=== PATIENT | male | born 1960 | race Caucasian/White ===

== ENCOUNTER 2016-05-08 03:49 | Inpatient (IN) | payer OTHER ==
[2016-05-08 04:45] LABS: Add Diff/Slide Review? Slide Review Added; Comments Flag Yes; Hematocrit 23 % (42-52); Hemoglobin 7.2 g/dl (14.0-18.0); Mean Corpuscular HGB Conc 31 g/dl (31-36); Mean Corpuscular Hemoglobin 24 pg (27-31); Mean Corpuscular Volume 78 fL (80-94); Mean Platelet Volume 10 um3 (7.4-10.4); Red Blood Count 2.99 10^6/ul (4.0-5.4); Red Cell Distribution Width 18 % (10.5-15); White Blood Count 14.2 10^3/ul (3.5-10.8)
[2016-05-08] MEDS ORDERED: HYDROmorphone INJ* 1 MG/ML CARPUJECT SYRINGE ONE (04:52)
[2016-05-08 04:55] LABS: ALT 12 U/L (7-52); Albumin 2.7 g/dL (3.2-5.2); Alkaline Phosphatase 87 U/L (34-104); BUN/Creatinine Ratio 18.2 (8-20); Blood Urea Nitrogen 22 mg/dL (6-24); CO2 Carbon Dioxide 21 mmol/L (22-32); Calcium 7.8 mg/dL (8.6-10.3); Chloride 109 mmol/L (101-111); Creatine Kinase 89 U/L (10-223); EGFR African American 80.1 (>60); EGFR Non-African American 62.3 (>60); Globulin 4.7 g/dL (2-4); Glucose 104 mg/dL (70-100); Sodium 135 mmol/L (133-145); Total Protein 7.4 g/dL (6.4-8.9)
[2016-05-08 05:21] LABS: Hematocrit 24 % (42-52); Hemoglobin 7.4 g/dl (14.0-18.0); Mean Corpuscular HGB Conc 31 g/dl (31-36); Mean Corpuscular Hemoglobin 24 pg (27-31); Mean Corpuscular Volume 78 fL (80-94); Mean Platelet Volume 9 um3 (7.4-10.4); Red Blood Count 3.02 10^6/ul (4.0-5.4); Red Cell Distribution Width 18 % (10.5-15)
[2016-05-08 05:26] LABS: Comments Flag Yes
[2016-05-08] MEDS ORDERED: HYDROmorphone INJ* 1 MG/ML CARPUJECT SYRINGE IV SLOW PU ONE (05:27)
[2016-05-08 05:28] LABS: Add Diff/Slide Review? Slide Review Added
--- NOTE | 2016-05-08 05:28 | ED ---
Estrada Perry Billy, scribed for Abilio Chavez MD on 05/08/16 at 0411 . Skin Complaint - HPI Summary HPI Summary: Patient is a 56 year-old male BIBA to [facility] with constant, [id number], bilateral heel pain and rectal pain. Severity 12/30. Patient states that he has numerous purulent sores on his rectal region and lower extremities that are sloughing off skin. Nothing has made his symptoms better/worse. He arrives to the ED today with numerous bedbugs on his body and under his lower extremity wound dressings. He states he last saw his PCP 2 weeks ago. - History of Current Complaint Chief Complaint: EDRashSkinAbscess Time Seen by Provider: 05/08/16 03:53 Onset/Duration: Started Days Ago, Still Present Timing: Constant Onset Severity: Moderate Current Severity: Moderate Pain Intensity: 10 Pain Scale Used: 0-10 Numeric Skin Location: Leg, Other: - rectal region Character: Pain Aggravating Symptom(s): Nothing Alleviating Symptom(s): Nothing - Additional Pertinent History Primary Care Physician: COSME - Allergy/Home Medications Allergies/Adverse Reactions: Allergies Allergy/AdvReac Type Severity Reaction Status Date / Time Pioglitazone [From Actos] AdvReac Coughing Verified 09/10/15 18:55 PMH/Surg Hx/FS Hx/Imm Hx Endocrine/Hematology History: Reports: Hx Diabetes - DM II, Hx Thyroid Disease - hypothyroid Cardiovascular History: Reports: Hx Hypercholesterolemia - Crestor, Hx Hypertension, Hx Peripheral Vascular Disease - chronic venous stasis, Hx Syncope Respiratory History: Reports: Hx Chronic Bronchitis, Hx Sleep Apnea GI History: Reports: Hx Gastroesophageal Reflux Disease, Hx Hiatal Hernia, Other GI Disorders - gastric bypass surgery november-2012 History: Reports: Hx Benign Prostatic Hyperplasia, Hx Kidney Stones, Other Problems/Disorders - "slow peeing" seen by urologist-prescribed meds Musculoskeletal History: Reports: Hx Arthritis, Hx Back Problems, Hx Fibromyalgia, Hx Orthopedic Injury - right thumb, dislocation of left knee, Hx Osteoporosis, Other Musculoskeletal History - left hip surgery Sensory History: Reports: Hx Contacts or Glasses - to read Opthamlomology History: Reports: Hx Contacts or Glasses - to read Neurological History: Reports: Other Neuro Impairments/Disorders - SYNCOPE Denies: Hx Dementia, Hx Developmental Delay, Hx Headaches Psychiatric History: Reports: Hx Anxiety, Hx Depression, Hx Inpatient Treatment - 2007 Denies: Hx Bipolar Disorder - patient states depression, but not bipoar - Surgical History Surgery Procedure, Year, and Place: Mytosis left eye surgical correction; Tonsillectomy; Right Knee Arthroscopic Surgery; Left Hip Replacement at [facility] 12/12/13; Gastro Bypass 12/14/12 [facility] Hx Anesthesia Reactions: No Infectious Disease History: No Infectious Disease History: Denies: Hx Clostridium Difficile, Hx Hepatitis, Hx Human Immunodeficiency Virus (HIV), Hx of Known/Suspected MRSA, Hx Shingles, Hx Tuberculosis, Hx Known/ Suspected VRE, Hx Known/Suspected VRSA, History Other Infectious Disease, Traveled Outside the [place] in Last 30 Days - Family History Known Family History: Positive: Cardiac Disease - Father - CAD, Diabetes - Son - - DM, Other - Mother - CVA. Father - EtOH abuse and CAD. Son -- testicular CA and DM - Social History Alcohol Use: Rare Hx Substance Use: No Substance Use Type: Reports: None Hx Tobacco Use: Yes Smoking Status (MU): Former Smoker Review of Systems Positive: Other - bilateral lower extremity and rectal pain Positive: Other - purulent sores All Other Systems Reviewed And Are Negative: Yes Physical Exam Triage Information Reviewed: Yes Vital Signs On Initial Exam: Initial Vitals Temp Pulse Resp BP Pulse Ox 97.7 F 110 24 98/64 97 05/08/16 03:57 05/08/16 03:57 05/08/16 03:57 05/08/16 03:57 05/08/16 03:57 Vital Signs Reviewed: Yes Appearance: Positive: Ill-Appearing - chronically, Obese - morbidly Skin: Positive: Warm, Other - bed bugs present Head/Face: Positive: Normal Head/Face Inspection Eyes: Positive: YE ENT: Positive: Hearing grossly normal Respiratory/Lung Sounds: Positive: Breath Sounds Present Cardiovascular: Positive: RRR Abdomen Description: Positive: Nontender, Soft Musculoskeletal: Positive: Edema Left, Edema Right - bilat 4+edema with chronic cellulitis and stasis dermatitis Neurological: Positive: Alert, Oriented to Person Place, Time Diagnostics - Vital Signs Vital Signs Temp Pulse Resp BP Pulse Ox 05/08/16 03:57 97.7 F 110 24 98/64 97 - Laboratory Lab Results: Lab Results 02/16/17 02/16/17 02/16/17 Range/Units 04:28 04:28 04:28 WBC 14.2 H (3.5-10.8) 10^3/ul RBC 2.99 L (4.0-5.4) 10^6/ul Hgb 7.2 L (14.0-18.0) g/dl Hct 23 L (42-52) % MCV 78 L (80-94) fL MCH 24 L (27-31) pg MCHC 31 (31-36) g/dl RDW 18 H (10.5-15) % Plt Count 297 (150-450) 10^3/ul MPV 10 (7.4-10.4) um3 Neut % (Auto) 60.4 (38-83) % Lymph % (Auto) 12.4 L (25-47) % [place] % (Auto) 6.3 (1-9) % Eos % (Auto) 19.8 H (0-6) % Baso % (Auto) 1.1 (0-2) % Absolute Neuts (auto) 8.6 H (1.5-7.7) 10^3/ul Absolute Lymphs (auto) 1.8 (1.0-4.8) 10^3/ul Absolute Monos (auto) 0.9 H (0-0.8) 10^3/ul Absolute Eos (auto) 2.8 H (0-0.6) 10^3/ul Absolute Basos (auto) 0.2 (0-0.2) 10^3/ul Absolute Nucleated RBC 0.01 10^3/ul Nucleated RBC % 0.1 Sodium 135 (133-145) mmol/L Potassium TNP Chloride 109 (101-111) mmol/L Carbon Dioxide 21 L (22-32) mmol/L Anion Gap TNP BUN 22 (6-24) mg/dL Creatinine 1.21 H (0.67-1.17) mg/dL Est GFR ( Amer) 80.1 (>60) Est GFR (Non-Af Amer) 62.3 (>60) BUN/Creatinine Ratio 18.2 (8-20) Glucose 104 H (70-100) mg/dL Lactic Acid 1.0 (0.5-2.0) mmol/L Calcium 7.8 L (8.6-10.3) mg/dL Magnesium TNP Total Bilirubin 0.20 (0.2-1.0) mg/dL AST TNP ALT 12 (7-52) U/L Alkaline Phosphatase 87 (34-104) U/L Total Creatine Kinase 89 (10-223) U/L Total Protein 7.4 (6.4-8.9) g/dL Albumin 2.7 L (3.2-5.2) g/dL Globulin 4.7 H (2-4) g/dL Albumin/Globulin Ratio 0.6 L (1-3) Result Diagrams: 05/08/16 05:10 05/08/16 05:10 Lab Statement: Any lab studies that have been ordered have been reviewed, and results considered in the medical decision making process. - Radiology CXR Xray Interpretation: No Acute Changes Radiology Interpretation Completed By: ED Physician Course/Dx - Diagnoses Provider Diagnoses: Cellulitis, Anemia - Physician Notifications Discussed Care Of Patient With: Dr. Fregoso (hospitalist) @ 0552: accepts admission. Discharge - Discharge Plan Condition: Fair Disposition: ADMITTED TO [facility] Referrals: Edgar Samayoa MD [Primary Care Provider] - The documentation as recorded by the Estrada venegas Billy accurately reflects the service I personally performed and the decisions made by , Abilio Chavez MD.
[2016-05-08 05:57] LABS: Magnesium 2.1 mg/dL (1.9-2.7)
[2016-05-08] MEDS ORDERED: Dextrose 50% Syringe 50 ML* 25 GM/50 ML SYRINGE IV PUSH PRN (06:37)
[2016-05-08] MEDS ORDERED: Acetaminophen SUPP* 650 MG SUPP PR PRN (06:40)
[2016-05-08] MEDS ORDERED: ceFAZolin 1 GM in Dextrose (*) 1 GM/50 ML BAG IVPB SCH (07:00)
[2016-05-08] MEDS ORDERED: Albuterol HFA INHALER* 8 gm MDI INH PRN (07:56)
--- NOTE | 2016-05-08 07:59 | RAD ---
HISTORY: Shortness of breath COMPARISONS: September 10, 2015 VIEWS: 2: Frontal dual-energy and lateral views of the chest. FINDINGS: CARDIOMEDIASTINAL SILHOUETTE: The cardiomediastinal silhouette is normal. MAYO: The mayo are normal. PLEURA: The costophrenic angles are sharp. No pleural abnormalities are noted. LUNG PARENCHYMA: There is hyperinflation with flattening of the diaphragm and expansion of the AP diameter of the chest. ABDOMEN: The upper abdomen is clear. There is no subphrenic gas. BONES AND SOFT TISSUES: No bone or soft tissue abnormalities are noted. OTHER: None. IMPRESSION: HYPERINFLATION, CONSISTENT WITH COPD. NO ACTIVE CARDIOPULMONARY DISEASE.
[2016-05-08] MEDS ORDERED: ceFAZolin 1 GM in Dextrose (*) 1 GM/50 ML BAG IVPB ONE (08:18)
[2016-05-08 08:44] LABS: C Reactive Protein 30.73 mg/L (< 5.00)
[2016-05-08] MEDS ORDERED: FLUoxetine CAP* 20 MG PO SCH (09:00)
[2016-05-08] MEDS ORDERED: Losartan TAB* 25 MG PO SCH (09:00)
[2016-05-08] MEDS ORDERED: fentaNYL PATCH 25 MCG/HR TRANSDERM SCH (10:00)
[2016-05-08] MEDS: Insulin LISPRO* 1 UNITS UNIT SUBCUT SCH ×4 (10:32→20:51)
[2016-05-08 11:07] LABS: Total Iron Binding Capacity 312 mcg/dL (250-450); Transferrin 223 mg/dL (203-362)
[2016-05-08 11:11] LABS: Iron < 15 ug/dL (50-212)
[2016-05-08] MEDS: Tamsulosin CAP* 0.4 MG PO SCH (11:18)
[2016-05-08] MEDS: Losartan TAB* 25 MG PO SCH (11:18)
[2016-05-08] MEDS: Omeprazole CAP* 20 MG PO SCH (11:18)
[2016-05-08] MEDS: Atorvastatin* 40 MG TAB PO SCH (11:19)
[2016-05-08] MEDS: Calcium/Vitamin D TAB 250/125* TAB PO SCH (11:19)
[2016-05-08] MEDS: Levothyroxine TAB* 75 MCG TAB PO SCH (11:19)
[2016-05-08] MEDS: tiZANidine TAB* 2 MG PO PRN ×2 (11:19→17:31)
[2016-05-08] MEDS: Finasteride TAB* 5 MG PO SCH (11:20)
[2016-05-08] MEDS: Sertraline* 100 MG TAB PO SCH (11:20)
[2016-05-08] MEDS: Docusate CAP* 100 MG PO SCH (11:20)
[2016-05-08] MEDS: oxyCODONE TAB* 5 MG TAB PO PRN ×2 (11:21→19:21)
[2016-05-08] MEDS: Pregabalin CAP(*) 50 MG PO SCH ×3 (11:21→20:49)
[2016-05-08 11:29] LABS: Ferritin 18.5 ng/mL (24-336)
[2016-05-08 11:33] LABS: Vitamin B12 1122 pg/mL (180-914)
[2016-05-08] MEDS ORDERED: Perflutren Lipid Microsphere* 1.1 MG/ML VIAL IV ONE (12:00)
[2016-05-08] MEDS: Niacin ER TAB* 500 MG PO SCH (13:20)
[2016-05-08] MEDS: Heparin VIAL(*) 5000 UNITS/ML VIAL (FIVE THOUSAND) SUBCUT SCH ×2 (13:20→20:52)
--- NOTE | 2016-05-08 13:25 | ECHO ---
Patient: ASHUTOSH SIERRA [facility] Rec#: [id number] : 1960 Date: 05/08/2016 Age: 56y Height: 165.1 cm / 65.0 in Weight: 151.95 kg / 334.9 lbs Sex: M BSA: 2.46 Room#: 402 Admit Date#: 05/08/2016 Type: Inpatient Referring: Miguelina Garner DO Reading: Kaden Balderrama MD Physician Practice Manager: Sevtlana Dennis SARI CC: Edgar Samayoa MD Transthoracic Echocardiogram Indication: Anemia/Respiratory abn BP: 96/62 HR: 86 Rhythm: NSR Findings History: Cellulitis,anemia,morbid obesity,former smoker,skin ulcerations. Technical Comments: The study is technically limited due to poor apical windows. Completed at 1312. The study is technically limited due to patient body habitus. Left Ventricle: The left ventricular chamber size is normal. The left ventricle appears hyperdynamic. The estimated ejection fraction is greater than 65%. Normal left ventricular diastolic filling is observed. Left Atrium: The left atrial chamber size is normal. Right Ventricle: The right ventricle is slightly dilated. The right ventricular global systolic function is normal. Right Atrium: The right atrium is not well visualized. Aortic Valve: The aortic valve is trileaflet. There is no evidence of aortic regurgitation. There is no evidence of aortic stenosis. Mitral Valve: The mitral valve leaflets are mildly thickened. There is a trace of mitral regurgitation. There is no evidence of mitral stenosis. Tricuspid Valve: The tricuspid valve leaflets are normal. There is trace to mild tricuspid regurgitation. There is evidence that pulmonary hypertension may be underestimated. Pulmonic Valve: The pulmonic valve appears normal. There is trace to mild pulmonic regurgitation. There is no pulmonic stenosis. Pericardium: A pericardial fat pad is visualized. Aorta: There is no dilatation of the ascending aorta. There is no dilatation of the aortic arch. There is mild dilatation of the aortic root. Pulmonary Artery: The main pulmonary artery appears normal. Venous: The inferior vena cava is dilated. There is an approximate 50% respiratory change in the inferior vena cava dimension. Contrast: Definity was used to optimize study. The LV was not well visulaized with definity Conclusions The left ventricle appears hyperdynamic. The estimated ejection fraction is greater than 65%. No significant valvular disease: There is a trace of mitral regurgitation. There is trace to mild tricuspid regurgitation. The right ventricle is slightly dilated. The right ventricular global systolic function is normal. No reportso of prior studies offered for comparison. Measurements Name Value Normal Range RVIDd (AP) 2D 3.9 cm (0.9 - 2.6) IVSd (2D) 0.7 cm (0.6 - 1) LVPWd (2D) 1.1 cm (0.6 - 1) LVIDd (2D) 4.3 cm (3.6 - 5.4) LVIDs (2D) 3.1 cm - LV FS (2D) 28 % (25 - 45) Aortic Annulus 2.2 cm (1.4 - 2.6) Ao root diameter (2D) 3.6 cm (2.1 - 3.5) Ascending Ao 2.8 cm (2.1 - 3.4) Aortic arch 2.5 cm (1.8 - 3.4) Descending Ao 1.6 cm - LA dimension (AP) 2D 3.6 cm (2.3 - 3.8) Name Value Normal Range MV E-wave Vmax 1.1 m/sec - MV deceleration time 206 msec - MV A-wave Vmax 0.9 m/sec - MV E:A ratio 0.99 ratio - LV septal e' Vmax 0.09 m/sec - LV lateral e' Vmax 0.1 m/sec - LV E:e' septal ratio 12.22 ratio - LV E:e' lateral ratio 11 ratio - Name Value Normal Range AV Vmax 1.9 m/sec - AV VTI 43.5 cm - AV peak gradient 14.17 mmHg - AV mean gradient 8.75 mmHg - LVOT Vmax 1.5 m/sec - LVOT VTI 31.5 cm - LVOT peak gradient 8.59 mmHg - LVOT mean gradient 3.87 mmHg - Name Value Normal Range TR Vmax 2.7 m/sec - TR peak gradient 28 mmHg - RAP 8 mmHg - RVSP 36 mmHg - IVC diameter 2.3 cm - Name Value Normal Range PV Vmax 1.4 m/sec - PV peak gradient 8.08 mmHg -
[2016-05-08] MEDS: Morphine INJ* 4 MG/ML 1 ML CARPUJECT IV PRN ×2 (15:54→22:02)
[2016-05-08] MEDS: ceFAZolin 1 GM in Dextrose (*) 1 GM/50 ML BAG IVPB SCH ×2 (17:31→21:45)
[2016-05-08] MEDS: fentaNYL Patch Check Q Shift 1 NOTE SCH (19:16)
--- NOTE | 2016-05-08 19:17 | HP ---
HISTORY AND PHYSICAL: DATE OF ADMISSION: 05/08/16 PRIMARY CARE PROVIDER: Dr. Edgar Samayoa. CHIEF COMPLAINT: Bilateral leg pain. HISTORY OF PRESENT ILLNESS: Mr. Warner is a 55-year-old male with a history of chronic pain, morbid obesity, hyperlipidemia, obstructive sleep apnea, hypertension, depression and type 2 diabetes who presented to the emergency room with complaints of bilateral leg pain. The patient states that going on for several weeks now, he has had searing pain in his legs. He ultimately presented because the pain was uncontrollable at home. The patient states that in addition to this he has sores in his gluteal fold that are incredibly painful. He does state that he gets up and moves around, however he spends a lot of time sitting as well. The patient himself do not have concerns for infection in his legs but only wanted the pain treated. PAST MEDICAL HISTORY: 1. Chronic pain, seen by Dr. Seals. 2. Hyperlipidemia. 3. Depression. 4. Morbid obesity. 5. Obstructive sleep apnea. 6. Hypertension. 7. Hypothyroidism. PAST SURGICAL HISTORY: 1. Mohini-en-Y gastric bypass. 2. Left total hip arthroplasty. 3. Right knee arthroscopy. MEDICATIONS: 1. Oxycodone 10 mg p.o. q. 8 hours p.r.n. pain. 2. Tizanidine 4 mg p.o. t.i.d. p.r.n. spasm. 3. Flomax 0.4 mg p.o. daily. 4. Crestor 20 mg p.o. daily. 5. Lyrica 150 mg p.o. t.i.d. 6. Niacin ER 2000 mg p.o. daily. 7. Lidocaine patch applied topically daily, on for 12 hours and off for 12 hours as needed for pain. 8. Losartan 100 mg p.o. daily. 9. Linzess 145 mcg p.o. daily p.r.n. constipation. 10. Synthroid 75 mcg p.o. daily. 11. Finasteride 5 mg p.o. daily. 12. Prozac 60 mg p.o. daily. 13. Fentanyl patch 25 mcg topically q. 72 hours. 14. Colace 100 mg p.o. daily. 15. Calcium plus vitamin D one tab p.o. daily. 16. Trazodone 150 mg p.o. q.h.s. 17. Terbinafine 250 mg p.o. daily. 18. Albuterol 2 puffs inhaled q. 4 hours p.r.n. shortness of breath. 19. Abilify 10 mg p.o. q.h.s. 20. Nystatin cream apply topically t.i.d. to skin folds. 21. Lasix 40 mg p.o. daily. 22. Sertraline 100 mg p.o. daily. 23. Omeprazole 20 mg p.o. daily. ALLERGIES: ACTOS. FAMILY HISTORY: Mom had a history of CVA. Dad had a history of MT. SOCIAL HISTORY: The patient is a former smoker. He drinks beer on occasion. His surrogate decision maker is his son Mati. REVIEW OF SYSTEMS: The patient denies any fevers, chills, or anorexia. No significant weight change. No chest pain. No shortness of breath. No cough. No abdominal pain, nausea or vomiting. No change in bowel habits. No dysuria. He admits to the pain in the bilateral lower legs and feet currently, right worse than left. He also complains of sores in his bilateral gluteal folds. He states he has no issues ambulating. PHYSICAL EXAMINATION GENERAL: The patient is a well-developed, middle aged, morbidly obese, disheveled appearing male sitting up in a stretcher, in no acute distress. VITAL SIGNS: Blood pressure 96/62, pulse 92, respirations 22, temperature 97.7 , O2 sat 96% on room air. HEENT: Pupils are equal, they are round. Extraocular muscles are intact. Oropharynx is clear. Oral mucosa is moist. NECK: There is no submandibular, cervical or supraclavicular adenopathy. Thyroid is not enlarged. No thyroid nodules are noted. PULMONARY: Breath sounds are markedly decreased in all lung marion but are clear. CARDIAC: Normal S1, S2. Regular rate and rhythm. I do not appreciate any murmur. ABDOMEN: Bowel sounds are present. Abdomen is obese, soft, nontender, nondistended. EXTREMITIES: There is marked bilateral lower leg edema with weeping from the skin. MUSCULOSKELETAL: There is no cyanosis or clubbing of the digits. There is full active range of motion of the upper extremities. Lower extremity range of motion is limited due to the size of his lower extremities. NEUROLOGIC: Cranial nerves II through XII are grossly intact. Sensation is intact to light touch throughout. Strength is 5/5 and symmetric both upper and lower extremities bilaterally. SKIN: Warm and dry. There are numerous scabbed over type punctate lesions, scattered across the patient's body consistent with bites. There is diffuse erythema of the bilateral lower legs. There is a linear ulceration in the left gluteal fold. Smaller ulceration noted in the right gluteal fold with surrounding erythema. There is marked roz intertrigo under the breast folds with cheesy accumulation deep within the folds. There is a foul smell when the folds are inspected. PSYCH: The patient is alert. He is oriented x3. Affect appears appropriate. DIAGNOSTIC STUDIES/LAB DATA: WBC 14.0, hemoglobin 7.4, hematocrit 24, platelets 370. Sodium 135, potassium 4.3, chloride 109, CO2 of 21, BUN 22, creatinine 1.21, glucose 104. Lactic acid 1.0. Calcium 7.8, magnesium 2.1, bilirubin 0.2, AST 22, ALT 12, alkaline phos 87, CPK 89 and albumin 2.7. Chest x-ray: Hyperinflation consistent with COPD with no acute pulmonary process. ASSESSMENT AND PLAN: Mr. Warner is a 56-year-old male who has a longstanding history of morbid obesity, lymphedema of the lower extremities, bed bug infestation at home and chronic pain who presents to the emergency room with complaints of bilateral lower leg pain. In the ER, the patient is found to have numerous bed bug bites all over his body in addition to possible bilateral lower extremity cellulitis and gluteal fold ulcerations. 1. Bilateral lower extremity cellulitis. At this point, the patient's legs are beefy red. They are markedly swollen. They are somewhat weepy. There are no open ulcerations though there are blisters that have ruptured. The patient' s white blood cell count is elevated at 14 today. I will go ahead and add a CRP to compare to previous hospitalizations. Additionally, we will add a procalcitonin level. The patient will be started on cefazolin for treatment of possible bilateral lower extremity cellulitis. The patient appears questionably be able to take care of himself at home and maintain a cleanly living situation. A social work consult will be requested. At this point, I am not concerned about deeper infection in the legs, however if it becomes evident that there is possibly an abscess, CT scan of the lower extremities will be obtained. 2. Gluteal fold ulceration. This is likely from the patient sitting around at home. He had been applying nystatin cream to this area per outpatient progress note from his primary care provider. I will ask for a wound consultation. The patient will need to try to have pressure relieved from his area which will include him not lying on his backside or sitting for a prolonged period of time in the chair. The patient will benefit from aggressive bathing and skin care. 3. Anemia. The patient is newly markedly anemic. He has had chronic anemia, however his hemoglobin at this time is much lower than it has been over the last one year. Iron, B12, and folate studies will be obtained. Additionally, a stool guaiac will be obtained. I suspect his anemia is on the basis of chronic inflammation; however in the past he had been on ferrous sulfate supplementation. We will need to follow up these results. Followup CBC will be obtained tomorrow morning. 4. Acute kidney injury. The patient's creatinine is elevated above his baseline at 1.21. The patient has been on Lasix at home, however, appears to be edematous in his lower extremities. At this point, I will hold his Lasix and we will recheck a BMP in the morning. I am also going to hold off on IV fluid hydration if he does not appear to be volume deplete at this point. The patient has not had a transthoracic echocardiogram that I can tell within our system. I will go ahead and order this though likely the test will be of little value due to the patient's body habitus. 5. Moderate protein-calorie malnutrition. The patient's albumin level is low at 2.7. His globulin level is elevated. He does have some renal dysfunction as well as chronic anemia. The patient will have an SPEP ordered. 6. Chronic pain. The patient will be maintained on his usual dose of fentanyl patch 25 mcg topically q. 3 days as well as oxycodone 10 mg p.o. q. 8 hours. He will also have tizanidine ordered though this is not formulary. If the hospital is unable to provide this, I can change to a different antispasmodic. 7. Benign prostatic hyperplasia. The patient will be maintained on his usual doses of Flomax and finasteride. 8. Hyperlipidemia. The patient will be maintained on statin. He takes Crestor at home and this will be auto-substituted in the hospital. 9. Hypertension. The patient's blood pressure is low normal in the 90 systolic. I will cut his losartan dose to 50 mg daily for now. We will monitor his blood pressure. 10. Hypothyroidism. The patient will be maintained on his usual dose of Synthroid. He had a TSH level checked in December 2015 which was in good range. 11. Depression. The patient will be maintained on his usual dose of Prozac and sertraline. Additionally, he will continue on trazodone and Abilify at bedtime. 12. Gastroesophageal reflux disease. The patient will be maintained on his usual dose of Prilosec. 13. Bed bugs. I will discuss the patient's case with Infection Control. He does not require treatment with permethrin as far as I can tell. However this is likely to be a continued problem at home due to his living conditions. Again , a social work consultation is being requested. 14. DVT prophylaxis. According to Adult Thrombosis Prophylaxis Risk Factor Assessment Guide, the patient has a total risk factor score of 3 making him high risk. He will be placed on heparin 5000 units subcutaneous q. 8 hours. 15. Code status is full. Again, the patient indicates that his son, Mati, is his healthcare proxy. TIME SPENT: 65 minutes was spent admitting this patient. CC: Dr. Samayoa * [id number]/CPS #: [id number] MTDD
[2016-05-08 19:49] LABS: Urine Bilirubin Negative (Negative); Urine Glucose Negative (Negative); Urine Nitrite Negative (Negative)
[2016-05-08] MEDS: ARIPiprazole TAB* 5 MG PO SCH (20:48)
[2016-05-08] MEDS: traZODone TAB* 50 MG TAB PO SCH (20:50)
[2016-05-09] MEDS: ceFAZolin 1 GM in Dextrose (*) 1 GM/50 ML BAG IVPB SCH ×3 (00:39→16:32)
[2016-05-09] MEDS: Levothyroxine TAB* 75 MCG TAB PO SCH (05:12)
[2016-05-09] MEDS: oxyCODONE TAB* 5 MG TAB PO PRN ×2 (05:12→14:53)
[2016-05-09] MEDS: Heparin VIAL(*) 5000 UNITS/ML VIAL (FIVE THOUSAND) SUBCUT SCH ×3 (05:26→21:52)
[2016-05-09 06:22] LABS: Mean Corpuscular HGB Conc 31 g/dl (31-36); Mean Corpuscular Hemoglobin 24 pg (27-31); Mean Platelet Volume 9 um3 (7.4-10.4); White Blood Count 11.5 10^3/ul (3.5-10.8)
[2016-05-09 06:31] LABS: Hematocrit 21 % (42-52); Hemoglobin 6.5 g/dl (14.0-18.0); Mean Corpuscular Volume 77 fL (80-94); Red Blood Count 2.76 10^6/ul (4.0-5.4); Red Cell Distribution Width 18 % (10.5-15)
[2016-05-09] MEDS: Morphine INJ* 4 MG/ML 1 ML CARPUJECT IV PRN ×4 (06:32→20:57)
[2016-05-09 06:34] LABS: Add Diff/Slide Review? Slide Review Added; Comments Flag Yes
[2016-05-09 06:39] LABS: BUN/Creatinine Ratio 16.7 (8-20); Calcium 7.5 mg/dL (8.6-10.3); EGFR African American 104.6 (>60); EGFR Non-African American 81.3 (>60); Potassium 3.5 mmol/L (3.5-5.0)
[2016-05-09 06:57] LABS: Hypochromasia 2+
[2016-05-09 06:58] LABS: Polychromasia 1+
[2016-05-09] MEDS: fentaNYL Patch Check Q Shift 1 NOTE SCH ×2 (07:00→18:57)
--- NOTE | 2016-05-09 07:54 | PN ---
Subjective Date of Service: 05/09/16 Interval History: Pt is feeling ok except for pain in his left lower leg. He denies any SOB. He notes that he had a difficult time going from stretcher to bed yesterday and is agreeable to a PT consult today. He also c/o muffled hearing for the last few weeks. Objective Active Medications: Acetaminophen (Tylenol Supp*) 650 mg FL Q4H PRN PRN Reason: FEVER/PAIN Albuterol (Ventolin Hfa Inhaler*) 2 puff INH Q4H PRN PRN Reason: WHEEZING Aripiprazole (Abilify Tab*) 10 mg PO BEDTIME [facility] Last Admin: 05/08/16 20:48 Dose: 10 mg Atorvastatin Calcium (Lipitor*) 40 mg PO DAILY [facility] Last Admin: 05/08/16 11:19 Dose: 40 mg Calcium/Vitamin D (Oscal D Tab 250/125*) 1 tab PO DAILY [facility] Last Admin: 05/08/16 11:19 Dose: 1 tab Dextrose (D50w Syringe 50 Ml*) 12.5 gm IV PUSH .FOR FS < 60 - SS PRN PRN Reason: FS < 60 Docusate Sodium (Colace Cap*) 100 mg PO DAILY [facility] Last Admin: 05/08/16 11:20 Dose: 100 mg Fentanyl (Duragesic Patch 25 Mcg/Hr*) 25 mcg TRANSDERM Q72H [facility] Last Admin: 05/08/16 11:23 Dose: 25 mcg Finasteride (Proscar Tab*) 5 mg PO DAILY [facility] Last Admin: 05/08/16 11:20 Dose: 5 mg Heparin Sodium (Porcine) (Heparin Vial(*)) 5,000 units SUBCUT Q8HR [facility] Last Admin: 05/09/16 05:26 Dose: 5,000 units Cefazolin Sodium/Dextrose (Kefzol 1 Gm In Dextrose Duplex (*)) 1 gm in 50 mls @ 200 mls/hr IVPB 0030,0830,1630 [facility] Last Admin: 05/09/16 00:39 Dose: 200 mls/hr Insulin Human Lispro (Humalog*) 0 units SUBCUT ACHS [facility] PRN Reason: Protocol Last Admin: 05/08/16 20:51 Dose: 2 unit Levothyroxine Sodium (Synthroid Tab*) 75 mcg PO 0600 [facility] Last Admin: 05/09/16 05:12 Dose: 75 mcg Losartan Potassium (Cozaar Tab*) 50 mg PO DAILY [facility] Last Admin: 05/08/16 11:18 Dose: 50 mg Morphine Sulfate (Morphine Inj (Syringe)*) 4 mg IV Q4H PRN PRN Reason: PAIN Last Admin: 05/09/16 06:32 Dose: 4 mg Niacin (Niaspan Er Tab*) 2,000 mg PO DAILY [facility] Last Admin: 05/08/16 13:20 Dose: 2,000 mg Nystatin (Nystatin Cream*) 1 applic TOPICAL TID [facility] Omeprazole (Prilosec Cap*) 20 mg PO 0730 [facility] Last Admin: 05/08/16 11:18 Dose: 20 mg Oxycodone HCl (Roxycodone Tab*) 10 mg PO Q8H PRN PRN Reason: PAIN Last Admin: 05/09/16 05:12 Dose: 10 mg Pharmacy Profile Note (Fentanyl Patch Check Q Shift) 1 note N/A 0700,1900 [facility] Last Admin: 05/09/16 07:00 Dose: 1 note Pregabalin (Lyrica Cap(*)) 150 mg PO TID [facility] Last Admin: 05/08/16 20:49 Dose: 150 mg Sertraline HCl (Zoloft*) 100 mg PO DAILY [facility] Last Admin: 05/08/16 11:20 Dose: 100 mg Tamsulosin HCl (Flomax Cap*) 0.4 mg PO DAILY [facility] Last Admin: 05/08/16 11:18 Dose: 0.4 mg Tizanidine HCl (Zanaflex Tab*) 4 mg PO TID PRN PRN Reason: Muscle Spasms Last Admin: 05/08/16 17:31 Dose: 4 mg Trazodone HCl (Desyrel Tab*) 150 mg PO BEDTIME [facility] Last Admin: 05/08/16 20:50 Dose: 150 mg Vital Signs 05/08/16 05/08/16 05/08/16 10:07 10:24 10:31 Temperature 98.5 F 97.6 F 97.6 F Pulse Rate 88 90 90 Respiratory 20 18 18 Rate Blood Pressure 99/54 146/59 146/59 (mmHg) O2 Sat by Pulse 100 100 Oximetry 05/08/16 05/08/16 05/08/16 11:21 11:23 13:21 Temperature Pulse Rate Respiratory 18 18 18 Rate Blood Pressure (mmHg) O2 Sat by Pulse Oximetry 05/08/16 05/08/16 05/08/16 15:19 15:39 15:40 Temperature 97.6 F Pulse Rate 94 Respiratory 18 18 18 Rate Blood Pressure 108/46 (mmHg) O2 Sat by Pulse 100 Oximetry 05/08/16 05/08/16 05/08/16 15:54 16:54 19:16 Temperature 97.6 F Pulse Rate 93 Respiratory 16 18 20 Rate Blood Pressure 124/52 (mmHg) O2 Sat by Pulse 100 Oximetry 05/08/16 05/08/16 05/08/16 19:21 20:00 20:49 Temperature Pulse Rate Respiratory 18 18 16 Rate Blood Pressure (mmHg) O2 Sat by Pulse Oximetry 05/08/16 05/08/16 05/08/16 21:21 22:02 22:49 Temperature Pulse Rate Respiratory 18 18 18 Rate Blood Pressure (mmHg) O2 Sat by Pulse Oximetry 05/08/16 05/08/16 05/09/16 23:02 23:32 05:12 Temperature 98.5 F Pulse Rate 82 Respiratory 18 15 18 Rate Blood Pressure 101/54 (mmHg) O2 Sat by Pulse 97 Oximetry 05/09/16 05/09/16 06:32 07:22 Temperature 98.3 F Pulse Rate 110 Respiratory 18 18 Rate Blood Pressure 125/55 (mmHg) O2 Sat by Pulse 98 Oximetry Oxygen Devices in Use Now: None Appearance: Morbidly obese middle aged male sitting up in bed, NAD Eyes: No Scleral Icterus Ears/Nose/Mouth/Throat: Mucous Membranes Moist, - - TM easily visible, no erythema Respiratory: Symmetrical Chest Expansion and Respiratory Effort, Clear to Auscultation - anteriorly Cardiovascular: NL Sounds; No Murmurs; No JVD, - - tachycardic but regular, marked LE edema with weeping lower legs Abdominal: NL Sounds; No Tenderness; No Distention Extremities: No Clubbing, Cyanosis Skin: No Nodules or Sclerosis, - - buttock ulcerations not inspected today, no significant lower leg wounds Neurological: Alert and Oriented x 3 Result Diagrams: 05/09/16 05:28 05/09/16 05:28 Additional Lab and Data: Lab Results 05/08/16 05/08/16 05/08/16 Range/Units 04:28 04:28 04:28 WBC 14.2 H (3.5-10.8) 10^3/ul RBC 2.99 L (4.0-5.4) 10^6/ul Hgb 7.2 L (14.0-18.0) g/dl Hct 23 L (42-52) % MCV 78 L (80-94) fL MCH 24 L (27-31) pg MCHC 31 (31-36) g/dl RDW 18 H (10.5-15) % Plt Count 297 (150-450) 10^3/ul MPV 10 (7.4-10.4) um3 Neut % (Auto) 60.4 (38-83) % Lymph % (Auto) 12.4 L (25-47) % [place] % (Auto) 6.3 (1-9) % Eos % (Auto) 19.8 H (0-6) % Baso % (Auto) 1.1 (0-2) % Absolute Neuts (auto) 8.6 H (1.5-7.7) 10^3/ul Absolute Lymphs (auto) 1.8 (1.0-4.8) 10^3/ul Absolute Monos (auto) 0.9 H (0-0.8) 10^3/ul Absolute Eos (auto) 2.8 H (0-0.6) 10^3/ul Absolute Basos (auto) 0.2 (0-0.2) 10^3/ul Absolute Nucleated RBC 0.01 10^3/ul Nucleated RBC % 0.1 Sodium 135 (133-145) mmol/L Potassium TNP Chloride 109 (101-111) mmol/L Carbon Dioxide 21 L (22-32) mmol/L Anion Gap TNP BUN 22 (6-24) mg/dL Creatinine 1.21 H (0.67-1.17) mg/dL Est GFR ( Amer) 80.1 (>60) Est GFR (Non-Af Amer) 62.3 (>60) BUN/Creatinine Ratio 18.2 (8-20) Glucose 104 H (70-100) mg/dL Lactic Acid 1.0 (0.5-2.0) mmol/L Calcium 7.8 L (8.6-10.3) mg/dL Magnesium TNP Total Bilirubin 0.20 (0.2-1.0) mg/dL AST TNP ALT 12 (7-52) U/L Alkaline Phosphatase 87 (34-104) U/L Total Creatine Kinase 89 (10-223) U/L Total Protein 7.4 (6.4-8.9) g/dL Albumin 2.7 L (3.2-5.2) g/dL Globulin 4.7 H (2-4) g/dL Albumin/Globulin Ratio 0.6 L (1-3) Assess/Plan/Problems-Billing Mr Warner is a 56 yo M who has a h/o HTN, hypothyroidism, LIZZETTE, morbid obesity , depression, hyperlipidemia and chronic pain who presented to the ER with c/o lower leg pain and was found to have an elevated WBC count and erythema of the lower legs concerning for cellulitis. - Patient Problems (1) Cellulitis Current Visit: Yes Status: Acute Code(s): L03.90 - CELLULITIS, UNSPECIFIED SNOMED Code(s): 977948830 Comment: The patient has B/L LE edema and warmth however it is not completely clear that this represents cellulitis vs skin changes related to chronic edema. His WBC count however has trended down with the administration of IV cefazolin. Continue cefazolin, monitor WBC count and skin erythema. (2) Infestation by bed bug Current Visit: Yes Status: Acute Code(s): B88.8 - OTHER SPECIFIED INFESTATIONS SNOMED Code(s): 49566479 Comment: The patient has as bed bug infestation at home. Social work will (3) Lower extremity edema Current Visit: Yes Status: Acute Code(s): R60.0 - LOCALIZED EDEMA SNOMED Code(s): 270866924 Comment: The patient has marked LE edema. Will try HERBERT wraps to the lower legs. Echo shows an EF of 60-65%, no clear evidence of diastolic dysfunction. I would like to try to diurese the patient but will need to do so very carefully as his creatinine was elevated on admission. (4) Iron deficiency anemia Current Visit: Yes Status: Acute Code(s): D50.9 - IRON DEFICIENCY ANEMIA, UNSPECIFIED SNOMED Code(s): 01520388 Comment: The patient's H/H on admission was lower than previous and today is even worse. Will transfuse 1 unit PRBC today. Start iron supplementation. Await stool guaiac. (5) Chronic pain Current Visit: Yes Status: Acute Code(s): G89.29 - OTHER CHRONIC PAIN SNOMED Code(s): 61670033 Comment: Continue fentanyl patch, prn oxycodone and prn morphine for severe pain. (6) HTN (hypertension) Current Visit: No Status: Chronic Code(s): I10 - ESSENTIAL (PRIMARY) HYPERTENSION SNOMED Code(s): 46321382 Comment: BP is under good control-low on admission therefore I decreased his losartan to 50mg daily. Will continue this dose but monitor the pressure and increase back to his home dose if his pressures go up. (7) LIZZETTE (obstructive sleep apnea) Current Visit: Yes Status: Acute Code(s): G47.33 - OBSTRUCTIVE SLEEP APNEA ( ADULT) (PEDIATRIC) SNOMED Code(s): 74493304 Comment: Pt has a h/o LIZZETTE documented in his history but it is unclear how this was diagnosed. Will ask for nocturnal desaturation study tonight on RA to eval for nocturnal hypoxia. (8) Hyperlipidemia Current Visit: Yes Status: Chronic Code(s): E78.5 - HYPERLIPIDEMIA, UNSPECIFIED SNOMED Code(s): 32260141 Comment: Continue lipitor. (9) Hypothyroidism Current Visit: Yes Status: Chronic Code(s): E03.9 - HYPOTHYROIDISM, UNSPECIFIED SNOMED Code(s): 72768675 Comment: Pt had a TSH 12/2015 in good range. Continue current dose of synthroid. (10) Morbid obesity Current Visit: No Status: Chronic Code(s): E66.01 - MORBID (SEVERE) OBESITY DUE TO EXCESS CALORIES SNOMED Code(s): 105897502 Comment: Diagnosis is noted. PT eval-I question if he would do better at STR. (11) DVT prophylaxis Current Visit: Yes Status: Acute Code(s): LKT2899 - SNOMED Code(s): 948972756 Comment: SQ heparin (12) Full code status Current Visit: Yes Status: Acute Code(s): Z78.9 - OTHER SPECIFIED HEALTH STATUS SNOMED Code(s): 515637048
[2016-05-09] MEDS: Insulin LISPRO* 1 UNITS UNIT SUBCUT SCH ×4 (08:16→20:46)
[2016-05-09] MEDS ORDERED: Furosemide IV* 10 MG/ML VIAL (40 MG) IV SLOW PU ONE (08:21)
[2016-05-09] MEDS: Pregabalin CAP(*) 50 MG PO SCH ×3 (08:29→20:51)
[2016-05-09] MEDS: Omeprazole CAP* 20 MG PO SCH (08:29)
[2016-05-09] MEDS: Niacin ER TAB* 500 MG PO SCH (08:29)
[2016-05-09] MEDS: Tamsulosin CAP* 0.4 MG PO SCH (08:29)
[2016-05-09] MEDS: Sertraline* 100 MG TAB PO SCH (08:29)
[2016-05-09] MEDS: Calcium/Vitamin D TAB 250/125* TAB PO SCH (08:29)
[2016-05-09] MEDS: Finasteride TAB* 5 MG PO SCH (08:29)
[2016-05-09] MEDS: Docusate CAP* 100 MG PO SCH (08:30)
[2016-05-09] MEDS: Nystatin CREAM* 15 GM TUBE TOPICAL SCH ×3 (08:30→20:52)
[2016-05-09] MEDS: Atorvastatin* 40 MG TAB PO SCH (08:30)
[2016-05-09] MEDS: Losartan TAB* 25 MG PO SCH (08:30)
[2016-05-09] MEDS: traZODone TAB* 50 MG TAB PO SCH (20:49)
[2016-05-09] MEDS: ARIPiprazole TAB* 5 MG PO SCH (20:50)
[2016-05-10] MEDS: oxyCODONE TAB* 5 MG TAB PO PRN ×2 (00:19→13:45)
[2016-05-10] MEDS: ceFAZolin 1 GM in Dextrose (*) 1 GM/50 ML BAG IVPB SCH ×3 (00:27→16:38)
[2016-05-10] MEDS: Morphine INJ* 4 MG/ML 1 ML CARPUJECT IV PRN ×2 (01:06→07:09)
[2016-05-10] MEDS: Levothyroxine TAB* 75 MCG TAB PO SCH (05:58)
[2016-05-10] MEDS: Heparin VIAL(*) 5000 UNITS/ML VIAL (FIVE THOUSAND) SUBCUT SCH ×3 (05:58→22:51)
[2016-05-10] MEDS: fentaNYL Patch Check Q Shift 1 NOTE SCH ×2 (07:00→18:34)
[2016-05-10] MEDS: Insulin LISPRO* 1 UNITS UNIT SUBCUT SCH ×4 (07:36→21:05)
[2016-05-10] MEDS: Niacin ER TAB* 500 MG PO SCH (08:22)
[2016-05-10] MEDS: Omeprazole CAP* 20 MG PO SCH (08:23)
[2016-05-10] MEDS: Tamsulosin CAP* 0.4 MG PO SCH (08:23)
[2016-05-10] MEDS: Losartan TAB* 25 MG PO SCH (08:23)
[2016-05-10] MEDS: Docusate CAP* 100 MG PO SCH (08:24)
[2016-05-10] MEDS: Sertraline* 100 MG TAB PO SCH (08:24)
[2016-05-10] MEDS: Calcium/Vitamin D TAB 250/125* TAB PO SCH (08:24)
[2016-05-10] MEDS: Finasteride TAB* 5 MG PO SCH (08:24)
[2016-05-10] MEDS: Atorvastatin* 40 MG TAB PO SCH (08:24)
[2016-05-10] MEDS: Pregabalin CAP(*) 50 MG PO SCH ×3 (08:25→23:42)
[2016-05-10] MEDS: Nystatin CREAM* 15 GM TUBE TOPICAL SCH ×3 (08:25→23:45)
--- NOTE | 2016-05-10 09:30 | PN ---
Subjective Date of Service: 05/10/16 Interval History: Pt is feeling ok. He continues to have significant pain in his LE-both lower legs and the gluteal folds. He feels he may benefit from STR for wound healing and continued PT (he only walked 5ft yesterday). Objective Active Medications: Acetaminophen (Tylenol Supp*) 650 mg SC Q4H PRN PRN Reason: FEVER/PAIN Albuterol (Ventolin Hfa Inhaler*) 2 puff INH Q4H PRN PRN Reason: WHEEZING Aripiprazole (Abilify Tab*) 10 mg PO BEDTIME [facility] Last Admin: 05/09/16 20:50 Dose: 10 mg Atorvastatin Calcium (Lipitor*) 40 mg PO DAILY [facility] Last Admin: 05/10/16 08:24 Dose: 40 mg Calcium/Vitamin D (Oscal D Tab 250/125*) 1 tab PO DAILY [facility] Last Admin: 05/10/16 08:24 Dose: 1 tab Dextrose (D50w Syringe 50 Ml*) 12.5 gm IV PUSH .FOR FS < 60 - SS PRN PRN Reason: FS < 60 Docusate Sodium (Colace Cap*) 100 mg PO DAILY [facility] Last Admin: 05/10/16 08:24 Dose: 100 mg Fentanyl (Duragesic Patch 25 Mcg/Hr*) 25 mcg TRANSDERM Q72H [facility] Last Admin: 05/08/16 11:23 Dose: 25 mcg Finasteride (Proscar Tab*) 5 mg PO DAILY [facility] Last Admin: 05/10/16 08:24 Dose: 5 mg Heparin Sodium (Porcine) (Heparin Vial(*)) 5,000 units SUBCUT Q8HR [facility] Last Admin: 05/10/16 05:58 Dose: 5,000 units Cefazolin Sodium/Dextrose (Kefzol 1 Gm In Dextrose Duplex (*)) 1 gm in 50 mls @ 200 mls/hr IVPB 0030,0830,1630 [facility] Last Admin: 05/10/16 08:22 Dose: 200 mls/hr Insulin Human Lispro (Humalog*) 0 units SUBCUT ACHS [facility] PRN Reason: Protocol Last Admin: 05/10/16 07:36 Dose: Not Given Levothyroxine Sodium (Synthroid Tab*) 75 mcg PO 0600 [facility] Last Admin: 05/10/16 05:58 Dose: 75 mcg Losartan Potassium (Cozaar Tab*) 50 mg PO DAILY [facility] Last Admin: 05/10/16 08:23 Dose: 50 mg Morphine Sulfate (Morphine Inj (Syringe)*) 4 mg IV Q4H PRN PRN Reason: PAIN Last Admin: 05/10/16 07:09 Dose: 4 mg Niacin (Niaspan Er Tab*) 2,000 mg PO DAILY [facility] Last Admin: 05/10/16 08:22 Dose: 2,000 mg Nystatin (Nystatin Cream*) 1 applic TOPICAL TID [facility] Last Admin: 05/10/16 08:25 Dose: 1 top.lotion Omeprazole (Prilosec Cap*) 20 mg PO 0730 [facility] Last Admin: 05/10/16 08:23 Dose: 20 mg Oxycodone HCl (Roxycodone Tab*) 10 mg PO Q8H PRN PRN Reason: PAIN Last Admin: 05/10/16 00:19 Dose: 10 mg Pharmacy Profile Note (Fentanyl Patch Check Q Shift) 1 note N/A 0700,1900 [facility] Last Admin: 05/10/16 07:00 Dose: 1 note Pregabalin (Lyrica Cap(*)) 150 mg PO TID [facility] Last Admin: 05/10/16 08:25 Dose: 150 mg Sertraline HCl (Zoloft*) 100 mg PO DAILY [facility] Last Admin: 05/10/16 08:24 Dose: 100 mg Tamsulosin HCl (Flomax Cap*) 0.4 mg PO DAILY [facility] Last Admin: 05/10/16 08:23 Dose: 0.4 mg Tizanidine HCl (Zanaflex Tab*) 4 mg PO TID PRN PRN Reason: Muscle Spasms Last Admin: 05/08/16 17:31 Dose: 4 mg Trazodone HCl (Desyrel Tab*) 150 mg PO BEDTIME [facility] Last Admin: 05/09/16 20:49 Dose: 150 mg Vital Signs 05/09/16 05/09/16 05/09/16 10:07 10:23 10:29 Temperature 98.6 F 98.6 F Pulse Rate 105 106 Respiratory 16 18 Rate Blood Pressure 109/55 124/51 (mmHg) O2 Sat by Pulse 97 98 Oximetry 05/09/16 05/09/16 05/09/16 12:37 12:46 13:07 Temperature 99.5 F Pulse Rate 105 Respiratory 18 16 Rate Blood Pressure 111/60 (mmHg) O2 Sat by Pulse 99 Oximetry 05/09/16 05/09/16 05/09/16 13:37 14:53 15:31 Temperature 98.0 F Pulse Rate 96 Respiratory 18 18 19 Rate Blood Pressure 122/50 (mmHg) O2 Sat by Pulse 98 Oximetry 05/09/16 05/09/16 05/09/16 16:32 16:53 17:25 Temperature Pulse Rate Respiratory 18 14 14 Rate Blood Pressure (mmHg) O2 Sat by Pulse Oximetry 05/09/16 05/09/16 05/09/16 20:00 20:45 20:51 Temperature Pulse Rate Respiratory 16 16 16 Rate Blood Pressure (mmHg) O2 Sat by Pulse Oximetry 05/09/16 05/09/16 05/10/16 20:57 21:54 00:13 Temperature 98.0 F Pulse Rate 98 Respiratory 16 16 16 Rate Blood Pressure 130/59 (mmHg) O2 Sat by Pulse 96 Oximetry 05/10/16 05/10/16 05/10/16 00:19 01:06 03:54 Temperature 97.2 F Pulse Rate 100 Respiratory 16 16 16 Rate Blood Pressure 121/61 (mmHg) O2 Sat by Pulse 96 Oximetry 05/10/16 05/10/16 05/10/16 07:09 08:09 08:25 Temperature Pulse Rate Respiratory 16 16 16 Rate Blood Pressure (mmHg) O2 Sat by Pulse Oximetry Oxygen Devices in Use Now: None Appearance: Middle aged morbidly obese male sitting up in bed, NAD Eyes: No Scleral Icterus Ears/Nose/Mouth/Throat: Mucous Membranes Moist Respiratory: Symmetrical Chest Expansion and Respiratory Effort, Clear to Auscultation Cardiovascular: NL Sounds; No Murmurs; No JVD, - - mildly tachycardic but regular, marked LE edema Abdominal: NL Sounds; No Tenderness; No Distention Extremities: No Clubbing, Cyanosis Skin: No Nodules or Sclerosis, - - shallow ulceration posterior R leg (skin looks like it peeled off), + foul smell with unwrapping the R leg, less beefy red erythema, less warmth Neurological: Alert and Oriented x 3 Result Diagrams: 05/09/16 05:28 05/09/16 05:28 Additional Lab and Data: Lab Results 05/08/16 05/08/16 05/08/16 Range/Units 04:28 04:28 04:28 WBC 14.2 H (3.5-10.8) 10^3/ul RBC 2.99 L (4.0-5.4) 10^6/ul Hgb 7.2 L (14.0-18.0) g/dl Hct 23 L (42-52) % MCV 78 L (80-94) fL MCH 24 L (27-31) pg MCHC 31 (31-36) g/dl RDW 18 H (10.5-15) % Plt Count 297 (150-450) 10^3/ul MPV 10 (7.4-10.4) um3 Neut % (Auto) 60.4 (38-83) % Lymph % (Auto) 12.4 L (25-47) % [place] % (Auto) 6.3 (1-9) % Eos % (Auto) 19.8 H (0-6) % Baso % (Auto) 1.1 (0-2) % Absolute Neuts (auto) 8.6 H (1.5-7.7) 10^3/ul Absolute Lymphs (auto) 1.8 (1.0-4.8) 10^3/ul Absolute Monos (auto) 0.9 H (0-0.8) 10^3/ul Absolute Eos (auto) 2.8 H (0-0.6) 10^3/ul Absolute Basos (auto) 0.2 (0-0.2) 10^3/ul Absolute Nucleated RBC 0.01 10^3/ul Nucleated RBC % 0.1 Sodium 135 (133-145) mmol/L Potassium TNP Chloride 109 (101-111) mmol/L Carbon Dioxide 21 L (22-32) mmol/L Anion Gap TNP BUN 22 (6-24) mg/dL Creatinine 1.21 H (0.67-1.17) mg/dL Est GFR ( Amer) 80.1 (>60) Est GFR (Non-Af Amer) 62.3 (>60) BUN/Creatinine Ratio 18.2 (8-20) Glucose 104 H (70-100) mg/dL Lactic Acid 1.0 (0.5-2.0) mmol/L Calcium 7.8 L (8.6-10.3) mg/dL Magnesium TNP Total Bilirubin 0.20 (0.2-1.0) mg/dL AST TNP ALT 12 (7-52) U/L Alkaline Phosphatase 87 (34-104) U/L Total Creatine Kinase 89 (10-223) U/L Total Protein 7.4 (6.4-8.9) g/dL Albumin 2.7 L (3.2-5.2) g/dL Globulin 4.7 H (2-4) g/dL Albumin/Globulin Ratio 0.6 L (1-3) Assess/Plan/Problems-Billing Mr Warner is a 56 yo M who has a h/o HTN, hypothyroidism, LIZZETTE, morbid obesity , depression, hyperlipidemia and chronic pain who presented to the ER with c/o lower leg pain and was found to have an elevated WBC count and erythema of the lower legs concerning for cellulitis. - Patient Problems (1) Cellulitis Current Visit: Yes Status: Acute Code(s): L03.90 - CELLULITIS, UNSPECIFIED SNOMED Code(s): 424514057 Comment: The erythema to the patient's B/L LE is improving. Continue cefazolin. Repeat CBC this AM. He can likely be changed to oral Abx tomorrow. (2) Infestation by bed bug Current Visit: Yes Status: Acute Code(s): B88.8 - OTHER SPECIFIED INFESTATIONS SNOMED Code(s): 97157279 Comment: The patient has as bed bug infestation at home. Social work has contacted [facility]. ? stay at [facility] so he can heal his wounds. (3) Lower extremity edema Current Visit: Yes Status: Acute Code(s): R60.0 - LOCALIZED EDEMA SNOMED Code(s): 483641229 Comment: The patient has marked LE edema. Improved slightly today. Continue HERBERT wraps to LE. Will give lasix 40mg IV x1 now. Repeat BMP tomorrow. (4) Iron deficiency anemia Current Visit: Yes Status: Acute Code(s): D50.9 - IRON DEFICIENCY ANEMIA, UNSPECIFIED SNOMED Code(s): 94759268 Comment: Repeat CBC pending. (5) Chronic pain Current Visit: Yes Status: Acute Code(s): G89.29 - OTHER CHRONIC PAIN SNOMED Code(s): 71259075 Comment: Continue fentanyl patch (increase to 12mcg and 25mcg patch), prn oxycodone and prn morphine for severe pain. (6) HTN (hypertension) Current Visit: Yes Status: Chronic Code(s): I10 - ESSENTIAL (PRIMARY) HYPERTENSION SNOMED Code(s): 32766340 Comment: BP remains under good control. Continue current dose of losartan. (7) LIZZETTE (obstructive sleep apnea) Current Visit: Yes Status: Acute Code(s): G47.33 - OBSTRUCTIVE SLEEP APNEA ( ADULT) (PEDIATRIC) SNOMED Code(s): 55769785 Comment: Pt uses CPAP at home. Will start CPAP tonight. (8) Hyperlipidemia Current Visit: Yes Status: Chronic Code(s): E78.5 - HYPERLIPIDEMIA, UNSPECIFIED SNOMED Code(s): 52054908 Comment: Continue lipitor. (9) Hypothyroidism Current Visit: Yes Status: Chronic Code(s): E03.9 - HYPOTHYROIDISM, UNSPECIFIED SNOMED Code(s): 46535731 Comment: Pt had a TSH 12/2015 in good range. Continue current dose of synthroid. (10) Morbid obesity Current Visit: Yes Status: Chronic Code(s): E66.01 - MORBID (SEVERE) OBESITY DUE TO EXCESS CALORIES SNOMED Code(s): 815027346 Comment: Diagnosis is noted. PT eval yesterday said he did ok but he only walked 5ft. Will have re-eval today and possibly stairs as well. (11) DVT prophylaxis Current Visit: Yes Status: Acute Code(s): HTS8967 - SNOMED Code(s): 770274680 Comment: SQ heparin (12) Full code status Current Visit: Yes Status: Acute Code(s): Z78.9 - OTHER SPECIFIED HEALTH STATUS SNOMED Code(s): 730255306
[2016-05-10] MEDS ORDERED: Furosemide IV* 10 MG/ML VIAL (40 MG) IV SLOW PU ONE (09:43)
[2016-05-10] MEDS ORDERED: fentaNYL PATCH 25 MCG/HR TRANSDERM SCH (10:00)
[2016-05-10] MEDS ORDERED: fentaNYL PATCH 12 MCG/HR TRANSDERM SCH (10:00)
[2016-05-10] MEDS: Ferrous Sulfate TAB* 325 MG PO SCH (10:46)
[2016-05-10 10:50] LABS: Hematocrit 23 % (42-52); Hemoglobin 7.1 g/dl (14.0-18.0); Mean Corpuscular HGB Conc 31 g/dl (31-36); Mean Corpuscular Hemoglobin 25 pg (27-31); Mean Corpuscular Volume 78 fL (80-94); Mean Platelet Volume 9 um3 (7.4-10.4); Red Cell Distribution Width 17 % (10.5-15); White Blood Count 10.3 10^3/ul (3.5-10.8)
[2016-05-10] MEDS ORDERED: Calcium Carbonate CHEW TAB* 500 MG (TUMS) PO PRN (15:58)
[2016-05-10] MEDS: tiZANidine TAB* 2 MG PO PRN (16:38)
[2016-05-10 17:30] LABS: Albumin 2.4 g/dL (3.4-4.7); Gamma Globulin 2.6 g/dL (0.6-1.6); Total Protein(PEP) 7.3 g/dL (6.3 - 7.9)
[2016-05-10] MEDS ORDERED: NS 0.9% 250 ML* 250 ML IV ONE (19:28)
--- NOTE | 2016-05-10 19:43 | PN ---
Hospitalist Progress Note CTSP for hypotension. On change of shift patient was noted to be diaphoretic with hypotension noted on automatic and manual BP cuffs (SBP in 60s-70s). On arrival patient was alert and mentating well although reported some slight dizziness and fatigue. As per day nurse this is somewhat similar to how he's been all day. Today he was given a dose of Lasix with a robust response (Net - 1800) and also dose of Fentanyl was increased. Patient also continues to be anemic although was above the transfusion threshold this morning while he was asymptomatic. On exam he is mildly diaphoretic, oriented, laying in bed, RRR, s1 and s2 present, lungs clear in anterior and lateral marion, B/L LE edema with dressings in place, skin examined, some ulcerations in upper thighs, no significant ecchymotic areas. Check CBC and lactic acid. Will order 1u PRBC and give the patient back 250 cc IVF via bolus. Will stop additional 12 mcg Fentanyl patch. Recheck BP after bolus. If still running low and continues to feel symptomatic will transfer to ICU for closer monitoring.
[2016-05-10] MEDS ORDERED: NS 0.9% 1000 ML* 1,000 ML IV ONE (21:30)
[2016-05-10] MEDS: traZODone TAB* 50 MG TAB PO SCH (23:40)
[2016-05-10] MEDS: ARIPiprazole TAB* 5 MG PO SCH (23:44)
[2016-05-11] MEDS: ceFAZolin 1 GM in Dextrose (*) 1 GM/50 ML BAG IVPB SCH ×3 (00:12→17:11)
[2016-05-11] MEDS: Acetaminophen TAB* 325 MG PO PRN (00:31)
[2016-05-11 02:02] LABS: Hematocrit 24 % (42-52); Hemoglobin 7.5 g/dl (14.0-18.0); Mean Corpuscular HGB Conc 31 g/dl (31-36); Mean Corpuscular Hemoglobin 25 pg (27-31); Mean Corpuscular Volume 80 fL (80-94); Mean Platelet Volume 9 um3 (7.4-10.4); Red Blood Count 3.03 10^6/ul (4.0-5.4); Red Cell Distribution Width 17 % (10.5-15); White Blood Count 10.6 10^3/ul (3.5-10.8)
[2016-05-11 02:05] LABS: Comments Flag Yes
[2016-05-11] MEDS: Heparin VIAL(*) 5000 UNITS/ML VIAL (FIVE THOUSAND) SUBCUT SCH ×3 (05:24→22:09)
[2016-05-11] MEDS: oxyCODONE TAB* 5 MG TAB PO PRN ×3 (05:25→19:55)
[2016-05-11] MEDS: Levothyroxine TAB* 75 MCG TAB PO SCH (05:25)
[2016-05-11] MEDS: fentaNYL Patch Check Q Shift 1 NOTE SCH ×2 (06:55→18:33)
[2016-05-11 07:58] LABS: BUN/Creatinine Ratio 12.1 (8-20); Calcium 7.4 mg/dL (8.6-10.3); EGFR African American 111.2 (>60); EGFR Non-African American 86.5 (>60); Magnesium 1.7 mg/dL (1.9-2.7); Potassium 2.9 mmol/L (3.5-5.0)
[2016-05-11] MEDS: Insulin LISPRO* 1 UNITS UNIT SUBCUT SCH ×4 (08:14→21:06)
[2016-05-11] MEDS: Omeprazole CAP* 20 MG PO SCH (08:40)
[2016-05-11] MEDS: Losartan TAB* 25 MG PO SCH (08:41)
[2016-05-11] MEDS: Tamsulosin CAP* 0.4 MG PO SCH (08:41)
[2016-05-11] MEDS: Finasteride TAB* 5 MG PO SCH (08:41)
[2016-05-11] MEDS: Atorvastatin* 40 MG TAB PO SCH (08:41)
[2016-05-11] MEDS: Docusate CAP* 100 MG PO SCH (08:41)
[2016-05-11] MEDS: Ferrous Sulfate TAB* 325 MG PO SCH (08:41)
[2016-05-11] MEDS: Calcium/Vitamin D TAB 250/125* TAB PO SCH (08:41)
[2016-05-11] MEDS: Sertraline* 100 MG TAB PO SCH (08:41)
[2016-05-11] MEDS: Niacin ER TAB* 500 MG PO SCH (08:42)
[2016-05-11] MEDS: Nystatin CREAM* 15 GM TUBE TOPICAL SCH ×3 (08:42→21:06)
[2016-05-11] MEDS: Pregabalin CAP(*) 50 MG PO SCH ×3 (08:42→21:04)
[2016-05-11] MEDS ORDERED: Potassium Chlor TAB* 20 MEQ TAB.ER PO ONE (10:55)
[2016-05-11] MEDS ORDERED: Magnesium Sulfate 2 GM IV* 2 GM/50 ML BAG IVPB ONE (10:55)
[2016-05-11] MEDS: KCL 20 MEQ/100 ML IVPREMIX* 20 MEQ/100 ML BAG IV SCH ×2 (12:44→17:41)
[2016-05-11] MEDS: ARIPiprazole TAB* 5 MG PO SCH (21:05)
[2016-05-11] MEDS: traZODone TAB* 50 MG TAB PO SCH (21:06)
[2016-05-12] MEDS: ceFAZolin 1 GM in Dextrose (*) 1 GM/50 ML BAG IVPB SCH ×2 (00:29→11:11)
[2016-05-12] MEDS: oxyCODONE TAB* 5 MG TAB PO PRN (05:51)
[2016-05-12] MEDS: Levothyroxine TAB* 75 MCG TAB PO SCH (05:52)
[2016-05-12] MEDS: Heparin VIAL(*) 5000 UNITS/ML VIAL (FIVE THOUSAND) SUBCUT SCH (05:53)
[2016-05-12] MEDS: fentaNYL Patch Check Q Shift 1 NOTE SCH (07:17)
--- NOTE | 2016-05-12 09:04 | PN ---
Subjective Date of Service: 05/11/16 Interval History: Pt is feeling ok. He continues to complain of pain in his legs. He thinks the additional fentanyl patch led to his low BP yesterday. Objective Active Medications: Acetaminophen (Tylenol Supp*) 650 mg [place] Q4H PRN PRN Reason: FEVER/PAIN Acetaminophen (Tylenol Tab*) 650 mg PO Q4H PRN PRN Reason: FEVER/PAIN Last Admin: 05/11/16 00:31 Dose: 650 mg Albuterol (Ventolin Hfa Inhaler*) 2 puff INH Q4H PRN PRN Reason: WHEEZING Aripiprazole (Abilify Tab*) 10 mg PO BEDTIME [facility] Last Admin: 05/11/16 21:05 Dose: 10 mg Atorvastatin Calcium (Lipitor*) 40 mg PO DAILY [facility] Last Admin: 05/11/16 08:41 Dose: 40 mg Calcium Carbonate (Tums*) 500 mg PO Q4H PRN PRN Reason: INDIGESTION Calcium/Vitamin D (Oscal D Tab 250/125*) 1 tab PO DAILY [facility] Last Admin: 05/11/16 08:41 Dose: 1 tab Dextrose (D50w Syringe 50 Ml*) 12.5 gm IV PUSH .FOR FS < 60 - SS PRN PRN Reason: FS < 60 Docusate Sodium (Colace Cap*) 100 mg PO DAILY [facility] Last Admin: 05/11/16 08:41 Dose: 100 mg Fentanyl (Duragesic Patch 25 Mcg/Hr*) 25 mcg TRANSDERM Q72H [facility] Last Admin: 05/10/16 10:47 Dose: 25 mcg Ferrous Sulfate (Ferrous Sulfate Tab*) 325 mg PO DAILY [facility] Last Admin: 05/11/16 08:41 Dose: 325 mg Finasteride (Proscar Tab*) 5 mg PO DAILY [facility] Last Admin: 05/11/16 08:41 Dose: 5 mg Heparin Sodium (Porcine) (Heparin Vial(*)) 5,000 units SUBCUT Q8HR [facility] Last Admin: 05/12/16 05:53 Dose: 5,000 units Cefazolin Sodium/Dextrose (Kefzol 1 Gm In Dextrose Duplex (*)) 1 gm in 50 mls @ 200 mls/hr IVPB 0030,0830,1630 [facility] Last Admin: 05/12/16 00:29 Dose: 200 mls/hr Insulin Human Lispro (Humalog*) 0 units SUBCUT ACHS [facility] PRN Reason: Protocol Last Admin: 05/11/16 21:06 Dose: 2 unit Levothyroxine Sodium (Synthroid Tab*) 75 mcg PO 0600 [facility] Last Admin: 05/12/16 05:52 Dose: 75 mcg Losartan Potassium (Cozaar Tab*) 50 mg PO DAILY [facility] Last Admin: 05/11/16 08:41 Dose: 50 mg Niacin (Niaspan Er Tab*) 2,000 mg PO DAILY [facility] Last Admin: 05/11/16 08:42 Dose: 2,000 mg Nystatin (Nystatin Cream*) 1 applic TOPICAL TID [facility] Last Admin: 05/11/16 21:06 Dose: 1 top.lotion Omeprazole (Prilosec Cap*) 20 mg PO 0730 [facility] Last Admin: 05/11/16 08:40 Dose: 20 mg Oxycodone HCl (Roxycodone Tab*) 10 mg PO Q6H PRN PRN Reason: PAIN Last Admin: 05/12/16 05:51 Dose: 10 mg Pharmacy Profile Note (Fentanyl Patch Check Q Shift) 1 note N/A 0700,1900 [facility] Last Admin: 05/12/16 07:17 Dose: 1 note Pregabalin (Lyrica Cap(*)) 150 mg PO TID [facility] Last Admin: 05/11/16 21:04 Dose: 150 mg Sertraline HCl (Zoloft*) 100 mg PO DAILY [facility] Last Admin: 05/11/16 08:41 Dose: 100 mg Tamsulosin HCl (Flomax Cap*) 0.4 mg PO DAILY [facility] Last Admin: 05/11/16 08:41 Dose: 0.4 mg Tizanidine HCl (Zanaflex Tab*) 4 mg PO TID PRN PRN Reason: Muscle Spasms Last Admin: 05/10/16 16:38 Dose: 4 mg Trazodone HCl (Desyrel Tab*) 150 mg PO BEDTIME [facility] Last Admin: 05/11/16 21:06 Dose: 150 mg Vital Signs 05/11/16 05/11/16 05/11/16 10:42 10:57 12:45 Temperature 98.7 F Pulse Rate 93 Respiratory 14 18 15 Rate Blood Pressure 108/46 (mmHg) O2 Sat by Pulse 98 Oximetry 02/05/11/16 05/11/16 12:53 14:24 14:45 Temperature 98.2 F Pulse Rate 92 Respiratory 15 14 14 Rate Blood Pressure 124/54 (mmHg) O2 Sat by Pulse 96 Oximetry 05/11/16 05/11/16 05/11/16 19:55 20:00 21:00 Temperature 98.2 F Pulse Rate 86 Respiratory 14 16 Rate Blood Pressure 114/51 (mmHg) O2 Sat by Pulse 98 Oximetry 05/11/16 05/11/16 05/12/16 21:04 23:09 05:51 Temperature 98.1 F Pulse Rate 84 Respiratory 14 16 12 Rate Blood Pressure 108/64 (mmHg) O2 Sat by Pulse 97 Oximetry Oxygen Devices in Use Now: None Appearance: Morbidly obese male lying in bed getting bathed, NAD Eyes: No Scleral Icterus Ears/Nose/Mouth/Throat: Mucous Membranes Moist Respiratory: Symmetrical Chest Expansion and Respiratory Effort, Clear to Auscultation Cardiovascular: NL Sounds; No Murmurs; No JVD, RRR, - - improving LE edema Abdominal: NL Sounds; No Tenderness; No Distention Extremities: No Clubbing, Cyanosis Skin: No Nodules or Sclerosis, - - lower legs bilaterally with less erythema, improved edema, scaly skin, L buttock decubitus ulcer appears healthy without surrounding erythema Neurological: Alert and Oriented x 3 Result Diagrams: 05/11/16 01:36 05/11/16 07:02 Additional Lab and Data: Lab Results 05/08/16 05/08/16 05/08/16 Range/Units 04:28 04:28 04:28 WBC 14.2 H (3.5-10.8) 10^3/ul RBC 2.99 L (4.0-5.4) 10^6/ul Hgb 7.2 L (14.0-18.0) g/dl Hct 23 L (42-52) % MCV 78 L (80-94) fL MCH 24 L (27-31) pg MCHC 31 (31-36) g/dl RDW 18 H (10.5-15) % Plt Count 297 (150-450) 10^3/ul MPV 10 (7.4-10.4) um3 Neut % (Auto) 60.4 (38-83) % Lymph % (Auto) 12.4 L (25-47) % [place] % (Auto) 6.3 (1-9) % Eos % (Auto) 19.8 H (0-6) % Baso % (Auto) 1.1 (0-2) % Absolute Neuts (auto) 8.6 H (1.5-7.7) 10^3/ul Absolute Lymphs (auto) 1.8 (1.0-4.8) 10^3/ul Absolute Monos (auto) 0.9 H (0-0.8) 10^3/ul Absolute Eos (auto) 2.8 H (0-0.6) 10^3/ul Absolute Basos (auto) 0.2 (0-0.2) 10^3/ul Absolute Nucleated RBC 0.01 10^3/ul Nucleated RBC % 0.1 Sodium 135 (133-145) mmol/L Potassium TNP Chloride 109 (101-111) mmol/L Carbon Dioxide 21 L (22-32) mmol/L Anion Gap TNP BUN 22 (6-24) mg/dL Creatinine 1.21 H (0.67-1.17) mg/dL Est GFR ( Amer) 80.1 (>60) Est GFR (Non-Af Amer) 62.3 (>60) BUN/Creatinine Ratio 18.2 (8-20) Glucose 104 H (70-100) mg/dL Lactic Acid 1.0 (0.5-2.0) mmol/L Calcium 7.8 L (8.6-10.3) mg/dL Magnesium TNP Total Bilirubin 0.20 (0.2-1.0) mg/dL AST TNP ALT 12 (7-52) U/L Alkaline Phosphatase 87 (34-104) U/L Total Creatine Kinase 89 (10-223) U/L Total Protein 7.4 (6.4-8.9) g/dL Albumin 2.7 L (3.2-5.2) g/dL Globulin 4.7 H (2-4) g/dL Albumin/Globulin Ratio 0.6 L (1-3) Assess/Plan/Problems-Billing Mr Warner is a 56 yo M who has a h/o HTN, hypothyroidism, LIZZETTE, morbid obesity , depression, hyperlipidemia and chronic pain who presented to the ER with c/o lower leg pain and was found to have an elevated WBC count and erythema of the lower legs concerning for cellulitis. - Patient Problems (1) Cellulitis Current Visit: Yes Status: Acute Code(s): L03.90 - CELLULITIS, UNSPECIFIED SNOMED Code(s): 096719209 Comment: The erythema to the patient's B/L LE is improving. Continue cefazolin. WBC count has normalized. Will need to continue Abx for a total of 7- 10 days. (2) Infestation by bed bug Current Visit: Yes Status: Acute Code(s): B88.8 - OTHER SPECIFIED INFESTATIONS SNOMED Code(s): 26940963 Comment: The patient has as bed bug infestation at home. Social work has contacted APS. ? STR (3) Lower extremity edema Current Visit: Yes Status: Acute Code(s): R60.0 - LOCALIZED EDEMA SNOMED Code(s): 691159469 Comment: Hold on lasix today as his BP was quite low yesterday. (4) Iron deficiency anemia Current Visit: Yes Status: Acute Code(s): D50.9 - IRON DEFICIENCY ANEMIA, UNSPECIFIED SNOMED Code(s): 13639865 Comment: H/H improved after 1 unit PRBC. Pt still has not had BM. Continue ferrous sulfate. (5) Chronic pain Current Visit: Yes Status: Acute Code(s): G89.29 - OTHER CHRONIC PAIN SNOMED Code(s): 99135182 Comment: Continue fentanyl patch 25mcg only q 72hr and prn oxycodone. (6) HTN (hypertension) Current Visit: Yes Status: Chronic Code(s): I10 - ESSENTIAL (PRIMARY) HYPERTENSION SNOMED Code(s): 72959748 Comment: BP improved this am. Continue losartan. (7) LIZZETTE (obstructive sleep apnea) Current Visit: Yes Status: Acute Code(s): G47.33 - OBSTRUCTIVE SLEEP APNEA ( ADULT) (PEDIATRIC) SNOMED Code(s): 10947324 Comment: Continue CPAP. (8) Hyperlipidemia Current Visit: Yes Status: Chronic Code(s): E78.5 - HYPERLIPIDEMIA, UNSPECIFIED SNOMED Code(s): 73566587 Comment: Continue lipitor. (9) Hypothyroidism Current Visit: Yes Status: Chronic Code(s): E03.9 - HYPOTHYROIDISM, UNSPECIFIED SNOMED Code(s): 14472977 Comment: Pt had a TSH 12/2015 in good range. Continue current dose of synthroid. (10) Morbid obesity Current Visit: Yes Status: Chronic Code(s): E66.01 - MORBID (SEVERE) OBESITY DUE TO EXCESS CALORIES SNOMED Code(s): 634132628 Comment: Diagnosis is noted. Pt did ok with stairs. [place] to be close to his baseline. (11) DVT prophylaxis Current Visit: Yes Status: Acute Code(s): HKO2340 - SNOMED Code(s): 723659029 Comment: SQ heparin (12) Full code status Current Visit: Yes Status: Acute Code(s): Z78.9 - OTHER SPECIFIED HEALTH STATUS SNOMED Code(s): 348745867
--- NOTE | 2016-05-12 09:10 | PN ---
Subjective Date of Service: 05/12/16 Interval History: Pt is feeling well. Still no BM. No SOB. No complaints of pain at this time. Objective Active Medications: Acetaminophen (Tylenol Supp*) 650 mg [place] Q4H PRN PRN Reason: FEVER/PAIN Acetaminophen (Tylenol Tab*) 650 mg PO Q4H PRN PRN Reason: FEVER/PAIN Last Admin: 05/11/16 00:31 Dose: 650 mg Albuterol (Ventolin Hfa Inhaler*) 2 puff INH Q4H PRN PRN Reason: WHEEZING Aripiprazole (Abilify Tab*) 10 mg PO BEDTIME [facility] Last Admin: 05/11/16 21:05 Dose: 10 mg Atorvastatin Calcium (Lipitor*) 40 mg PO DAILY [facility] Last Admin: 05/11/16 08:41 Dose: 40 mg Calcium Carbonate (Tums*) 500 mg PO Q4H PRN PRN Reason: INDIGESTION Calcium/Vitamin D (Oscal D Tab 250/125*) 1 tab PO DAILY [facility] Last Admin: 05/11/16 08:41 Dose: 1 tab Dextrose (D50w Syringe 50 Ml*) 12.5 gm IV PUSH .FOR FS < 60 - SS PRN PRN Reason: FS < 60 Docusate Sodium (Colace Cap*) 100 mg PO DAILY [facility] Last Admin: 05/11/16 08:41 Dose: 100 mg Fentanyl (Duragesic Patch 25 Mcg/Hr*) 25 mcg TRANSDERM Q72H [facility] Last Admin: 05/10/16 10:47 Dose: 25 mcg Ferrous Sulfate (Ferrous Sulfate Tab*) 325 mg PO DAILY [facility] Last Admin: 05/11/16 08:41 Dose: 325 mg Finasteride (Proscar Tab*) 5 mg PO DAILY [facility] Last Admin: 05/11/16 08:41 Dose: 5 mg Heparin Sodium (Porcine) (Heparin Vial(*)) 5,000 units SUBCUT Q8HR [facility] Last Admin: 05/12/16 05:53 Dose: 5,000 units Cefazolin Sodium/Dextrose (Kefzol 1 Gm In Dextrose Duplex (*)) 1 gm in 50 mls @ 200 mls/hr IVPB 0030,0830,1630 [facility] Last Admin: 05/12/16 00:29 Dose: 200 mls/hr Insulin Human Lispro (Humalog*) 0 units SUBCUT ACHS [facility] PRN Reason: Protocol Last Admin: 05/11/16 21:06 Dose: 2 unit Levothyroxine Sodium (Synthroid Tab*) 75 mcg PO 0600 [facility] Last Admin: 05/12/16 05:52 Dose: 75 mcg Losartan Potassium (Cozaar Tab*) 50 mg PO DAILY [facility] Last Admin: 05/11/16 08:41 Dose: 50 mg Niacin (Niaspan Er Tab*) 2,000 mg PO DAILY [facility] Last Admin: 05/11/16 08:42 Dose: 2,000 mg Nystatin (Nystatin Cream*) 1 applic TOPICAL TID [facility] Last Admin: 05/11/16 21:06 Dose: 1 top.lotion Omeprazole (Prilosec Cap*) 20 mg PO 0730 [facility] Last Admin: 05/11/16 08:40 Dose: 20 mg Oxycodone HCl (Roxycodone Tab*) 10 mg PO Q6H PRN PRN Reason: PAIN Last Admin: 05/12/16 05:51 Dose: 10 mg Pharmacy Profile Note (Fentanyl Patch Check Q Shift) 1 note N/A 0700,1900 [facility] Last Admin: 05/12/16 07:17 Dose: 1 note Pregabalin (Lyrica Cap(*)) 150 mg PO TID [facility] Last Admin: 05/11/16 21:04 Dose: 150 mg Sertraline HCl (Zoloft*) 100 mg PO DAILY [facility] Last Admin: 05/11/16 08:41 Dose: 100 mg Tamsulosin HCl (Flomax Cap*) 0.4 mg PO DAILY [facility] Last Admin: 05/11/16 08:41 Dose: 0.4 mg Tizanidine HCl (Zanaflex Tab*) 4 mg PO TID PRN PRN Reason: Muscle Spasms Last Admin: 05/10/16 16:38 Dose: 4 mg Trazodone HCl (Desyrel Tab*) 150 mg PO BEDTIME [facility] Last Admin: 05/11/16 21:06 Dose: 150 mg Vital Signs 05/11/16 05/11/16 05/11/16 10:42 10:57 12:45 Temperature 98.7 F Pulse Rate 93 Respiratory 14 18 15 Rate Blood Pressure 108/46 (mmHg) O2 Sat by Pulse 98 Oximetry 02/19/17 02/19/17 02/19/17 12:53 14:24 14:45 Temperature 98.2 F Pulse Rate 92 Respiratory 15 14 14 Rate Blood Pressure 124/54 (mmHg) O2 Sat by Pulse 96 Oximetry 05/11/16 05/11/16 05/11/16 19:55 20:00 21:00 Temperature 98.2 F Pulse Rate 86 Respiratory 14 16 Rate Blood Pressure 114/51 (mmHg) O2 Sat by Pulse 98 Oximetry 05/11/16 05/11/16 05/12/16 21:04 23:09 05:51 Temperature 98.1 F Pulse Rate 84 Respiratory 14 16 12 Rate Blood Pressure 108/64 (mmHg) O2 Sat by Pulse 97 Oximetry Oxygen Devices in Use Now: None Appearance: Morbidly obese male sitting in recliner chair, NAD Eyes: No Scleral Icterus Ears/Nose/Mouth/Throat: Mucous Membranes Moist Respiratory: Symmetrical Chest Expansion and Respiratory Effort, Clear to Auscultation - anteriorly Cardiovascular: NL Sounds; No Murmurs; No JVD, RRR, - - improving LE edema Abdominal: NL Sounds; No Tenderness; No Distention Extremities: No Clubbing, Cyanosis Skin: No Nodules or Sclerosis, - - L buttock decubitus and lower legs not inspected at this time Neurological: Alert and Oriented x 3 Result Diagrams: 05/11/16 01:36 05/11/16 07:02 Additional Lab and Data: Lab Results 05/08/16 05/08/16 05/08/16 Range/Units 04:28 04:28 04:28 WBC 14.2 H (3.5-10.8) 10^3/ul RBC 2.99 L (4.0-5.4) 10^6/ul Hgb 7.2 L (14.0-18.0) g/dl Hct 23 L (42-52) % MCV 78 L (80-94) fL MCH 24 L (27-31) pg MCHC 31 (31-36) g/dl RDW 18 H (10.5-15) % Plt Count 297 (150-450) 10^3/ul MPV 10 (7.4-10.4) um3 Neut % (Auto) 60.4 (38-83) % Lymph % (Auto) 12.4 L (25-47) % [place] % (Auto) 6.3 (1-9) % Eos % (Auto) 19.8 H (0-6) % Baso % (Auto) 1.1 (0-2) % Absolute Neuts (auto) 8.6 H (1.5-7.7) 10^3/ul Absolute Lymphs (auto) 1.8 (1.0-4.8) 10^3/ul Absolute Monos (auto) 0.9 H (0-0.8) 10^3/ul Absolute Eos (auto) 2.8 H (0-0.6) 10^3/ul Absolute Basos (auto) 0.2 (0-0.2) 10^3/ul Absolute Nucleated RBC 0.01 10^3/ul Nucleated RBC % 0.1 Sodium 135 (133-145) mmol/L Potassium TNP Chloride 109 (101-111) mmol/L Carbon Dioxide 21 L (22-32) mmol/L Anion Gap TNP BUN 22 (6-24) mg/dL Creatinine 1.21 H (0.67-1.17) mg/dL Est GFR ( Amer) 80.1 (>60) Est GFR (Non-Af Amer) 62.3 (>60) BUN/Creatinine Ratio 18.2 (8-20) Glucose 104 H (70-100) mg/dL Lactic Acid 1.0 (0.5-2.0) mmol/L Calcium 7.8 L (8.6-10.3) mg/dL Magnesium TNP Total Bilirubin 0.20 (0.2-1.0) mg/dL AST TNP ALT 12 (7-52) U/L Alkaline Phosphatase 87 (34-104) U/L Total Creatine Kinase 89 (10-223) U/L Total Protein 7.4 (6.4-8.9) g/dL Albumin 2.7 L (3.2-5.2) g/dL Globulin 4.7 H (2-4) g/dL Albumin/Globulin Ratio 0.6 L (1-3) Assess/Plan/Problems-Billing Mr Warner is a 56 yo M who has a h/o HTN, hypothyroidism, LIZZETTE, morbid obesity , depression, hyperlipidemia and chronic pain who presented to the ER with c/o lower leg pain and was found to have an elevated WBC count and erythema of the lower legs concerning for cellulitis. - Patient Problems (1) Cellulitis Current Visit: Yes Status: Acute Code(s): L03.90 - CELLULITIS, UNSPECIFIED SNOMED Code(s): 390256208 Comment: Continue keflex to complete 6 more days of therapy. He is ready for d/c home today. He thinks with VNS at home he will be able to manage. (2) Infestation by bed bug Current Visit: Yes Status: Acute Code(s): B88.8 - OTHER SPECIFIED INFESTATIONS SNOMED Code(s): 81946568 Comment: The patient has as bed bug infestation at home. Social work has contacted [facility]PS. Plan is for the patient to go home. (3) Lower extremity edema Current Visit: Yes Status: Acute Code(s): R60.0 - LOCALIZED EDEMA SNOMED Code(s): 170450819 Comment: LE edema continues to improve. He will be maintained on his usual home medication regimen. Encourage pt to keep feet elevated. (4) Iron deficiency anemia Current Visit: Yes Status: Acute Code(s): D50.9 - IRON DEFICIENCY ANEMIA, UNSPECIFIED SNOMED Code(s): 56581795 Comment: Pt has had 2 units PRBC this hospitalization with not the best response in H/H. He is iron deficient. He has not had a BM. Will give MOM as the patient feels he would benefit from this and send stool to lab to [facility]. He will need to have this monitored and evaluated further as an outpatient. I suspect much of his anemia is secondary to chronic inflammation. (5) Chronic pain Current Visit: Yes Status: Acute Code(s): G89.29 - OTHER CHRONIC PAIN SNOMED Code(s): 46954103 Comment: Continue fentanyl patch 25mcg q72hr and prn oxycodone. (6) HTN (hypertension) Current Visit: Yes Status: Chronic Code(s): I10 - ESSENTIAL (PRIMARY) HYPERTENSION SNOMED Code(s): 84971538 Comment: BP under good control. Continue losartan. (7) LIZZETTE (obstructive sleep apnea) Current Visit: Yes Status: Acute Code(s): G47.33 - OBSTRUCTIVE SLEEP APNEA ( ADULT) (PEDIATRIC) SNOMED Code(s): 96670024 Comment: Continue CPAP. (8) Hyperlipidemia Current Visit: Yes Status: Chronic Code(s): E78.5 - HYPERLIPIDEMIA, UNSPECIFIED SNOMED Code(s): 30366544 Comment: Continue lipitor. (9) Hypothyroidism Current Visit: Yes Status: Chronic Code(s): E03.9 - HYPOTHYROIDISM, UNSPECIFIED SNOMED Code(s): 57424146 Comment: Pt had a TSH 12/2015 in good range. Continue current dose of synthroid. (10) Morbid obesity Current Visit: Yes Status: Chronic Code(s): E66.01 - MORBID (SEVERE) OBESITY DUE TO EXCESS CALORIES SNOMED Code(s): 108035502 Comment: Diagnosis is noted. Pt did ok with stairs. [place] to be close to his baseline. D/C home today. (11) DVT prophylaxis Current Visit: Yes Status: Acute Code(s): RTJ6601 - SNOMED Code(s): 364060705 Comment: SQ heparin (12) Full code status Current Visit: Yes Status: Acute Code(s): Z78.9 - OTHER SPECIFIED HEALTH STATUS SNOMED Code(s): 524141609
[2016-05-12] MEDS ORDERED: Magnesium Hydroxide LIQ* 30 ML UDC PO ONE (09:20)
[2016-05-12] MEDS: Insulin LISPRO* 1 UNITS UNIT SUBCUT SCH ×2 (10:51→12:58)
[2016-05-12 11:05] LABS: BUN/Creatinine Ratio 12.2 (8-20); Calcium 7.9 mg/dL (8.6-10.3); EGFR African American 125.4 (>60); EGFR Non-African American 97.5 (>60)
[2016-05-12 11:08] VITALS: BP 139/66
[2016-05-12] MEDS: Omeprazole CAP* 20 MG PO SCH ×2 (11:10)
[2016-05-12] MEDS: Atorvastatin* 40 MG TAB PO SCH (11:11)
[2016-05-12] MEDS: Calcium/Vitamin D TAB 250/125* TAB PO SCH (11:12)
[2016-05-12] MEDS: Docusate CAP* 100 MG PO SCH (11:12)
[2016-05-12] MEDS: Ferrous Sulfate TAB* 325 MG PO SCH (11:13)
[2016-05-12] MEDS: Losartan TAB* 25 MG PO SCH (11:14)
[2016-05-12] MEDS: Finasteride TAB* 5 MG PO SCH (11:14)
[2016-05-12] MEDS: Niacin ER TAB* 500 MG PO SCH (11:15)
[2016-05-12] MEDS: Nystatin CREAM* 15 GM TUBE TOPICAL SCH (11:16)
[2016-05-12] MEDS: Pregabalin CAP(*) 50 MG PO SCH (11:17)
[2016-05-12] MEDS: Tamsulosin CAP* 0.4 MG PO SCH (11:20)
[2016-05-12] MEDS: Sertraline* 100 MG TAB PO SCH (11:20)
[2016-05-12] MEDS: Acetaminophen TAB* 325 MG PO PRN (11:21)
--- NOTE | 2016-05-12 15:04 | DS ---
DATE OF ADMISSION: 05/08/2016. DATE OF DISCHARGE: 05/12/2016. PRIMARY CARE PROVIDER: Dr. Edgar Samayoa. PRINCIPAL DIAGNOSES: 1. Bilateral lower extremity cellulitis. 2. Left buttock decubitus ulcer. SECONDARY DIAGNOSES: 1. Chronic pain. 2. Hyperlipidemia. 3. Depression. 4. Morbid obesity. 5. Obstructive sleep apnea. 6. Hypertension. 7. Hypothyroidism. DISCHARGE MEDICATIONS: 1. Oxycodone 10 mg p.o. q.8 hours prn pain. 2. Tizanidine 4 mg p.o. t.i.d. prn spasm. 3. Flomax 0.4 mg p.o. daily. 4. Crestor 20 mg p.o. daily. 5. Lyrica 150 mg p.o. t.i.d. 6. Niacin ER 200 mg p.o. daily. 7. Lidocaine patch apply topically daily on for 12 hours, off for 12 hours as needed for pain. 8. Losartan 100 mg p.o. daily. 9. Linzess 145 mcg p.o. daily prn constipation. 10. Synthroid 75 mcg p.o. daily. 11. Finasteride 5 mg p.o. daily. 12. Fentanyl patch 25 mcg topically q.72 hours. 13. Colace 100 mg p.o. daily. 14. Calcium plus vitamin D one tab p.o. daily. 15. Trazodone 150 mg p.o. at bedtime. 16. Terbinafine 250 mg p.o. daily. 17. Albuterol 2 puffs inhaled q.4 hours prn shortness of breath. 18. Abilify 10 mg p.o. at bedtime. 19. Nystatin cream apply topically t.i.d. to skin folds. 20. Lasix 40 mg p.o. daily. 21. Sertraline 100 mg p.o. daily. 22. Omeprazole 20 mg p.o. daily. 23. Keflex 500 mg p.o. 4 times daily times 24 doses. HOSPITAL COURSE: Mr. Warner is a 55-year-old male with a history of chronic pain, morbid obesity, hyperlipidemia, obstructive sleep apnea, hypertension, and depression who presents to the emergency room with complaints of bilateral leg pain. The patient was admitted for presumed bilateral lower extremity cellulitis. The patient's bilateral lower legs were noted to be beefy red. He has an elevated white blood cell count of 14.2. The patient was admitted and started on IV Cefazolin. With this, the erythema and warmth of legs has improved. His edema has also improved with treatment of infection. His white blood cell has normalized to 10.6 on the day prior to discharge. The patient will continue with HERBERT wraps as able to the bilateral lower extremities. The weeping of his lower legs has improved dramatically with improvement of the edema. Also on admission, the patient was found to have a left buttock decubitus ulcer. This is secondary to sitting in his recliner. This is almost U-shaped. It appears quite healthy with good granulation tissue at the wound base. There is no surrounding erythema or signs of infection. The patient was also found to be quite anemic on admission with a hemoglobin of 7.2. This ultimately trended down to 6.5 on the day after admission. He was transfused one unit of packed red blood cells at that time. On the evening of 05/10/2016 into 05/11/2016, the patient went hypotensive. He was again transfused one unit of packed red blood cells for a hemoglobin of 7.1. On the day prior to discharge, his hemoglobin was 7.5. He is iron deficient and has been started on Ferrous Sulfate 325 mg p.o. daily. A stool guaiac is pending at the time of this dictation. The patient will need continued monitoring and management of his anemia. Of note, this anemia is chronic; however, this is the worst it has been since early 2015. Also on admission, the patient was found to have bed bugs on his body. The patient unfortunately has poor living conditions at home. He, however, agrees to going home. Social Work has been involved and APS have been contacted. It is felt that outpatient help will be needed for the patient to have an improved living situation at home. In terms of the patient's lower extremity edema, I did perform a transthoracic echocardiogram, this was noted to be of poor quality due to his body habitus; however, he was found to have an EF of greater than 65 percent with normal left ventricular diastolic filling. The etiology behind his lower extremity edema is not completely clear; however, I do suspect it is related to his super morbid obesity. The patient was placed on IV diuretic during the course of his hospitalization. His lower extremity edema markedly improved; however, he continues to have a significant amount of lower extremity edema. He will continue on his usual dose of oral Lasix. The patient has otherwise been maintained on his usual home medication regimen. At this point, the patient is felt to be stable for discharge home. FOLLOW-UP CONCERNS: The patient is being discharged home today, 05/12/2016. He is to follow-up with Dr. Samayoa on 05/20/2016 at 11:10 a.m. ACTIVITY LEVEL: As tolerated. DIET: Low fat, low salt. CONDITION ON DISCHARGE: Stable. Thirty-five minutes were spent discharging this patient. CC: Dr. Edgar Samayoa* [id number]/CPS #: [id number] MTDD
== END 2016-05-12 14:20 | disposition home or self-care (01) | DRG 383 ==
LOC: ED 03:49 → MED 06:37
PROVIDERS: ADMIT Internal Medicine; ATTEND Hospitalist
PROC: 30233N1 Transfusion of Nonautologous Red Blood Cells into Peripheral Vein, Percutaneous Approach (ICD-10-PCS; principal; 2016-05-09)
DX: L03.116 Cellulitis of left lower limb (principal); L89.329 Pressure ulcer of left buttock, unspecified stage; Z68.43 Body mass index [BMI] 50.0-59.9, adult; L03.115 Cellulitis of right lower limb; D50.9 Iron deficiency anemia, unspecified; G89.29 Other chronic pain; I10 Essential (primary) hypertension; G47.33 Obstructive sleep apnea (adult) (pediatric); E78.5 Hyperlipidemia, unspecified; E03.9 Hypothyroidism, unspecified; E66.01 Morbid (severe) obesity due to excess calories; F32.9 Major depressive disorder, single episode, unspecified; L98.499 Non-pressure chronic ulcer of skin of other sites with unspecified severity; S30.861A Insect bite (nonvenomous) of abdominal wall, initial encounter; S20.362A Insect bite (nonvenomous) of left front wall of thorax, initial encounter; S20.361A Insect bite (nonvenomous) of right front wall of thorax, initial encounter; S20.462A Insect bite (nonvenomous) of left back wall of thorax, initial encounter; S20.461A Insect bite (nonvenomous) of right back wall of thorax, initial encounter; W57.XXXA Bitten or stung by nonvenomous insect and other nonvenomous arthropods, initial encounter; Y92.009 Unspecified place in unspecified non-institutional (private) residence as the place of occurrence of the external cause; Z96.642 Presence of left artificial hip joint; Z79.899 Other long term (current) drug therapy; Z79.891 Long term (current) use of opiate analgesic; Z88.8 Allergy status to other drugs, medicaments and biological substances; Z98.84 Bariatric surgery status; Z82.49 Family history of ischemic heart disease and other diseases of the circulatory system; Z87.891 Personal history of nicotine dependence
CPT/HCPCS: 36415; 71020; 80048; 80053; 81003; 82272; 82550; 82607; 82728; 82746; 83540; 83550; 83605; 83735; 84145; 84155; 84165; 85025; 85027; 86140; 86850; 86900; 86901; 86922; 93306; 94660; 94760; 94762; A9270-GY; C8929; J0690; J1170; J1644; J1940; J2270; J3475; J3480; P9016

== ENCOUNTER 2016-07-11 22:25 | Inpatient (IN) | payer OTHER ==
[2016-07-11] MEDS ORDERED: NS 0.9% 1000 ML* 1,000 ML IV ONE (23:37)
[2016-07-12 00:36] LABS: Hematocrit 27 % (42-52); Hemoglobin 8.3 g/dl (14.0-18.0); Mean Corpuscular HGB Conc 31 g/dl (31-36); Mean Corpuscular Hemoglobin 25 pg (27-31); Mean Corpuscular Volume 79 fL (80-94); Mean Platelet Volume 9 um3 (7.4-10.4); Red Blood Count 3.38 10^6/ul (4.0-5.4); Red Cell Distribution Width 20 % (10.5-15); White Blood Count 23.5 10^3/ul (3.5-10.8)
[2016-07-12 00:38] LABS: Add Diff/Slide Review? Slide Review Added; Comments Flag Yes
[2016-07-12 00:41] LABS: ALT 14 U/L (7-52); AST 21 U/L (13-39); Albumin 1.8 g/dL (3.2-5.2); Alkaline Phosphatase 164 U/L (34-104); Anion Gap 5 mmol/L (2-11); BUN/Creatinine Ratio 15.2 (8-20); Blood Urea Nitrogen 17 mg/dL (6-24); CO2 Carbon Dioxide 26 mmol/L (22-32); Calcium 7.4 mg/dL (8.6-10.3); Chloride 100 mmol/L (101-111); Creatine Kinase 29 U/L (10-223); EGFR African American 87.5 (>60); EGFR Non-African American 68.1 (>60); Globulin 6.1 g/dL (2-4); Glucose 135 mg/dL (70-100); Magnesium 1.9 mg/dL (1.9-2.7); Potassium 3.2 mmol/L (3.5-5.0); Sodium 131 mmol/L (133-145); Total Protein 7.9 g/dL (6.4-8.9)
[2016-07-12 00:44] LABS: Troponin I 0.04 ng/mL (<0.04)
[2016-07-12 00:45] LABS: Urine Bacteria Absent (Absent); Urine Bilirubin Negative (Negative); Urine Glucose Negative (Negative); Urine Nitrite Negative (Negative)
[2016-07-12] MEDS ORDERED: Vancomycin(*) 1,000 MG in NS 0.9% 250 ML* 250 ML IVPB ONE (00:45)
[2016-07-12] MEDS ORDERED: NS 0.9% 1000 ML* 1,000 ML IV ONE (00:45)
[2016-07-12 01:03] LABS: TSH (Thyroid Stimulating Horm) 5.32 mcIU/mL (0.34-5.60)
[2016-07-12] MEDS ORDERED: NS 0.9% 250 ML* 250 ML ONE (01:59)
--- NOTE | 2016-07-12 03:54 | ED ---
Elias Perry Adam, scribed for Fransisco Almendarez on 07/12/16 at 0115 . Complex/Multi-Sys Presentation - HPI Summary HPI Summary: Pt is a 56 year old male presenting with abdominal pain, weakness, and sores on his buttocks. He states that for the past several days he has been having abdominal pain as well as increasing pain due to multiple sores on his buttocks and the back of his thighs. He also reports increasing weakness in the past 2 days. He states that he walks with a cane at baseline but that he has been having more difficulty walking than usual and that he fell out of his chair today and was unable to get up. Pt lives at home with his 2 sons. He also c/o pain in his left heel. He presents with BLE edema and bandages on both legs. He denies fever. He denies tobacco/alcohol/drug use. Pt currently has bed bugs. - History Of Current Complaint Chief Complaint: EDGeneral Time Seen by Provider: 07/11/16 23:27 Hx Obtained From: Patient Onset/Duration: Gradual Onset, Lasting Days, Still Present Timing: Constant Severity Currently: Moderate Severity Initially: Mild Location: Pain At: - Left heel, and at sites of sores on buttocks and back of thighs Associated Signs And Symptoms: Positive: Weakness, Abdominal Pain. Negative: Fever - Allergies/Home Medications Allergies/Adverse Reactions: Allergies Allergy/AdvReac Type Severity Reaction Status Date / Time Pioglitazone [From Actos] AdvReac Coughing Verified 07/11/16 23:05 PMH/Surg Hx/FS Hx/Imm Hx Endocrine/Hematology History: Reports: Hx Diabetes, Hx Thyroid Disease - hypothyroid Cardiovascular History: Reports: Hx Hypercholesterolemia - Crestor, Hx Hypertension, Hx Peripheral Vascular Disease - chronic venous stasis, Hx Syncope , Other Cardiovascular Problems/Disorders - HYPERCHOLESTEROLEMIA/IDDM II/OBESITY Respiratory History: Reports: Hx Chronic Bronchitis, Hx Sleep Apnea Denies: Hx Chronic Obstructive Pulmonary Disease (COPD) GI History: Reports: Hx Gastroesophageal Reflux Disease, Hx Hiatal Hernia, Other GI Disorders - gastric bypass surgery november-2012 History: Reports: Hx Benign Prostatic Hyperplasia, Hx Kidney Stones, Other Problems/Disorders - "slow peeing" seen by urologist-prescribed meds Denies: Hx Dialysis Musculoskeletal History: Reports: Hx Arthritis, Hx Fibromyalgia, Hx Orthopedic Injury - right thumb, dislocation of left knee, Hx Osteoporosis, Other Musculoskeletal History - left hip surgery Denies: Hx Back Problems Sensory History: Reports: Hx Contacts or Glasses - to read Opthamlomology History: Reports: Hx Contacts or Glasses - to read Neurological History: Reports: Other Neuro Impairments/Disorders - SYNCOPE Denies: Hx Dementia, Hx Developmental Delay, Hx Headaches, Hx Seizures Psychiatric History: Reports: Hx Anxiety, Hx Depression, Hx Inpatient Treatment - 2007 Denies: Hx Bipolar Disorder - patient states depression, but not bipoar - Surgical History Surgery Procedure, Year, and Place: Mytosis left eye surgical correction; Tonsillectomy; Right Knee Arthroscopic Surgery; Left Hip Replacement at [facility] 12/12/13; Gastro Bypass 12/14/12 [facility] Hx Anesthesia Reactions: No - Immunization History Date of Tetanus Vaccine: utd Date of Influenza Vaccine: utd Infectious Disease History: No Infectious Disease History: Denies: Hx Clostridium Difficile, Hx Hepatitis, Hx Human Immunodeficiency Virus (HIV), Hx of Known/Suspected MRSA, Hx Shingles, Hx Tuberculosis, Hx Known/ Suspected VRE, Hx Known/Suspected VRSA, History Other Infectious Disease, Traveled Outside the in Last 30 Days - Family History Known Family History: Positive: Cardiac Disease - Father - CAD, Diabetes - Son - - DM, Other - Mother - CVA. Father - EtOH abuse and CAD. Son -- testicular CA and DM - Social History Occupation: Unemployed Lives: With Family - Sons Alcohol Use: None Hx Substance Use: Yes Substance Use Type: Reports: Prescribed Substance Use Comment - Amount & Last Used: oxycodone Hx Tobacco Use: No Smoking Status (MU): Never Smoked Tobacco Review of Systems Positive: Other - Pale. Negative: Fever Positive: Myalgia - Left heel, Edema - BLE Positive: Rash - Diffuse, Other - Redness over buttocks. Sores on buttocks and back of thighs. Positive: Weakness All Other Systems Reviewed And Are Negative: Yes Physical Exam Triage Information Reviewed: Yes Vital Signs On Initial Exam: Initial Vitals Temp Pulse Resp BP Pulse Ox 97.9 F 83 16 98/59 98 07/11/16 22:52 07/11/16 22:52 07/11/16 22:52 07/11/16 22:52 07/11/16 22:52 Vital Signs Reviewed: Yes Appearance: Positive: Well-Appearing, No Pain Distress Skin: Positive: Other - Pale. Diffuse rash over body. Redness over buttock area and sacral area. Bandages over bilateral legs. Head/Face: Positive: Normal Head/Face Inspection Eyes: Positive: EOMI, YE ENT: Positive: Normal ENT inspection Neck: Positive: Supple, Nontender Respiratory/Lung Sounds: Positive: Clear to Auscultation, Breath Sounds Present Cardiovascular: Positive: RRR, Pulses are Symmetrical in both Upper and Lower Extremities Abdomen Description: Positive: Nontender, Soft Bowel Sounds: Positive: Present Musculoskeletal: Positive: Other - Edema of bilateral feet - Lackey Coma Scale Coma Scale Total: 15 Diagnostics - Vital Signs Vital Signs Temp Pulse Resp BP Pulse Ox 07/11/16 23:00 97.5 F 82 16 98/59 99 07/11/16 22:52 97.9 F 83 16 98/59 98 - Laboratory Lab Results: Lab Results 07/11/16 07/11/16 07/11/16 Range/Units 23:50 23:50 23:50 WBC 23.5 H (3.5-10.8) 10^3/ul RBC 3.38 L (4.0-5.4) 10^6/ul Hgb 8.3 L (14.0-18.0) g/dl Hct 27 L (42-52) % MCV 79 L (80-94) fL MCH 25 L (27-31) pg MCHC 31 (31-36) g/dl RDW 20 H (10.5-15) % Plt Count 291 (150-450) 10^3/ul MPV 9 (7.4-10.4) um3 Neut % (Auto) 85.3 H (38-83) % Lymph % (Auto) 5.9 L (25-47) % Talbot % (Auto) 7.5 (1-9) % Eos % (Auto) 1.2 (0-6) % Baso % (Auto) 0.1 (0-2) % Absolute Neuts (auto) 20.1 H (1.5-7.7) 10^3/ul Absolute Lymphs (auto) 1.4 (1.0-4.8) 10^3/ul Absolute Monos (auto) 1.8 H (0-0.8) 10^3/ul Absolute Eos (auto) 0.3 (0-0.6) 10^3/ul Absolute Basos (auto) 0 (0-0.2) 10^3/ul Absolute Nucleated RBC 0.01 10^3/ul Nucleated RBC % 0 INR (Anticoag Therapy) 1.32 H (0.89-1.11) APTT 33.4 (26.0-36.3) seconds Sodium 131 L (133-145) mmol/L Potassium 3.2 L (3.5-5.0) mmol/L Chloride 100 L (101-111) mmol/L Carbon Dioxide 26 (22-32) mmol/L Anion Gap 5 (2-11) mmol/L BUN 17 (6-24) mg/dL Creatinine 1.12 (0.67-1.17) mg/dL Est GFR ( Amer) 87.5 (>60) Est GFR (Non-Af Amer) 68.1 (>60) BUN/Creatinine Ratio 15.2 (8-20) Glucose 135 H (70-100) mg/dL Lactic Acid (0.5-2.0) mmol/L Calcium 7.4 L (8.6-10.3) mg/dL Magnesium 1.9 (1.9-2.7) mg/dL Total Bilirubin 0.30 (0.2-1.0) mg/dL AST 21 (13-39) U/L ALT 14 (7-52) U/L Alkaline Phosphatase 164 H (34-104) U/L Total Creatine Kinase 29 (10-223) U/L Troponin I 0.04 H* (<0.04) ng/mL B-Natriuretic Peptide ( - 100) pg/mL Total Protein 7.9 (6.4-8.9) g/dL Albumin 1.8 L (3.2-5.2) g/dL Globulin 6.1 H (2-4) g/dL Albumin/Globulin Ratio 0.3 L (1-3) TSH 5.32 (0.34-5.60) mcIU/mL Urine Color Urine Appearance Urine pH (5-9) Ur Specific Lueders (1.010-1.030) Urine Protein (Negative) Urine Ketones (Negative) Urine Blood (Negative) Urine Nitrate (Negative) Urine Bilirubin (Negative) Urine Urobilinogen (Negative) Ur Leukocyte Esterase (Negative) Urine WBC (Auto) (Absent) Urine RBC (Auto) (Absent) Urine Bacteria (Absent) Hyaline Casts (Absent) Urine Glucose (Negative) 07/11/16 07/11/16 07/11/16 Range/Units 23:50 23:50 23:50 WBC (3.5-10.8) 10^3/ul RBC (4.0-5.4) 10^6/ul Hgb (14.0-18.0) g/dl Hct (42-52) % MCV (80-94) fL MCH (27-31) pg MCHC (31-36) g/dl RDW (10.5-15) % Plt Count (150-450) 10^3/ul MPV (7.4-10.4) um3 Neut % (Auto) (38-83) % Lymph % (Auto) (25-47) % Talbot % (Auto) (1-9) % Eos % (Auto) (0-6) % Baso % (Auto) (0-2) % Absolute Neuts (auto) (1.5-7.7) 10^3/ul Absolute Lymphs (auto) (1.0-4.8) 10^3/ul Absolute Monos (auto) (0-0.8) 10^3/ul Absolute Eos (auto) (0-0.6) 10^3/ul Absolute Basos (auto) (0-0.2) 10^3/ul Absolute Nucleated RBC 10^3/ul Nucleated RBC % INR (Anticoag Therapy) (0.89-1.11) APTT (26.0-36.3) seconds Sodium (133-145) mmol/L Potassium (3.5-5.0) mmol/L Chloride (101-111) mmol/L Carbon Dioxide (22-32) mmol/L Anion Gap (2-11) mmol/L BUN (6-24) mg/dL Creatinine (0.67-1.17) mg/dL Est GFR ( Amer) (>60) Est GFR (Non-Af Amer) (>60) BUN/Creatinine Ratio (8-20) Glucose (70-100) mg/dL Lactic Acid 2.7 H* (0.5-2.0) mmol/L Calcium (8.6-10.3) mg/dL Magnesium (1.9-2.7) mg/dL Total Bilirubin (0.2-1.0) mg/dL AST (13-39) U/L ALT (7-52) U/L Alkaline Phosphatase (34-104) U/L Total Creatine Kinase (10-223) U/L Troponin I (<0.04) ng/mL B-Natriuretic Peptide 152 H ( - 100) pg/mL Total Protein (6.4-8.9) g/dL Albumin (3.2-5.2) g/dL Globulin (2-4) g/dL Albumin/Globulin Ratio (1-3) TSH (0.34-5.60) mcIU/mL Urine Color Yellow Urine Appearance Cloudy Urine pH 5.0 (5-9) Ur Specific Lueders 1.017 (1.010-1.030) Urine Protein 1+(30 mg/dl) H (Negative) Urine Ketones Negative (Negative) Urine Blood Negative (Negative) Urine Nitrate Negative (Negative) Urine Bilirubin Negative (Negative) Urine Urobilinogen Negative (Negative) Ur Leukocyte Esterase Negative (Negative) Urine WBC (Auto) Trace(0-5/hpf) (Absent) Urine RBC (Auto) Absent (Absent) Urine Bacteria Absent (Absent) Hyaline Casts Present H (Absent) Urine Glucose Negative (Negative) Result Diagrams: 07/11/16 23:50 07/11/16 23:50 Lab Statement: Any lab studies that have been ordered have been reviewed, and results considered in the medical decision making process. - Radiology CXR Xray Interpretation: No Acute Changes Radiology Interpretation Completed By: ED Physician FOOT X-RAY Xray Interpretation: No Acute Changes Radiology Interpretation Completed By: ED Physician - Additional Comments Diagnostic Additional Comments: Troponin I - 0.04 Lactic Acid - 2.7 Complex Multi-Symp Course/Dx Course Of Treatment: 01:45 - Admit to Dr. Fregoso (Hospitalist) - Diagnoses Provider Diagnoses: Cellulitis, Sepsis, Anemia, Weakness - Critical Care Time Critical Care Time: 30-74 min Discharge - Discharge Plan Condition: Stable Disposition: ADMITTED TO [facility] Referrals: Edgar Samayoa MD [Primary Care Provider] - The documentation as recorded by the Elias venegas Adam accurately reflects the service I personally performed and the decisions made by , Fransisco Almendarez.
[2016-07-12] MEDS ORDERED: tiZANidine TAB* 2 MG PO PRN (05:41)
[2016-07-12] MEDS ORDERED: Lidocaine PATCH 5%* 1 PATCH TRANSDERM PRN (05:41)
[2016-07-12] MEDS ORDERED: Albuterol HFA INHALER* 8 gm MDI INH PRN (05:41)
[2016-07-12] MEDS ORDERED: Linaclotide (NF) 145 MCG CAP PO PRN (05:41)
[2016-07-12] MEDS ORDERED: NS 0.9% 1000 ML* 1,000 ML IV SCH (05:45)
[2016-07-12] MEDS ORDERED: fentaNYL PATCH 25 MCG/HR TRANSDERM SCH (06:00)
[2016-07-12 07:40] LABS: Lipase 159 U/L (11.0-82.0)
--- NOTE | 2016-07-12 08:46 | RAD ---
Indication: Dizziness. Single frontal view of the chest performed at 0002 hours was reviewed. Comparison is made with previous exam dated May 08, 2016. No mediastinal shift is noted. Heart is of normal size and configuration. Lung marion appear clear. IMPRESSION: NO ACTIVE CARDIOPULMONARY DISEASE IS NOTED.
--- NOTE | 2016-07-12 08:49 | RAD ---
Indication: Dizziness, foot injury pain. 3 views of left foot demonstrates no fracture. No other bone or joint abnormality is identified. IMPRESSION: No fracture of the left foot is noted.
[2016-07-12] MEDS ORDERED: Losartan TAB* 25 MG PO SCH (09:00)
[2016-07-12 09:03] LABS: Alcohol < 10 mg/dL (<10); Prealbumin 4 mg/dL (18-38)
[2016-07-12] MEDS: oxyCODONE TAB* 5 MG TAB PO PRN ×2 (09:06→23:56)
[2016-07-12 12:01] LABS: BUN/Creatinine Ratio 16.2 (8-20); Calcium 7.2 mg/dL (8.6-10.3); EGFR African American 141.2 (>60); EGFR Non-African American 109.8 (>60); Potassium 3.1 mmol/L (3.5-5.0)
[2016-07-12] MEDS: Nystatin CREAM* 15 GM TUBE TOPICAL SCH ×3 (12:13→20:36)
[2016-07-12] MEDS: Heparin VIAL(*) 5000 UNITS/ML VIAL (FIVE THOUSAND) SUBCUT SCH ×3 (12:13→23:49)
[2016-07-12] MEDS: ceFAZolin 1 GM in Dextrose (*) 1 GM/50 ML BAG IVPB SCH ×3 (12:13→23:45)
[2016-07-12] MEDS: Pregabalin CAP(*) 50 MG PO SCH ×3 (12:13→20:25)
[2016-07-12] MEDS: HYDROmorphone* 1 MG/ML 1 ML SYR IV SLOW PU PRN ×2 (13:02→20:28)
[2016-07-12] MEDS: Sertraline* 100 MG TAB PO SCH (13:03)
[2016-07-12] MEDS: Omeprazole CAP* 20 MG PO SCH (13:03)
[2016-07-12] MEDS: Niacin ER TAB* 500 MG PO SCH (13:04)
[2016-07-12] MEDS: Calcium/Vitamin D TAB 250/125* TAB PO SCH (13:04)
[2016-07-12] MEDS: Furosemide TAB* 40 MG PO SCH (13:05)
[2016-07-12] MEDS: Ferrous Sulfate TAB* 325 MG PO SCH (13:05)
[2016-07-12] MEDS: Finasteride TAB* 5 MG PO SCH (13:06)
[2016-07-12] MEDS: Atorvastatin* 40 MG TAB PO SCH (13:06)
[2016-07-12] MEDS: Docusate CAP* 100 MG PO SCH (13:06)
[2016-07-12 13:07] LABS: Troponin I 0.03 ng/mL (<0.04)
[2016-07-12] MEDS: Levothyroxine TAB* 75 MCG TAB PO SCH (13:07)
[2016-07-12] MEDS: (Terbinafine Hcl [Terbinafine Hcl] 250 MG) PO SCH (13:07)
[2016-07-12] MEDS ORDERED: Potassium Chlor TAB* 20 MEQ TAB.ER PO ONE (13:17)
[2016-07-12] MEDS ORDERED: KCL 20 MEQ/100 ML IVPREMIX* 20 MEQ/100 ML BAG IV ONE (13:18)
[2016-07-12] MEDS: fentaNYL PATCH 25 MCG/HR TRANSDERM SCH (14:14)
--- NOTE | 2016-07-12 16:11 | PN ---
Subjective Date of Service: 07/12/16 Interval History: Patient seen this afternoon. Says he came to the hospital because he fell at home and couldn't get up. Has been feeling "sick" for the past few days with nausea, abdominal pain and fatigue, has been sleeping a lot. Legs have been bothering him as well, particularly buttocks. Says he has had bed bugs "for a long time", is constantly scratching his bites and causing excoriations. Family History: Unchanged from Admission Social History: Unchanged from Admission Past Medical History: Unchanged from Admission Objective Active Medications: Acetaminophen (Tylenol Tab*) 650 mg PO Q4H PRN Albuterol (Ventolin Hfa Inhaler*) 2 puff INH Q4H PRN Aripiprazole (Abilify Tab*) 10 mg PO BEDTIME FERNANDO Atorvastatin Calcium (Lipitor*) 40 mg PO DAILY FERNANDO Calcium/Vitamin D (Oscal D Tab 250/125*) 1 tab PO DAILY FERNANDO Docusate Sodium (Colace Cap*) 100 mg PO DAILY FERNANDO Fentanyl (Duragesic Patch 25 Mcg/Hr*) 25 mcg TRANSDERM Q72HR FERNANDO Ferrous Sulfate (Ferrous Sulfate Tab*) 325 mg PO DAILY FERNANDO Finasteride (Proscar Tab*) 5 mg PO DAILY FERNANDO Furosemide (Lasix Tab*) 40 mg PO DAILY FERNANDO Heparin Sodium (Porcine) (Heparin Vial(*)) 5,000 units SUBCUT Q8HR FERNANDO Hydromorphone HCl (Dilaudid Iv*) 1 mg IV SLOW PU Q4H PRN Cefazolin Sodium/Dextrose (Kefzol 1 Gm In Dextrose Duplex (*)) 1 gm in 50 mls @ 200 mls/hr IVPB Q8H FERNANDO Sodium Chloride (Ns 0.9% 1000 Ml*) 1,000 mls @ 100 mls/hr IV PER RATE FERNANDO Levothyroxine Sodium (Synthroid Tab*) 75 mcg PO 0600 [facility] Lidocaine (Lidoderm 5% Patch*) 1 patch TRANSDERM DAILY PRN Linaclotide (Linzess (Nf)) 145 mcg PO DAILY PRN Losartan Potassium (Cozaar Tab*) 100 mg PO DAILY FERNANDO Niacin (Niaspan Er Tab*) 2,000 mg PO DAILY FERNANDO (Terbinafine Hcl [ Terbinafine Hcl] 250 Mg) 250 mg PO DAILY FERNANDO Nystatin (Nystatin Cream*) 1 applic TOPICAL TID FERNANDO Omeprazole (Prilosec Cap*) 20 mg PO QAM [facility] Oxycodone HCl (Roxycodone Tab*) 10 mg PO Q8HR PRN Pharmacy Profile Note (Lidocaine Patch Remove*) 1 note PATCH OFF 2100 [facility] Pharmacy Profile Note (Fentanyl Patch Check Q Shift) 1 note N/A 0700,1900 [facility] Pregabalin (Lyrica Cap(*)) 150 mg PO TID [facility] Sertraline HCl (Zoloft*) 100 mg PO DAILY [facility] Tizanidine HCl (Zanaflex Tab*) 4 mg PO TID PRN Trazodone HCl (Desyrel Tab*) 150 mg PO BEDTIME [facility] Vital Signs 07/12/16 07/12/16 07/12/16 12:02 13:02 13:04 Temperature 98.5 F Pulse Rate 88 Respiratory 16 18 18 Rate Blood Pressure 124/59 (mmHg) O2 Sat by Pulse 100 Oximetry Oxygen Devices in Use Now: None Appearance: Middle-aged, obese, M, laying in bed in NAD Eyes: No Scleral Icterus Ears/Nose/Mouth/Throat: Mucous Membranes Moist Neck: NL Appearance and Movements; NL JVP Respiratory: Symmetrical Chest Expansion and Respiratory Effort, Clear to Auscultation Cardiovascular: NL Sounds; No Murmurs; No JVD, RRR Abdominal: - - Soft, obese, non-distended, mild TTP diffusely, BS+ Lymphatic: No Cervical Adenopathy Extremities: - - B/L LE edema, HERBERT wraps in place Skin: - - Superficial ulceration of the R buttocks with some surrounding erythema, also ulceration in gluteal claft and small area on posterior L thigh. B/L LEs with chronic skin changes and flaking, also small superficial ulceration on the L anterior arthur Neurological: Alert and Oriented x 3 Result Diagrams: 07/11/16 23:50 07/12/16 10:45 Microbiology and Other Data: Microbiology 07/12/16 14:17 Nasal Screen MRSA (PCR)(SUMI) - Final Nasal Mrsa Negative Assess/Plan/Problems-Billing Assessment: 56 yo M with hx of morbid obesity, chronic lymphedema, chronic pain, HTN, bed bugs p/w fall, abdominal pain, possible cellulitis - Patient Problems (1) Cellulitis Current Visit: No Comment: WBC elevated at 22. Buttocks ulcers have some surrounding erythema and are painful, unclear if this is enough to cause significant leukocytosis. Legs do not seem significantly concerning. Continue Ancef IV for now, follow CBC, culture data. Wound care consult. (2) Abdominal pain Current Visit: Yes Comment: Mild lipase elevation. ?mild pancreatitis. Will trend for now, if pain gets worse will make NPO. (3) Failure to thrive Current Visit: Yes Comment: Concerned about patient's home situation between his wounds, the bed bugs and his malnutrition. Will get SW consult. (4) Chronic pain Current Visit: No Comment: Continue fentanyl patch 25mcg q72hr and prn oxycodone. (5) HTN (hypertension) Current Visit: No Comment: BP soft after AM Losartan, will hold for now. (6) Anemia Current Visit: Yes Comment: Likely due to a combination of iron deficiency, chronic disease and malnutrition. Monitor. Continue home iron supplement. (7) Lower extremity edema Current Visit: No Comment: Stop IVF. Continue Lasix. Encourage pt to keep feet elevated. HERBERT wraps. (8) DVT prophylaxis Current Visit: Yes Comment: HSQ Status and Disposition: Inpatient for IV ABx
--- NOTE | 2016-07-12 18:26 | HP ---
HISTORY AND PHYSICAL: DATE OF ADMISSION: 07/12/16 CHIEF COMPLAINT: Stomach pain. HISTORY OF PRESENT ILLNESS: The patient is a 56-year-old gentleman who says he had stomach pain over the last couple of days that seems to be constant. It is a sharp pain. It is not any worse or better with food. He has no nausea, vomiting associated with it. He also notes that he has open sores on his legs and thighs. It has been getting worse. He has been trying to take care of himself with his sons with ABD pads, antibiotic ointment and Andrew wraps. He used to go to the wound clinic, but has not gone in the long time. Today, he was sitting in the chair, he dribbled off of his chair and could not get up, so he called the ambulance. He uses the cane to walk around and he could not get up on his cane. He feels increasingly weak. He denies any chest pain or shortness of breath, fevers or chills. In the ED, the patient was evaluated and found to have significantly erythematous legs and some sores as well as white count over 23,000. PAST MEDICAL HISTORY: He has a past medical history significant for chronic pain, hyperlipidemia, depression, morbid, obstructive sleep apnea, hypertension , hypothyroidism. PAST SURGICAL HISTORY: Significant for Mohini-en-Y gastric bypass, left total hip arthroplasty and right knee arthroscopy. CURRENT MEDICATIONS: 1. Trazodone 150 mg at bedtime. 2. Oxycodone 10 mg every 8 hours a needed. 3. Fentanyl patch 25 mcg every 72 hours. 4. Tizanidine 4 mg 3 times a day as needed. 5. Terbinafine 250 mg daily. 6. Zoloft 100 mg daily. 7. Crestor 20 mg daily. 8. Lyrica 150 mg 3 times a day. 9. Omeprazole 20 mg in the morning. 10. Nystatin, apply 3 times a day. 11. Niacin ER 2000 mg once daily. 12. Losartan 100 mg daily. 13. Linzess 145 mcg daily. 14. Lidocaine patch 5% one patch daily as needed. 15. Synthroid 75 mcg in the morning. 16. Furosemide 40 mg daily. 17. Finasteride 5 mg daily. 18. Ferrous sulfate 325 mg daily. 19. Docusate 100 mg daily. 20. Calcium carbonate with vitamin D 1 tablet daily. 21. Albuterol inhaler 2 puffs every 4 hours as needed. 22. Abilify 10 mg at bedtime. ALLERGIES: He has an allergy/adverse reaction to ACTOS. FAMILY HISTORY: Mother had CVA. Father had an IA. SOCIAL HISTORY: Ex-tobacco. Occasional beers. Surrogate decision maker is his son, Mati. REVIEW OF SYSTEMS: A 14-point review of systems was completed with the patient. All pertinent positives and negatives are in the history of present illness, otherwise is negative. PHYSICAL EXAMINATION GENERAL: A pleasant gentleman, lying in bed, in no acute distress. VITAL SIGNS: Temperature 97.9 degrees, heart rate 82 beats per minute, respiratory rate 16 breaths per minute, pulse ox 98% on room air, blood pressure 90/59. HEENT: Normocephalic, atraumatic. Pupils equal, round, reactive to light. Moist mucous membranes. CHEST: Clear to auscultation and percussion bilaterally. CARDIOVASCULAR: S1, S2 appreciated. Regular rate and rhythm. ABDOMEN: Obese, positive bowel sounds in all 4 quadrants. Soft, nontender, nondistended. EXTREMITIES: No cyanosis or clubbing. Bilateral erythematous lower extremities from the upper leg to the lower leg with scaling skin and some weeping lesions on his feet. It is warm and tender. NEUROLOGIC: He is alert and oriented x3. He moves all extremities. SKIN: He also has some sores in his sacral area, on the thigh and he has numerous bedbug excoriations as well. DIAGNOSTIC STUDIES/LAB DATA: White count 23.5, hemoglobin 8.3, hematocrit 27, and platelets 291. Sodium 131, potassium , chloride 100, CO2 26, BUN 17, creatinine 1.12, and glucose 135. Lactic acid 2.7. Troponin 0.04. BNP 152. INR is 1.32. Urinalysis is unremarkable. Foot x-ray results are pending. Chest x-ray shows no infiltrates. ASSESSMENT AND PLAN: 1. Cellulitis, likely cause of patient's elevated white count. Place on Ancef 1 g IV q. 8, may need referral to wound care center as well again. Await culture results. 2. Abdominal pain: It is nontender on exam. I will add a lipase to his labs, however. I do not think he needs imaging at this point. We will monitor. 3. Chronic pain: Continue current regimen, Dilaudid in addition p.r.n. for breakthrough pain. 4. Gastroesophageal reflux disease, stable. Continue omeprazole. 5. Benign prostatic hyperplasia, stable. Continue finasteride. 6. Depression, stable. Continue Zoloft. 7. FEN: Regular diet. 8. DVT prophylaxis: Heparin subcu. 9. The patient is a full code. TIME SPENT: Over 75 minutes was spent on this H and P, more than 40 minutes of which was spent in direct [id number] contact with the patient in evaluation, physical exam, counseling, and coordination of care. CC: Dr. Samayoa* [id number]/CPS #: [id number] ANA PAULA
[2016-07-12] MEDS: fentaNYL Patch Check Q Shift 1 NOTE SCH (19:18)
[2016-07-12] MEDS: ARIPiprazole TAB* 5 MG PO SCH (20:24)
[2016-07-12] MEDS: traZODone TAB* 50 MG TAB PO SCH (20:24)
[2016-07-12] MEDS: Lidocaine Patch REMOVE* 1 NOTE MISC PATCH OFF SCH (23:52)
[2016-07-13] MEDS: HYDROmorphone* 1 MG/ML 1 ML SYR IV SLOW PU PRN ×3 (02:53→21:30)
[2016-07-13] MEDS: ceFAZolin 1 GM in Dextrose (*) 1 GM/50 ML BAG IVPB SCH ×3 (06:20→22:22)
[2016-07-13] MEDS: Heparin VIAL(*) 5000 UNITS/ML VIAL (FIVE THOUSAND) SUBCUT SCH ×3 (06:25→21:31)
[2016-07-13] MEDS: Levothyroxine TAB* 75 MCG TAB PO SCH (06:28)
[2016-07-13] MEDS: fentaNYL Patch Check Q Shift 1 NOTE SCH ×2 (07:36→19:01)
[2016-07-13 08:20] LABS: Hematocrit 22 % (42-52); Hemoglobin 6.9 g/dl (14.0-18.0); Mean Corpuscular HGB Conc 31 g/dl (31-36); Mean Corpuscular Hemoglobin 25 pg (27-31); Mean Corpuscular Volume 78 fL (80-94); Mean Platelet Volume 9 um3 (7.4-10.4); Red Blood Count 2.82 10^6/ul (4.0-5.4); Red Cell Distribution Width 21 % (10.5-15); White Blood Count 15.1 10^3/ul (3.5-10.8)
[2016-07-13 08:21] LABS: Comments Flag Yes
[2016-07-13 08:22] LABS: Add Diff/Slide Review? Slide Review Added
[2016-07-13 08:29] LABS: BUN/Creatinine Ratio 15.3 (8-20); Calcium 6.6 mg/dL (8.6-10.3); EGFR African American 183.4 (>60); EGFR Non-African American 142.6 (>60)
[2016-07-13 09:07] LABS: Hypochromasia 3+; Microcytosis 2+; Target Cells 1+
[2016-07-13] MEDS: Ferrous Sulfate TAB* 325 MG PO SCH (09:12)
[2016-07-13] MEDS: Finasteride TAB* 5 MG PO SCH (09:12)
[2016-07-13] MEDS: Docusate CAP* 100 MG PO SCH (09:13)
[2016-07-13] MEDS: Omeprazole CAP* 20 MG PO SCH (09:13)
[2016-07-13] MEDS: Calcium/Vitamin D TAB 250/125* TAB PO SCH (09:13)
[2016-07-13] MEDS: Sertraline* 100 MG TAB PO SCH (09:13)
[2016-07-13] MEDS: Pregabalin CAP(*) 50 MG PO SCH ×3 (09:13→21:29)
[2016-07-13] MEDS: Furosemide TAB* 40 MG PO SCH (09:13)
[2016-07-13] MEDS: Atorvastatin* 40 MG TAB PO SCH (09:13)
[2016-07-13] MEDS: Niacin ER TAB* 500 MG PO SCH (09:13)
[2016-07-13] MEDS: (Terbinafine Hcl [Terbinafine Hcl] 250 MG) PO SCH (09:13)
[2016-07-13] MEDS: Nystatin CREAM* 15 GM TUBE TOPICAL SCH ×3 (09:14→21:13)
--- NOTE | 2016-07-13 10:32 | PN ---
Subjective Date of Service: 07/13/16 Interval History: Patient seen this morning. Says he continues to have pain in the buttocks and abdomen. Ankles feel less swollen to him. Had BM last night, no blood. Lives at home with his developmentally disabled son and another son who is in high school. Says they do the shopping at home, feels he gets adequate nutrition. Does not drink alcohol. Family History: Unchanged from Admission Social History: Unchanged from Admission Past Medical History: Unchanged from Admission Objective Active Medications: Acetaminophen (Tylenol Tab*) 650 mg PO Q4H PRN Albuterol (Ventolin Hfa Inhaler*) 2 puff INH Q4H PRN Aripiprazole (Abilify Tab*) 10 mg PO BEDTIME [facility] Atorvastatin Calcium (Lipitor*) 40 mg PO DAILY [facility] Calcium/Vitamin D (Oscal D Tab 250/125*) 1 tab PO DAILY [facility] Docusate Sodium (Colace Cap*) 100 mg PO DAILY [facility] Fentanyl (Duragesic Patch 25 Mcg/Hr*) 25 mcg TRANSDERM Q72HR [facility] Ferrous Sulfate (Ferrous Sulfate Tab*) 325 mg PO DAILY [facility] Finasteride (Proscar Tab*) 5 mg PO DAILY [facility] Furosemide (Lasix Tab*) 40 mg PO DAILY [facility] Heparin Sodium (Porcine) (Heparin Vial(*)) 5,000 units SUBCUT Q8HR [facility] Hydromorphone HCl (Dilaudid Iv*) 1 mg IV SLOW PU Q4H PRN Cefazolin Sodium/Dextrose (Kefzol 1 Gm In Dextrose Duplex (*)) 1 gm in 50 mls @ 200 mls/hr IVPB Q8H [facility] Levothyroxine Sodium (Synthroid Tab*) 75 mcg PO 0600 [facility] Lidocaine (Lidoderm 5% Patch*) 1 patch TRANSDERM DAILY PRN Linaclotide (Linzess (Nf)) 145 mcg PO DAILY PRN Niacin (Niaspan Er Tab*) 2,000 mg PO DAILY [facility] (Terbinafine Hcl [ Terbinafine Hcl] 250 Mg) 250 mg PO DAILY [facility] Nystatin (Nystatin Cream*) 1 applic TOPICAL TID [facility] Omeprazole (Prilosec Cap*) 20 mg PO QAM [facility] Oxycodone HCl (Roxycodone Tab*) 10 mg PO Q8HR PRN Pharmacy Profile Note (Lidocaine Patch Remove*) 1 note PATCH OFF 2100 [facility] Pharmacy Profile Note (Fentanyl Patch Check Q Shift) 1 note N/A 0700,1900 [facility] Potassium Chloride (Klor Con Er Tab*) 40 meq PO Q2H [facility] Pregabalin (Lyrica Cap(*)) 150 mg PO TID [facility] Sertraline HCl (Zoloft*) 100 mg PO DAILY [facility] Tizanidine HCl (Zanaflex Tab*) 4 mg PO TID PRN Trazodone HCl (Desyrel Tab*) 150 mg PO BEDTIME [facility] Vital Signs 07/12/16 07/12/16 07/12/16 12:02 13:02 13:04 Temperature 98.5 F Pulse Rate 88 Respiratory 16 18 18 Rate Blood Pressure 124/59 (mmHg) O2 Sat by Pulse 100 Oximetry 07/12/16 07/12/16 07/12/16 23:19 23:50 23:56 Temperature 98.1 F Pulse Rate 93 Respiratory 16 16 18 Rate Blood Pressure 100/52 (mmHg) O2 Sat by Pulse 96 Oximetry 07/13/16 07/13/16 07/13/16 02:53 02:59 07:39 Temperature 98.2 F Pulse Rate 102 Respiratory 18 18 16 Rate Blood Pressure 130/65 (mmHg) O2 Sat by Pulse 97 Oximetry Oxygen Devices in Use Now: None Appearance: Obese, middle-aged, M, laying in bed in NAD Eyes: No Scleral Icterus Ears/Nose/Mouth/Throat: Mucous Membranes Moist Neck: NL Appearance and Movements; NL JVP Respiratory: Symmetrical Chest Expansion and Respiratory Effort, Clear to Auscultation Cardiovascular: NL Sounds; No Murmurs; No JVD, RRR Abdominal: - - Soft, non-distended, TTP in epigastric area and RLQ, no rebound/ guarding, BS+ Lymphatic: No Cervical Adenopathy Extremities: - - B/L LE edema, HERBERT wraps in place, did not assess wounds in upper extremities today Neurological: Alert and Oriented x 3 Result Diagrams: 07/13/16 07:51 07/13/16 07:51 Additional Lab and Data: Microbiology and Other Data: Assess/Plan/Problems-Billing Assessment: 56 yo M with hx of morbid obesity, chronic lymphedema, chronic pain, HTN, bed bugs p/w fall, abdominal pain, possible cellulitis - Patient Problems (1) Cellulitis Current Visit: No Comment: WBC improving. Continue Ancef IV for now, follow CBC, culture data. Wound care consult pending. (2) Abdominal pain Current Visit: Yes Comment: Repeat lipase pending today. If elevated further will get CT scan to evaluate for evidence of pancreatitis. (3) Failure to thrive Current Visit: Yes Comment: Concerned about patient's home situation between his wounds, the bed bugs and his malnutrition. Will get SW consult. Nutrition consult. (4) Chronic pain Current Visit: No Comment: Continue fentanyl patch 25mcg q72hr and prn oxycodone. (5) HTN (hypertension) Current Visit: No Comment: BPs stable, continue to hold Losartan (6) Anemia Current Visit: Yes Comment: Likely due to a combination of iron deficiency, chronic disease and malnutrition. No reported blood in stool, guaiac will likely be positive from PO iron. Transfuse 1 u PRBC. Continue home iron supplement. (7) Lower extremity edema Current Visit: No Comment: Continue home Lasix. Will give additional 40 mg IV lasix now. Encourage pt to keep feet elevated. HERBERT wraps. (8) DVT prophylaxis Current Visit: Yes Comment: HSQ Status and Disposition: Inpatient for IV ABx
[2016-07-13] MEDS ORDERED: Furosemide IV* 10 MG/ML 10 ML VIAL (100 MG) IV ONE (10:38)
[2016-07-13] MEDS: Potassium Chlor TAB* 20 MEQ TAB.ER PO SCH ×3 (11:03→15:06)
[2016-07-13] MEDS: oxyCODONE TAB* 5 MG TAB PO PRN (15:06)
[2016-07-13] MEDS: traZODone TAB* 50 MG TAB PO SCH (21:30)
[2016-07-13] MEDS: ARIPiprazole TAB* 5 MG PO SCH (21:51)
[2016-07-13] MEDS: Lidocaine Patch REMOVE* 1 NOTE MISC PATCH OFF SCH (22:14)
[2016-07-14] MEDS: oxyCODONE TAB* 5 MG TAB PO PRN ×2 (02:22→10:36)
[2016-07-14] MEDS: Levothyroxine TAB* 75 MCG TAB PO SCH (05:21)
[2016-07-14] MEDS: ceFAZolin 1 GM in Dextrose (*) 1 GM/50 ML BAG IVPB SCH ×3 (05:21→22:04)
[2016-07-14] MEDS: Heparin VIAL(*) 5000 UNITS/ML VIAL (FIVE THOUSAND) SUBCUT SCH ×3 (05:22→22:02)
[2016-07-14] MEDS: HYDROmorphone* 1 MG/ML 1 ML SYR IV SLOW PU PRN ×4 (05:39→22:01)
[2016-07-14 06:30] LABS: Hematocrit 24 % (42-52); Hemoglobin 7.8 g/dl (14.0-18.0); Mean Corpuscular HGB Conc 32 g/dl (31-36); Mean Corpuscular Hemoglobin 25 pg (27-31); Mean Corpuscular Volume 78 fL (80-94); Mean Platelet Volume 9 um3 (7.4-10.4); Red Blood Count 3.12 10^6/ul (4.0-5.4); Red Cell Distribution Width 20 % (10.5-15); White Blood Count 14.5 10^3/ul (3.5-10.8)
[2016-07-14 06:52] LABS: Calcium 6.6 mg/dL (8.6-10.3); EGFR African American 153.1 (>60); Potassium 3.4 mmol/L (3.5-5.0)
[2016-07-14] MEDS: fentaNYL Patch Check Q Shift 1 NOTE SCH ×2 (07:23→18:54)
[2016-07-14] MEDS: Nystatin CREAM* 15 GM TUBE TOPICAL SCH ×3 (10:30→22:12)
[2016-07-14] MEDS: Niacin ER TAB* 500 MG PO SCH (10:35)
[2016-07-14] MEDS: Atorvastatin* 40 MG TAB PO SCH (10:36)
[2016-07-14] MEDS: Calcium/Vitamin D TAB 250/125* TAB PO SCH (10:36)
[2016-07-14] MEDS: Ferrous Sulfate TAB* 325 MG PO SCH (10:36)
[2016-07-14] MEDS: Furosemide TAB* 40 MG PO SCH (10:36)
[2016-07-14] MEDS: Finasteride TAB* 5 MG PO SCH (10:36)
[2016-07-14] MEDS: Docusate CAP* 100 MG PO SCH (10:36)
[2016-07-14] MEDS: Pregabalin CAP(*) 50 MG PO SCH ×3 (10:37→22:10)
[2016-07-14] MEDS: Sertraline* 100 MG TAB PO SCH (10:37)
[2016-07-14] MEDS: Omeprazole CAP* 20 MG PO SCH ×2 (10:37→16:36)
--- NOTE | 2016-07-14 11:15 | PN ---
Subjective Date of Service: 07/14/16 Interval History: Patient seen this morning. Says he continues to feel "soreness" in his legs. Had large UOP yesterday after additional Lasix. Still reporting some abdominal pain. No fever or chills. BM this morning. Ambulating to bathroom and back but needs assistance. Family History: Unchanged from Admission Social History: Unchanged from Admission Past Medical History: Unchanged from Admission Objective Active Medications: Acetaminophen (Tylenol Tab*) 650 mg PO Q4H PRN Albuterol (Ventolin Hfa Inhaler*) 2 puff INH Q4H PRN Aripiprazole (Abilify Tab*) 10 mg PO BEDTIME [facility] Atorvastatin Calcium (Lipitor*) 40 mg PO DAILY [facility] Calcium/Vitamin D (Oscal D Tab 250/125*) 1 tab PO DAILY [facility] Docusate Sodium (Colace Cap*) 100 mg PO DAILY [facility] Fentanyl (Duragesic Patch 25 Mcg/Hr*) 25 mcg TRANSDERM Q72HR [facility] Ferrous Sulfate (Ferrous Sulfate Tab*) 325 mg PO DAILY [facility] Finasteride (Proscar Tab*) 5 mg PO DAILY [facility] Furosemide (Lasix Tab*) 40 mg PO DAILY [facility] Heparin Sodium (Porcine) (Heparin Vial(*)) 5,000 units SUBCUT Q8HR [facility] Hydromorphone HCl (Dilaudid Iv*) 1 mg IV SLOW PU Q4H PRN Cefazolin Sodium/Dextrose (Kefzol 1 Gm In Dextrose Duplex (*)) 1 gm in 50 mls @ 200 mls/hr IVPB Q8H [facility] Levothyroxine Sodium (Synthroid Tab*) 75 mcg PO 0600 [facility] Lidocaine (Lidoderm 5% Patch*) 1 patch TRANSDERM DAILY PRN Linaclotide (Linzess (Nf)) 145 mcg PO DAILY PRN Niacin (Niaspan Er Tab*) 2,000 mg PO DAILY [facility] (Terbinafine Hcl [ Terbinafine Hcl] 250 Mg) 250 mg PO DAILY [facility] Nystatin (Nystatin Cream*) 1 applic TOPICAL TID [facility] Omeprazole (Prilosec Cap*) 20 mg PO QAM [facility] Oxycodone HCl (Roxycodone Tab*) 10 mg PO Q8HR PRN Pharmacy Profile Note (Lidocaine Patch Remove*) 1 note PATCH OFF 2100 [facility] Pharmacy Profile Note (Fentanyl Patch Check Q Shift) 1 note N/A 0700,1900 [facility] Pregabalin (Lyrica Cap(*)) 150 mg PO TID [facility] Sertraline HCl (Zoloft*) 100 mg PO DAILY [facility] Tizanidine HCl (Zanaflex Tab*) 4 mg PO TID PRN Trazodone HCl (Desyrel Tab*) 150 mg PO BEDTIME [facility] Vital Signs 07/13/16 07/13/16 07/13/16 11:13 11:58 12:11 Temperature Pulse Rate 99 Respiratory 16 16 14 Rate Blood Pressure 112/56 (mmHg) O2 Sat by Pulse 96 Oximetry 07/13/16 07/14/16 07/14/16 23:38 02:22 04:22 Temperature 98.2 F Pulse Rate 85 Respiratory 12 16 12 Rate Blood Pressure 113/58 (mmHg) O2 Sat by Pulse 97 Oximetry 07/14/16 07/14/16 07/14/16 05:39 06:39 07:37 Temperature 97.8 F Pulse Rate 92 Respiratory 16 16 18 Rate Blood Pressure 122/64 (mmHg) O2 Sat by Pulse 93 Oximetry Oxygen Devices in Use Now: None Appearance: Middle-aged, M, laying in bed in NAD Eyes: No Scleral Icterus Ears/Nose/Mouth/Throat: Mucous Membranes Moist Neck: NL Appearance and Movements; NL JVP Respiratory: Symmetrical Chest Expansion and Respiratory Effort, Clear to Auscultation Cardiovascular: NL Sounds; No Murmurs; No JVD, RRR Abdominal: - - Soft, obese, non-distended, TTP in epigastric area, BS+ Lymphatic: No Cervical Adenopathy Extremities: - - Improvement in LE edema, HERBERT wraps in place Skin: - - Scattered bed bug bites with excoriations from scratching, will assess wounds when wound consult evaluates patient Neurological: Alert and Oriented x 3 Result Diagrams: 07/14/16 06:06 07/14/16 06:06 Additional Lab and Data: Microbiology and Other Data: Assess/Plan/Problems-Billing Assessment: 56 yo M with hx of morbid obesity, chronic lymphedema, chronic pain, HTN, bed bugs p/w fall, abdominal pain, possible cellulitis - Patient Problems (1) Cellulitis Current Visit: No Comment: WBC improving. Continue Ancef IV for now, follow CBC, culture data. Wound care consult today, will evaluate wounds when they are undressed. (2) Abdominal pain Current Visit: Yes Comment: Lipase normalized. ?PUD, will increase omeprazole to BID (3) Failure to thrive Current Visit: Yes Comment: Concerned about patient's home situation between his wounds, the bed bugs and his malnutrition. SW and Nutrition consult pending. (4) Chronic pain Current Visit: No Comment: Continue fentanyl patch 25mcg q72hr and prn oxycodone. (5) HTN (hypertension) Current Visit: No Comment: BPs stable, continue to hold Losartan (6) Anemia Current Visit: Yes Comment: S/P 1u PRBC on 07/13, adequate response. Likely due to a combination of iron deficiency, chronic disease and malnutrition. No reported blood in stool, guaiac will likely be positive from PO iron. Continue home iron supplement. (7) Lower extremity edema Current Visit: No Comment: Good UOP with IV Lasix yesterday however concerned that more dosing may cause renal dysfunction with patients low albumin. Continue home Lasix for now. Encourage pt to keep feet elevated. HERBERT wraps. (8) DVT prophylaxis Current Visit: Yes Comment: HSQ Status and Disposition: Inpatient for IV ABx. PT, SW eval pending
[2016-07-14] MEDS: (Terbinafine Hcl [Terbinafine Hcl] 250 MG) PO SCH (11:51)
[2016-07-14] MEDS: Acetaminophen TAB* 325 MG PO PRN (15:36)
[2016-07-14] MEDS: ARIPiprazole TAB* 5 MG PO SCH (22:08)
[2016-07-14] MEDS: traZODone TAB* 50 MG TAB PO SCH (22:09)
[2016-07-14] MEDS: Lidocaine Patch REMOVE* 1 NOTE MISC PATCH OFF SCH (22:12)
[2016-07-15] MEDS: ceFAZolin 1 GM in Dextrose (*) 1 GM/50 ML BAG IVPB SCH ×3 (06:03→21:16)
[2016-07-15] MEDS: Levothyroxine TAB* 75 MCG TAB PO SCH (06:04)
[2016-07-15] MEDS: Heparin VIAL(*) 5000 UNITS/ML VIAL (FIVE THOUSAND) SUBCUT SCH ×3 (06:05→21:08)
[2016-07-15] MEDS: HYDROmorphone* 1 MG/ML 1 ML SYR IV SLOW PU PRN (06:05)
[2016-07-15 06:22] LABS: Hematocrit 25 % (42-52); Hemoglobin 7.8 g/dl (14.0-18.0); Mean Corpuscular HGB Conc 32 g/dl (31-36); Mean Corpuscular Hemoglobin 25 pg (27-31); Mean Corpuscular Volume 79 fL (80-94); Mean Platelet Volume 9 um3 (7.4-10.4); Red Blood Count 3.13 10^6/ul (4.0-5.4); Red Cell Distribution Width 20 % (10.5-15); White Blood Count 13.9 10^3/ul (3.5-10.8)
[2016-07-15 06:23] LABS: Add Diff/Slide Review? Slide Review Added; Comments Flag Yes
[2016-07-15 06:32] LABS: BUN/Creatinine Ratio 15.2 (8-20); Calcium 6.6 mg/dL (8.6-10.3); EGFR African American 161.2 (>60); EGFR Non-African American 125.3 (>60); Potassium 3.4 mmol/L (3.5-5.0)
[2016-07-15] MEDS: fentaNYL Patch Check Q Shift 1 NOTE SCH ×2 (07:13→18:35)
[2016-07-15] MEDS: (Terbinafine Hcl [Terbinafine Hcl] 250 MG) PO SCH (08:48)
[2016-07-15] MEDS: Calcium/Vitamin D TAB 250/125* TAB PO SCH (08:51)
[2016-07-15] MEDS: Atorvastatin* 40 MG TAB PO SCH (08:51)
[2016-07-15] MEDS: Omeprazole CAP* 20 MG PO SCH ×2 (08:51→16:28)
[2016-07-15] MEDS: fentaNYL PATCH 25 MCG/HR TRANSDERM SCH (08:52)
[2016-07-15] MEDS: Docusate CAP* 100 MG PO SCH (08:52)
[2016-07-15] MEDS: Ferrous Sulfate TAB* 325 MG PO SCH (08:54)
[2016-07-15] MEDS: Finasteride TAB* 5 MG PO SCH (08:57)
[2016-07-15] MEDS: Niacin ER TAB* 500 MG PO SCH (08:57)
[2016-07-15] MEDS: Furosemide TAB* 40 MG PO SCH (08:57)
[2016-07-15] MEDS: Sertraline* 100 MG TAB PO SCH (08:59)
[2016-07-15] MEDS: Pregabalin CAP(*) 50 MG PO SCH ×3 (08:59→21:07)
[2016-07-15] MEDS: oxyCODONE TAB* 5 MG TAB PO PRN ×2 (09:00→18:33)
[2016-07-15] MEDS: Nystatin CREAM* 15 GM TUBE TOPICAL SCH ×3 (09:43→21:08)
[2016-07-15] MEDS ORDERED: diPHENhydraMINE PO* 25 MG ONE (15:26)
[2016-07-15] MEDS: diPHENhydraMINE PO* 25 MG PO PRN (15:28)
[2016-07-15] MEDS: Acetaminophen TAB* 325 MG PO PRN (15:28)
--- NOTE | 2016-07-15 19:42 | PN ---
Subjective Date of Service: 07/15/16 Interval History: Patient feeling better. No new complaints. Family History: Unchanged from Admission Social History: Unchanged from Admission Past Medical History: Unchanged from Admission Objective Active Medications: Acetaminophen (Tylenol Tab*) 650 mg PO Q4H PRN PRN Reason: FEVER/PAIN Last Admin: 07/15/16 15:28 Dose: 650 mg Albuterol (Ventolin Hfa Inhaler*) 2 puff INH Q4H PRN PRN Reason: WHEEZING Aripiprazole (Abilify Tab*) 10 mg PO BEDTIME [facility] Last Admin: 07/14/16 22:08 Dose: 10 mg Atorvastatin Calcium (Lipitor*) 40 mg PO DAILY [facility] Last Admin: 07/15/16 08:51 Dose: 40 mg Calcium/Vitamin D (Oscal D Tab 250/125*) 1 tab PO DAILY [facility] Last Admin: 07/15/16 08:51 Dose: 1 tab Diphenhydramine HCl (Benadryl Po*) 25 mg PO Q6H PRN PRN Reason: PRURITIS Last Admin: 07/15/16 15:28 Dose: 25 mg Docusate Sodium (Colace Cap*) 100 mg PO DAILY [facility] Last Admin: 07/15/16 08:52 Dose: 100 mg Fentanyl (Duragesic Patch 25 Mcg/Hr*) 25 mcg TRANSDERM Q72HR [facility] Last Admin: 07/15/16 08:52 Dose: 25 mcg Ferrous Sulfate (Ferrous Sulfate Tab*) 325 mg PO DAILY [facility] Last Admin: 07/15/16 08:54 Dose: 325 mg Finasteride (Proscar Tab*) 5 mg PO DAILY [facility] Last Admin: 07/15/16 08:57 Dose: 5 mg Furosemide (Lasix Tab*) 40 mg PO DAILY [facility] Last Admin: 07/15/16 08:57 Dose: 40 mg Heparin Sodium (Porcine) (Heparin Vial(*)) 5,000 units SUBCUT Q8HR [facility] Last Admin: 07/15/16 14:22 Dose: 5,000 units Cefazolin Sodium/Dextrose (Kefzol 1 Gm In Dextrose Duplex (*)) 1 gm in 50 mls @ 200 mls/hr IVPB Q8H [facility] Last Admin: 07/15/16 14:25 Dose: 200 mls/hr Levothyroxine Sodium (Synthroid Tab*) 75 mcg PO 0600 [facility] Last Admin: 07/15/16 06:04 Dose: 75 mcg Lidocaine (Lidoderm 5% Patch*) 1 patch TRANSDERM DAILY PRN PRN Reason: PAIN Linaclotide (Linzess (Nf)) 145 mcg PO DAILY PRN PRN Reason: CONSTIPATION Niacin (Niaspan Er Tab*) 2,000 mg PO DAILY [facility] Last Admin: 07/15/16 08:57 Dose: 2,000 mg (Terbinafine Hcl [ Terbinafine Hcl] 250 Mg) 250 mg PO DAILY [facility] Last Admin: 07/15/16 08:48 Dose: Not Given Nystatin (Nystatin Cream*) 1 applic TOPICAL TID [facility] Last Admin: 07/15/16 15:18 Dose: 1 applic Omeprazole (Prilosec Cap*) 20 mg PO 0730,1630 [facility] Last Admin: 07/15/16 16:28 Dose: 20 mg Oxycodone HCl (Roxycodone Tab*) 15 mg PO Q8HR PRN PRN Reason: PAIN Last Admin: 07/15/16 18:33 Dose: 15 mg Pharmacy Profile Note (Lidocaine Patch Remove*) 1 note PATCH OFF 2100 [facility] Last Admin: 07/14/16 22:12 Dose: Not Given Pharmacy Profile Note (Fentanyl Patch Check Q Shift) 1 note N/A 0700,1900 [facility] Last Admin: 07/15/16 18:35 Dose: 1 note Pregabalin (Lyrica Cap(*)) 150 mg PO TID [facility] Last Admin: 07/15/16 14:21 Dose: 150 mg Sertraline HCl (Zoloft*) 100 mg PO DAILY [facility] Last Admin: 07/15/16 08:59 Dose: 100 mg Tizanidine HCl (Zanaflex Tab*) 4 mg PO TID PRN PRN Reason: Muscle Spasms Trazodone HCl (Desyrel Tab*) 150 mg PO BEDTIME [facility] Last Admin: 07/14/16 22:09 Dose: 150 mg Vital Signs 07/14/16 07/14/16 07/14/16 20:14 22:00 22:01 Temperature 98.3 F Pulse Rate 83 Respiratory 16 18 18 Rate Blood Pressure 124/57 (mmHg) O2 Sat by Pulse 98 Oximetry 07/14/16 07/14/16 07/15/16 22:10 23:01 00:02 Temperature 98.3 F Pulse Rate 83 Respiratory 18 16 16 Rate Blood Pressure 114/54 (mmHg) O2 Sat by Pulse 97 Oximetry 07/15/16 07/15/16 07/15/16 00:10 06:05 07:05 Temperature Pulse Rate Respiratory 16 16 16 Rate Blood Pressure (mmHg) O2 Sat by Pulse Oximetry 07/15/16 07/15/16 07/15/16 07:38 08:52 08:59 Temperature 97.8 F Pulse Rate 90 Respiratory 20 18 18 Rate Blood Pressure 130/56 (mmHg) O2 Sat by Pulse 99 Oximetry 07/15/16 07/15/16 07/15/16 09:00 09:17 10:59 Temperature Pulse Rate Respiratory 18 18 16 Rate Blood Pressure (mmHg) O2 Sat by Pulse Oximetry 07/15/16 07/15/16 07/15/16 14:21 15:28 15:56 Temperature 98.0 F Pulse Rate 86 Respiratory 18 18 20 Rate Blood Pressure 120/60 (mmHg) O2 Sat by Pulse 100 Oximetry 07/15/16 07/15/16 07/15/16 16:21 17:28 18:33 Temperature Pulse Rate Respiratory 20 18 16 Rate Blood Pressure (mmHg) O2 Sat by Pulse Oximetry Oxygen Devices in Use Now: None Appearance: Pale gentleman lying in bed in NAD Eyes: No Scleral Icterus Ears/Nose/Mouth/Throat: NL Teeth, Lips, Gums, Clear Oropharnyx Neck: No Thyroid Enlargement, Masses Respiratory: Clear to Auscultation Cardiovascular: - - S1S2 genna Abdominal: NL Sounds; No Tenderness; No Distention, No Hepatosplenomegaly Lymphatic: No Cervical Adenopathy Extremities: No Edema Skin: No Rash or Ulcers Neurological: Alert and Oriented x 3 Result Diagrams: 07/15/16 06:00 07/15/16 06:00 Additional Lab and Data: Microbiology and Other Data: Assess/Plan/Problems-Billing Assessment: 56 yo M with hx of morbid obesity, chronic lymphedema, chronic pain, HTN, bed bugs p/w fall, abdominal pain, possible cellulitis - Patient Problems (1) Cellulitis Current Visit: No Status: Acute Code(s): L03.90 - CELLULITIS, UNSPECIFIED SNOMED Code(s): 147972232 Comment: WBC continue to improve. Continue Ancef IV . Wound care consult pending. (2) Abdominal pain Current Visit: Yes Status: Acute Code(s): R10.9 - UNSPECIFIED ABDOMINAL PAIN SNOMED Code(s): 71260389 Comment: Possibly PUD. continue omeprazole BID (3) Anemia Current Visit: Yes Status: Acute Code(s): D64.9 - ANEMIA, UNSPECIFIED SNOMED Code(s): 226201798 Comment: Received 1u PRBC on 07/13, appropriate response and stable. Likely due to a combination of iron deficiency, chronic disease and malnutrition. Continue home iron supplement. (4) Failure to thrive Current Visit: Yes Status: Acute Code(s): CNP5203 - SNOMED Code(s): 92632460 Comment: Concerned about patient's home situation between his wounds, the bed bugs and his malnutrition. APS having his home fumigated (5) Chronic pain Current Visit: No Status: Acute Code(s): G89.29 - OTHER CHRONIC PAIN SNOMED Code(s): 78436993 Comment: Continue fentanyl patch 25mcg q72hr and prn oxycodone. DC IV Dilaudid (6) HTN (hypertension) Current Visit: No Status: Chronic Code(s): I10 - ESSENTIAL (PRIMARY) HYPERTENSION SNOMED Code(s): 44485639 Comment: BPs stable, continue to hold Losartan (7) Lower extremity edema Current Visit: No Status: Acute Code(s): R60.0 - LOCALIZED EDEMA SNOMED Code(s): 065377806 Comment: Continue home Lasix for now. Encourage pt to keep feet elevated. HERBERT wraps. (8) DVT prophylaxis Current Visit: No Status: Acute Code(s): BHR6091 - SNOMED Code(s): 953541483 Comment: SQ heparin Status and Disposition: Inpatient for IV ABx. PT, SW eval pending
[2016-07-15] MEDS: ARIPiprazole TAB* 5 MG PO SCH (21:07)
[2016-07-15] MEDS: Lidocaine Patch REMOVE* 1 NOTE MISC PATCH OFF SCH (21:08)
[2016-07-15] MEDS: traZODone TAB* 50 MG TAB PO SCH (21:08)
[2016-07-16] MEDS: Heparin VIAL(*) 5000 UNITS/ML VIAL (FIVE THOUSAND) SUBCUT SCH ×3 (05:11→20:51)
[2016-07-16] MEDS: Levothyroxine TAB* 75 MCG TAB PO SCH (05:11)
[2016-07-16] MEDS: ceFAZolin 1 GM in Dextrose (*) 1 GM/50 ML BAG IVPB SCH ×3 (05:11→22:19)
[2016-07-16] MEDS: fentaNYL Patch Check Q Shift 1 NOTE SCH ×2 (06:45→18:52)
[2016-07-16 07:14] LABS: Hematocrit 28 % (42-52); Hemoglobin 8.7 g/dl (14.0-18.0); Mean Corpuscular HGB Conc 32 g/dl (31-36); Mean Corpuscular Hemoglobin 25 pg (27-31); Mean Corpuscular Volume 79 fL (80-94); Mean Platelet Volume 9 um3 (7.4-10.4); Red Cell Distribution Width 20 % (10.5-15); White Blood Count 13.4 10^3/ul (3.5-10.8)
[2016-07-16 07:15] LABS: Comments Flag Yes
[2016-07-16] MEDS: Omeprazole CAP* 20 MG PO SCH ×2 (07:17→16:32)
[2016-07-16] MEDS: Niacin ER TAB* 500 MG PO SCH (07:17)
[2016-07-16] MEDS: Ferrous Sulfate TAB* 325 MG PO SCH (07:18)
[2016-07-16] MEDS: Atorvastatin* 40 MG TAB PO SCH (07:18)
[2016-07-16] MEDS: Sertraline* 100 MG TAB PO SCH (07:18)
[2016-07-16] MEDS: oxyCODONE TAB* 5 MG TAB PO PRN ×2 (07:19→16:32)
[2016-07-16] MEDS: Finasteride TAB* 5 MG PO SCH (07:20)
[2016-07-16] MEDS: Furosemide TAB* 40 MG PO SCH (07:20)
[2016-07-16] MEDS: Calcium/Vitamin D TAB 250/125* TAB PO SCH (07:20)
[2016-07-16] MEDS: Docusate CAP* 100 MG PO SCH (07:20)
[2016-07-16] MEDS: Nystatin CREAM* 15 GM TUBE TOPICAL SCH ×3 (07:21→20:55)
[2016-07-16] MEDS: (Terbinafine Hcl [Terbinafine Hcl] 250 MG) PO SCH (07:22)
[2016-07-16] MEDS: Pregabalin CAP(*) 50 MG PO SCH ×3 (08:54→20:51)
--- NOTE | 2016-07-16 16:45 | PN ---
Subjective Date of Service: 07/16/16 Interval History: Patient feeling better. Agrees he would benefit from STR. Family History: Unchanged from Admission Social History: Unchanged from Admission Past Medical History: Unchanged from Admission Objective Active Medications: Acetaminophen (Tylenol Tab*) 650 mg PO Q4H PRN PRN Reason: FEVER/PAIN Last Admin: 07/15/16 15:28 Dose: 650 mg Albuterol (Ventolin Hfa Inhaler*) 2 puff INH Q4H PRN PRN Reason: WHEEZING Aripiprazole (Abilify Tab*) 10 mg PO BEDTIME [facility] Last Admin: 07/15/16 21:07 Dose: 10 mg Atorvastatin Calcium (Lipitor*) 40 mg PO DAILY [facility] Last Admin: 07/16/16 07:18 Dose: 40 mg Calcium/Vitamin D (Oscal D Tab 250/125*) 1 tab PO DAILY [facility] Last Admin: 07/16/16 07:20 Dose: 1 tab Diphenhydramine HCl (Benadryl Po*) 25 mg PO Q6H PRN PRN Reason: PRURITIS Last Admin: 07/15/16 15:28 Dose: 25 mg Docusate Sodium (Colace Cap*) 100 mg PO DAILY [facility] Last Admin: 07/16/16 07:20 Dose: 100 mg Fentanyl (Duragesic Patch 25 Mcg/Hr*) 25 mcg TRANSDERM Q72HR [facility] Last Admin: 07/15/16 08:52 Dose: 25 mcg Ferrous Sulfate (Ferrous Sulfate Tab*) 325 mg PO DAILY [facility] Last Admin: 07/16/16 07:18 Dose: 325 mg Finasteride (Proscar Tab*) 5 mg PO DAILY [facility] Last Admin: 07/16/16 07:20 Dose: 5 mg Furosemide (Lasix Tab*) 40 mg PO DAILY [facility] Last Admin: 07/16/16 07:20 Dose: 40 mg Heparin Sodium (Porcine) (Heparin Vial(*)) 5,000 units SUBCUT Q8HR [facility] Last Admin: 07/16/16 12:54 Dose: 5,000 units Cefazolin Sodium/Dextrose (Kefzol 1 Gm In Dextrose Duplex (*)) 1 gm in 50 mls @ 200 mls/hr IVPB Q8H [facility] Last Admin: 07/16/16 14:30 Dose: 200 mls/hr Levothyroxine Sodium (Synthroid Tab*) 75 mcg PO 0600 [facility] Last Admin: 07/16/16 05:11 Dose: 75 mcg Lidocaine (Lidoderm 5% Patch*) 1 patch TRANSDERM DAILY PRN PRN Reason: PAIN Linaclotide (Linzess (Nf)) 145 mcg PO DAILY PRN PRN Reason: CONSTIPATION Niacin (Niaspan Er Tab*) 2,000 mg PO DAILY [facility] Last Admin: 07/16/16 07:17 Dose: 2,000 mg (Terbinafine Hcl [ Terbinafine Hcl] 250 Mg) 250 mg PO DAILY [facility] Last Admin: 07/16/16 07:22 Dose: Not Given Nystatin (Nystatin Cream*) 1 applic TOPICAL TID [facility] Last Admin: 07/16/16 12:55 Dose: 1 applic Omeprazole (Prilosec Cap*) 20 mg PO 0730,1630 [facility] Last Admin: 07/16/16 16:32 Dose: 20 mg Oxycodone HCl (Roxycodone Tab*) 15 mg PO Q8HR PRN PRN Reason: PAIN Last Admin: 07/16/16 16:32 Dose: 15 mg Pharmacy Profile Note (Lidocaine Patch Remove*) 1 note PATCH OFF 2100 [facility] Last Admin: 07/15/16 21:08 Dose: Not Given Pharmacy Profile Note (Fentanyl Patch Check Q Shift) 1 note N/A 0700,1900 [facility] Last Admin: 07/16/16 06:45 Dose: 1 note Pregabalin (Lyrica Cap(*)) 150 mg PO TID [facility] Last Admin: 07/16/16 12:55 Dose: 150 mg Sertraline HCl (Zoloft*) 100 mg PO DAILY [facility] Last Admin: 07/16/16 07:18 Dose: 100 mg Tizanidine HCl (Zanaflex Tab*) 4 mg PO TID PRN PRN Reason: Muscle Spasms Trazodone HCl (Desyrel Tab*) 150 mg PO BEDTIME [facility] Last Admin: 07/15/16 21:08 Dose: 150 mg Vital Signs 07/15/16 07/15/16 07/15/16 17:28 18:33 19:32 Temperature 97.7 F Pulse Rate 87 Respiratory 18 16 12 Rate Blood Pressure 122/59 (mmHg) O2 Sat by Pulse 98 Oximetry 07/15/16 07/15/16 07/15/16 20:33 21:07 21:20 Temperature Pulse Rate Respiratory 16 18 18 Rate Blood Pressure (mmHg) O2 Sat by Pulse Oximetry 07/15/16 07/15/16 07/16/16 23:07 23:31 06:52 Temperature 97.6 F Pulse Rate 77 Respiratory 16 16 18 Rate Blood Pressure 126/58 (mmHg) O2 Sat by Pulse 97 Oximetry 07/16/16 07/16/16 07/16/16 07:19 07:28 08:54 Temperature 98.6 F Pulse Rate 93 Respiratory 18 18 18 Rate Blood Pressure 126/63 (mmHg) O2 Sat by Pulse 98 Oximetry 07/16/16 07/16/16 07/16/16 09:19 10:32 12:55 Temperature Pulse Rate Respiratory 18 18 18 Rate Blood Pressure (mmHg) O2 Sat by Pulse Oximetry 07/16/16 07/16/16 07/16/16 14:55 15:37 16:32 Temperature 98.3 F Pulse Rate 99 Respiratory 18 12 12 Rate Blood Pressure 131/67 (mmHg) O2 Sat by Pulse 100 Oximetry Oxygen Devices in Use Now: None Appearance: Pale gentleman sitting up in bed in NAD Eyes: PERRLA - left eye laterally deviated Ears/Nose/Mouth/Throat: Mucous Membranes Moist Neck: NL Appearance and Movements; NL JVP, No Thyroid Enlargement, Masses Respiratory: Clear to Auscultation Cardiovascular: - - S1S2 genna Abdominal: NL Sounds; No Tenderness; No Distention, No Hepatosplenomegaly Lymphatic: No Cervical Adenopathy Extremities: No Edema Skin: No Rash or Ulcers Neurological: Alert and Oriented x 3 Result Diagrams: 07/16/16 06:40 07/15/16 06:00 Additional Lab and Data: Microbiology and Other Data: Assess/Plan/Problems-Billing Assessment: 56 yo M with hx of morbid obesity, chronic lymphedema, chronic pain, HTN, bed bugs p/w fall, abdominal pain, possible cellulitis - Patient Problems (1) Cellulitis Current Visit: No Status: Acute Code(s): L03.90 - CELLULITIS, UNSPECIFIED SNOMED Code(s): 000336586 Comment: WBC continue to improve. Continue Ancef IV . Wound care consult still pending. Will call again in AM (2) Abdominal pain Current Visit: Yes Status: Acute Code(s): R10.9 - UNSPECIFIED ABDOMINAL PAIN SNOMED Code(s): 67633022 Comment: Stable. Continue omeprazole BID (3) Anemia Current Visit: Yes Status: Acute Code(s): D64.9 - ANEMIA, UNSPECIFIED SNOMED Code(s): 542359495 Comment: Improved H/H. Likely due to a combination of iron deficiency, chronic disease and malnutrition. Continue home iron supplement. (4) Failure to thrive Current Visit: Yes Status: Acute Code(s): EUR4975 - SNOMED Code(s): 60379031 Comment: Concerned about patient's home situation between his wounds, the bed bugs and his malnutrition. APS having his home fumigated (5) Chronic pain Current Visit: No Status: Acute Code(s): G89.29 - OTHER CHRONIC PAIN SNOMED Code(s): 68457833 Comment: Continue fentanyl patch 25mcg q72hr and oxycodone. Patient wants it changed to q 6h (6) HTN (hypertension) Current Visit: No Status: Chronic Code(s): I10 - ESSENTIAL (PRIMARY) HYPERTENSION SNOMED Code(s): 50401311 Comment: BPs stable, continue to hold Losartan (7) Lower extremity edema Current Visit: No Status: Acute Code(s): R60.0 - LOCALIZED EDEMA SNOMED Code(s): 626644198 Comment: Continue home Lasix for now. Encourage pt to keep feet elevated. HERBERT wraps. (8) Physical deconditioning Current Visit: Yes Status: Acute Code(s): R53.81 - OTHER MAL[place]ISE SNOMED Code(s): 89478671049611 Comment: Appreciate PT's input. For STR (9) DVT prophylaxis Current Visit: No Status: Acute Code(s): VFP9019 - SNOMED Code(s): 975006635 Comment: SQ heparin Status and Disposition: Inpatient for IV ABx. PT, SW cali .
[2016-07-16] MEDS: ARIPiprazole TAB* 5 MG PO SCH (20:51)
[2016-07-16] MEDS: traZODone TAB* 50 MG TAB PO SCH (20:51)
[2016-07-16] MEDS: Lidocaine Patch REMOVE* 1 NOTE MISC PATCH OFF SCH (20:55)
[2016-07-16] MEDS: diPHENhydraMINE PO* 25 MG PO PRN (22:20)
[2016-07-17] MEDS: oxyCODONE TAB* 5 MG TAB PO PRN ×3 (00:58→17:43)
[2016-07-17] MEDS: ceFAZolin 1 GM in Dextrose (*) 1 GM/50 ML BAG IVPB SCH ×2 (05:07→14:48)
[2016-07-17] MEDS: Heparin VIAL(*) 5000 UNITS/ML VIAL (FIVE THOUSAND) SUBCUT SCH ×3 (05:08→21:10)
[2016-07-17] MEDS: Levothyroxine TAB* 75 MCG TAB PO SCH (05:08)
[2016-07-17] MEDS: fentaNYL Patch Check Q Shift 1 NOTE SCH ×2 (07:26→19:45)
[2016-07-17] MEDS: Docusate CAP* 100 MG PO SCH (09:02)
[2016-07-17] MEDS: Ferrous Sulfate TAB* 325 MG PO SCH (09:24)
[2016-07-17] MEDS: Niacin ER TAB* 500 MG PO SCH (09:24)
[2016-07-17] MEDS: Pregabalin CAP(*) 50 MG PO SCH ×3 (09:24→21:09)
[2016-07-17] MEDS: Calcium/Vitamin D TAB 250/125* TAB PO SCH (09:24)
[2016-07-17] MEDS: Furosemide TAB* 40 MG PO SCH (09:25)
[2016-07-17] MEDS: Finasteride TAB* 5 MG PO SCH (09:25)
[2016-07-17] MEDS: Atorvastatin* 40 MG TAB PO SCH (09:25)
[2016-07-17] MEDS: Nystatin CREAM* 15 GM TUBE TOPICAL SCH ×3 (09:26→21:53)
[2016-07-17] MEDS: Sertraline* 100 MG TAB PO SCH (09:26)
[2016-07-17] MEDS: (Terbinafine Hcl [Terbinafine Hcl] 250 MG) PO SCH (09:26)
[2016-07-17] MEDS: Omeprazole CAP* 20 MG PO SCH ×2 (09:26→17:43)
--- NOTE | 2016-07-17 15:29 | DS ---
DATE OF ADMISSION: 07/12/2016. DATE OF DISCHARGE: 07/17/2016. ADMISSION DIAGNOSIS: Cellulitis. SECONDARY DIAGNOSES: Abdominal pain, chronic pain, GERD, benign prostatic hypertrophy, depression. DISCHARGE DIAGNOSES: Cellulitis, abdominal pain, chronic pain, GERD, benign prostatic hypertrophy, depression. HOSPITAL COURSE: The patient is a 56-year-old gentleman who presented to [facility] with a chief complaint of stomach pain. He actually fell out of his chair and was unable to get up, so he called EMS. He was found to have a significant cellulitis on admission and an elevated white count of over 23,000. The patient was admitted for the same. He was placed on Ancef. The patient improved steadily over his course. He also received physical therapy. The patient did have trouble ambulating on his own and he has steps to use at home, so he will be transferred over a group home facility for more physical therapy and to complete his course of antibiotics. PHYSICAL EXAMINATION ON THE DATE OF DISCHARGE: General: Overweight gentleman, sitting up in his chair, in no acute distress. Vital signs: Temperature 98.2 degrees, heart rate 82 beats per minutes, respiratory rate 12 breaths per minute , pulse ox 100 percent on room air, blood pressure 116/62. HEENT: Normocephalic, atraumatic. Pupils equal, round and reactive to light. Moist mucus membranes. Poor dentition. Chest: Clear to auscultation and percussion. Cardiovascular: S1, S2 appreciated. Abdomen: Positive bowel sounds in all four quadrants. Soft, nontender, nondistended. Extremities: No cyanosis or clubbing, but bilateral edema. Neuro: Alert and oriented times three. Moves all extremities. Skin: Ulceration in the gluteal cleft and ulceration in the upper thigh. Superficial ulceration of the right buttock and erythematous lesions in the skin folds. STUDIES DONE WHILE IN THE HOSPITAL: 1. Chest x-ray, 07/11/2016: No active cardiopulmonary disease is noted. 2. Foot x-ray, 07/11/2016: No fracture of the left foot is noted. DISCHARGE MEDICATIONS: 1. Linzess 145 mcg daily as needed. 2. Lidocaine patch one patch transdermal daily. 3. Levothyroxine 75 mcg daily. 4. Furosemide 40 mg daily. 5. Finasteride 5 mg daily. 6. Ferrous Sulfate 325 mg daily. 7. Docusate 100 mg daily. 8. Calcium Carbonate with vitamin D one tablet daily. 9. Albuterol inhaler two puffs every 4 hours as needed. 10. Abilify 10 mg at bedtime. 11. Oxycodone 10 mg every 8 hours as needed. 12. Fentanyl patch 25 mcg every 72 hours. 13. Tizanidine 4 mg three times a day as needed. 14. Terbinafine 250 mg daily. 15. Zoloft 100 mg daily. 16. Crestor 20 mg daily. 17. Lyrica 150 mg three times a day. 18. Omeprazole 20 mg in the morning. 19. Nystatin cream applied topically three times a day. 20. Niacin ER 2000 mg daily. 21. Losartan 100 mg daily. 23. Trazodone 150 mg at bedtime. 24. Benadryl 25 mg every 6 hours as needed. 25. Keflex 500 mg four times a day for the next 7 days. DISCHARGE PLAN: The patient will be discharge to a group home facility for physical therapy and to complete a course of antibiotic therapy. Over 50 minutes were spent on this discharge and more than 25 minutes of which were spent in direct [id number] contact with the patient in evaluation, physical exam, counseling, and coordination of care. CC: Dr. Edgar Samayoa * [id number]/[facility] #: [id number] ANA PAULA
[2016-07-17] MEDS: Cephalexin CAP* 500 MG PO SCH (21:09)
[2016-07-17] MEDS: traZODone TAB* 50 MG TAB PO SCH (21:09)
[2016-07-17] MEDS: ARIPiprazole TAB* 5 MG PO SCH (21:09)
[2016-07-17] MEDS: Acetaminophen TAB* 325 MG PO PRN (21:09)
[2016-07-17] MEDS: Lidocaine Patch REMOVE* 1 NOTE MISC PATCH OFF SCH (21:35)
[2016-07-18 00:49] VITALS: BP 123/58
[2016-07-18] MEDS: Heparin VIAL(*) 5000 UNITS/ML VIAL (FIVE THOUSAND) SUBCUT SCH (05:09)
[2016-07-18] MEDS: Levothyroxine TAB* 75 MCG TAB PO SCH (05:09)
[2016-07-18] MEDS: fentaNYL Patch Check Q Shift 1 NOTE SCH (06:53)
[2016-07-18] MEDS: Atorvastatin* 40 MG TAB PO SCH (09:09)
[2016-07-18] MEDS: Niacin ER TAB* 500 MG PO SCH (09:09)
[2016-07-18] MEDS: Cephalexin CAP* 500 MG PO SCH (09:10)
[2016-07-18] MEDS: Omeprazole CAP* 20 MG PO SCH (09:10)
[2016-07-18] MEDS: Docusate CAP* 100 MG PO SCH (09:10)
[2016-07-18] MEDS: Furosemide TAB* 40 MG PO SCH (09:10)
[2016-07-18] MEDS: Calcium/Vitamin D TAB 250/125* TAB PO SCH (09:10)
[2016-07-18] MEDS: Finasteride TAB* 5 MG PO SCH (09:11)
[2016-07-18] MEDS: Ferrous Sulfate TAB* 325 MG PO SCH (09:11)
[2016-07-18] MEDS: (Terbinafine Hcl [Terbinafine Hcl] 250 MG) PO SCH (09:12)
[2016-07-18] MEDS: Sertraline* 100 MG TAB PO SCH (09:12)
[2016-07-18] MEDS: Nystatin CREAM* 15 GM TUBE TOPICAL SCH (09:12)
[2016-07-18] MEDS: Pregabalin CAP(*) 50 MG PO SCH (09:12)
[2016-07-18] MEDS: fentaNYL PATCH 25 MCG/HR TRANSDERM SCH (09:15)
[2016-07-18] MEDS: oxyCODONE TAB* 5 MG TAB PO PRN (09:24)
== END 2016-07-18 11:45 | DRG 421 ==
LOC: ED 22:25 → MED 07-12 05:45
PROVIDERS: ADMIT Internal Medicine; ATTEND Hospitalist
PROC: 30233N1 Transfusion of Nonautologous Red Blood Cells into Peripheral Vein, Percutaneous Approach (ICD-10-PCS; principal; 2016-07-13)
DX: R62.7 Adult failure to thrive (principal); E46 Unspecified protein-calorie malnutrition; E11.51 Type 2 diabetes mellitus with diabetic peripheral angiopathy without gangrene; L97.119 Non-pressure chronic ulcer of right thigh with unspecified severity; Z68.43 Body mass index [BMI] 50.0-59.9, adult; L03.317 Cellulitis of buttock; E03.9 Hypothyroidism, unspecified; E78.00 Pure hypercholesterolemia, unspecified; I10 Essential (primary) hypertension; I87.8 Other specified disorders of veins; J42 Unspecified chronic bronchitis; K21.9 Gastro-esophageal reflux disease without esophagitis; K44.9 Diaphragmatic hernia without obstruction or gangrene; N40.0 Benign prostatic hyperplasia without lower urinary tract symptoms; Z87.442 Personal history of urinary calculi; M19.90 Unspecified osteoarthritis, unspecified site; M81.0 Age-related osteoporosis without current pathological fracture; M79.7 Fibromyalgia; F41.9 Anxiety disorder, unspecified; F32.9 Major depressive disorder, single episode, unspecified; Z96.642 Presence of left artificial hip joint; G89.29 Other chronic pain; E78.5 Hyperlipidemia, unspecified; E66.01 Morbid (severe) obesity due to excess calories; G47.33 Obstructive sleep apnea (adult) (pediatric); I89.0 Lymphedema, not elsewhere classified; D64.9 Anemia, unspecified; R60.0 Localized edema; L98.419 Non-pressure chronic ulcer of buttock with unspecified severity; S30.860A Insect bite (nonvenomous) of lower back and pelvis, initial encounter; W57.XXXA Bitten or stung by nonvenomous insect and other nonvenomous arthropods, initial encounter; R10.9 Unspecified abdominal pain; W07.XXXA Fall from chair, initial encounter; Z88.8 Allergy status to other drugs, medicaments and biological substances; Z98.84 Bariatric surgery status; Z82.49 Family history of ischemic heart disease and other diseases of the circulatory system; Z83.3 Family history of diabetes mellitus; Z82.3 Family history of stroke; Z81.1 Family history of alcohol abuse and dependence; Z80.43 Family history of malignant neoplasm of testis; Z87.891 Personal history of nicotine dependence; Y92.9 Unspecified place or not applicable; Y92.009 Unspecified place in unspecified non-institutional (private) residence as the place of occurrence of the external cause; Z79.891 Long term (current) use of opiate analgesic
CPT/HCPCS: 36415; 71010; 80048; 80053; 80320; 81003; 81015; 82550; 83605; 83690; 83735; 83880; 84134; 84443; 84484; 85025; 85610; 85730; 86850; 86900; 86901; 86922; 87040; 87641; 94660; 94760; A9270-GY; G0480; J0690; J1170; J1644; J1940; J3370; J3480; P9040

== ENCOUNTER 2016-11-09 19:50 | Emergency (ER) | payer OTHER ==
--- NOTE | 2016-11-09 22:00 | ED ---
Hanna Perry Alfonso, scribed for Casey Jones MD on 11/09/16 at 2103 . Complex/Multi-Sys Presentation - HPI Summary HPI Summary: This patient is a 56 year old M BIBA presenting to [facility] with a chief complaint of constant upper back and neck pain since 1829. He fell asleep on the toilet for about 15 minutes and when he woke up, he couldnt move. The patient rates the pain 10/10 in severity. Symptoms aggravated and alleviated by nothing. Patient reports~fatigue. Patient denies~appetite changes. Pt uses CPAP at home. - History Of Current Complaint Chief Complaint: EDHeadache Time Seen by Provider: 11/09/16 20:21 Hx Obtained From: Patient Onset/Duration: Sudden Onset, Lasting Hours - onset at 1829 Timing: Constant Severity Currently: Severe Severity Initially: Severe Location: Pain At: - Upper back and neck Aggravating Factor(s): Nothing Alleviating Factor(s): Nothing Associated Signs And Symptoms: Positive: Other - Patient reports fatigue. Patient denies appetite changes. - Allergies/Home Medications Allergies/Adverse Reactions: Allergies Allergy/AdvReac Type Severity Reaction Status Date / Time Pioglitazone [From Actos] AdvReac Coughing Verified 07/11/16 23:05 PMH/Surg Hx/FS Hx/Imm Hx Endocrine/Hematology History: Reports: Hx Diabetes, Hx Thyroid Disease - hypothyroid Cardiovascular History: Reports: Hx Hypercholesterolemia - Crestor, Hx Hypertension, Hx Peripheral Vascular Disease - chronic venous stasis, Hx Syncope , Other Cardiovascular Problems/Disorders - HYPERCHOLESTEROLEMIA/IDDM II/OBESITY Respiratory History: Reports: Hx Chronic Bronchitis, Hx Sleep Apnea Denies: Hx Chronic Obstructive Pulmonary Disease (COPD) GI History: Reports: Hx Gastroesophageal Reflux Disease, Hx Hiatal Hernia, Other GI Disorders - gastric bypass surgery november-2012 History: Reports: Hx Benign Prostatic Hyperplasia, Hx Kidney Stones, Other Problems/Disorders - "slow peeing" seen by urologist-prescribed meds Denies: Hx Dialysis Musculoskeletal History: Reports: Hx Arthritis, Hx Fibromyalgia, Hx Orthopedic Injury - right thumb, dislocation of left knee, Hx Osteoporosis, Other Musculoskeletal History - left hip surgery Denies: Hx Back Problems Sensory History: Reports: Hx Contacts or Glasses - to read, not with patient Denies: Hx Hearing Aid Opthamlomology History: Reports: Hx Contacts or Glasses - to read, not with patient Neurological History: Reports: Other Neuro Impairments/Disorders - SYNCOPE Denies: Hx Dementia, Hx Developmental Delay, Hx Headaches, Hx Seizures Psychiatric History: Reports: Hx Anxiety, Hx Depression, Hx Inpatient Treatment - 2007 Denies: Hx Bipolar Disorder - patient states depression, but not bipoar - Surgical History Surgery Procedure, Year, and Place: Mytosis left eye surgical correction; Tonsillectomy; Right Knee Arthroscopic Surgery; Left Hip Replacement at [facility] 12/12/13; Gastro Bypass 12/14/12 [facility] Hx Anesthesia Reactions: No - Immunization History Date of Tetanus Vaccine: utd Date of Influenza Vaccine: utd Infectious Disease History: No Infectious Disease History: Denies: Hx Clostridium Difficile, Hx Hepatitis, Hx Human Immunodeficiency Virus (HIV), Hx of Known/Suspected MRSA, Hx Shingles, Hx Tuberculosis, Hx Known/ Suspected VRE, Hx Known/Suspected VRSA, History Other Infectious Disease, Traveled Outside the in Last 30 Days - Family History Known Family History: Positive: Cardiac Disease - Father - CAD, Diabetes - Son - - DM, Other - Mother - CVA. Father - EtOH abuse and CAD. Son -- testicular CA and DM - Social History Alcohol Use: None Hx Substance Use: Yes Substance Use Type: Reports: Prescribed Substance Use Comment - Amount & Last Used: oxycodone Hx Tobacco Use: No Smoking Status (MU): Never Smoked Tobacco Review of Systems Positive: Fatigue Positive: Other - NEGATIVE: appetite changes Positive: Other - Upper back and neck pain All Other Systems Reviewed And Are Negative: Yes Physical Exam Triage Information Reviewed: Yes Vital Signs On Initial Exam: Initial Vitals Temp Pulse Resp BP Pulse Ox 98.0 F 81 22 96/44 100 11/09/16 19:56 11/09/16 19:56 11/09/16 19:56 11/09/16 19:56 11/09/16 19:56 Vital Signs Reviewed: Yes Appearance: Positive: Well-Appearing, No Pain Distress, Obese - Morbid Skin: Positive: Warm, Skin Color Reflects Adequate Perfusion, Dry Head/Face: Positive: Normal Head/Face Inspection Eyes: Positive: Other: - Pupils 1mm and reactant ENT: Positive: Normal ENT inspection Neck: Positive: Supple, Nontender Respiratory/Lung Sounds: Positive: Clear to Auscultation, Breath Sounds Present , Other - respiratory rate varies from 20 when hes awake to 5 when hes asleep Cardiovascular: Positive: RRR Abdomen Description: Positive: Nontender, Soft Bowel Sounds: Positive: Present Musculoskeletal: Positive: Normal Neurological: Positive: Sensory/Motor Intact, Alert, Oriented to Person Place, Time, CN Intact II-III, Other - falls asleep easily Psychiatric: Positive: Affect/Mood Appropriate Diagnostics - Vital Signs Vital Signs Temp Pulse Resp BP Pulse Ox 11/09/16 19:56 98.0 F 81 22 96/44 100 - Laboratory Lab Statement: Any lab studies that have been ordered have been reviewed, and results considered in the medical decision making process. Complex Multi-Symp Course/Dx Course Of Treatment: When I saw Mr. Warner, he was sleeping on the guerney and although he aroused easily, he would fall back asleep promptly. While sleeping, his RR was about 10 and when awake about 20. His pupils were pinpoint. I am afraid to treat his pain as I think he s overmedicated already and he is in no distress. He is neurologically intact. I am currently observing him and expect him to go home when his meds wear off. - Diagnoses Provider Diagnoses: Chronic neck pain, Overuse of medication Discharge - Discharge Plan Condition: Stable Disposition: OTHER Discharge Disposition Comment: Patient is signed out to Dr. Tsai, pending disposition. Patient Education Materials: Neck Pain (ED) Referrals: Kg Bella, [employer] [Primary Care Provider] - 3 Days The documentation as recorded by the Hanna venegas Alfonso accurately reflects the service I personally performed and the decisions made by me, Casey Jones MD.
[2016-11-09 23:35] VITALS: BP 95/59
--- NOTE | 2016-11-10 05:27 | ED ---
Lory Perry Rebecca, scribed for Walker Tsai MD on 11/09/16 at 2347 . Progress - Progress Note Progress Note: Pt was signed out from Dr. Jones for continued observation and medication metabolism. After observation, pt has been determined to be stable and D/C to home. He understands and agrees with this plan. Discharge instructions were already written with Dx of chronic neck pain and overuse of medication. Course/Dx - Diagnoses Provider Diagnoses: Chronic neck pain, Overuse of medication The documentation as recorded by the Lory venegas Rebecca accurately reflects the service I personally performed and the decisions made by Eulalio garcia Drew, MD.
== END 2016-11-09 23:35 ==
LOC: ED 19:50
DX: G89.29 Other chronic pain (principal); M54.2 Cervicalgia; F19.10 Other psychoactive substance abuse, uncomplicated; R53.83 Other fatigue; E11.9 Type 2 diabetes mellitus without complications; E03.9 Hypothyroidism, unspecified; E78.00 Pure hypercholesterolemia, unspecified; I10 Essential (primary) hypertension; I87.8 Other specified disorders of veins; E66.9 Obesity, unspecified; K21.9 Gastro-esophageal reflux disease without esophagitis; N40.0 Benign prostatic hyperplasia without lower urinary tract symptoms; Z87.442 Personal history of urinary calculi; F41.9 Anxiety disorder, unspecified; F32.9 Major depressive disorder, single episode, unspecified
CPT/HCPCS: 99283

== ENCOUNTER 2017-06-04 12:07 | Emergency (ER) | payer OTHER ==
--- OUTSIDE RECORDS SUMMARY | 2017-06-04 12:27 | XMS REPORT ---
:1960 External Reference #:[id number] Author Organization [facility] Address [address] [address] Phone [phone] Care Team Providers Name Role Phone Alex Hernández MD Primary Care Physician Unavailable Payers Type Date Identification Numbers Payment Provider Subscriber Commercial Policy Number: [id number] [employer] Medicaid Ashutosh Wongll PayID: [id number] [address] [address] [place] [address] Medigap Part B Expires: 2015 Policy Number: [id number] Medicaid Ashutosh [employer] Name: 1 1 [address] PayID: [id number] [place] [address] Problems Date Description Provider Status Onset: 09/21/2015 Chronic pain Edgar Samayoa M.D. Active Note: Follows harpreet Seals Onset: 09/21/2015 Hyperlipidemia Edgar Samayoa M.D. Active Onset: 09/21/2015 H/O: depression Edgar Samayoa M.D. Active Onset: 09/21/2015 Morbid obesity Edgar Samayoa M.D. Active Onset: 09/21/2015 Obstructive sleep apnea syndrome Edgar Samayoa M.D. Active Note: Uses CPAP Onset: 09/21/2015 Essential hypertension Edgar Samayoa M.D. Active Onset: 09/21/2015 Iron deficiency anemia Edgar Samayoa M.D. Active Onset: 09/21/2015 Chronic acquired lymphedema Edgar Samayoa M.D. Active Onset: 09/21/2015 Fibromyalgia Edgar Samayoa M.D. Active Onset: 09/21/2015 Benign prostatic hyperplasia Edgar Samayoa M.D. Active Onset: 09/21/2015 Hypothyroidism Edgar Samayoa M.D. Active Onset: 02/08/2016 Cellulitis of lower limb Edgar Samayoa M.D. Active Onset: 02/22/2016 Gastroesophageal reflux disease Edgar Samayoa M.D. Active Onset: 02/22/2016 Infestation by bed bug Edgar Samayoa M.D. Active Onset: 03/07/2016 Candidiasis of urogenital site Edgar Samayoa M.D. Active Onset: 05/23/2016 Lymphedema Edgar Samayoa M.D. Active Onset: 05/23/2016 Pressure ulcer of buttock Edgar Samayoa M.D. Active Onset: 01/05/2017 Hypersomnia Mary Eckert DNP, RN, Active [employer] Onset: 01/07/2017 Insomnia Alex Hernández M.D. Active Onset: 01/07/2017 Mixed hyperlipidemia Alex Hernández M.D. Active Onset: 01/30/2017 Polyarthropathy Alex Hernández M.D. Active Onset: 01/30/2017 Neck pain Alex Hernández M.D. Active Onset: 01/30/2017 Thoracic and lumbosacral neuritis Alex Hernández M.D. Active Onset: 05/21/2017 Mild recurrent major depression Alex Hernández M.D. Active Family History Date Family Member(s) Problem(s) Comments Father Alcoholism Mother Cerebrovascular Accident (CVA) Social History Type Date Description Comments Marital Status Lives With adult children 2 sons Occupation Unemployed Applied for disability Cigarette Use Former Cigarette Smoker when he was 21 yo Cigarette Use Former Cigarette Smoker 5-10 half pack for 2 years Cigarettes Daily ETOH Use Rarely consumes alcohol Smoking Patient is a former smoker Recreational Drug Use Denies Drug Use Daily Caffeine Consumes on average 8oz of occasionally and drinks soda per day caffeine free soda as well Daily Caffeine Occasional coffee Exercise Type/Frequency Does not exercise Limited exercise Allergies, Adverse Reactions, Alerts Date Description Reaction Status Severity Comments 09/21/2015 Actos active cough Medications Medication Date Status Form Strength Qnty SIG Indications Ordering Provider Gabapentin 05/25 Active Powder 25gm please provide Michael, topical M.D. compound with lidocaine to help neuropathic pain in the hands Wrist Brace 05/25 Active Misc 1unit use for the G56.20 s left wrist Michael, daily to help M.D. reduce ulnar compression, use with playing [employer] Sulfasalazine 05/25 Active Tablets 500mg 60tab take one tab M46.90 s by mouth Michael, daily for 1 M.D. week then 1 tab twice daily ongoing Viibryd 05/21 Active Tablets 40mg 30tab F33.0 s Marilu Hernández Trazodone HCL 05/21 Active Tablets 100mg 60tab take 2 tablet G47.00 s by mouth at Betty bedtime , M.DClover Lidoderm 04/07 Active Patches 5% 30uni 1 apply to M54.5 ts affected area Michael, 12 hours on, M.D. 12 hours off Nystatin 03/24 Active Cream [id number] 60gm apply to Kg t/GM affected Shayne, PUBLIC WORKS DIRECTOR areas twice a day Zolpidem 01/07 Active Tablets 10mg 30tab 03/24 to 1 tab G47.00 Alex Tartrate s by mouth Betty every night , M.DClover at bedtime as needed Nystatin 12/30 Active Powder [id number] 90gm apply twice t/GM [facility] , M.DClover Hydroxyzine 12/24 Active Tablets 50mg 120ta take one HCL bs tablet by [facility] mouth four , M.D. times a day as needed for itching Furosemide 10/02 Active Tablets 40mg 30tab Take One I89.0 Pablo s Tablet By [place] Fay Mouth Every M.D., Day Triamcinolone 02/21 Active Ointment 0.1% 45gm apply thin L29.9 Kg Acetonide layer to over Shayne, [employer] WORKS DIRECTOR rash 2 times daily for 2 weeks Omeprazole 02/[address] 20mg 30cap 1 by mouth K21.9 s every day Marilu Hernández Abdominal 02/21 Active Misc 60uni Appy twice L03.116 Edgar Binder/Elastic ts daily [place] Large M.DClover Bandage Roll 02/21 Active Misc 4.5"X4yd 4boxe apply over L03.116 Edgar 4.5"X4yd /2015 s guaze or Abd [place], pads M.D. Combine Abd 02/10 Active Pads 5"X9" 120un change every its other day as khurram Lane M.D.,FAC Gauze Pads 02/07 Active Pads 4"X4" 4Boxe apply to open L03.115 s areas of leg. [place], change daily M.D. dx: s81.802 Andrew Bandage 02/07 Active Misc BNDG 4" 15uni wrap over L03.115 Edgar Self-Adhering /2015 ts clean gauze Shel[place], daily M.D. Proair HFA Active Aerosol 108(90Bas 8.500 2 puffs by [place] /0000 e) gm mouth every 4 [place] mcg/Act hours as , M.D. needed Fentanyl 00 Active Patches 25mcg/HR apply one Unknown / 72HR patch once every 3 days Levothyroxine Active Tablets 75mcg 30tab 1 by mouth [place] Sodium /0000 s every day Marilu Hernández Lyrica Active Capsules 150mg 1 by mouth Unknown /0000 three times daily Oxycodone HCL Active Tablets 10mg 1 by mouth Unknown /0000 every 8 hours as needed pain Tamsulosin HCL Active Capsules 0.4mg 30cap take one N40.1 [place] /0000 s capsule by [place] mouth every , M.D. day Finasteride Active Tablets 5mg 30tab take one N40.1 [place] /0000 s tablet by [place] mouth every , M.D. day Losartan Active Tablets 100mg 30tab Take One I10 Pablo Potassium /0000 s Tablet By [place] Fay, Mouth Every M.D.,FACP Day Fluticasone 03/24 Hx Suspension 50mcg/Act 16uni 2 sprays each H92.01 Kg Propionate ts nostril qd. x CAYLA Bella - 2 weeks 04/14 Guaifenesin-Co 03/24 Hx Syrup 100-10mg/ 180ml 5-10ml every J06.9 Kg deine /2017 5ML 4-6 hours for CAYLA Bella - cough 04/07 Trazodone HCL 03/18 Hx Tablets 150mg 30tab take one G47.00 [place] s tablet by Betty - mouth at , M.D. 05/21 bedtime /2017 Ferrous 02/04 Hx Tablets 325(65Fe) 30tab 1 by mouth Alex Sulfate mg s every day Betty - with food , M.D. 02/27 Guaifenesin-Co 01/22 Hx Syrup 100-10mg/ 180ml 5-10ml every Kg deine 5ML 4-6 hours for ACYLA Bella - cough 02/05 Amoxicillin/Cl 01/21 Hx Tablets 875-125mg 20tab take one J06.9 Kg avulanate s tablet q12 CAYLA Bella Potassium - hours for 10 Benzonatate 01/21 Hx Capsules 200mg 30cap one by mouth J06.9 Kg s three times CAYLA Bella - daily as 01/31 needed for cough Trazodone HCL 12/21 Hx Tablets 150mg 30tab Take One Kg s Tablet By CAYLA Bella - Mouth At 01/21 Bed Colace 11/19 Hx Capsules 100mg 30cap 1 by mouth Kg s daily for CAYLA Bella - constipation 11/26 Ferrous 11/19 Hx Tablets 325(65Fe) 60tab take 1 tablet Kg Sulfate mg s twice daily. CAYLA Bella - 11/26 Miralax 11/19 Hx Powder 3350NF 510un dissolve 1 Kg its tablespoonful CAYLA Bella - once daily in 11/26 liquid as needed Hydroxyzine 10/29 Hx Tablets 50mg 120ta 1-2 tablets 4 Kg HCL bs times daily CAYLA Bella - as needed for 11/26 itching Hydroxyzine 10/17 Hx Tablets 25mg 42tab 1-2 tablets Kg HCL s by mouth CAYLA Bella - every 8 hours 10/29 as needed for pruritis. Viibryd 10/02 Hx Tablets 10mg 7tabs 1 tablet once F33.9 Kg daily x 7 CAYLA Bella - days then 11/26 start taking 20 mg tablets Cpap Mask And 10/02 Hx Device 1unit use with cpap G47.33 Kg s nightly CAYLA Bella - 10/02 Viibryd 10/02 Hx Tablets 20mg 30tab take one F33.9 s tablet by Betty - mouth every , M.D. 05/21 day minutes after food Trazodone HCL 10/02 Hx Tablets 50mg 120ta take 4 G47.00 bs tablets by CAYLA Bella - mouth at 03/18 bedtime needed Sensi-Care 05/23 Hx Ointment 49-15% 5424g apply to skin L89.152 Kg Protective m break down CAYLA Bella Barrier - twice daily 11/26 Perineal Skin 05/23 Hx Liquid 0.1% 120ml apply twice L89.152 Kg Cleanser /2016 daily CAYLA Bella - 11/26 Nystatin 03/07 Hx Cream [id number] 90gm apply 3 times B37.49 t/GM daily Julissa Samayoa MMonster 05/23 Bacitracin 02/07 Hx Ointment 500Unit/G 288gm apply to leg L03.115 Edgar (External) /2015 M twice daily Julissa Samayoa M.D. 11/26 Sertraline HCL 02/07 Hx Tablets 100mg 30tab 1 by mouth F32.9 s every day CAYLA Bella - 10/02 Zoloft 01/21 Hx Tablets 50mg 60tab 1 by mouth F43.23 s every day Julissa Samayoa M.D. 02/07 Clindamycin 01/16 Hx Capsules 300mg 56cap Finished I89.0 Edgar s Julissa Samayoa MCloverDClover 05/23 L03.115 Lasix 12/21/2015 - Hx Tablets 40mg 30tabs 1 tab daily I89.0 Edgar 10/02/2016 Marilu Samayoa Cephalexin 12/21/2015 - Hx Capsules 500mg 30caps Finished Edgar 03/06/2016 Marilu Samayoa Cephalexin 10/19/2015 - Hx Capsules 500mg 21caps Finished Edgar 03/06/2016 Marilu Samayoa Nystatin 10/19/2015 - Hx Cream [id number] 45gm apply 3 B35.6 [place] 05/23/2016 nit/GM times daily Marilu Samayoa Terbinafine HCL 10/19/2015 - Hx Tablets 250mg 120tabs 1 tab daily L60.8 Kg 05/21/2017 CAYLA Bella Furosemide 10/05/2015 - Hx Tablets 20mg 30tabs 1 tabs by R60.9 [place] 12/21/2015 mouth every [place], morning M.D. Cephalexin 10/05/2015 - Hx Capsules 500mg 30caps 1 tab 3 L03.119 [place] 10/19/2015 times daily Yao M.DClover Nystatin 10/05/2015 - Hx Powder 3units apply to B35.6 [place] 01/21/2016 groin 4 Shelburn, times daily M.DClover Cephalexin 09/21/2015 - Hx Tablets 500mg 15tabs 1 tab three L03.116 [place] 10/05/2015 times daily Shanita SamayoaDClover Trazodone HCL 08/22/2015 - Hx Tablets 150mg 30tabs take one G47.00 [place] 10/02/2016 tablet by CAYLA Bella mouth at bedtime Abilify - Hx Tablets 10mg 30tabs take one [place] 11/26/2016 tablet by CAYLA Bella mouth nightly at bedtime Calcium 600 + D - Hx Tablets 600-200 1 by mouth Unknown 11/26/2016 mg-Unit dialy Fluoxetine HCL - Hx Tablets 60mg 30tabs 1 by mouth F43.23 [place] 10/02/2016 every day CAYLA Bella Lidoderm - Hx Patches 5% use as Unknown 11/26/2016 needed on affected area. on for 12 hours then off for 12 hours. Linzess - Hx Capsules 145mcg by mouth Unknown 11/26/2016 every day prn Niacin ER - Hx Tablets ER 1000mg 30tabs take 2 tab Kg 11/26/2016 by mouth CAYLA Bella daily Nystatin - Hx Powder apply twice Unknown 01/21/2016 a day to affected areas Rosuvastatin - Hx Tablets 20mg 30tabs 1 tab by Kg Calcium 03/23/2017 mouth daily Shayne, PUBLIC WORKS DIRECTOR Topamax - Hx Tablets 50mg Miri y Unknown 03/06/2016 Flovent HFA - Hx Aerosol 110mcg/ 2 puffs J45.909 Unknown 12/21/2015 Act twice daily Omeprazole - Hx Tablets DR 20mg 1 by mouth K21.9 Unknown 09/21/2015 every day Tizanidine HCL - Hx Capsules 4mg 1 three Kg 01/06/2017 times a day Shayne, PUBLIC WORKS DIRECTOR as needed muscle spasms Aloe [place] - Hx Foam daily Unknown Multi Purpose 11/26/2016 Cleansing [place]oe [place] - Hx Ointment daily Kg 2-N-1 11/26/2016 Shayne, PUBLIC WORKS DIRECTOR Protective Hydroxyzine HCL - Hx Tablets 25mg 1-2 tablets Unknown 03/23/2017 by mouth every 6-8 hours as needed for pruritis. Immunizations CPT Code Status Date Vaccine Lot # [id number] Given 01/21/2017 Influenza Virus Vaccine, Quadrivalent, Split, [id number] Preservative Free Vital Signs Date Vital Result Comment 05/25/2017 Height 65 inches 5'5" Weight 290.12 lb Heart Rate 72 /min BP Systolic Sitting 107 mmHg BP Diastolic Sitting 68 mmHg Respiratory Rate 16 /min Pain Level 7 BMI (Body Mass Index) 48.3 kg/m2 05/21/2017 Height 65 inches 5'5" Weight 294.00 lb Heart Rate 62 /min BP Systolic Sitting 140 mmHg BP Diastolic Sitting 72 mmHg Body Temperature 97.8 F O2 % BldC Oximetry 96 % BMI (Body Mass Index) 48.9 kg/m2 05/06/2017 Height 65 inches 5'5" Weight 287.50 lb with shoes Heart Rate 82 /min BP Systolic Sitting 136 mmHg Lue large cuff BP Diastolic Sitting 80 mmHg Lue large cuff Respiratory Rate 14 /min O2 % BldC Oximetry 97 % On Ra BMI (Body Mass Index) 47.8 kg/m2 04/07/2017 Height 65 inches 5'5" Weight 287.00 lb Heart Rate 64 /min BP Systolic Sitting 126 mmHg BP Diastolic Sitting 88 mmHg Respiratory Rate 16 /min Pain Level 8 BMI (Body Mass Index) 47.8 kg/m2 03/24/2017 Height 65 inches 5'5" Weight 301.00 lb Heart Rate 63 /min BP Systolic Sitting 140 mmHg BP Diastolic Sitting 88 mmHg Body Temperature 98.0 F O2 % BldC Oximetry 97 % BMI (Body Mass Index) 50.1 kg/m2 02/27/2017 Height 65 inches 5'5" Weight 285.00 lb with shoes Heart Rate 64 /min BP Systolic Sitting 134 mmHg Rue large cuff BP Diastolic Sitting 78 mmHg Rue large cuff Respiratory Rate 16 /min O2 % BldC Oximetry 97 % On Ra BMI (Body Mass Index) 47.4 kg/m2 02/17/2017 Weight 285.25 lb Heart Rate 56 /min BP Systolic Sitting 118 mmHg BP Diastolic Sitting 72 mmHg O2 % BldC Oximetry 99 % 01/30/2017 Height 65.50 inches 5'5.50" Weight 273.38 lb Heart Rate 73 /min BP Systolic 118 mmHg BP Diastolic 70 mmHg Body Temperature 97.4 F O2 % BldC Oximetry 99 % BMI (Body Mass Index) 44.8 kg/m2 01/21/2017 Weight 277.00 lb Heart Rate 68 /min BP Systolic Sitting 94 mmHg BP Diastolic Sitting 64 mmHg Body Temperature 97.8 F O2 % BldC Oximetry 97 % 01/07/2017 Height 65 inches 5'5" Weight 270.00 lb Heart Rate 81 /min BP Systolic 120 mmHg BP Diastolic 80 mmHg Body Temperature 98.5 F O2 % BldC Oximetry 98 % BMI (Body Mass Index) 44.9 kg/m2 01/05/2017 Height 65 inches 5'5" Weight 270.00 lb Heart Rate 68 /min BP Systolic Sitting 116 mmHg BP Diastolic Sitting 70 mmHg Respiratory Rate 14 /min O2 % BldC Oximetry 99 % BMI (Body Mass Index) 44.9 kg/m2 11/27/2016 Height 65 inches 5'5" Heart Rate 80 /min BP Systolic Sitting 122 mmHg BP Diastolic Sitting 78 mmHg Respiratory Rate 16 /min Pain Level 7 Back & Neck O2 % BldC Oximetry 98 % 11/19/2016 Weight 274.00 lb Heart Rate 71 /min BP Systolic Sitting 100 mmHg BP Diastolic Sitting 76 mmHg O2 % BldC Oximetry 97 % 10/02/2016 Height 65 inches 5'5" Weight 283.50 lb Heart Rate 93 /min BP Systolic 128 mmHg BP Diastolic 80 mmHg Body Temperature 97.4 F O2 % BldC Oximetry 96 % BMI (Body Mass Index) 47.2 kg/m2 05/23/2016 Weight 339.00 lb Heart Rate 86 /min BP Systolic Sitting 126 mmHg BP Diastolic Sitting 78 mmHg Respiratory Rate 14 /min Body Temperature 98.1 F O2 % BldC Oximetry 95 % 03/07/2016 Heart Rate 101 /min BP Systolic 144 mmHg BP Diastolic 74 mmHg Body Temperature 99.7 F O2 % BldC Oximetry 97 % 02/22/2016 Weight 334.50 lb Heart Rate 101 /min BP Systolic 145 mmHg BP Diastolic 90 mmHg Body Temperature 98.3 F O2 % BldC Oximetry 97 % 02/08/2016 Weight 354.50 lb Heart Rate 75 /min BP Systolic 130 mmHg BP Diastolic 80 mmHg Body Temperature 98.5 F O2 % BldC Oximetry 98 % 01/22/2016 Weight 338.50 lb Heart Rate 89 /min BP Systolic 130 mmHg BP Diastolic 70 mmHg Body Temperature 97.9 F O2 % BldC Oximetry 98 % 12/21/2015 Height 65 inches 5'5" Weight 361.00 lb Heart Rate 91 /min BP Systolic 135 mmHg BP Diastolic 85 mmHg Body Temperature 98.9 F BMI (Body Mass Index) 60.1 kg/m2 10/24/2015 Height 65 inches 5'5" Weight 326.00 lb Heart Rate 78 /min BP Systolic Sitting 122 mmHg BP Diastolic Sitting 60 mmHg Respiratory Rate 14 /min Body Temperature 98.0 F BMI (Body Mass Index) 54.2 kg/m2 10/19/2015 Weight 325.00 lb with shoes Heart Rate 72 /min BP Systolic Sitting 128 mmHg BP Diastolic Sitting 84 mmHg Body Temperature 97.7 F O2 % BldC Oximetry 98 % 10/05/2015 Weight 347.00 lb Heart Rate 87 /min BP Systolic Sitting 118 mmHg BP Diastolic Sitting 74 mmHg Body Temperature 98.8 F O2 % BldC Oximetry 97 % 09/21/2015 Height 65 inches 5'5" Weight 318.00 lb Heart Rate 72 /min BP Systolic Sitting 138 mmHg BP Diastolic Sitting 82 mmHg Body Temperature 98.4 F O2 % BldC Oximetry 96 % BMI (Body Mass Index) 52.9 kg/m2 Results Test Date Test Result H/L Range Note Hla B27 05/20/2017 Hla B27 Positive 1 Hla B27 Interp See Comment 2 Vitamin B12 And Folate Serum 05/20/2017 Vitamin B12 1085 pg/mL High 180- 914 3 Folic Acid (Folate) > 20.00 ng/mL >3.99 4 Celiac Hla 05/20/2017 Hla-Dqa1 SEE BELOW 5 Hla-DQB1 SEE BELOW 6 Celiac Gene Pairs Present? Yes Celiac Gene Interpretation See Comment 7 Iron & Iron Binding Capacity 02/03/2017 Iron 31 g/dL Low 50-212 Unsaturated Iron Binding 383 g/dL Total Iron Binding Capacity 414 g/dL 250-450 % Iron Saturation 7 % Low 15-55 Laboratory test finding 02/03/2017 Ferritin 21.9 ng/mL Low 24-336 Laboratory test finding 02/03/2017 Anti Nuclear Antibody 0.2 U 8 CBC Auto Diff 02/03/2017 White Blood Count 7.0 10^3/uL 3.5-10.8 Red Blood Count 4.38 10^6/uL 4.0-5.4 Hemoglobin 11.5 g/dL Low 14.0-18.0 Hematocrit 36 % Low 42-52 Mean Corpuscular Volume 83 fL 80-94 Mean Corpuscular Hemoglobin 26 pg Low 27-31 Mean Corpuscular HGB Conc 32 g/dL 31-36 Red Cell Distribution Width 20 % High 10.5-15 Platelet Count 269 10^3/uL 150-450 Mean Platelet Volume 9 um3 7.4-10.4 Abs Neutrophils 4.2 10^3/uL 1.5-7.7 Abs Lymphocytes 1.5 10^3/uL 1.0-4.8 Abs Monocytes 0.6 10^3/uL 0-0.8 Abs Eosinophils 0.6 10^3/uL 0-0.6 Abs Basophils 0.1 10^3/uL 0-0.2 Abs Nucleated RBC 0 10^3/uL Granulocyte % 60.5 % 38-83 Lymphocyte % 21.0 % Low 25-47 Monocyte % 8.6 % 1-9 Eosinophil % 9.2 % High 0-6 Basophil % 0.7 % 0-2 Nucleated Red Blood Cells % 0 Laboratory test finding 02/03/2017 Creatine Kinase(CK) 16 U/L 10-223 Comp Metabolic Panel 02/03/2017 Sodium 138 mmol/L 133-145 Potassium 4.0 mmol/L 3.5-5.0 Chloride 103 mmol/L 101-111 Co2 Carbon Dioxide 29 mmol/L 22-32 Anion Gap 6 mmol/L 2-11 Glucose 107 mg/dL High 70-100 Blood Urea Nitrogen 18 mg/dL 6-24 Creatinine 0.75 mg/dL 0.67-1.17 BUN/Creatinine Ratio 24.0 High 8-20 Calcium 8.9 mg/dL 8.6-10.3 Total Protein 6.6 g/dL 6.4-8.9 Albumin 3.7 g/dL 3.2-5.2 Globulin 2.9 g/dL 2-4 Albumin/Globulin Ratio 1.3 1-3 Total Bilirubin 0.30 mg/dL 0.2-1.0 Alkaline Phosphatase 77 U/L 34-104 Alt 9 U/L 7-52 Ast 11 U/L Low 13-39 Egfr Non- 108.1 >60 Egfr 139.1 >60 9 Connective Tissue Panel 02/03/2017 Anti-Nuclear Antibody 0.2 U 10 Cyclic Citrullinated Peptide <15.6 U 11 Interpretation See Comment 12 Laboratory test finding 02/03/2017 Erythrocyte Sed Rate 27 mm/Hr High 0- 20 Lyme Disease Serology Negative Negative 13 Rheumatoid Factor <15 IU/mL <15 14 Uric Acid 3.6 mg/dL Low 4.4-7.6 Lipid Profile (Trig/Chol/HDL) 11/12/2016 Triglycerides 92 mg/dL 15 Cholesterol 146 mg/dL 16 HDL Cholesterol 27.7 mg/dL 17 LDL Cholesterol 100 mg/dL 18 Comp Metabolic Panel 11/12/2016 Sodium 135 mmol/L 133-145 Potassium 4.2 mmol/L 3.5-5.0 Chloride 103 mmol/L 101-111 Co2 Carbon Dioxide 28 mmol/L 22-32 Anion Gap 4 mmol/L 2-11 Glucose 92 mg/dL 70-100 Blood Urea Nitrogen 16 mg/dL 6-24 Creatinine 0.74 mg/dL 0.67-1.17 BUN/Creatinine Ratio 21.6 High 8-20 Calcium 8.0 mg/dL Low 8.6-10.3 Total Protein 6.3 g/dL Low 6.4-8.9 Albumin 2.7 g/dL Low 3.2-5.2 Globulin 3.6 g/dL 2-4 Albumin/Globulin Ratio 0.8 Low 1-3 Total Bilirubin 0.30 mg/dL 0.2-1.0 Alkaline Phosphatase 96 U/L 34-104 Alt 10 U/L 7-52 Ast 16 U/L 13-39 Egfr Non- 109.8 >60 Egfr 141.2 >60 19 CBC Auto Diff 11/12/2016 White Blood Count 8.5 10^3/uL 3.5-10.8 Red Blood Count 3.61 10^6/uL Low 4.0-5.4 Hemoglobin 8.9 g/dL Low 14.0-18.0 Hematocrit 28 % Low 42-52 Mean Corpuscular Volume 78 fL Low 80-94 Mean Corpuscular Hemoglobin 25 pg Low 27-31 Mean Corpuscular HGB Conc 31 g/dL 31-36 Red Cell Distribution Width 18 % High 10.5-15 Platelet Count 331 10^3/uL 150-450 Mean Platelet Volume 9 um3 7.4-10.4 Abs Neutrophils 4.7 10^3/uL 1.5-7.7 Abs Lymphocytes 1.8 10^3/uL 1.0-4.8 Abs Monocytes 0.6 10^3/uL 0-0.8 Abs Eosinophils 1.2 10^3/uL High 0-0.6 Abs Basophils 0.1 10^3/uL 0-0.2 Abs Nucleated RBC 0 10^3/uL Granulocyte % 56.0 % 38-83 Lymphocyte % 21.3 % Low 25-47 Monocyte % 7.5 % 1-9 Eosinophil % 14.4 % High 0-6 Basophil % 0.8 % 0-2 Nucleated Red Blood Cells % 0 Laboratory test finding 10/20/2016 Surgical Pathology SEE RESULT BELOW 20 Laboratory test finding 10/20/2016 Clotest SEE RESULT BELOW 21 Lipid Profile (Trig/Chol/HDL) 10/15/2016 Triglycerides 115 mg/dL 22 Cholesterol 127 mg/dL 23 HDL Cholesterol 28.6 mg/dL 24 LDL Cholesterol 75 mg/dL 25 Comp Metabolic Panel 10/15/2016 Sodium 137 mmol/L 133-145 Potassium 3.7 mmol/L 3.5-5.0 Chloride 101 mmol/L 101-111 Co2 Carbon Dioxide 28 mmol/L 22-32 Anion Gap 8 mmol/L 2-11 Glucose 96 mg/dL 70-100 Blood Urea Nitrogen 11 mg/dL 6-24 Creatinine 0.73 mg/dL 0.67-1.17 BUN/Creatinine Ratio 15.1 8-20 Calcium 8.1 mg/dL Low 8.6-10.3 Total Protein 6.7 g/dL 6.4-8.9 Albumin 2.6 g/dL Low 3.2-5.2 Globulin 4.1 g/dL High 2-4 Albumin/Globulin Ratio 0.6 Low 1-3 Total Bilirubin 0.30 mg/dL 0.2-1.0 Alkaline Phosphatase 99 U/L 34-104 Alt 7 U/L 7-52 Ast 13 U/L 13-39 Egfr Non- 111.6 >60 Egfr 143.5 >60 26 CBC Auto Diff 10/15/2016 White Blood Count 10.6 10^3/uL 3.5-10.8 Red Blood Count 3.96 10^6/uL Low 4.0-5.4 Hemoglobin 10.1 g/dL Low 14.0-18.0 Hematocrit 32 % Low 42-52 Mean Corpuscular Volume 82 fL 80-94 Mean Corpuscular Hemoglobin 25 pg Low 27-31 Mean Corpuscular HGB Conc 31 g/dL 31-36 Red Cell Distribution Width 18 % High 10.5-15 Platelet Count 391 10^3/uL 150-450 Mean Platelet Volume 9 um3 7.4-10.4 Abs Neutrophils 7.0 10^3/uL 1.5-7.7 Abs Lymphocytes 1.8 10^3/uL 1.0-4.8 Abs Monocytes 0.7 10^3/uL 0-0.8 Abs Eosinophils 1.1 10^3/uL High 0-0.6 Abs Basophils 0.1 10^3/uL 0-0.2 Abs Nucleated RBC 0 10^3/uL Granulocyte % 65.6 % 38-83 Lymphocyte % 16.5 % Low 25-47 Monocyte % 6.6 % 1-9 Eosinophil % 10.6 % High 0-6 Basophil % 0.7 % 0-2 Nucleated Red Blood Cells % 0 Iron & Iron Binding Capacity 10/15/2016 Iron 16 g/dL Low 50-212 Unsaturated Iron Binding 282 g/dL Total Iron Binding Capacity 298 g/dL 250-450 % Iron Saturation 5 % Low 15-55 Laboratory test finding 10/15/2016 Ferritin 29.8 ng/mL 24-336 27 Hepatitis C Antibody Nonreactive Nonreactive 28 PSA Screening 0.794 ng/mL 0-4.000 29 Folic Acid (Folate) 4.88 ng/mL >3.99 Vitamin B12 > 1450 pg/mL High 180-914 30 Inr/Protime 07/11/2016 Inr 1.32 High 0.89-1.11 Laboratory test finding 07/11/2016 Partial Thrombo Time 33.4 seconds 26.0 -36.3 PTT Lactic Acid 2.7 mmol/L High 0.5-2.0 31 Urinalysis Profile 07/11/2016 Urine Color Yellow Urine Appearance Cloudy Urine Specific [place] 1.017 1.010-1.030 Urine pH 5.0 5-9 Urine Urobilinogen Negative Negative Urine Ketones Negative Negative Urine Protein 1+(30 mg/dL) Negative Urine Leukocytes Negative Negative Urine Blood Negative Negative Urine Nitrite Negative Negative Urine Bilirubin Negative Negative Urine Glucose Negative Negative Urine White Blood Cell Trace(0-5/hpf) Absent Urine Red Blood Cell Absent Absent Urine Bacteria Absent Absent Urine Hyaline Casts Present Absent Laboratory test finding 07/11/2016 B-Type Natriuretic 152 pg/mL High 32 Peptide BNP Laboratory test finding 07/11/2016 Magnesium 1.9 mg/dL 1.9-2.7 Creatine Kinase(CK) 29 U/L 10-223 Troponin-I (TnI) 0.04 ng/mL High <0.04 33 TSH (Thyroid Stim Horm) 5.32 mcIU/mL 0.34-5.60 Lipase 159 U/L High 11.0-82.0 Prealbumin 4 mg/dL Low 18-38 Alcohol < 10 mg/dL <10 Blood Culture SEE RESULT BELOW 34 Comp Metabolic Panel 07/11/2016 Sodium 131 mmol/L Low 133-145 Potassium 3.2 mmol/L Low 3.5-5.0 Chloride 100 mmol/L Low 101-111 Co2 Carbon Dioxide 26 mmol/L 22-32 Anion Gap 5 mmol/L 2-11 Glucose 135 mg/dL High 70-100 Blood Urea Nitrogen 17 mg/dL 6-24 Creatinine 1.12 mg/dL 0.67-1.17 BUN/Creatinine Ratio 15.2 8-20 Calcium 7.4 mg/dL Low 8.6-10.3 Total Protein 7.9 g/dL 6.4-8.9 Albumin 1.8 g/dL Low 3.2-5.2 Globulin 6.1 g/dL High 2-4 Albumin/Globulin Ratio 0.3 Low 1-3 Total Bilirubin 0.30 mg/dL 0.2-1.0 Alkaline Phosphatase 164 U/L High 34-104 Alt 14 U/L 7-52 Ast 21 U/L 13-39 Egfr Non- 68.1 >60 Egfr 87.5 >60 35 CBC Auto Diff 07/11/2016 White Blood Count 23.5 10^3/uL High 3.5-10.8 Red Blood Count 3.38 10^6/uL Low 4.0-5.4 Hemoglobin 8.3 g/dL Low 14.0-18.0 Hematocrit 27 % Low 42-52 Mean Corpuscular Volume 79 fL Low 80-94 Mean Corpuscular Hemoglobin 25 pg Low 27-31 Mean Corpuscular HGB Conc 31 g/dL 31-36 Red Cell Distribution Width 20 % High 10.5-15 Platelet Count 291 10^3/uL 150-450 Mean Platelet Volume 9 um3 7.4-10.4 Abs Neutrophils 20.1 10^3/uL High 1.5-7.7 Abs Lymphocytes 1.4 10^3/uL 1.0-4.8 Abs Monocytes 1.8 10^3/uL High 0-0.8 Abs Eosinophils 0.3 10^3/uL 0-0.6 Abs Basophils 0 10^3/uL 0-0.2 Abs Nucleated RBC 0.01 10^3/uL Granulocyte % 85.3 % High 38-83 Lymphocyte % 5.9 % Low 25-47 Monocyte % 7.5 % 1-9 Eosinophil % 1.2 % 0-6 Basophil % 0.1 % 0-2 Nucleated Red Blood Cells % 0 Cell Morphology 06/11/2016 Hypochromasia 2+ Target Cells 1+ Stomatocytes 1+ Laboratory test 06/11/2016 Hemoglobin A1c 5.0 % Less than 6.0 36 finding (Glyco HGB) CBC Auto Diff 06/11/2016 White Blood Count 12.9 10^3/uL High 3.5-10.8 Red Blood Count 3.83 10^6/uL Low 4.0-5.4 Hemoglobin 9.5 g/dL Low 14.0-18.0 Hematocrit 31 % Low 42-52 Mean Corpuscular Volume 80 fL 80-94 Mean Corpuscular Hemoglobin 25 pg Low 27-31 Mean Corpuscular HGB Conc 31 g/dL 31-36 Red Cell Distribution Width 20 % High 10.5-15 Platelet Count 370 10^3/uL 150-450 Mean Platelet Volume 9 um3 7.4-10.4 Abs Neutrophils 6.0 10^3/uL 1.5-7.7 Abs Lymphocytes 1.1 10^3/uL 1.0-4.8 Abs Monocytes 0.8 10^3/uL 0-0.8 Abs Eosinophils 4.9 10^3/uL High 0-0.6 37 Abs Basophils 0.1 10^3/uL 0-0.2 Abs Nucleated RBC 0 10^3/uL Granulocyte % 46.8 % 38-83 Lymphocyte % 8.7 % Low 25-47 Monocyte % 6.0 % 1-9 Eosinophil % 37.8 % High 0-6 Basophil % 0.7 % 0-2 Nucleated Red Blood Cells % 0 Laboratory test finding 05/08/2016 Creatine Kinase(CK) 89 U/L 10-223 Magnesium TNP mg/dL 1.9-2.7 38 Lactic Acid 1.0 mmol/L 0.5-2.0 39 Procalcitonin < 0.1 ng/mL <0.6 40 C Reactive Protein 30.73 mg/L High < 5.00 41 Iron & Iron Binding 05/08/2016 Total Iron Binding 312 g/dL 250-450 Capacity Capacity Iron < 15 g/dL Low 50-212 Unsaturated Iron Binding 297.68109 g/dL % Iron Saturation 5 % Low 15-55 Laboratory test finding 05/08/2016 Ferritin 18.5 ng/mL Low 24-336 Folic Acid (Folate) 9.70 ng/mL >3.99 Vitamin B12 1122 pg/mL High 180-914 42 Urinalysis Profile 05/08/2016 Urine Color Yellow Urine Appearance Clear Urine Specific [place] 1.014 1.010-1.030 Urine pH 5.0 5-9 Urine Urobilinogen Negative Negative Urine Ketones Negative Negative Urine Protein Negative Negative Urine Leukocytes Negative Negative Urine Blood Negative Negative Urine Nitrite Negative Negative Urine Bilirubin Negative Negative Urine Glucose Negative Negative Protein Electrophoresis 05/08/2016 Total Protein(Pep) 7.3 g/dL 6.3 - 7.9 Albumin 2.4 g/dL 3.4-4.7 Alpha-1 Globulin 0.4 g/dL 0.1-0.3 Alpha-2 Globulin 1.0 g/dL 0.6-1.0 Beta Globulin 1.0 g/dL 0.7-1.2 Gamma Globulin 2.6 g/dL 0.6-1.6 Albumin/Globulin Ratio 0.48 Impression See Comment 43 Comp Metabolic Panel 05/08/2016 Sodium 135 mmol/L 133-145 Chloride 109 mmol/L 101-111 Co2 Carbon Dioxide 21 mmol/L Low 22-32 Glucose 104 mg/dL High 70-100 Blood Urea Nitrogen 22 mg/dL 6-24 Creatinine 1.21 mg/dL High 0.67-1.17 BUN/Creatinine Ratio 18.2 8-20 Calcium 7.8 mg/dL Low 8.6-10.3 Total Protein 7.4 g/dL 6.4-8.9 Albumin 2.7 g/dL Low 3.2-5.2 Globulin 4.7 g/dL High 2-4 Albumin/Globulin Ratio 0.6 Low 1-3 Total Bilirubin 0.20 mg/dL 0.2-1.0 Alkaline Phosphatase 87 U/L 34-104 Alt 12 U/L 7-52 Egfr Non- 62.3 >60 Egfr 80.1 >60 44 Potassium TNP mmol/L 3.5-5.0 45 Anion Gap TNP mmol/L 2-11 Ast TNP U/L 13-39 46 CBC Auto Diff 05/08/2016 White Blood Count 14.2 10^3/uL High 3.5-10.8 Red Blood Count 2.99 10^6/uL Low 4.0-5.4 Hemoglobin 7.2 g/dL Low 14.0-18.0 Hematocrit 23 % Low 42-52 Mean Corpuscular Volume 78 fL Low 80-94 Mean Corpuscular Hemoglobin 24 pg Low 27-31 Mean Corpuscular HGB Conc 31 g/dL 31-36 Red Cell Distribution Width 18 % High 10.5-15 Platelet Count 297 10^3/uL 150-450 Mean Platelet Volume 10 um3 7.4-10.4 Abs Neutrophils 8.6 10^3/uL High 1.5-7.7 Abs Lymphocytes 1.8 10^3/uL 1.0-4.8 Abs Monocytes 0.9 10^3/uL High 0-0.8 Abs Eosinophils 2.8 10^3/uL High 0-0.6 Abs Basophils 0.2 10^3/uL 0-0.2 Abs Nucleated RBC 0.01 10^3/uL Granulocyte % 60.4 % 38-83 Lymphocyte % 12.4 % Low 25-47 Monocyte % 6.3 % 1-9 Eosinophil % 19.8 % High 0-6 Basophil % 1.1 % 0-2 Nucleated Red Blood Cells % 0.1 Laboratory test finding 05/08/2016 Potassium Redraw 4.3 mmol/L 3.5-5.0 Magnesium 2.1 mg/dL 1.9-2.7 Ast Redraw 22 U/L 13-39 CBC Auto Diff 05/08/2016 White Blood Count 14.0 10^3/uL High 3.5-10.8 Red Blood Count 3.02 10^6/uL Low 4.0-5.4 Hemoglobin 7.4 g/dL Low 14.0-18.0 Hematocrit 24 % Low 42-52 Mean Corpuscular Volume 78 fL Low 80-94 Mean Corpuscular Hemoglobin 24 pg Low 27-31 Mean Corpuscular HGB Conc 31 g/dL 31-36 Red Cell Distribution Width 18 % High 10.5-15 Platelet Count 370 10^3/uL 150-450 Mean Platelet Volume 9 um3 7.4-10.4 Abs Neutrophils 8.4 10^3/uL High 1.5-7.7 Abs Lymphocytes 1.9 10^3/uL 1.0-4.8 Abs Monocytes 0.8 10^3/uL 0-0.8 Abs Eosinophils 2.8 10^3/uL High 0-0.6 Abs Basophils 0 10^3/uL 0-0.2 Abs Nucleated RBC 0.01 10^3/uL Granulocyte % 60.1 % 38-83 Lymphocyte % 13.8 % Low 25-47 Monocyte % 6.0 % 1-9 Eosinophil % 19.8 % High 0-6 Basophil % 0.3 % 0-2 Nucleated Red Blood Cells % 0.1 Ua Routine 10/05/2015 Ua Specific [place] 1.020 Ua PH 5 Ua Color dark yellow Ua Appera clear Ua WBC neg Ua Protein neg Ua Glucose neg Ua Ketones neg Ua Bilirubin neg Ua Urobilinogen norm Ua Nitrite neg Ua Occult Blood neg 1 REFERENCE VALUE Not Applicable 2 HLA-B27 antigen was detected. Approximately 8% of the normal population carries the HLA-B27 antigen. HLA-B27 is present in approximately 89% of patients with ankylosing spondylitis, 79% of patients with Alondra's syndrome and 42% of patients with juvenile rheumatoid arthritis. However, lacking other data, it is not diagnostic for these disorders. This test does not differentiate B27 alleles. i.e. B*27:05, B*27:06, etc. ADDITIONAL INFORMATION Method: Flow Cytometry Performing Laboratory CLIA# [id number] Test Performed by: [address] [address] 3 Normal Range 180 to 914 Indeterminate Range 145 to 180 Deficient Range <145 4 Please check labs today 5 RESULT: 01:02,03 REFERENCE VALUE Not Applicable 6 RESULT: 03:02,06:02 DQ Serologic Equivalent: 8,6 REFERENCE VALUE Not Applicable 7 These genes are permissive for celiac disease. The absence of HLA celiac permissive genes would make the presence of celiac disease unlikely. However, these genes can also be present in the normal population. ADDITIONAL INFORMATION Method: Molecular typing of HLA antigens performed using reverse SSOP and/or SSP methods, reported as serological equivalents and low to medium resolution molecular values. Performing Laboratory CLIA# [id number] Test Performed by: [facility] - [address] [address] 8 REFERENCE VALUE <=1.0 (Negative) Test Performed by: [facility] - [address] [address] 9 Because ethnic data is not always readily available, this report includes an eGFR for both -Americans and non- Americans. The National Kidney Disease Education Program (NKDEP) does not endorse the use of the MDRD equation for patients that are not between the ages of 18 and 70, are , have extremes of body size, muscle mass, or nutritional status, or are non- or non-. According to the National Kidney Foundation, irrespective of diagnosis, the stage of the disease is based on the level of kidney function: Stage Description GFR(mL/min/1.73 m(2)) 1 Kidney damage with normal or decreased GFR 90 2 Kidney damage with mild decrease in GFR 60-89 3 Moderate decrease in GFR 30-59 4 Severe decrease in GFR 15-29 5 Kidney failure <15 (or dialysis) 10 REFERENCE VALUE <=1.0 (Negative) 11 REFERENCE VALUE <20.0 (Negative) 12 Tests for antibodies to dsDNA and RUBÉN antigens are not performed automatically unless the CHAZ result is > or= 3.0 U. Studies performed at [facility] indicate that positive CHAZ results <3.0 U are rarely accompanied by positive second order tests. Test Performed by: [facility] - [address] [address] 13 Serologic response to B. burgdorferi infection is not detected, but cannot rule out early infection during which low or undetectable antibody levels to B. burgdorferi may be present. If clinically indicated, a new serum specimen should be submitted in 7-14 days. Test Performed by: [facility] - [facility] [employer] [facility] [address] [place] [address] 14 Test Performed by: [facility] - [facility] [address] [place] [address] 15 Desirable <150 Borderline high 150-199 High 200-499 Very High >500 16 Desirable <200 Borderline high 200-239 High >239 17 Low <40 Desirable: 40-60 High: >60 18 Desirable: <100 mg/dL Near Optimal: 100-129 mg/dL Borderline High: 130-159 mg/dL High: 160-189 mg/dL Very High: >189 mg/dL 19 Because ethnic data is not always readily available, this report includes an eGFR for both -Americans and non- Americans. The National Kidney Disease Education Program (NKDEP) does not endorse the use of the MDRD equation for patients that are not between the ages of 18 and 70, are , have extremes of body size, muscle mass, or nutritional status, or are non- or non-. According to the National Kidney Foundation, irrespective of diagnosis, the stage of the disease is based on the level of kidney function: Stage Description GFR(mL/min/1.73 m(2)) 1 Kidney damage with normal or decreased GFR 90 2 Kidney damage with mild decrease in GFR 60-89 3 Moderate decrease in GFR 30-59 4 Severe decrease in GFR 15-29 5 Kidney failure <15 (or dialysis) 20 SEE RESULT BELOW Name: ASHUTOSH SIERRA : [address]: Carl Torres MD Acct: [id number] Unit: [id number] AGE: 56 Location: [facility] Re10/20/16 SEX: M Status: DEP REF SPEC: [id number] BLANCO: 10/20/16- SUBM DR: Carl Torres MD REQ: [id number] RECD: 10/20/165678 STATUS: SHAJI PIERCE DR: Kg Bella PUBLIC WORKS DIRECTOR _ ORDERED: LEVEL 4/2 FINAL DIAGNOSIS 1. Colon, 85 cm, biopsy: -- Tubular adenoma. -- No high grade dysplasia or malignancy. 2. Colon, 75 cm, biopsy: -- Tubular adenoma. -- No high grade dysplasia or malignancy. CLINICAL HISTORY No history given POST-OPERATIVE DIAGNOSIS Esophagus - normal; stomach - gastric bypass, biopsy for H. pylori; duodenum - normal. Colonoscopy to terminal ileum - polyp at 85 cm biopsied and at 75 cm snare. GROSS DESCRIPTION 1. The specimen is received in formalin labeled, Biopsy Colon Polyp at 85 cm, and consists of a 0.3 x 0.3 x 0.2 cm daigle-pink irregular to polypoid soft tissue fragment which is entirely submitted in one cassette. 2. The specimen is received in formalin labeled, Colon Polyp at 75 cm, and consists of a 0.8 x 0.4 x 0.1 cm aggregate of yellow-white irregular to polypoid soft tissue fragments which are entirely submitted in one cassette. Signed (signature on file) Edinson Sage MD [id number] END OF REPORT * ML=Testing performed at Main Lab DEPARTMENT OF PATHOLOGY, [address] [place] [address] Edinson Sage M.D. Director [facility] # [id number] 21 SEE RESULT BELOW Name: ASHUTOSH SIERRA : [address]: Carl Torres MD Acct: [id number] Unit: [id number] AGE: 56 Location: ENDO Re10/20/16 SEX: M Status: DEP REF SPEC: [id number] BLANCO: 10/20/16 [facility] DR: Carl Torres MD REQ: [id number] RECD: 10/20/16 STATUS: GIANCARLO PIERCE DR: Kg Bella PUBLIC WORKS DIRECTOR _ SOURCE: GAS ANTRUM SPDESC: ORDERED: Clotest Procedure Result Reported Site Clotest Final 10/21/16- 1002 ML Clotest Negative * ML - MAIN LAB ([facility]) . END OF REPORT * ML=Testing performed at Main Lab DEPARTMENT OF PATHOLOGY, [address] [place] [address] Edinson Sage M.D. Director [facility] # [id number] 22 Desirable <150 Borderline high 150-199 High 200-499 Very High >500 23 Desirable <200 Borderline high 200-239 High >239 24 Low <40 Desirable: 40-60 High: >60 25 Desirable: <100 mg/dL Near Optimal: 100-129 mg/dL Borderline High: 130-159 mg/dL High: 160-189 mg/dL Very High: >189 mg/dL 26 Because ethnic data is not always readily available, this report includes an eGFR for both -Americans and non- Americans. The National Kidney Disease Education Program (NKDEP) does not endorse the use of the MDRD equation for patients that are not between the ages of 18 and 70, are , have extremes of body size, muscle mass, or nutritional status, or are non- or non-. According to the National Kidney Foundation, irrespective of diagnosis, the stage of the disease is based on the level of kidney function: Stage Description GFR(mL/min/1.73 m(2)) 1 Kidney damage with normal or decreased GFR 90 2 Kidney damage with mild decrease in GFR 60-89 3 Moderate decrease in GFR 30-59 4 Severe decrease in GFR 15-29 5 Kidney failure <15 (or dialysis) 27 FASTING 10 HOUR 28 FASTING 10 HOUR 29 Serum levels of PSA measured using the Rm [place] DXI Hybritech immunoassay should not be interpreted as absolute evidence of the presence or absence of disease. The PSA value should be used in conjunction with other pertinent clinical diagnostic procedures. The values obtained with different assay methods or kits cannot be used interchangeably. 30 Normal Range 180 to 914 Indeterminate Range 145 to 180 Deficient Range <145 31 Critical Result LACT:2.7 Called to [id number] at: 00:40:22 by:[id number] Read back by:[id number] [facility] Severe Sepsis and Septic Shock Management Bundle Measure requires all lactic acids initially measuring >2.0 mmol/L be repeated. 32 >100 to <200 pg/mL: likely compensated congestive heart failure (CHF) 200 to 400 pg/mL: likely moderate CHF >400 pg/mL: likely moderate to severe CHF 33 Result TnIDx:0.04 Called to [id number] at: 00:43:41 by:[id number] Read back by: [id number] 99th percentile=0.04 ng/mL Troponin results at [facility] and [facility] are not interchangeable. 34 SEE RESULT BELOW Name: ASHUTOSH SIERRA : [address]: Hebert Fregoso MD Acct: [id number] Unit: [id number] AGE: 56 Location: [place] [address]- Re07/12/16 SEX: M Status: ADM IN SPEC: [id number] BLANCO: 07/12/[address] [facility] [address]: Fransisco Almendarez MD REQ: [id number] RECD: 07/12/16 STATUS: GIANCARLO PIERCE DR: Edgar Samayoa MD _ SOURCE: BLOOD,VENO SPDESC: ORDERED: Blood Cult COMMENTS: Patient is On Antibiotics? NO Procedure Result Reported Site Aerobic Culture Bottle Final 07/17/16- 8 ML No Growth Day 5 Anaerobic Culture Bottle Final 07/17/16- 8 ML No Growth Day 5 * ML - MAIN LAB ([facility]) . END OF REPORT * ML=Testing performed at Main Lab DEPARTMENT OF PATHOLOGY, [address] [place] [address] Edinson Sage M.D. Director [facility] # [id number] 35 Because ethnic data is not always readily available, this report includes an eGFR for both -Americans and non- Americans. The National Kidney Disease Education Program (NKDEP) does not endorse the use of the MDRD equation for patients that are not between the ages of 18 and 70, are , have extremes of body size, muscle mass, or nutritional status, or are non- or non-. According to the National Kidney Foundation, irrespective of diagnosis, the stage of the disease is based on the level of kidney function: Stage Description GFR(mL/min/1.73 m(2)) 1 Kidney damage with normal or decreased GFR 90 2 Kidney damage with mild decrease in GFR 60-89 3 Moderate decrease in GFR 30-59 4 Severe decrease in GFR 15-29 5 Kidney failure <15 (or dialysis) 36 Therapeutic target for the treatment of diabetes Mellitus patients is <7% HBA1C, and in selective patients <6.0%.Please refer to [place] Diabetes Association Diabetic care guidelines for further information. 37 Consistent with previous results on 05/09/16. 38 Cancelled. Specimen hemolyzed. Unable to perform test requested. Reorder for specimen recollection. [id number] was called for recollect at 0457 on 05/08/16 by [id number] [facility] Severe Sepsis and Septic Shock Management Bundle Measure requires all lactic acids initially measuring >2.0 mmol/L be repeated. 40 Interpretive information available on [employer] [facility] Test Catalog at [email or web address] 41 Acute inflammation: >10.00 42 Normal Range 180 to 914 Indeterminate Range 145 to 180 Deficient Range <145 43 RESULT: Polyclonal hypergammaglobulinemia Test Performed by: [facility] [place] [address] Shank Taper: Polo Lucero II, M.D., Ph.D. 44 Because ethnic data is not always readily available, this report includes an eGFR for both -Americans and non- Americans. The National Kidney Disease Education Program (NKDEP) does not endorse the use of the MDRD equation for patients that are not between the ages of 18 and 70, are , have extremes of body size, muscle mass, or nutritional status, or are non- or non-. According to the National Kidney Foundation, irrespective of diagnosis, the stage of the disease is based on the level of kidney function: Stage Description GFR(mL/min/1.73 m(2)) 1 Kidney damage with normal or decreased GFR 90 2 Kidney damage with mild decrease in GFR 60-89 3 Moderate decrease in GFR 30-59 4 Severe decrease in GFR 15-29 5 Kidney failure <15 (or dialysis) 45 Cancelled. Specimen hemolyzed. Unable to perform test requested. Reorder for specimen recollection. [id number] was called for recollect at 0457 on 05/08/16 by [id number] Cancelled. Specimen hemolyzed. Unable to perform test requested. Reorder for specimen recollection. [id number] was called for recollect at 0457 on 05/08/16 by [id number] Procedures Date CPT Code Description Status Comment 12/30/2016 74439 Polysomnography Sleep Staging Completed 4+ Parameters W/Cpap 10/20/2016 Colonoscopy Completed 05/08/2016 70398 ECHO Transthorasic Realtime 2D Completed W Doppler & Color Flow Hosp 12/23/2015 92564 EKG, Interpretation Only Completed 11/29/2015 89434 Removal Devitalization Tissue Completed Wound Less Than Equal 20 Square CM 09/25/2015 57286 Removal Devitalization Tissue Completed Wound Less Than Equal 20 Square CM 09/18/2015 09637 Removal Devitalized Tissue Completed Wound Greater Than 20 Square CM 09/18/2015 10055 Removal Devitalization Tissue Completed Wound Less Than Equal 20 Square CM 04/07/2015 Colonoscopy Completed Repeat was recommended in 1-2 years 04/06/2015 Colonoscopy Completed 10/12/2014 83268 Removal Devitalized Tissue Completed Wound Greater Than 20 Square CM 10/12/2014 28836 Removal Devitalization Tissue Completed Wound Less Than Equal 20 Square CM 09/06/2014 13874 Treadmill Interp/Report Only Completed 09/06/2014 67109 Stress Test Supervsn W/Out I/R Completed Encounters Type Date Location Provider CPT E/M Dx Office Visit 05/06/2017 Pulmonology And Sleep Mary Eckert, 87778 G47.33 1:30p Services Of Dave RUANO RN, PEGA DEVELOPER-BC Office Visit 04/07/2017 Rheumatology Services Bharath Rodriguez M.D. 07755 M54.5 3:00p Of [facility] D64.9 M79.1 R20.8 Office Visit 03/24/2017 9:20a [facility] [place] [address] H92.01 [place] J06.9 Office Visit 02/27/2017 9:15a Pulmonology And Sleep Mary Eckert, 52295 G47.33 Services Of [facility] VISH RUANO, [facility] G47.37 G47.14 E66.01 Z68.41 G89.29 Z79.891 Office Visit 02/17/2017 3:00p [facility] Internal Alex Hernández M.D. 17850 M13.0 Medicine - [address] I10 E78.2 G47.00 E03.9 Office Visit 01/30/2017 8:40a [facility] Internal Alex Hernández M.D. 07733 M13.0 Medicine - [address] M54.2 M51.16 Office Visit 01/21/2017 1:00p [facility] [place] [address] J06.9 [place] Z23 Office Visit 01/07/2017 4:00p [facility] Internal Alex Hernández, 69559 E66.01 Medicine [place] I10 G47.00 E78.2 E03.9 Z68.41 Office Visit 01/05/2017 11:15a Pulmonology And Sleep Mary Eckert, 30127 G47.33 Services Of [facility] VISH RUANO, [facility] Z68.41 Office Visit 11/27/2016 2:45p Pul[place] [address] G47.33 Services Of [facility] E66.01 Office Visit 11/19/2016 10:20a [facility] [place] [address] D50.9 [place] M54.2 Office Visit 11/12/2016 11:15a [place] [address] I87.312 [facility] I89.0 Office Visit 10/22/2016 11:00a [place] [address] I87.312 At [facility] I89.0 Office Visit 10/15/2016 8:00a [place] [address] I87.312 At [facility] I89.0 Office Visit 10/02/2016 1:20p [facility] Internal Medicine - Kg Bella, PUBLIC WORKS DIRECTOR [address]75[address] Z00.00 [place] G89.29 I10 D50.9 E78.5 E03.9 R53.1 I89.0 F33.9 Z23 Z11.59 N40.1 G47.33 Office Visit 07/17/2016 2:43p [facility],sal Fregoso M.D. 10936 L03.116 Hospitalists L03.115 G89.29 Office Visit 07/16/2016 2:42p [facility],sal Fregoso M.D. 98514 L03.116 Hospitalists L03.115 G89.29 Office Visit 07/15/2016 2:42p [facility],sal Fregoso M.D. 28228 L03.116 Hospitalists L03.115 G89.29 I10 Office Visit 07/14/2016 2:41p [facility] [place] [address] L03.116 Assoc,pc Hospitalists L03.115 G89.29 I10 Office Visit 07/13/2016 2:41p [facility] [place] [address] L03.116 Assoc,pc Hospitalists L03.115 G89.29 Office Visit 07/12/2016 2:40p [facility],sal Fregoso M.D. 90174 L03.116 Hospitalists L03.115 G89.29 I10 Office Visit 05/23/2016 2:40p [facility] Internal Medicine Edgar Samayoa M.D. 89184 D64.9 - [place] Z13.1 L89.152 I89.0 D50.9 Office Visit 05/12/2016 4:02p [facility], Miguelina Garner 71835 L03.119 Hospitalists Marilu L89.322 B88.8 G47.33 Office Visit 05/11/2016 4:01p [facility], Miguelina Garner 02274 L03.119 Hospitalists Marilu L89.322 B88.8 G47.33 Office Visit 05/10/2016 4:01p [facility], Miguelina Garner, 56404 L03.119 Hospitalists MMonster L89.322 B88.8 G47.33 Office Visit 05/09/2016 4:00p [facility], Miguelina Garner, 52574 L03.119 Hospitalists MCloverDClover L89.322 G47.33 B88.8 Office Visit 05/08/2016 [facility] Miguel[facility] Garner, 99412 L03.119 Hospitalists MMonster L89.322 B88.8 G47.33 Office Visit 03/12/2016 9:00a [place] [address] I87.312 At [facility] L97.221 I10 E66.01 I89.0 Office Visit 03/07/2016 3:40p [facility] Internal Medicine Edgar Samayoa, 96605 B37.49 - Veronica Michel B37.2 Office Visit 02/27/2016 9:00a [place] [address] I87.312 At [facility] L97.221 I10 I89.0 E66.01 Office Visit 02/22/2016 3:40p [facility] Internal Medicine Edgra Samayoa M.D. 74473 L29.9 - Veronica K21.9 L03.116 S10.96xA Office Visit 02/20/2016 8:00a [place] [address] I87.312 At [facility] L97.221 I10 E66.01 I89.0 Office Visit 02/08/2016 3:00p [facility] Internal Medicine Edgar Samayoa, 65365 L03.115 - Veronica Michel F32.9 Office Visit 01/22/2016 3:40p [facility] Internal Medicine Edgar Samayoa, 56168 F43.23 - Veronica Michel L03.116 M25.562 R42 Office Visit 12/27/2015 11:45a [facility], [address] T07 Hospitalraghu Michel E78.5 W19.xxxA I10 Office Visit 12/26/2015 11:45a [facility] Steve Weber, [address] T07 Assoc,pc PA Hospitalists E78.5 W19.xxxA I10 Office Visit 12/25/2015 11:44a [facility],pc Cindy Arriaga, PUBLIC WORKS DIRECTOR 35900 T07 Hospitalists E78.5 W19.xxxA I10 Office Visit 12/24/2015 11:53a [facility] Cynthia Munroe, 43722 S81.801A Ayanna Michel S81.802A L03.115 L03.116 M79.652 Office Visit 12/24/2015 11:43a [facility] [address] T07 Assoc,pc PA Hospitalists E78.5 W19.xxxA I10 Office Visit 12/23/2015 11:43a [facility], Hernan Vic, 70091 T07 Hospitalists N.P. E78.5 W19.xxxA I10 Office Visit 12/21/2015 3:40p [facility] Internal Medicine Edgar Samayoa M.D. 56116 I89.0 - [place] L03.116 Office Visit 10/24/2015 2:40p [facility] Woody Alvarez, 58336 I89.0 Infectious Diseases Marilu R19.7 K52.1 T36.1x5A Office Visit 10/19/2015 4:00p [facility] Internal Medicine Edgar Samayoa, 44030 L03.116 - Demetrio Michel B35.6 L60.8 B35.1 Office Visit 10/09/2015 11:46a [facility] Vikas Andrew, [address] I87.312 [place] [facility] [place] L97.221 Office Visit 10/05/2015 3:00p [facility] Internal Medicine Edgar Samayoa M.D. 95928 R60.9 - [place] L03.119 B35.6 N40.1 F41.9 R60.0 L03.116 L03.115 N39.45 Office Visit 09/21/2015 9:20a [facility] Medicine Edgar Samayoa, 32537 L03.116 - Demetrio Michel L03.115 I89.0 I10 G89.29 K21.9 F41.9 G47.00 R19.7 Office Visit 09/12/2015 11:05a [facility] Gardenia Pope, 54205 L03.115 Hospitalists M.D. E11.9 E78.0 I10 Office Visit 09/11/2015 11:05a [facility] Gardenia Pope, 76304 L03.115 Hospitalists M.D. E11.9 I10 Office Visit 09/10/2015 11:01a [facility] Andrei Lindy 35883 L03.115 Assoc,pc Hospitalists II, MMonster E11.9 E78.0 I10 Office Visit 04/11/2015 9:29a [facility] Gardenia Pope, 41794 K92.2 Hospitalists M.D. E66.01 D62 Office Visit 04/10/2015 9:28a [facility] Gardenia Pope, 24657 K92.2 Hospitalists M.D. E66.01 D62 Office Visit 04/09/2015 9:28a [facility] Gardenia Pope, 65819 K92.2 Hospitalists M.D. E66.01 D62 Office Visit 04/08/2015 9:28a [facility] Gardenia Pope, 38662 K92.2 Hospitalists M.D. E66.01 D62 Office Visit 04/07/2015 9:27a [facility] Gardenia Pope, 83555 K92.2 Hospitalists M.D. E66.01 D62 Office Visit 04/06/2015 9:26a [facility] Gardenia Pope, 47607 K92.2 Hospitalists M.D. E66.01 D62 Office Visit 02/18/2015 8:28a [facility] Miguelina Pascual, 41102 N17.9 Hospitalists M.D. E66.01 T40.601A G47.33 Office Visit 02/17/2015 8:28a [facility] Miguelina Parisr, 90074 N17.9 Hospitalists M.D. E66.01 T40.601A G47.33 Office Visit 02/16/2015 8:27a [facility] Miguelina Parisr, 05933 N17.9 Hospitalists M.D. E66.01 T40.601A G47.33 Office Visit 10/26/2014 3:53p [facility] Fr[place]erkler, 24818 707.19 [facility] [place] 454.0 Office Visit 10/19/2014 11:26a [facility] Meghana FraserGarvin, 83806 707.19 [facility] [place] 454.0 Office Visit 09/05/2014 8:45a [facility], Miguelina Garner, 02431 786.50 Hospitalists Marilu 272.4 338.29 278.01 Office Visit 09/03/2014 8:44a [facility], Farhan Duran, 17644 786.50 Hospitalists Marilu 272.4 338.29 278.01 Plan of Care Future Appointment(s):06/17/2017 4:00 pm - Bharath Rodriguez M.D. at [facility]08/25/2017 1:40 pm - Alex Hernández M.D. at [facility] - [place] 11/03/2017 1:00 pm - Mary Eckert DNP, RN, PEGA DEVELOPER-BC at [facility]05/25/2017 - Bharath Rodriguez M.D.M46.90 Unspecified inflammatory spondylopathy, site unspecifiedNew Medication: Sulfasalazine 500 mgM54.5 Low back painM79.1 PhccmqjR09.20 Lesion of ulnar nerve , unspecified upper limbNew Medication:Wrist MdtxtB47.532 Pain in left wristFollow up:Follow up in 3-4 wajwmC32.899 Other long term care administrator (current) drug therapy
--- OUTSIDE RECORDS SUMMARY | 2017-06-04 12:28 | XMS REPORT ---
:1960 External Reference #:[id number] Author Organization [employer] Address [address] [address] Phone [phone] Care Team Providers Name Role Phone Alex Hernández MD Primary Care Physician Unavailable Payers Type Date Identification Numbers Payment Provider Subscriber Commercial Policy Number: [id number] [employer] Medicaid Ashutosh Wongll PayID: [id number] [address] [address] [place] [address] Medigap Part B Expires: 2015 Policy Number: [id number] Medicaid Ashutosh [employer] Name: 1 1 [address] PayID: [id number] [place] [address] Problems Date Description Provider Status Onset: 09/21/2015 [...] 01/05/2017 Hypersomnia Mary Eckert DNP, RN, Active SYSTEM VALIDATION ENGINEER-BC Onset: 01/07/2017 Insomnia Alex Hernández M.D. Active [...] Form Strength Qnty SIG Indications Ordering Provider Viibryd 05/21 Active Tablets 40mg 30tab F33.0 liyah Hernández M.D. Trazodone HCL 05/21 Active Tablets 100mg 60tab take 2 tablet G47.00 s by mouth at Betty dawkins M.D. Lidoderm 04/07 Active Patches 5% 30uni 1 apply to M54.5 ts affected area Michael, 12 hours on, M.D. 12 hours off Nystatin 03/24 Active Cream [id number] 60gm apply to Kg t/GM affected Shayne, PIPE CLEANING MACHINE OPERATOR areas twice a day Zolpidem 01/07 Active Tablets 10mg 30tab 1/2 to 1 tab G47.00 [place] Tartrate s by mouth Deniseika every night , M.D. at bedtime as needed Nystatin 12/30 Active Powder 087303Sts 90gm apply twice t/GM daily until Pachika rash clears , M.D. Hydroxyzine 12/24 Active Tablets 50mg 120ta take one HCL bs tablet by Betty mouth four , M.D. times a day as needed for itching Furosemide 10/02 Active Tablets 40mg 30tab Take One I89.0 s Tablet By Layton Fay Mouth Every M.D.,FACP Day Triamcinolone 02/21 Active Ointment 0.1% 45gm apply thin L29.9 Kg Acetonide layer to over Shayne, PIPE CLEANING MACHINE OPERATOR rash 2 times daily for 2 weeks Omeprazole 02/[address] 20mg 30cap 1 by mouth K21.9 s every day Marilu Hernández Abdominal 02/21 Active Misc 60uni Appy twice L03.116 Edgar Binder/Elastic ts daily Kiron Large M.D. Bandage Roll 02/21 Active Misc 4.5"X4yd 4boxe apply over L03.116 Edgar 4.5"X4yd /2015 s guaze or Abd Kiron, pads M.D. Combine Abd 02/10 Active Pads 5"X9" 120un change every its other day as khurram Lane M.D.,FACP Gauze Pads 02/07 Active Pads 4"X4" 4Boxe apply to open L03.115 s areas of leg. Kiron, change daily M.D. dx: s81.802 Andrew Bandage 02/07 Active Misc BNDG 4" 15uni wrap over L03.115 Edgar Self-Adhering ts clean gauze Kiron, daily M.D. Proair HFA Active Aerosol 108(90Bas 8.500 2 puffs by Alex / e) gm mouth every 4 Pachikara mcg/Act hours as , M.D. needed Fentanyl 00 Active Patches 25mcg/HR apply one 72HR patch once every 3 days Levothyroxine Active Tablets 75mcg 30tab 1 by mouth Alex Sodium / s every day Marilu Hernández Lyrica Active Capsules 150mg 1 by mouth Unknown three times daily Oxycodone HCL Active Tablets 10mg 1 by mouth Unknown every 8 hours as needed pain Tamsulosin HCL Active Capsules 0.4mg 30cap take one N40.1 [place] s capsule by Pachikara mouth every , M.D. day Finasteride Active Tablets 5mg 30tab take one N40.1 [place] / s tablet by Pachikara mouth every , M.D. day Losartan Active Tablets 100mg 30tab Take One I10 Pablo Potassium / s Tablet By Layton Fay, Mouth Every M.D.,FAC Day Fluticasone 03/24 Hx Suspension 50mcg/Act 16uni 2 sprays each H92.01 Kg Propionate ts nostril qd. x CAYLA Bella - 2 weeks 04/14 Guaifenesin-Co 03/24 Hx Syrup 100-10mg/ 180ml 5-10ml every J06.9 Kg deine 5ML 4-6 hours for CAYLA Bella - cough 04/07 Trazodone HCL 03/18 Hx Tablets 150mg 30tab take one G47.00 [place] s tablet by Pachikara - mouth at , M.D. 05/21 bedtime /2017 Ferrous 02/04 Hx Tablets 325(65Fe) 30tab 1 by mouth [place] Sulfate /2016 mg s every day Deniseika - with food , M.D. 02/27 Guaifenesin-Co 01/22 Hx Syrup 100-10mg/ 180ml 5-10ml every Kg deine 5ML 4-6 hours for CAYLA Bella - cough 02/05 Amoxicillin/Cl 01/21 Hx [...] By CAYLA Bella - Mouth At 01/21 Bedtime Colace 11/19 Hx Capsules 100mg 30cap 1 [...] Device 1unit use with cpap G47.33 Kg Supplies s nightly CAYLA Bella - 10/02 Viibryd 10/02 Hx Tablets 20mg 30tab take one F33.9 Alex s tablet by [place]ikara - mouth every , M.D. 05/21 day minutes after food Trazodone HCL 10/02 Hx Tablets 50mg 120ta take 4 G47.00 Kg bs tablets by CAYLA Bella - mouth at 03/18 bedtime needed Sensi-Care 05/23 Hx Ointment 49-15% 5424g apply to skin L89.152 Kg Protective m break down CAYLA Bella Barrier - twice daily 11/26 Perineal Skin 05/23 Hx Liquid 0.1% 120ml apply twice L89.152 Kg Cleanser daily CAYLA Bella - 11/26 Nystatin 03/07 Hx Cream 525821Qru 90gm apply 3 times B37.49 t/GM daily Julissa Samayoa M.DClover 05/23 Bacitracin 02/07 Hx Ointment 500Unit/G 288gm apply to leg L03.115 Edgar (External) /2015 M twice daily Julissa Samayoa MMonster 11/26 Sertraline HCL 02/07 Hx Tablets 100mg 30tab 1 by mouth F32.9 Kg s every day CAYLA Bella - 10/02 Zoloft 01/21 Hx Tablets 50mg 60tab 1 by mouth F43.23 s every day Julissa Samayoa M.D. 02/07 Clindamycin 01/16 Hx Capsules 300mg 56cap Finished I89.0 Edgar s Julissa Samayoa MCloverDColver 05/23 L03.115 Lasix 12/21/2015 - Hx Tablets 40mg 30tabs 1 tab daily I89.0 Edgar 10/02/2016 Marilu Samayoa Cephalexin 12/21/2015 - Hx Capsules 500mg 30caps Finished Edgar 03/06/2016 Marilu Samayoa Cephalexin 10/19/2015 - Hx Capsules 500mg 21caps Finished Edgar 03/06/2016 Marilu Samayoa Nystatin 10/19/2015 - Hx Cream 209136U 45gm apply 3 B35.6 Edgar 05/23/2016 nit/GM times daily Marilu Samayoa Terbinafine HCL 10/19/2015 - Hx Tablets 250mg 120tabs 1 tab daily L60.8 Kg 05/21/2017 CAYLA Bella Furosemide 10/05/2015 - Hx Tablets 20mg 30tabs 1 tabs by R60.9 Edgar 12/21/2015 mouth every Yao, morning M.DClover Cephalexin 10/05/2015 - Hx Capsules 500mg 30caps 1 tab 3 L03.119 Edgar 10/19/2015 times daily Marilu Samayoa Nystatin 10/05/2015 - Hx Powder 3units apply to B35.6 Edgar 01/21/2016 groin 4 Yao, times daily Jeffrey.DClover Cephalexin 09/21/2015 - Hx Tablets 500mg 15tabs 1 tab three L03.116 Edgar 10/05/2015 times daily Marilu Samayoa Trazodone HCL 08/22/2015 - Hx Tablets 150mg 30tabs take one G47.00 Kg 10/02/2016 tablet by CAYLA Bella mouth at bedtime Abilify - Hx Tablets 10mg 30tabs take one Kg 11/26/2016 tablet by CAYLA Bella mouth nightly at bedtime Calcium 600 + D - Hx Tablets 600-200 1 by mouth Unknown 11/26/2016 mg-Unit dialy Fluoxetine HCL - Hx Tablets 60mg 30tabs 1 by mouth F43.23 Kg 10/02/2016 every day CAYLA Bella Lidoderm - [...] tab by Kg Calcium 03/23/2017 mouth daily CAYLA Bella Topamax - Hx Tablets 50mg Miri y Unknown 03/06/2016 Flovent HFA - Hx Aerosol 110mcg/ 2 puffs J45.909 Unknown 12/21/2015 Act twice daily Omeprazole - Hx Tablets DR 20mg 1 by mouth K21.9 Unknown 09/21/2015 every day Tizanidine HCL - Hx Capsules 4mg 1 three Kg 01/06/2017 times a day CAYLA Bella as needed muscle spasms Aloe [place] - Hx Foam daily Unknown Multi Purpose 11/26/2016 Cleansing [place] - Hx Ointment daily Kg 2-N-1 11/26/2016 CAYLA Bella Protective Hydroxyzine HCL - Hx Tablets 25mg 1-2 tablets Unknown 03/23/2017 by mouth every 6-8 hours as needed for pruritis. Immunizations CPT Code Status Date Vaccine Lot # 32375 Given 01/21/2017 Influenza Virus Vaccine, Quadrivalent, Split, [id number] Preservative Free Vital Signs Date Vital Result Comment 05/21/2017 Height 65 inches 5'5" Weight 294.00 [...] Test Date Test Result H/L Range Note Laboratory test finding 05/20/2017 Hla B27 <pending> Vitamin B12 And Folate 05/20/2017 Vitamin B12 1085 pg/mL High 180-914 1 Serum Folic Acid (Folate) > 20.00 ng/mL >3.99 2 Iron & Iron Binding Capacity 02/03/2017 Iron 31 g/dL Low 50-212 Unsaturated Iron Binding 383 g/dL Total Iron Binding Capacity 414 g/dL 250-450 % Iron Saturation 7 % Low 15-55 Laboratory test finding 02/03/2017 Erythrocyte Sed Rate 27 mm/Hr High 0- 20 Lyme Disease Serology Negative Negative 3 Rheumatoid Factor <15 IU/mL <15 4 Uric Acid 3.6 mg/dL Low 4.4-7.6 Laboratory test finding 02/03/2017 Ferritin 21.9 ng/mL Low 24-336 Laboratory test finding 02/03/2017 Anti Nuclear Antibody 0.2 U 5 CBC Auto Diff 02/03/2017 White Blood Count [...] Egfr Non- 108.1 >60 Egfr 139.1 >60 6 Connective Tissue Panel 02/03/2017 Anti-Nuclear Antibody 0.2 U 7 Cyclic Citrullinated Peptide <15.6 U 8 Interpretation See Comment 9 Lipid Profile (Trig/Chol/HDL) 11/12/2016 Triglycerides 92 mg/dL 10 Cholesterol 146 mg/dL 11 HDL Cholesterol 27.7 mg/dL 12 LDL Cholesterol 100 mg/dL 13 Comp Metabolic Panel 11/12/2016 Sodium 135 mmol/L [...] Egfr Non- 109.8 >60 Egfr 141.2 >60 14 CBC Auto Diff 11/12/2016 White Blood Count [...] finding 10/20/2016 Surgical Pathology SEE RESULT BELOW 15 Laboratory test finding 10/20/2016 Clotest SEE RESULT BELOW 16 Lipid Profile (Trig/Chol/HDL) 10/15/2016 Triglycerides 115 mg/dL 17 Cholesterol 127 mg/dL 18 HDL Cholesterol 28.6 mg/dL 19 LDL Cholesterol 75 mg/dL 20 Comp Metabolic Panel 10/15/2016 Sodium 137 mmol/L [...] Egfr Non- 111.6 >60 Egfr 143.5 >60 21 CBC Auto Diff 10/15/2016 White Blood Count [...] test finding 10/15/2016 Ferritin 29.8 ng/mL 24-336 22 Hepatitis C Antibody Nonreactive Nonreactive 23 PSA Screening 0.794 ng/mL 0-4.000 24 Folic Acid (Folate) 4.88 ng/mL >3.99 Vitamin B12 > 1450 pg/mL High 180-914 25 Inr/Protime 07/11/2016 Inr 1.32 High 0.89-1.11 Laboratory test finding 07/11/2016 Partial Thrombo Time 33.4 seconds 26.0 -36.3 PTT Lactic Acid 2.7 mmol/L High 0.5-2.0 26 Urinalysis Profile 07/11/2016 Urine Color Yellow Urine Appearance Cloudy Urine Specific [place] 1.017 1.010-1.030 Urine pH 5.0 5-9 Urine Urobilinogen Negative Negative Urine Ketones Negative Negative Urine Protein 1+(30 mg/dL) Negative Urine Leukocytes Negative Negative Urine Blood Negative Negative Urine Nitrite Negative Negative Urine Bilirubin Negative Negative Urine Glucose Negative Negative Urine White Blood Cell Trace(0-5/hpf) Absent Urine Red Blood Cell Absent Absent Urine Bacteria Absent Absent Urine Hyaline Casts Present Absent Laboratory test 07/11/2016 B-Type Natriuretic 152 pg/mL High 27 finding Peptide BNP CBC Auto Diff 07/11/2016 White Blood Count [...] 0-2 Nucleated Red Blood Cells % 0 Comp Metabolic Panel 07/11/2016 Sodium 131 mmol/L [...] Egfr Non- 68.1 >60 Egfr 87.5 >60 28 Laboratory test finding 07/11/2016 Magnesium 1.9 mg/dL 1.9-2.7 Creatine Kinase(CK) 29 U/L 10-223 Troponin-I (TnI) 0.04 ng/mL High <0.04 29 TSH (Thyroid Stim Horm) 5.32 mcIU/mL 0.34-5.60 Lipase 159 U/L High 11.0-82.0 Prealbumin 4 mg/dL Low 18-38 Alcohol < 10 mg/dL <10 Blood Culture SEE RESULT BELOW 30 CBC Auto Diff 06/11/2016 White Blood Count [...] 0-0.8 Abs Eosinophils 4.9 10^3/uL High 0-0.6 31 Abs Basophils 0.1 10^3/uL 0-0.2 Abs Nucleated RBC 0 10^3/uL Granulocyte % 46.8 % 38-83 Lymphocyte % 8.7 % Low 25-47 Monocyte % 6.0 % 1-9 Eosinophil % 37.8 % High 0-6 Basophil % 0.7 % 0-2 Nucleated Red Blood Cells % 0 Cell Morphology 06/11/2016 Hypochromasia 2+ Target Cells 1+ Stomatocytes 1+ Laboratory test 06/11/2016 Hemoglobin A1c (Glyco 5.0 % Less than 6.0 32 finding HGB) Iron & Iron 05/08/2016 Total Iron Binding 312 g/dL 250-450 Binding Capacity Capacity Iron < 15 g/dL Low 50-212 Unsaturated Iron Binding 297.17638 g/dL % Iron Saturation 5 % Low 15-55 Laboratory test finding 05/08/2016 Ferritin 18.5 ng/mL Low 24-336 Folic Acid (Folate) 9.70 ng/mL >3.99 Vitamin B12 1122 pg/mL High 180-914 33 Urinalysis Profile 05/08/2016 Urine Color Yellow Urine Appearance Clear Urine Specific [place] 1.014 1.010-1.030 Urine pH 5.0 5-9 Urine [...] 0.6-1.6 Albumin/Globulin Ratio 0.48 Impression See Comment 34 Laboratory test finding 05/08/2016 Creatine Kinase(CK) 89 U/L 10-223 Magnesium TNP mg/dL 1.9-2.7 35 Lactic Acid 1.0 mmol/L 0.5-2.0 36 Procalcitonin < 0.1 ng/mL <0.6 37 C Reactive Protein 30.73 mg/L High < 5.00 38 Comp Metabolic Panel 05/08/2016 Sodium 135 mmol/L [...] Egfr Non- 62.3 >60 Egfr 80.1 >60 39 Potassium TNP mmol/L 3.5-5.0 40 Anion Gap TNP mmol/L 2-11 Ast TNP U/L 13-39 41 CBC Auto Diff 05/08/2016 White Blood Count [...] % 0.1 Ua Routine 10/05/2015 Ua Specific [place] 1.020 Ua PH 5 Ua Color dark yellow Ua Appera clear Ua WBC neg Ua Protein neg Ua Glucose neg Ua Ketones neg Ua Bilirubin neg Ua Urobilinogen norm Ua Nitrite neg Ua Occult Blood neg 1 Normal Range 180 to 914 Indeterminate Range 145 to 180 Deficient Range <145 2 Please check labs today 3 Serologic response to B. burgdorferi infection is not detected, but cannot rule out early infection during which low or undetectable antibody levels to B. burgdorferi may be present. If clinically indicated, a new serum specimen should be submitted in 7-14 days. Test Performed by: [facility] [address] [id number] 4 Test Performed by: [facility] [address] [id number] 5 REFERENCE VALUE <=1.0 (Negative) Test Performed by: [place] [id number] 6 Because ethnic data is not always readily [...] 15-29 5 Kidney failure <15 (or dialysis) 7 REFERENCE VALUE <=1.0 (Negative) 8 REFERENCE VALUE <20.0 (Negative) 9 Tests for antibodies to dsDNA and RUBÉN antigens are not performed automatically unless the CHAZ result is > or= 3.0 U. Studies performed at [facility] indicate that positive CHAZ results <3.0 U are rarely accompanied by positive second order tests. Test Performed by: [facility] [address] [address] 10 Desirable <150 Borderline high 150-199 High 200-499 Very High >500 11 Desirable <200 Borderline high 200-239 High >239 12 Low <40 Desirable: 40-60 High: >60 13 Desirable: <100 mg/dL Near Optimal: 100-129 mg/dL Borderline High: 130-159 mg/dL High: 160-189 mg/dL Very High: >189 mg/dL 14 Because ethnic data is not always readily [...] 15-29 5 Kidney failure <15 (or dialysis) 15 SEE RESULT BELOW Name: ASHUTOSH SIERRA : [address]: Carl Torres MD Acct: [id number] Unit: [id number] AGE: 56 Location: ENDO Re10/20/16 SEX: M Status: DEP REF SPEC: [id number] BLANCO: 10/20/16- SUBM DR: Carl Torres MD REQ: [id number] RECD: 10/20/168528 STATUS: SHAJI PIERCE DR: Kg Bella PIPE CLEANING MACHINE OPERATOR _ ORDERED: LEVEL 4/2 FINAL DIAGNOSIS 1. [...] performed at Main Lab DEPARTMENT OF PATHOLOGY, [address] [place] [address] Edinson Sage M.D. Director [facility] # [id number] 16 SEE RESULT BELOW Name: ASHUTOSH SIERRA : [address]: Carl Torres MD Acct: [id number] Unit: [id number] AGE: 56 Location: ENDO Re10/20/16 SEX: M Status: DEP REF SPEC: [id number] BLANCO: 10/20/[address]: Carl Torres MD REQ: [id number] RECD: 10/20/16 STATUS: GIANCARLO PIERCE DR: Kg Bella PIPE CLEANING MACHINE OPERATOR _ SOURCE: GAS ANTRUM SPDESC: ORDERED: Clotest Procedure Result Reported Site Clotest Final 10/21/16- 1002 ML Clotest Negative * ML - MAIN LAB ([facility]) . END OF REPORT * ML=Testing performed at Main Lab DEPARTMENT OF PATHOLOGY, [address] [place] [address] Edinson Sage M.D. Director [facility] # [id number] 17 Desirable <150 Borderline high 150-199 High 200-499 Very High >500 18 Desirable <200 Borderline high 200-239 High >239 19 Low <40 Desirable: 40-60 High: >60 20 Desirable: <100 mg/dL Near Optimal: 100-129 mg/dL Borderline High: 130-159 mg/dL High: 160-189 mg/dL Very High: >189 mg/dL 21 Because ethnic data is not always readily [...] 15-29 5 Kidney failure <15 (or dialysis) 22 FASTING 10 HOUR 23 FASTING 10 HOUR 24 Serum levels of PSA measured using the Rm Dougie DXI Hybritech immunoassay should not be interpreted as absolute evidence of the presence or absence of disease. The PSA value should be used in conjunction with other pertinent clinical diagnostic procedures. The values obtained with different assay methods or kits cannot be used interchangeably. 25 Normal Range 180 to 914 Indeterminate Range 145 to 180 Deficient Range <145 26 Critical Result LACT:2.7 Called to [id number] at: 00:40:22 by:[id number] Read back by:[id number] [facility] Severe Sepsis and Septic Shock Management Bundle Measure requires all lactic acids initially measuring >2.0 mmol/L be repeated. 27 >100 to <200 pg/mL: likely compensated congestive heart failure (CHF) 200 to 400 pg/mL: likely moderate CHF >400 pg/mL: likely moderate to severe CHF 28 Because ethnic data is not always readily [...] 15-29 5 Kidney failure <15 (or dialysis) 29 Result TnIDx:0.04 Called to [id number] at: 00:43:41 by:[id number] Read back by: [id number] 99th percentile=0.04 ng/mL Troponin results at [facility] and [facility] are not interchangeable. 30 SEE RESULT BELOW Name: ASHUTOSH SIERRA : [address]: Hebert Fregoso MD Acct: [id number] Unit: [id number] AGE: 56 Location: [facility] 414- Re07/12/16 SEX: M Status: ADM IN SPEC: [id number] BLANCO: 07/12/[address] [facility] DR: Fransisco Almendarez MD REQ: [id number] RECD: 07/12/16 STATUS: GIANCARLO PIERCE DR: Edgar Samayoa MD _ SOURCE: BLOOD,VENO SPDESC: ORDERED: Blood Cult COMMENTS: Patient is On Antibiotics? NO Procedure Result Reported Site Aerobic Culture Bottle Final 07/17/16- 1048 ML No Growth Day 5 Anaerobic Culture Bottle Final 07/17/16- 1048 ML No Growth Day 5 * ML - MAIN LAB ([facility]) . END OF REPORT * ML=Testing performed at Main Lab DEPARTMENT OF PATHOLOGY, [address] [place] [address] Edinson Sage M.D. Director [facility] # [id number] 31 Consistent with previous results on 05/09/16. 32 Therapeutic target for the treatment of diabetes Mellitus patients is <7% HBA1C, and in selective patients <6.0%.Please refer to [place] [employer] Diabetic care guidelines for further information. 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 35 Cancelled. Specimen hemolyzed. Unable to perform test requested. Reorder for specimen recollection. [id number] was called for recollect at 0457 on 05/08/16 by [id number] [facility] Severe Sepsis and Septic Shock Management Bundle Measure requires all lactic acids initially measuring >2.0 mmol/L be repeated. 37 Interpretive information available on [employer] Lab Test Catalog at [email or web address] 38 Acute inflammation: >10.00 39 Because ethnic data is not always readily [...] 15-29 5 Kidney failure <15 (or dialysis) 40 Cancelled. Specimen hemolyzed. Unable to perform test requested. Reorder for specimen recollection. [id number] was called for recollect at 0457 on 05/08/16 by [id number] Cancelled. Specimen hemolyzed. Unable to perform test requested. Reorder for specimen recollection. [id number] was called for recollect at 0457 on 05/08/16 by [id number] Procedures Date CPT Code Description Status Comment 12/30/2016 73153 Polysomnography Sleep Staging Completed 4+ Parameters W/Cpap 10/20/2016 Colonoscopy Completed 05/08/2016 35322 ECHO Transthorasic Realtime 2D Completed W Doppler & Color Flow Hosp 12/23/2015 16886 EKG, Interpretation Only Completed 11/29/2015 71684 Removal Devitalization Tissue Completed Wound Less Than Equal 20 Square CM 09/25/2015 43552 Removal Devitalization Tissue Completed Wound Less Than Equal 20 Square CM 09/18/2015 53941 Removal Devitalized Tissue Completed Wound Greater Than 20 Square CM 09/18/2015 39171 Removal Devitalization Tissue Completed Wound Less Than Equal 20 Square CM 04/07/2015 Colonoscopy Completed Repeat was recommended in 1-2 years 04/06/2015 Colonoscopy Completed 10/12/2014 05040 Removal Devitalized Tissue Completed Wound Greater Than 20 Square CM 10/12/2014 36375 Removal Devitalization Tissue Completed Wound Less Than Equal 20 Square CM 09/06/2014 04459 Treadmill Interp/Report Only Completed 09/06/2014 93426 Stress Test Supervsn W/Out I/R Completed Encounters Type Date Location Provider CPT E/M Dx Office Visit 05/06/2017 Pulmonology And Sleep Mary Eckert 74207 G47.33 1:30p [facility] VISH RUANO, [facility]- Office Visit 04/07/2017 Rheumatology Services Bharath Rodriguez M.D. 52093 M54.5 3:00p Of [facility] D64.9 M79.1 R20.8 Office Visit 03/24/2017 9:20a [facility] [place] [address] H92.01 [place] J06.9 Office Visit 02/27/2017 9:15a Pulmonology And Sleep Mary Eckert 29342 G47.33 Services [facility] VISH RUANO, [facility]- G47.37 G47.14 E66.01 Z68.41 G89.29 Z79.891 Office Visit 02/17/2017 3:00p [facility] Internal Alex Hernández M.D. 20361 M13.0 Medicine - [address] I10 E78.2 G47.00 E03.9 Office Visit 01/30/2017 8:40a [facility] Internal Alex Hernández M.D. 24668 M13.0 Medicine - [address] M54.2 M51.16 Office Visit 01/21/2017 1:00p [facility] [place] [address] J06.9 [place] Z23 Office Visit 01/07/2017 4:00p [facility] Internal [place], 15863 E66.01 Evelina - Demetrio Michel I10 G47.00 E78.2 E03.9 Z68.41 Office Visit 01/05/2017 11:15a Pulmonology And Sleep Mary Eckert, 41023 G47.33 Services [facility] ALDEN RN, [facility]- Z68.41 Office Visit 11/27/2016 2:45p Pul[place] [address] G47.33 Services Of [facility] E66.01 Office Visit 11/19/2016 10:20a [facility] [place] [address] D50.9 Demetrio M54.2 Office Visit 11/12/2016 11:15a [place] [address] I87.312 At [facility] I89.0 Office Visit 10/22/2016 11:00a [place] [address] I87.312 At [facility] I89.0 Office Visit 10/15/2016 8:00a [place] [address] I87.312 At [facility] I89.0 Office Visit 10/02/2016 1:20p [facility] [place] [address] Z00.00 [place] G89.29 I10 D50.9 E78.5 E03.9 R53.1 I89.0 F33.9 Z23 Z11.59 N40.1 G47.33 Office Visit 07/17/2016 2:43p [facility], Hebert Fregoso M.D. 33590 L03.116 Hospitalists L03.115 G89.29 Office Visit 07/16/2016 2:42p [facility],sal Fregoso M.D. 18048 L03.116 Hospitalists L03.115 G89.29 Office Visit 07/15/2016 2:42p [facility],sal Fregoso M.D. 75696 L03.116 Hospitalists L03.115 G89.29 I10 Office Visit 07/14/2016 2:41p [facility] [place] [address] L03.116 Assoc, Hospitalists L03.115 G89.29 I10 Office Visit 07/13/2016 2:41p [facility] [place] [address] L03.116 Assoc,pc Hospitalists L03.115 G89.29 Office Visit 07/12/2016 2[facility] Hebert Fregoso M.D. 16888 L03.116 Hospitalists L03.115 G89.29 I10 Office Visit 05/23/2016 2:40p [facility] Internal Medicine Edgar Samayoa M.D. 82780 D64.9 - [place] Z13.1 L89.152 I89.0 D50.9 Office Visit 05/12/2016 4:02p [facility], Miguelina Garner, 60418 L03.119 Hospitalists M.D. L89.322 B88.8 G47.33 Office Visit 05/11/2016 4:01p [facility], Miguelina Garner, 45461 L03.119 Hospitalists M.D. L89.322 B88.8 G47.33 Office Visit 05/10/2016 4:01p [facility], Miguelina Garner, 50318 L03.119 Hospitalists M.D. L89.322 B88.8 G47.33 Office Visit 05/09/2016 4:00p [facility], Miguelina Garner, 41037 L03.119 Hospitalists M.D. L89.322 G47.33 B88.8 Office Visit 05/08/2016 4:00p [facility], Miguelina Garner, 06149 L03.119 Hospitalists M.D. L89.322 B88.8 G47.33 Office Visit 03/12/2016 9:00a [place] [address] I87.312 At [facility] L97.221 I10 E66.01 I89.0 Office Visit 03/07/2016 3:40p [facility] Internal Medicine Edgar Samayoa, 09042 B37.49 - [place] M.D. B37.2 Office Visit 02/27/2016 9:00a [place] [address] I87.312 At [facility] L97.221 I10 I89.0 E66.01 Office Visit 02/22/2016 3:40p [facility] Internal Medicine Edgar Samayoa M.D. 07322 L29.9 - Veronica K21.9 L03.116 S10.96xA Office Visit 02/20/2016 8:00a [place] [place] [address] I87.312 At [facility] L97.221 I10 E66.01 I89.0 Office Visit 02/08/2016 3:00p [facility] Internal Medicine [facility], 17682 L03.115 - Veronica Michel F32.9 Office Visit 01/22/2016 3:40p [facility] Internal Medicine Edgar Samayoa, 65257 F43.23 - Veronica Michel L03.116 M25.562 R42 Office Visit 12/27/2015 11:45a [facility], [place], [address] [facility] Michel E78.5 W19.xxxA I10 Office Visit 12/26/2015 11:45a [facility] Gus, [address] T07 Assoc, [facility] Hospitalists E78.5 W19.xxxA I10 Office Visit 12/25/2015 [facility] [place] [address] T07 Hospitalists E78.5 W19.xxxA I10 Office Visit 12/24/2015 11:53a [facility], 80789 S81.801A CErickson Michel S81.802A L03.115 L03.116 M79.652 Office Visit 12/24/2015 11:43a [facility] Gus, 61170 T07 Assoc, [facility] Hospitalists E78.5 W19.xxxA I10 Office Visit 12/23/2015 11:43a [facility], Hernan Ho, 95185 T07 Hospitalists N.PClover E78.5 W19.xxxA I10 Office Visit 12/21/2015 3:40p [facility] Internal Medicine Edgar Samayoa M.D. 42889 I89.0 - [place] L03.116 Office Visit 10/24/2015 2:40p [facility] Woody OttoClover Kim, 50829 I89.0 Infectious Diseases Marilu R19.7 K52.1 T36.1x5A Office Visit 10/19/2015 4:00p [facility] Internal Medicine Edgar Samayoa, 87641 L03.116 - Demetrio Michel B35.6 L60.8 B35.1 Office Visit 10/09/2015 11:46a [facility] Vikas AurelianoClover Andrew, 34916 I87.312 At [facility] Marilu L97.221 Office Visit 10/05/2015 3:00p [facility] Internal Medicine Edgar Samayoa M.D. 86816 R60.9 - [place] L03.119 B35.6 N40.1 F41.9 R60.0 L03.116 L03.115 N39.45 Office Visit 09/21/2015 9:20a [facility] Internal Medicine Edgar Samayoa, 84391 L03.116 - Demetrio Michel L03.115 I89.0 I10 G89.29 K21.9 F41.9 G47.00 R19.7 Office Visit 09/12/2015 11:05a [facility], Gardenia Pope, 02883 L03.115 Hospitalists Marilu E11.9 E78.0 I10 Office Visit 09/11/2015 11:05a [facility], Gardenia Pope, 33288 L03.115 Hospitalists Marilu E11.9 I10 Office Visit 09/10/2015 [facility] [address] L03.115 Assoc, Hospitalraghu NOGUEIRA M.D. E11.9 E78.0 I10 Office Visit 04/11/2015 9:29a [facility], Gardenia Pope, 36913 K92.2 Hospitalists Marilu E66.01 D62 Office Visit 04/10/2015 9:28a [facility], Gardenia Pope, 17996 K92.2 Hospitalists M.D. E66.01 D62 Office Visit 04/09/2015 9:28a [facility] Gardenia Pope, 46149 K92.2 Hospitalists M.D. E66.01 D62 Office Visit 04/08/2015 9:28a [facility] Gardenia Pope, 67439 K92.2 Hospitalists M.D. E66.01 D62 Office Visit 04/07/2015 9:27a [facility] Gardenia Pope, 94145 K92.2 Hospitalists M.D. E66.01 D62 Office Visit 04/06/2015 9:26a [facility] Gardeina Pope, 94619 K92.2 Hospitalists M.D. E66.01 D62 Office Visit 02/18/2015 8:28a [facility] Miguelina Garner, 57188 N17.9 Hospitalists M.D. E66.01 T40.601A G47.33 Office Visit 02/17/2015 8:28a [facility] Miguelina Garner, 08151 N17.9 Hospitalists M.D. E66.01 T40.601A G47.33 Office Visit 02/16/2015 8:27a [facility] Miguelina Garner, 98987 N17.9 Hospitalists M.D. E66.01 T40.601A G47.33 Office Visit 10/26/2014 3:53p [facility], 23095 707.19 [facility] M.D. 454.0 Office Visit 10/19/2014 11:26a [facility], 22718 707.19 [facility] M.D. 454.0 Office Visit 09/05/2014 8:45a [facility] Miguelina Garner, 09414 786.50 Hospitalists M.D. 272.4 338.29 278.01 Office Visit 09/03/2014 8:44a [facility] Farhan Duran, 34806 786.50 Hospitalists M.D. 272.4 338.29 278.01 Plan of Care Future Appointment(s):11/03/2017 1:00 pm - Mary Eckert DNP, RN, SYSTEM VALIDATION ENGINEER-BC at [facility]05/21/2017 - Alex Hernández M.D.I10 Essential (primary) hypertensionFollow up:3 qveifoL66.9 Hypothyroidism, unspecifiedComments:Continue present thyroid supplements.clinically euthyroid.G47.00 Insomnia, unspecifiedNew Medication:Trazodone HCL 100 mgComments:You can get rebound insomnia from nightly medications. You should also make efforts to wean off medication in between. Avoid coffee, tea, and other foods that have caffeine, alcohol and smoking, in the late afternoon, evening, and bedtime. Avoid watching TV an hour before you go to bed.You can try over the counter melatonin at bed time.one glass of warn milk and and warm shower before sleep may help to sleep better.E66.01 Morbid (severe) obesity due to excess caloriesComments:Low carbohydrate diet and cutting portions of the diet will help to lose weight ,control sugar and cholesterol. Nutrition consult is appropriate. Think about and let me know.F33.0 Major depressive disorder, recurrent, mildNew Medication:Viibryd 40 mg
--- OUTSIDE RECORDS SUMMARY | 2017-06-04 12:29 | XMS REPORT ---
:1960 External Reference #:[id number] Author Organization [facility] Address [address] [address] Phone [phone] Care Team Providers Name Role Phone Alex Hernández MD Primary Care Physician Unavailable Payers Type Date Identification Numbers Payment Provider Subscriber Commercial Policy Number: [id number] [employer] Medicaid Ashutosh Wongll PayID: [id number] [address] [address] [place] [address] Medigap Part B Expires: 2015 Policy Number: [id number] Medicaid Ashutosh [employer] Name: 1 1 [address] PayID: [id number] [place] [address] Problems Date Description Provider Status Onset: 09/21/2015 [...] 01/05/2017 Hypersomnia Mary Eckert DNP, RN, Active MEDICAL DATA ENTRY CLERK-BC Onset: 01/07/2017 Insomnia Alex Hernández M.D. Active Onset: 01/07/2017 Mixed hyperlipidemia Alex Hernández M.D. Active Onset: 01/30/2017 Polyarthropathy Alex Hernández M.D. Active Onset: 01/30/2017 Neck pain Alex Hernández M.D. Active Onset: 01/30/2017 Thoracic and lumbosacral neuritis Alex Hernández M.D. Active Family History Date [...] Form Strength Qnty SIG Indications Ordering Provider Lidoderm 04/07 Active Patches 5% 30uni 1 apply to M54.5 ts affected area Michael, 12 hours on, M.D. 12 hours off Nystatin 03/24 Active Cream [id number] 60gm apply to t/GM affected Shayne, CENTRAL SUPPLY TECHNICIAN SUPERVISOR areas twice a day Trazodone HCL 03/18 Active Tablets 150mg 30tab Take One G47.00 s Tablet By CAYLA Bella Mouth At Bedtime Zolpidem 01/07 Active Tablets 10mg 30tab 1/2 to 1 tab G47.00 Alex Tartrate s by mouth Betty every night , M.DClover at bedtime as needed Nystatin 12/30 Active Powder [id number] 90gm apply twice t/GM daily until Betty rash clears , M.D. Hydroxyzine 12/24 Active Tablets 50mg 120ta Take One Kg HCL bs Tablet By CAYLA Bella Mouth Four Times A Day as Needed For Itching Viibryd 10/02 Active Tablets 20mg 30tab take one F33.9 Valera s tablet by Betty mouth every , M.D. day 30 minutes after food Furosemide 10/02 Active Tablets 40mg 30tab Take One I89.0 Pablo s Tablet By Layton Fay, Mouth Every M.D., Day Triamcinolone 02/21 Active Ointment 0.1% 45gm apply thin L29.9 Kg Acetonide layer to over CAYLA Bella rash 2 times daily for 2 weeks Omeprazole 02/[address] 20mg 30cap 1 by mouth K21.9 Valera s every day Marilu Hernández Abdominal 02/21 Active Misc 60uni Appy twice L03.116 Edgar Binder/Elastic ts daily [place], Large M.D. Bandage Roll 02/21 Active Misc 4.5"X4yd 4boxe apply over L03.116 Edgar 4.5"X4yd /2015 s guaze or Abd [place], pads M.D. Combine Abd 02/10 Active Pads 5"X9" 120un change every Zaida /2016 its other day as Janette directed M.D. Gauze Pads 02/07 Active Pads 4"X4" 4Boxe apply to open L03.115 s areas of leg. [place], change daily M.D. dx: s81.802 Andrew Bandage 02/07 Active Misc BNDG 4" 15uni wrap over L03.115 Edgar Self-Adhering ts clean gauze [place], daily M.D. Terbinafine 07/29 Active Tablets 250mg 120ta 1 tab daily L60.8 Kg HCL /2015 bs CAYLA Bella Proair HFA Active Aerosol 108(90Bas 2 puffs by Unknown /0000 e) mouth every 4 mcg/Act hours as needed Fentanyl Active Patches 25mcg/HR apply one 72HR patch once every 3 days Levothyroxine Active Tablets 75mcg 30tab 1 by mouth Valera Sodium /0000 s every day Marilu Hernández Lyrica Active Capsules 150mg 1 by mouth Unknown three times daily Oxycodone HCL Active Tablets 10mg 1 by mouth Unknown every 8 hours as needed pain Tamsulosin HCL Active Capsules 0.4mg 30cap take one N40.1 Alex / s capsule by Betty mouth every , M.D. day Finasteride Active Tablets 5mg 30tab take one N40.1 Alex / s tablet by Betty mouth every , M.D. day Losartan Active Tablets 100mg 30tab Take One I10 Pablo Potassium / s Tablet By Layton Fay Mouth Every M.D.,FAC Day Fluticasone 03/24 Hx Suspension 50mcg/Act 16uni 2 sprays each H92.01 Kg Propionate ts nostril qd. x CAYLA Bella - 2 weeks 04/14 Guaifenesin-Co 03/24 Hx Syrup 100-10mg/ 180ml 5-10ml every J06.9 Kg deine 5ML 4-6 hours for CAYLA Bella - cough 04/07 Ferrous 02/04 Hx Tablets 325(65Fe) 30tab 1 by mouth Alex Sulfate /2017 mg s every day Betty - with food , M.DClover 02/27 Guaifenesin-Co 01/22 Hx Syrup 100-10mg/ 180ml [...] Bella - once daily in 11/26 liquid needed Hydroxyzine 10/29 Hx Tablets 50mg 120ta 1-2 tablets 4 Kg HCL bs times daily CAYLA Bella - as needed for 11/26 itching Hydroxyzine 10/17 Hx Tablets 25mg 42tab 1-2 tablets Kg HCL s by mouth CAYLA Bella - every 8 hours 10/29 as needed for pruritis. Viibryd 10/02 Hx Tablets 10mg 7tabs 1 tablet once F33.9 daily x 7 CAYLA Bella - days then 11/26 start taking 20 mg tablets Cpap Mask And 10/02 Hx Device 1unit use with cpap G47.33 Kg Supplies s nightly CAYLA Bella - 10/02 Trazodone HCL 10/02 Hx Tablets 50mg 120ta [...] Bella - 11/26 Nystatin 03/07 Hx Cream [id number] 90gm apply 3 times B37.49 Edgar /2016 t/GM daily [place], - M.D. 05/23 Bacitracin 02/07 Hx Ointment 500Unit/G 288gm apply to leg L03.115 Edgar (External) M twice daily [place], - M.D. 11/26 Sertraline HCL 02/07 Hx Tablets 100mg 30tab 1 by mouth F32.9 Kg s every day CAYLA Bella - 10/02 Zoloft 01/21 Hx Tablets 50mg 60tab 1 by mouth F43.23 s every day [place], - M.D. 02/07 Clindamycin 01/16 Hx Capsules 300mg 56cap Finished I89.0 Edgar s [place], - M.D. 05/23 L03.115 Lasix 12/21/2015 - Hx Tablets 40mg 30tabs 1 tab daily I89.0 Edgar 10/02/2016 Marilu Samayoa Cephalexin 12/21/2015 - Hx Capsules 500mg 30caps Finished Edgar 03/06/2016 Marilu Samayoa Cephalexin 10/19/2015 - Hx Capsules 500mg 21caps Finished Tofte 03/06/2016 Marilu Samayoa Nystatin 10/19/2015 - Hx Cream 264253C 45gm apply 3 B35.6 Edgar 05/23/2016 nit/GM times daily Marilu Samayoa Furosemide 10/05/2015 - Hx Tablets 20mg 30tabs 1 tabs by R60.9 Edgar 12/21/2015 mouth every [place], morning M.DClover Cephalexin 10/05/2015 - Hx Capsules 500mg 30caps 1 tab 3 L03.119 Edgar 10/19/2015 times daily Yao MMonster Nystatin 10/05/2015 - Hx Powder 3units apply to B35.6 Tofte 01/21/2016 groin 4 [place], times daily M.DClover Cephalexin 09/21/2015 - Hx [...] CAYLA Bella as needed muscle spasms [place] - Hx Foam daily Unknown Multi Purpose 11/26/2016 Cleansing [place] - Hx Ointment daily Kg 2-N-1 11/26/2016 CAYLA Bella Protective Hydroxyzine HCL - Hx Tablets 25mg 1-2 tablets Unknown 03/23/2017 by mouth every 6-8 hours as needed for pruritis. Immunizations CPT Code Status Date Vaccine Lot # [id number] Given 01/21/2017 Influenza Virus Vaccine, Quadrivalent, Split, [id number] Preservative Free Vital Signs Date Vital Result Comment 05/06/2017 Height 65 inches 5'5" Weight 287.50 [...] Test Date Test Result H/L Range Note Iron & Iron Binding Capacity 02/03/2017 Iron 31 g/dL Low 50-212 Unsaturated Iron Binding 383 g/dL Total Iron Binding Capacity 414 g/dL 250-450 % Iron Saturation 7 % Low 15-55 Laboratory test finding 02/03/2017 Ferritin 21.9 ng/mL Low 24-336 Laboratory test finding 02/03/2017 Anti Nuclear Antibody 0.2 U 1 CBC Auto Diff 02/03/2017 White Blood Count [...] Egfr Non- 108.1 >60 Egfr 139.1 >60 2 Connective Tissue Panel 02/03/2017 Anti-Nuclear Antibody 0.2 U 3 Cyclic Citrullinated Peptide <15.6 U 4 Interpretation See Comment 5 Laboratory test finding 02/03/2017 Erythrocyte Sed Rate 27 mm/Hr High 0- 20 Lyme Disease Serology Negative Negative 6 Rheumatoid Factor <15 IU/mL <15 7 Uric Acid 3.6 mg/dL Low 4.4-7.6 Lipid Profile (Trig/Chol/HDL) 11/12/2016 Triglycerides 92 mg/dL 8 Cholesterol 146 mg/dL 9 HDL Cholesterol 27.7 mg/dL 10 LDL Cholesterol 100 mg/dL 11 Comp Metabolic Panel 11/12/2016 Sodium 135 mmol/L [...] Egfr Non- 109.8 >60 Egfr 141.2 >60 12 CBC Auto Diff 11/12/2016 White Blood Count [...] finding 10/20/2016 Surgical Pathology SEE RESULT BELOW 13 Laboratory test finding 10/20/2016 Clotest SEE RESULT BELOW 14 Lipid Profile (Trig/Chol/HDL) 10/15/2016 Triglycerides 115 mg/dL 15 Cholesterol 127 mg/dL 16 HDL Cholesterol 28.6 mg/dL 17 LDL Cholesterol 75 mg/dL 18 Comp Metabolic Panel 10/15/2016 Sodium 137 mmol/L [...] Egfr Non- 111.6 >60 Egfr 143.5 >60 19 CBC Auto Diff 10/15/2016 White Blood Count [...] test finding 10/15/2016 Ferritin 29.8 ng/mL 24-336 20 Hepatitis C Antibody Nonreactive Nonreactive 21 PSA Screening 0.794 ng/mL 0-4.000 22 Folic Acid (Folate) 4.88 ng/mL >3.99 Vitamin B12 > 1450 pg/mL High 180-914 23 Inr/Protime 07/11/2016 Inr 1.32 High 0.89-1.11 Laboratory test finding 07/11/2016 Partial Thrombo Time 33.4 seconds 26.0 -36.3 PTT Lactic Acid 2.7 mmol/L High 0.5-2.0 24 Urinalysis Profile 07/11/2016 Urine Color Yellow Urine Appearance Cloudy Urine Specific [place] 1.017 1.010-1.030 Urine pH 5.0 5-9 [...] test 07/11/2016 B-Type Natriuretic 152 pg/mL High 25 finding Peptide BNP CBC Auto Diff 07/11/2016 [...] Blood Cells % 0 Laboratory test finding 07/11/2016 Magnesium 1.9 mg/dL 1.9-2.7 Creatine Kinase(CK) 29 U/L 10-223 Troponin-I (TnI) 0.04 ng/mL High <0.04 26 TSH (Thyroid Stim Horm) 5.32 mcIU/mL 0.34-5.60 Lipase 159 U/L High 11.0-82.0 Prealbumin 4 mg/dL Low 18-38 Alcohol < 10 mg/dL <10 Blood Culture SEE RESULT BELOW 27 Comp Metabolic Panel 07/11/2016 Sodium 131 mmol/L [...] Non- 68.1 >60 Egfr 87.5 >60 28 Cell Morphology 06/11/2016 Hypochromasia 2+ Target Cells 1+ Stomatocytes 1+ Laboratory test 06/11/2016 Hemoglobin A1c 5.0 % Less than 6.0 29 finding (Glyco HGB) CBC Auto Diff 06/11/2016 [...] 0-0.8 Abs Eosinophils 4.9 10^3/uL High 0-0.6 30 Abs Basophils 0.1 10^3/uL 0-0.2 Abs Nucleated RBC 0 10^3/uL Granulocyte % 46.8 % 38-83 Lymphocyte % 8.7 % Low 25-47 Monocyte % 6.0 % 1-9 Eosinophil % 37.8 % High 0-6 Basophil % 0.7 % 0-2 Nucleated Red Blood Cells % 0 Laboratory test finding 05/08/2016 Creatine Kinase(CK) 89 U/L 10-223 Magnesium TNP mg/dL 1.9-2.7 31 Lactic Acid 1.0 mmol/L 0.5-2.0 32 Procalcitonin < 0.1 ng/mL <0.6 33 C Reactive Protein 30.73 mg/L High < 5.00 34 Iron & Iron Binding 05/08/2016 Total Iron Binding 312 g/dL 250-450 Capacity Capacity Iron < 15 g/dL Low 50-212 Unsaturated Iron Binding 297.91453 g/dL % Iron Saturation 5 % Low 15-55 Laboratory test finding 05/08/2016 Ferritin 18.5 ng/mL Low 24-336 Folic Acid (Folate) 9.70 ng/mL >3.99 Vitamin B12 1122 pg/mL High 180-914 35 Urinalysis Profile 05/08/2016 Urine Color Yellow Urine Appearance Clear Urine Specific [place] 1.014 1.010-1.030 Urine pH 5.0 5-9 [...] 0.6-1.6 Albumin/Globulin Ratio 0.48 Impression See Comment 36 Comp Metabolic Panel 05/08/2016 Sodium 135 mmol/L [...] Egfr Non- 62.3 >60 Egfr 80.1 >60 37 Potassium TNP mmol/L 3.5-5.0 38 Anion Gap TNP mmol/L 2-11 Ast TNP U/L 13-39 39 CBC Auto Diff 05/08/2016 White Blood Count [...] % 0.1 Ua Routine 10/05/2015 Ua Specific [place] 1.020 Ua PH 5 Ua Color dark yellow Ua Appera clear Ua WBC neg Ua Protein neg Ua Glucose neg Ua Ketones neg Ua Bilirubin neg Ua Urobilinogen norm Ua Nitrite neg Ua Occult Blood neg 1 REFERENCE VALUE <=1.0 (Negative) Test Performed by: [facility] - [address] [address] 2 Because ethnic data is not always readily [...] 15-29 5 Kidney failure <15 (or dialysis) 3 REFERENCE VALUE <=1.0 (Negative) 4 REFERENCE VALUE <20.0 (Negative) 5 Tests for antibodies to dsDNA and RUBÉN antigens are not performed automatically unless the CHAZ result is > or= 3.0 U. Studies performed at [facility] indicate that positive CHAZ results <3.0 U are rarely accompanied by positive second order tests. Test Performed by: [facility] - [address] [address] 6 Serologic response to B. burgdorferi infection is not detected, but cannot rule out early infection during which low or undetectable antibody levels to B. burgdorferi may be present. If clinically indicated, a new serum specimen should be submitted in 7-14 days. Test Performed by: [facility] - [facility] [address] [place] [address] 7 Test Performed by: [facility] [address] [place] [address] 8 Desirable <150 Borderline high 150-199 High 200-499 Very High >500 9 Desirable <200 Borderline high 200-239 High >239 10 Low <40 Desirable: 40-60 High: >60 11 Desirable: <100 mg/dL Near Optimal: 100-129 mg/dL Borderline High: 130-159 mg/dL High: 160-189 mg/dL Very High: >189 mg/dL 12 Because ethnic data is not always readily [...] 15-29 5 Kidney failure <15 (or dialysis) 13 SEE RESULT BELOW Name: ASHUTOSH SIERRA : [address]: Carl Torres MD Acct: [id number] Unit: [id number] AGE: 56 Location: ENDO Re10/20/16 SEX: M Status: DEP REF SPEC: [id number] BLANCO: 10/20/16- SUBM DR: Carl Torres MD REQ: [id number] RECD: 10/20/161308 STATUS: SHAJI PIERCE DR: Kg Bella CENTRAL SUPPLY TECHNICIAN SUPERVISOR _ ORDERED: LEVEL 4/2 FINAL DIAGNOSIS 1. [...] performed at Main Lab DEPARTMENT OF PATHOLOGY, [address] [place] [address] Edisnon Sage M.D. Director [facility]AC[facility] # [id number] 14 SEE RESULT BELOW Name: ASHUTOSH SIERRA : [address]: Carl Torres MD Acct: [id number] Unit: [id number] AGE: 56 Location: ENDO Re10/20/16 SEX: M Status: DEP REF SPEC: [id number] BLANCO: 10/20/16 [facility] DR: Carl Torres MD REQ: [id number] RECD: 10/20/16 STATUS: GIANCARLO PIERCE DR: Kg Bella CENTRAL SUPPLY TECHNICIAN SUPERVISOR _ SOURCE: GAS ANTRUM SPDESC: ORDERED: Clotest Procedure Result Reported Site Clotest Final 10/21/16- 1002 ML Clotest Negative * ML - [facility] ([facility]) . END OF REPORT * ML=Testing performed at Main Lab DEPARTMENT OF PATHOLOGY, [address] [place] [address] Edinson Sage M.D. Director [facility] # [id number] 15 Desirable <150 Borderline high 150-199 High [...] 5 Kidney failure <15 (or dialysis) 20 FASTING 10 HOUR 21 FASTING 10 HOUR 22 Serum levels of PSA measured using the Rm Avalon DXI Hybritech immunoassay should not be interpreted as absolute evidence of the presence or absence of disease. The PSA value should be used in conjunction with other pertinent clinical diagnostic procedures. The values obtained with different assay methods or kits cannot be used interchangeably. 23 Normal Range 180 to 914 Indeterminate Range 145 to 180 Deficient Range <145 24 Critical Result LACT:2.7 Called to [id number] at: 00:40:22 by:[id number] Read back by:[id number] [facility] Severe Sepsis and Septic Shock Management Bundle Measure requires all lactic acids initially measuring >2.0 mmol/L be repeated. 25 >100 to <200 pg/mL: likely compensated congestive heart failure (CHF) 200 to 400 pg/mL: likely moderate CHF >400 pg/mL: likely moderate to severe CHF 26 Result TnIDx:0.04 Called to [id number] at: 00:43:41 by:[id number] Read back by: [id number] 99th percentile=0.04 ng/mL Troponin results at [facility] and [facility] are not interchangeable. 27 SEE RESULT BELOW Name: ASHUTOSH SIERRA : [address]: Hebert Fregoso MD Acct: [id number] Unit: [id number] AGE: 56 Location: [place] [address] Re07/12/16 SEX: M Status: ADM IN SPEC: [id number] BLANCO: 07/12/16 [facility] DR: Fransisco Almendarez MD REQ: [id number] RECD: 07/12/16 STATUS: GIANCARLO PIERCE DR: Edgar Samayoa MD _ SOURCE: BLOOD,VENO SPDESC: ORDERED: Blood Cult COMMENTS: Patient is On Antibiotics? NO Procedure Result Reported Site Aerobic Culture Bottle Final 07/17/16- 1047 ML No Growth Day 5 Anaerobic Culture Bottle Final 07/17/161047 ML No Growth Day 5 * ML - MAIN LAB ([facility]) . END OF REPORT * ML=Testing performed at Main Lab DEPARTMENT OF PATHOLOGY, [address] [place] [address] Edinson Sage M.D. Director [facility] # [id number] 28 Because ethnic data is not always [...] 5 Kidney failure <15 (or dialysis) 29 Therapeutic target for the treatment of diabetes Mellitus patients is <7% HBA1C, and in selective patients <6.0%.Please refer to [place] [employer] Diabetic care guidelines for further information. 30 Consistent with previous results on 05/09/16. 31 Cancelled. Specimen hemolyzed. Unable to perform test requested. Reorder for specimen recollection. [id number] was called for recollect at 0457 on 05/08/[id number] [facility] Severe Sepsis and Septic Shock Management Bundle Measure requires all lactic acids initially measuring >2.0 mmol/L be repeated. 33 Interpretive information available on [facility] Test Catalog at [email or web address] 34 Acute inflammation: >10.00 35 Normal Range 180 to 914 Indeterminate Range 145 to 180 Deficient Range <145 36 RESULT: Polyclonal hypergammaglobulinemia Test Performed by: [facility] [address] [address] Well Puller Head: Polo Lucero II, M.D., Ph.D. 37 Because ethnic data is not always readily [...] 15-29 5 Kidney failure <15 (or dialysis) 38 Cancelled. Specimen hemolyzed. Unable to perform test requested. Reorder for specimen recollection. [id number] was called for recollect at 0457 on 05/08/16 by [id number] Cancelled. Specimen hemolyzed. Unable to perform test requested. Reorder for specimen recollection. [id number] was called for recollect at 0457 on 05/08/16 by [id number] Procedures Date CPT Code Description Status Comment 12/30/2016 26732 Polysomnography Sleep Staging Completed 4+ Parameters W/Cpap 10/20/2016 Colonoscopy Completed 05/08/2016 06372 ECHO Transthorasic Realtime 2D Completed W Doppler & Color Flow Hosp 12/23/2015 91333 EKG, Interpretation Only Completed 11/29/2015 58558 Removal Devitalization Tissue Completed Wound Less Than Equal 20 Square CM 09/25/2015 93879 Removal Devitalization Tissue Completed Wound Less Than Equal 20 Square CM 09/18/2015 75145 Removal Devitalized Tissue Completed Wound Greater Than 20 Square CM 09/18/2015 90180 Removal Devitalization Tissue Completed Wound Less Than Equal 20 Square CM 04/07/2015 Colonoscopy Completed Repeat was recommended in 1-2 years 04/06/2015 Colonoscopy Completed 10/12/2014 41895 Removal Devitalized Tissue Completed Wound Greater Than 20 Square CM 10/12/2014 27947 Removal Devitalization Tissue Completed Wound Less Than Equal 20 Square CM 09/06/2014 86355 Treadmill Interp/Report Only Completed 09/06/2014 07443 Stress Test Supervsn W/Out I/R Completed Encounters Type Date Location Provider CPT E/M Dx Office Visit 04/07/2017 Rheumatology Services Bharath Rodriguez M.D. 37339 M54.5 3:00p Of Suction Operator D64.9 M79.1 R20.8 Office Visit 03/24/2017 9:20a [facility] [place] [address] H92.01 Ten[place] J06.9 Office Visit 02/27/2017 9:15a Pulmonology And Sleep Mary Eckert, 24711 G47.33 Services Of [facility] VISH RUANO, [facility] G47.37 G47.14 E66.01 Z68.41 G89.29 Z79.891 Office Visit 02/17/2017 3:00p [facility] Internal Alex Hernández M.D. 55507 M13.0 Medicine - [address] I10 E78.2 G47.00 E03.9 Office Visit 01/30/2017 8:40a [facility] Internal Alex Hernández M.D. 39666 M13.0 Medicine - [address] M54.2 M51.16 Office Visit 01/21/2017 1:00p [facility] [place] [address] J06.9 Ten[place]a Z23 Office Visit 01/07/2017 4:00p [facility] Internal Alex Hernández 77197 E66.01 Medicine - Ten[place]a Jeffrey.DClover I10 G47.00 E78.2 E03.9 Z68.41 Office Visit 01/05/2017 11:15a Pulmonology And Sleep Mary Eckert, 51882 G47.33 Services Of [facility] VISH RUANO, [facility] Z68.41 Office Visit 11/27/2016 2:45p Pulmonology [place] [address] G47.33 Services Of [facility] E66.01 Office Visit 11/19/2016 10:20a [facility] [place] [address] D50.9 Tennga M54.2 Office Visit 11/12/2016 11:15a [place] [address] I87.312 At [facility] I89.0 Office Visit 10/22/2016 11:00a [place] [address] I87.312 At [facility] I89.0 Office Visit 10/15/2016 8:00a [place] [address] I87.312 At [facility] I89.0 Office Visit 10/02/2016 1:20p [facility] Internal Medicine - Kg Bella, CENTRAL SUPPLY TECHNICIAN SUPERVISOR 63757 Z00.00 Tennga G89.29 I10 D50.9 E78.5 E03.9 R53.1 I89.0 F33.9 Z23 Z11.59 N40.1 G47.33 Office Visit 07/17/2016 2:43p [facility],sal Fregoso M.D. 13698 L03.116 Hospitalists L03.115 G89.29 Office Visit 07/16/2016 2:42p [facility], Hebert Fregoso M.D. 57658 L03.116 Hospitalists L03.115 G89.29 Office Visit 07/15/2016 2:42p [facility],sal Fregoso M.D. 21871 L03.116 Hospitalists L03.115 G89.29 I10 Office Visit 07/14/2016 2:41p [facility] [place] [address] L03.116 Assoc, Hospitalists L03.115 G89.29 I10 Office Visit 07/13/2016 2:41p [facility] [place] [address] L03.116 Assoc,pc Hospitalists L03.115 G89.29 Office Visit 07/12/2016 2:40p [facility], Hebert Fregoso M.D. 78767 L03.116 Hospitalists L03.115 G89.29 I10 Office Visit 05/23/2016 2:40p [facility] Internal Medicine Edgar Samayoa M.D. 73435 D64.9 [place] Z13.1 L89.152 I89.0 D50.9 Office Visit 05/12/2016 4:02p [facility], Miguelina Garner 87504 L03.119 Hospitalists Marilu L89.322 B88.8 G47.33 Office Visit 05/11/2016 4:01p [facility], Miguelina Garner 80046 L03.119 Hospitalists Marilu L89.322 B88.8 G47.33 Office Visit 05/10/2016 4:01p [facility], Miguelina Garner 32122 L03.119 Hospitalists Marilu L89.322 B88.8 G47.33 Office Visit 05/09/2016 4:00p [facility],sal Garner, 35171 L03.119 Hospitalists Marilu L89.322 G47.33 B88.8 Office Visit 05/08/2016 4:00p [facility],sal Garner, 07560 L03.119 Hospitalists Marilu L89.322 B88.8 G47.33 Office Visit 03/12/2016 9:00a [place] [address] I87.312 At [facility] L97.221 I10 E66.01 I89.0 Office Visit 03/07/2016 3:40p [facility] Internal Medicine Edgar Samayoa, 41559 B37.49 - Veronica Michel B37.2 Office Visit 02/27/2016 9:00a [place] [address] I87.312 At [facility] L97.221 I10 I89.0 E66.01 Office Visit 02/22/2016 3:40p [facility] Internal Medicine Edgar Samayoa M.D. 58232 L29.9 - Veronica K21.9 L03.116 S10.96xA Office Visit 02/20/2016 8:00a [place] [address] I87.312 At [facility] L97.221 I10 E66.01 I89.0 Office Visit 02/08/2016 3:00p [facility] Internal Medicine Edgar Samayoa, 58151 L03.115 - Veronica Michel F32.9 Office Visit 01/22/2016 3:40p [facility] Internal Medicine Edgar Samayoa, 18401 F43.23 - Veronica Michel L03.116 M25.562 R42 Office Visit 12/27/2015 11:45a [facility] [place], [address] T07 Hospitalraghu Michel E78.5 W19.xxxA I10 Office Visit 12/26/2015 11:45a [facility] Steve Weber, 31243 T07 Assoc,sal TORO Hospitalists E78.5 W19.xxxA I10 Office Visit 12/25/2015 11:44a [facility], Cindy Arriaga, CENTRAL SUPPLY TECHNICIAN SUPERVISOR 86059 T07 Hospitalists E78.5 W19.xxxA I10 Office Visit 12/24/2015 11:53a [facility]thia [facility], 97461 S81.801A Ayanna Michel S81.802A L03.115 L03.116 M79.652 Office Visit 12/24/2015 [facility] [address] T07 Assoc,pc PA Hospitalists E78.5 W19.xxxA I10 Office Visit 12/23/2015 11:43a [facility], Hernan Ho, 18389 T07 Hospitalists N.P. E78.5 W19.xxxA I10 Office Visit 12/21/2015 3:40p [facility] Internal Medicine Edgar Samayoa M.D. 34155 I89.0 - [place] L03.116 Office Visit 10/24/2015 2:40p [facility] Woody Alvarez, 70831 I89.0 Infectious Diseases Marilu R19.7 K52.1 T36.1x5A Office Visit 10/19/2015 4:00p [facility] Internal Medicine Edgar Samayoa, 51882 L03.116 - Demetrio Michel B35.6 L60.8 B35.1 Office Visit 10/09/2015 11:46a [facility] Vikas Andrew, 98104 I87.312 At [facility] Marilu L97.221 Office Visit 10/05/2015 3:00p [facility] Internal Medicine Edgar Samayoa M.D. 67764 R60.9 - [place] L03.119 B35.6 N40.1 F41.9 R60.0 L03.116 L03.115 N39.45 Office Visit 09/21/2015 9:20a [facility] Internal Medicine Edgar Samayoa, 40371 L03.116 - Demetrio Michel L03.115 I89.0 I10 G89.29 K21.9 F41.9 G47.00 R19.7 Office Visit 09/12/2015 11:05a [facility] [place], [address] L03.115 Hospitalists MMonster E11.9 E78.0 I10 Office Visit 09/11/2015 11:05a [facility] [place], [address] L03.115 Hospitalists MCloverDClover E11.9 I10 Office Visit 09/10/2015 11:01a [facility] Andrei [place] [address] L03.115 Assoc,pc Hospitalists IIMarilu E11.9 E78.0 I10 Office Visit 04/11/2015 9:29a [facility] [place], [address] K92.2 Hospitalists M.D. E66.01 D62 Office Visit 04/10/2015 9:28a [facility] [place], [address] K92.2 Hospitalists M.D. E66.01 D62 Office Visit 04/09/2015 9:28a [facility] [place], [address] K92.2 Hospitalists MCloverDClover E66.01 D62 Office Visit 04/08/2015 9:28a [facility] [place], [address] K92.2 Hospitalists M.D. E66.01 D62 Office Visit 04/07/2015 9:27a [facility] [place], [address] K92.2 Hospitalists M.D. E66.01 D62 Office Visit 04/06/2015 9:26a [facility] [place], [address] K92.2 Hospitalists M.DClover E66.01 D62 Office Visit 02/18/2015 8:28a [facility] [place], [address] N17.9 Hospitalists M.D. E66.01 T40.601A G47.33 Office Visit 02/17/2015 8:28a [facility] [place], [address]806 N17.9 Hospitalists M.D. E66.01 T40.601A G47.33 Office Visit 02/16/2015 8:27a [facility] [place], 04409 N17.9 Hospitalists M.D. E66.01 T40.601A G47.33 Office Visit 10/26/2014 3:53p [facility] [place], [address] 707.19 [facility] [place]. 454.0 Office Visit 10/19/2014 11:26a [facility] [place], [address] 707.19 [facility] [place]. 454.0 Office Visit 09/05/2014 8:45a [facility] [place], [address] 786.50 Hospitalists M.D. 272.4 338.29 278.01 Office Visit 09/03/2014 8:44a [facility] [place], [address] 786.50 Hospitalists M.D. 272.4 338.29 278.01 Plan of Care Future Appointment(s):11/03/2017 1:00 pm - Mary Eckert DNP, RN, MEDICAL DATA ENTRY CLERK- at [facility]05/25/2017 3:20 pm - Bharath Rodriguez M.D. at [facility]05/21/2017 1:40 pm - Alex Hernández M.D. at [facility] Internal Medicine - [address]05/06/2017 - Mary Eckert DNP, RN, MEDICAL DATA ENTRY CLERK- BCG47.33 Obstructive sleep apnea (adult) (pediatric)Comments:Sleep Apnea - Sleep apnea AHI 29.5/hour, juanis oxygen 93% wt 274 (12/30/16) On BiPAP AHI 9.9 /hour (mild)Follow up:6 monthsRecommendations:Continue PAP device, Benefitting and compliant with treatment. Change to BiPAP setting to IPAP max 14, EPAP min 7, support 4 If you have any sleepiness while driving you MUST avoid operating a vehicleor machinery. If you have difficulty with your equipment, or need to replace your mask or hoses, please contact your homecare agency. A weight change of 20 pounds or more may have an effect on your equipment; if you are experiencing problems please call for an appointment. If you have any further questions, please call the [facility] at [phone].
--- NOTE | 2017-06-04 13:51 | RAD ---
INDICATION: Lower leg pain COMPARISON: None TECHNIQUE: 2 views of the tibia/fibular were obtained. FINDINGS: There is no acute bony changes of the lower leg. There is dependent edema. There is osteoarthritis about the ankle mortise with tilting of the ankle mortise. This could be acute or chronic. Suggest an ankle series if there is pain referable to the ankle. IMPRESSION: NO ACUTE BONY CHANGE OF THE LOWER LEG. (SEE ABOVE)
--- NOTE | 2017-06-04 13:55 | RAD ---
INDICATION: Left knee pain COMPARISON: None TECHNIQUE: AP, lateral, tunnel, and sunrise views were obtained. FINDINGS: There is no acute bony change. There is mild condylar spurring. There is moderate patellofemoral spurring with mild lateral subluxation of the patella. No joint effusion is appreciated. IMPRESSION: OSTEOARTHRITIS PREDOMINANTLY ABOUT THE PATELLOFEMORAL JOINT SPACE
[2017-06-04] MEDS ORDERED: Ketorolac INJ* 60 MG/2 ML VIAL IM ONE (14:11)
--- NOTE | 2017-06-04 14:18 | ED ---
Lower Extremity - HPI Summary HPI Summary: 57-year-old male presents with left leg pain today. He states he was walking slipped on ice. He states he fell onto his left arthur. He states his pain in his left knee and left arthur. He denies any ankle pain. He denies any numbness or tingling. He has a history of arthritis and is followed by the pain clinic. He states he took his normal pain medication with minimal relief. He denies any head injury or loss consciousness. He denies any back pain or neck pain. He denies any other injury. He is able to put some weight on it but has extreme pain. - History of Current Complaint Chief Complaint: EDExtremityLower Stated Complaint: FALL/LT LEG INJURY Time Seen by Provider: 06/04/17 12:32 Pain Intensity: 9 - Allergies/Home Medications Allergies/Adverse Reactions: Allergies Allergy/AdvReac Type Severity Reaction Status Date / Time pioglitazone [From Actos] AdvReac Coughing Verified 06/04/17 13:17 PMH/Surg Hx/FS Hx/Imm Hx Endocrine/Hematology History: Reports: Hx Diabetes, Hx Thyroid Disease - hypothyroid Cardiovascular History: Reports: Hx Hypercholesterolemia - Crestor, Hx Hypertension, Hx Peripheral Vascular Disease - chronic venous stasis, Hx Syncope , Other Cardiovascular Problems/Disorders - HYPERCHOLESTEROLEMIA/IDDM II/OBESITY Respiratory History: Reports: Hx Chronic Bronchitis, Hx Sleep Apnea Denies: Hx Chronic Obstructive Pulmonary Disease (COPD) GI History: Reports: Hx Gastroesophageal Reflux Disease, Hx Hiatal Hernia, Other GI Disorders - gastric bypass surgery november-2012 History: Reports: Hx Benign Prostatic Hyperplasia, Hx Kidney Stones, Other Problems/Disorders - "slow peeing" seen by urologist-prescribed meds Denies: Hx Dialysis Musculoskeletal History: Reports: Hx Arthritis, Hx Fibromyalgia, Hx Orthopedic Injury - right thumb, dislocation of left knee, Hx Osteoporosis, Other Musculoskeletal History - left hip surgery Denies: Hx Back Problems Sensory History: Reports: Hx Contacts or Glasses - to read, not with patient Denies: Hx Hearing Aid Opthamlomology History: Reports: Hx Contacts or Glasses - to read, not with patient Neurological History: Reports: Other Neuro Impairments/Disorders - SYNCOPE / ARTHITIS Denies: Hx Dementia, Hx Developmental Delay, Hx Headaches, Hx Seizures Psychiatric History: Reports: Hx Anxiety, Hx Depression, Hx Inpatient Treatment - 2007 Denies: Hx Bipolar Disorder - patient states depression, but not bipoar - Surgical History Surgery Procedure, Year, and Place: Mytosis left eye surgical correction; Tonsillectomy; Right Knee Arthroscopic Surgery; Left Hip Replacement at [facility] 12/12/13; Gastro Bypass 12/14/12 [facility] Hx Anesthesia Reactions: No - Immunization History Date of Tetanus Vaccine: utd Date of Influenza Vaccine: utd Infectious Disease History: Yes Infectious Disease History: Denies: Hx Clostridium Difficile, Hx Hepatitis, Hx Human Immunodeficiency Virus (HIV), Hx of Known/Suspected MRSA, Hx Shingles, Hx Tuberculosis, Hx Known/ Suspected VRE, Hx Known/Suspected VRSA, History Other Infectious Disease, Traveled Outside the [place] in Last 30 Days - Family History Known Family History: Positive: Cardiac Disease - Father - CAD, Diabetes - Son - - DM, Other - Mother - CVA. Father - EtOH abuse and CAD. Son -- testicular CA and DM - Social History Alcohol Use: Occasionally Hx Substance Use: Yes Substance Use Type: Reports: Prescribed Substance Use Comment - Amount & Last Used: oxycodone Hx Tobacco Use: No Smoking Status (MU): Never Smoked Tobacco Review of Systems Negative: Fever Negative: Chest Pain Negative: Shortness Of Breath Positive: Myalgia - left lower leg All Other Systems Reviewed And Are Negative: Yes Physical Exam Triage Information Reviewed: Yes Vital Signs On Initial Exam: Initial Vitals Temp Pulse Resp BP Pulse Ox 98.3 F 76 20 142/70 100 06/04/17 12:30 06/04/17 12:30 06/04/17 12:30 06/04/17 12:30 06/04/17 12:30 Vital Signs Reviewed: Yes Appearance: Positive: Well-Appearing Skin: Positive: Warm, Dry Head/Face: Positive: Normal Head/Face Inspection Eyes: Positive: Normal, Conjunctiva Clear Respiratory/Lung Sounds: Positive: Clear to Auscultation, Breath Sounds Present Cardiovascular: Positive: Normal, RRR Musculoskeletal: Positive: Strength/ROM Intact - left ankle, Limited @ - left lower leg, Other - nontender left ankle, tenderness under left knee on anterior arthur with ecchymosis present. Good pulses, capillary refill less than 2 seconds, nontender knee. Chronic edema of left leg with peeling skin. Neurological: Positive: Normal Psychiatric: Positive: Normal Diagnostics - Vital Signs Vital Signs Temp Pulse Resp BP Pulse Ox 06/04/17 12:30 98.3 F 76 20 142/70 100 - Laboratory Lab Statement: Any lab studies that have been ordered have been reviewed, and results considered in the medical decision making process. - Radiology knee Xray Interpretation: Positive (See Comments) - IMPRESSION: OSTEOARTHRITIS PREDOMINANTLY ABOUT THE PATELLOFEMORAL JOINT SPACE Radiology Interpretation Completed By: Radiologist lower leg Xray Interpretation: Positive (See Comments) - There is no acute bony changes of the lower leg. There is dependent edema. There is osteoarthritis about the ankle mortise with tilting of the ankle mortise. This could be acute or chronic. Suggest an ankle series if there is pain referable to the ankle. Radiology Interpretation Completed By: Radiologist Lower Extremity Course/Dx - Course Course Of Treatment: 57-year-old male presents with left leg pain today. He states he was walking slipped on ice. He states he fell onto his left arthur. He states his pain in his left knee and left arthur. He denies any ankle pain. He denies any numbness or tingling. He has a history of arthritis and is followed by the pain clinic. He states he took his normal pain medication with minimal relief. He denies any head injury or loss consciousness. He denies any back pain or neck pain. He denies any other injury. He is able to put some weight on it but has extreme pain. On exam has edema present chronically of left leg. Has ecchymosis of anterior arthur near knee. Tender over this area. Neurovascular intact. X-ray knee shows osteoarthritis. X-ray lower leg shows no fracture. Patient denies any ankle pain so will not give ankle series. Will treat with normal pain medication and rice. Patient understands and agrees with plan. - Diagnoses Differential Diagnosis/HQI/PQRI: Positive: Fracture (Closed), Sprain, Strain Provider Diagnoses: Contusion of left lower leg Discharge - Discharge Plan Condition: Good Disposition: HOME Patient Education Materials: Contusion in Adults (ED) Referrals: Alex Hernández MD [Primary Care Provider] - Additional Instructions: Take Tylenol or ibuprofen every 6 hours as needed for pain Apply ice, rest, elevate Follow up with primary care physician within 5 days Return to ED if develop any new or worsening symptoms
[2017-06-04] MEDS ORDERED: Ketorolac INJ* 60 MG/2 ML VIAL ONE (14:25)
[2017-06-04 15:10] VITALS: BP 137/73
== END 2017-06-04 14:57 | disposition home or self-care (01) ==
LOC: ED 12:07
DX: S80.12XA Contusion of left lower leg, initial encounter (principal); W00.0XXA Fall on same level due to ice and snow, initial encounter; Y92.9 Unspecified place or not applicable
CPT/HCPCS: 99282; J1885

== ENCOUNTER 2017-07-30 01:47 | Inpatient (IN) | payer OTHER ==
[2017-07-30] MEDS ORDERED: Morphine INJ* 10 MG/ML 1 ML CARPUJECT IV ONE (02:15)
[2017-07-30] MEDS ORDERED: Ondansetron ODT TAB* 4 MG PO ONE (02:15)
[2017-07-30] MEDS ORDERED: Morphine VIAL* 4 MG/ML VIAL (1 ml vial) IV ONE (02:22)
[2017-07-30] MEDS: NS 0.9% 1000 ML* 1,000 ML IV SCH ×3 (02:37→20:49)
[2017-07-30 02:44] LABS: ABS Basophils 0 10^3/ul (0-0.2); ABS Eosinophils 0.3 10^3/ul (0-0.6); ABS Lymphocytes 2.2 10^3/ul (1.0-4.8); ABS Monocytes 0.6 10^3/ul (0-0.8); ABS Neutrophils 2.3 10^3/ul (1.5-7.7); ABS Nucleated RBC 0 10^3/ul; Eosinophil % 6.2 % (0-6); Hematocrit 36 % (42-52); Hemoglobin 11.7 g/dl (14.0-18.0); Mean Corpuscular HGB Conc 32 g/dl (31-36); Mean Corpuscular Hemoglobin 28 pg (27-31); Mean Corpuscular Volume 88 fL (80-94); Mean Platelet Volume 9.3 um3 (7.4-10.4); Nucleated Red Blood Cells % 0.1; Platelet Count 196 10^3/ul (150-450); Red Blood Count 4.14 10^6/ul (4.0-5.4); Red Cell Distribution Width 16 % (10.5-15); White Blood Count 5.5 10^3/ul (3.5-10.8)
[2017-07-30 02:50] LABS: INR 1.01 (0.77-1.02)
[2017-07-30 03:00] LABS: EGFR Non-African American 88.4 (>60)
[2017-07-30] MEDS ORDERED: Iodixanol* (CONTRAST) 320 MG/ML 100 ML SDV IV ONE (04:08)
[2017-07-30] MEDS ORDERED: HYDROmorphone INJ* 1 MG/ML CARPUJECT SYRINGE IV ONE (05:44)
[2017-07-30] MEDS ORDERED: HYDROmorphone INJ* 2 MG/ML CARPUJECT SYRINGE ONE (06:05)
[2017-07-30 06:54] LABS: Urine Appearance Clear; Urine Blood 1+ (Negative); Urine Color Yellow; Urine Ketones Negative (Negative); Urine Protein Negative (Negative); Urine Specific Gravity 1.046 (1.010-1.030); Urine Urobilinogen Negative (Negative)
--- NOTE | 2017-07-30 07:09 | ED ---
Lory Perry Rebecca, scribed for Polo Christensen MD on 07/30/17 at 0216 . Abdominal Pain/Male - HPI Summary HPI Summary: Pt is a 57 y/o M BIBA who presents to ED c/o abdominal pain since 1100 yesterday. Pain is in the epigastric region without radiation. Pain characterized as sharp and is currently severe, ranked 8-9/10. Treated with 975mg tylenol at 1800. Sx aggravated by palpation, unchanged by food. Additionally c/o mild SOB and a "nervous sensation throughout my body." Denies nausea, melena, blood in stool, diaphoresis, and fever. Pt has been able to eat and BM have looked normal. No prior similar episodes. - History of Current Complaint Chief Complaint: EDAbdPain Stated Complaint: ABD PAIN Time Seen by Provider: 07/30/17 02:03 Hx Obtained From: Patient Onset/Duration: Lasting Hours, Still Present Severity Currently: Severe Pain Intensity: 8 Pain Scale Used: 0-10 Numeric Location: Epigastric Radiates: No Character: Sharp Aggravating Factor(s): Other: - Palpation Associated Signs And Symptoms: Positive: Other - SOB. Negative: Nausea - Allergies/Home Medications Allergies/Adverse Reactions: Allergies Allergy/AdvReac Type Severity Reaction Status Date / Time pioglitazone [From UpSpringos] AdvReac Coughing Verified 06/04/17 13:17 Home Medications: Home Medications Sulfasalazine 500 mg PO BID 07/30/17 [History Confirmed 07/30/17] PMH/Surg Hx/FS Hx/Imm Hx Endocrine/Hematology History: Reports: Hx Diabetes, Hx Thyroid Disease - hypothyroid Cardiovascular History: Reports: Hx Hypercholesterolemia - Crestor, Hx Hypertension, Hx Peripheral Vascular Disease - chronic venous stasis, Hx Syncope , Other Cardiovascular Problems/Disorders - HYPERCHOLESTEROLEMIA/IDDM II/OBESITY Respiratory History: Reports: Hx Chronic Bronchitis, Hx Sleep Apnea Denies: Hx Chronic Obstructive Pulmonary Disease (COPD) GI History: Reports: Hx Gastroesophageal Reflux Disease, Hx Hiatal Hernia, Other GI Disorders - gastric bypass surgery november-2012 History: Reports: Hx Benign Prostatic Hyperplasia, Hx Kidney Stones, Other Problems/Disorders - "slow peeing" seen by urologist-prescribed meds Denies: Hx Dialysis Musculoskeletal History: Reports: Hx Arthritis, Hx Fibromyalgia, Hx Orthopedic Injury - right thumb, dislocation of left knee, Hx Osteoporosis, Other Musculoskeletal History - left hip surgery Denies: Hx Back Problems Sensory History: Reports: Hx Contacts or Glasses - to read, not with patient Denies: Hx Hearing Aid Opthamlomology History: Reports: Hx Contacts or Glasses - to read, not with patient Neurological History: Reports: Other Neuro Impairments/Disorders - SYNCOPE / ARTHITIS Denies: Hx Dementia, Hx Developmental Delay, Hx Headaches, Hx Seizures Psychiatric History: Reports: Hx Anxiety, Hx Depression, Hx Inpatient Treatment - 2007 Denies: Hx Bipolar Disorder - patient states depression, but not bipoar - Surgical History Surgery Procedure, Year, and Place: Mytosis left eye surgical correction; Tonsillectomy; Right Knee Arthroscopic Surgery; Left Hip Replacement at [facility] 12/12/13; Gastro Bypass 12/14/12 [facility] Hx Anesthesia Reactions: No - Immunization History Date of Tetanus Vaccine: utd Date of Influenza Vaccine: utd Infectious Disease History: No Infectious Disease History: Denies: Hx Clostridium Difficile, Hx Hepatitis, Hx Human Immunodeficiency Virus (HIV), Hx of Known/Suspected MRSA, Hx Shingles, Hx Tuberculosis, Hx Known/ Suspected VRE, Hx Known/Suspected VRSA, History Other Infectious Disease, Traveled Outside the [place] in Last 30 Days - Family History Known Family History: Positive: Cardiac Disease - Father - CAD, Diabetes - Son - - DM, Other - Mother - CVA. Father - EtOH abuse and CAD. Son -- testicular CA and DM - Social History Alcohol Use: Occasionally Hx Substance Use: Yes Substance Use Type: Reports: Prescribed Substance Use Comment - Amount & Last Used: oxycodone Hx Tobacco Use: No Smoking Status (MU): Never Smoked Tobacco Review of Systems Positive: Other - "nervous sensation". Negative: Fever, Skin Diaphoresis Positive: Shortness Of Breath Positive: Abdominal Pain. Negative: Nausea Positive: other - NEGATIVE: Melena, blood in stool All Other Systems Reviewed And Are Negative: Yes Physical Exam - Summary Physical Exam Summary: General: well-appearing, mild to moderate pain distress Skin: warm, color reflects adequate perfusion, dry Head: normal Eyes: EOMI, YE ENT: normal Neck: supple, nontender Respiratory: CTA, breath sounds present Cardiovascular: RRR Abdomen: soft, tender in the epigastrum Bowel: hypoactive Musculoskeletal: strength/ROM intact, pedal edema bilaterally Neurological: normal, sensory/motor intact, A&O x3 Psychological: affect/mood appropriate Triage Information Reviewed: Yes Vital Signs On Initial Exam: Initial Vitals Temp Pulse Resp BP Pulse Ox 97.6 F 65 18 138/83 98 07/30/17 02:07 07/30/17 02:07 07/30/17 02:07 07/30/17 02:07 07/30/17 02:07 Vital Signs Reviewed: Yes Diagnostics - Vital Signs Vital Signs Temp Pulse Resp BP Pulse Ox 07/30/17 02:07 97.6 F 65 18 138/83 98 - Laboratory Lab Results: Lab Results 07/30/17 07/30/17 07/30/17 Range/Units 02:32 02:32 02:32 WBC 5.5 (3.5-10.8) 10^3/ul RBC 4.14 (4.0-5.4) 10^6/ul Hgb 11.7 L (14.0-18.0) g/dl Hct 36 L (42-52) % MCV 88 (80-94) fL MCH 28 (27-31) pg MCHC 32 (31-36) g/dl RDW 16 H (10.5-15) % Plt Count 196 (150-450) 10^3/ul MPV 9.3 (7.4-10.4) um3 Neut % (Auto) 41.6 (38-83) % Lymph % (Auto) 41.0 (25-47) % Kidder % (Auto) 10.5 H (0-7) % Eos % (Auto) 6.2 H (0-6) % Baso % (Auto) 0.7 (0-2) % Absolute Neuts (auto) 2.3 (1.5-7.7) 10^3/ul Absolute Lymphs (auto) 2.2 (1.0-4.8) 10^3/ul Absolute Monos (auto) 0.6 (0-0.8) 10^3/ul Absolute Eos (auto) 0.3 (0-0.6) 10^3/ul Absolute Basos (auto) 0 (0-0.2) 10^3/ul Absolute Nucleated RBC 0 10^3/ul Nucleated RBC % 0.1 INR (Anticoag Therapy) 1.01 (0.77-1.02) APTT 30.5 (26.0-36.3) seconds Sodium 140 (139-145) mmol/L Potassium 4.0 (3.5-5.0) mmol/L Chloride 109 (101-111) mmol/L Carbon Dioxide 25 (22-32) mmol/L Anion Gap 6 (2-11) mmol/L BUN 14 (6-24) mg/dL Creatinine 0.89 (0.67-1.17) mg/dL Est GFR ( Amer) 113.7 (>60) Est GFR (Non-Af Amer) 88.4 (>60) BUN/Creatinine Ratio 15.7 (8-20) Glucose 104 H (70-100) mg/dL Lactic Acid (0.5-2.0) mmol/L Calcium 8.3 L (8.6-10.3) mg/dL Total Bilirubin 0.30 (0.2-1.0) mg/dL AST 10 L (13-39) U/L ALT 7 (7-52) U/L Alkaline Phosphatase 89 (34-104) U/L Total Creatine Kinase 24 (10-223) U/L CK-MB (CK-2) 0.3 L (0.6-6.3) ng/mL Troponin I 0.00 (<0.04) ng/mL C-Reactive Protein 1.26 (< 5.00) mg/L B-Natriuretic Peptide ( - 100) pg/mL Total Protein 6.3 L (6.4-8.9) g/dL Albumin 3.5 (3.2-5.2) g/dL Globulin 2.8 (2-4) g/dL Albumin/Globulin Ratio 1.3 (1-3) Lipase 10 L (11.0-82.0) U/L TSH 3.00 (0.34-5.60) mcIU/mL Urine Color Urine Appearance Urine pH (5-9) Ur Specific [place] (1.010-1.030) Urine Protein (Negative) Urine Ketones (Negative) Urine Blood (Negative) Urine Nitrate (Negative) Urine Bilirubin (Negative) Urine Urobilinogen (Negative) Ur Leukocyte Esterase (Negative) Urine WBC (Auto) (Absent) Urine RBC (Auto) (Absent) Ur Squamous Epith Cells (Absent) Urine Bacteria (Absent) Urine Glucose (Negative) 07/30/17 07/30/17 07/30/17 Range/Units 02:32 02:32 06:26 WBC (3.5-10.8) 10^3/ul RBC (4.0-5.4) 10^6/ul Hgb (14.0-18.0) g/dl Hct (42-52) % MCV (80-94) fL MCH (27-31) pg MCHC (31-36) g/dl RDW (10.5-15) % Plt Count (150-450) 10^3/ul MPV (7.4-10.4) um3 Neut % (Auto) (38-83) % Lymph % (Auto) (25-47) % Kidder % (Auto) (0-7) % Eos % (Auto) (0-6) % Baso % (Auto) (0-2) % Absolute Neuts (auto) (1.5-7.7) 10^3/ul Absolute Lymphs (auto) (1.0-4.8) 10^3/ul Absolute Monos (auto) (0-0.8) 10^3/ul Absolute Eos (auto) (0-0.6) 10^3/ul Absolute Basos (auto) (0-0.2) 10^3/ul Absolute Nucleated RBC 10^3/ul Nucleated RBC % INR (Anticoag Therapy) (0.77-1.02) APTT (26.0-36.3) seconds Sodium (139-145) mmol/L Potassium (3.5-5.0) mmol/L Chloride (101-111) mmol/L Carbon Dioxide (22-32) mmol/L Anion Gap (2-11) mmol/L BUN (6-24) mg/dL Creatinine (0.67-1.17) mg/dL Est GFR ( Amer) (>60) Est GFR (Non-Af Amer) (>60) BUN/Creatinine Ratio (8-20) Glucose (70-100) mg/dL Lactic Acid 1.0 (0.5-2.0) mmol/L Calcium (8.6-10.3) mg/dL Total Bilirubin (0.2-1.0) mg/dL AST (13-39) U/L ALT (7-52) U/L Alkaline Phosphatase (34-104) U/L Total Creatine Kinase (10-223) U/L CK-MB (CK-2) (0.6-6.3) ng/mL Troponin I (<0.04) ng/mL C-Reactive Protein (< 5.00) mg/L B-Natriuretic Peptide 398 H ( - 100) pg/mL Total Protein (6.4-8.9) g/dL Albumin (3.2-5.2) g/dL Globulin (2-4) g/dL Albumin/Globulin Ratio (1-3) Lipase (11.0-82.0) U/L TSH (0.34-5.60) mcIU/mL Urine Color Yellow Urine Appearance Clear Urine pH 5.0 (5-9) Ur Specific [place] 1.046 H (1.010-1.030) Urine Protein Negative (Negative) Urine Ketones Negative (Negative) Urine Blood 1+ A (Negative) Urine Nitrate Negative (Negative) Urine Bilirubin Negative (Negative) Urine Urobilinogen Negative (Negative) Ur Leukocyte Esterase Negative (Negative) Urine WBC (Auto) Absent (Absent) Urine RBC (Auto) Trace(0-2/hpf) (Absent) Ur Squamous Epith Cells Present A (Absent) Urine Bacteria Absent (Absent) Urine Glucose Negative (Negative) Result Diagrams: 07/30/17 02:32 07/30/17 02:32 Lab Statement: Any lab studies that have been ordered have been reviewed, and results considered in the medical decision making process. - Radiology CXR Xray Interpretation: No Acute Changes Radiology Interpretation Completed By: ED Physician - CT CT Abd/Pel CT Interpretation Completed By: Radiologist - Cholelithiasis with gallbaldder distention. ED physician reviewed this radiology report. - EKG 0252 Cardiac Rate: Bradycardia - [address] Segment: Normal EKG Interpretation: RBBB EKG Comparison: Other - RBBB - new from EKG in 2016 Re-Evaluation - Re-Evaluation First Eval Re-Evaluation Time: 05:40 Comment: Discussed results. Still having pain in the epigastrum which is benzene still utility operator to palpation. Abdominal Pain Fem Course/Dx - Course Course Of Treatment: Medications reviewed. Allergies noted. GALLSTONES WITH ENLARGED GALL BLADDER ON CT. ABD TENDERNESS EPIGASTRIUM. DISCUSSED WITH DR MONTILLA, SURGERY. SURGERY WILL CONSULT IN ED. - Diagnoses Provider Diagnoses: Epigastric pain - Provider Notifications Discussed Care Of Patient With: Eb Montilla Time Discussed With Above Provider: 06:31 Instructed by Provider To: Other - Will see the pt in the ED after the gallbladder US is done. Discharge - Sign-Out/Discharge Documenting (check all that apply): Sign-Out Patient Signing out patient TO: Mihai Huerta - Pending dispo, awaiting US - Discharge Plan Condition: Stable Referrals: Alex Hernández MD [Primary Care Provider] - - Billing Disposition and Condition Condition: STABLE The documentation as recorded by the Lory venegas Rebecca accurately reflects the service I personally performed and the decisions made by me, Polo Christensen MD.
--- NOTE | 2017-07-30 08:03 | RAD ---
Indication: Abdominal pain. Single frontal view of the chest performed at 0239 hours was reviewed. Comparison is made with previous exam dated July 11, 2016. No mediastinal shift is noted. Cardiomegaly is noted. No definite pneumonia is noted although prominent interstitial markings are noted which may represent mild vascular congestion.. IMPRESSION: QUESTION MILD VASCULAR CONGESTION.
--- NOTE | 2017-07-30 08:13 | RAD ---
INDICATION: Epigastric abdominal pain. COMPARISON: Comparison is made with a prior CT of the abdomen and pelvis from July 30, 2017. TECHNIQUE: Multiple real-time images of the right upper quadrant were obtained. FINDINGS: There are multiple gallstones present. No gallbladder wall thickening, pericholecystic fluid or positive sonographic Shrestha sign is present. No intra or extrahepatic ductal distention is present. The common bile duct measured 0.3 cm in diameter. The liver appears mildly enlarged and increased in echogenicity suggestive of fatty infiltration. The pancreas was obscured due to overlying bowel gas. The right kidney is normal in size without evidence for hydronephrosis. IMPRESSION: CHOLELITHIASIS WITHOUT EVIDENCE FOR ACUTE CHOLECYSTITIS.
--- NOTE | 2017-07-30 08:17 | RAD ---
CLINICAL HISTORY: Epigastric pain. Relevant surgical history includes left total hip arthroplasty and gastric bypass surgery. COMPARISON: Most recent CT of the abdomen and pelvis is dated April 06, 2015 TECHNIQUE: Contrast enhanced CT examination of the abdomen and pelvis from the lung bases through the initial tuberosities. The patient received 141 mL Visipaque 320 intravenously prior to imaging.The patient received oral contrast as well prior to imaging. FINDINGS: VISUALIZED LUNG BASES: The visualized lung bases are grossly clear. There is no pleural effusion. ABDOMEN AND PELVIS: There is surgical material at the gastric fundus consistent with the patient's Mohini-en-Y bypass surgery. There is no apparent leakage of orally ingested contrast. The liver, spleen, pancreas and adrenal glands are grossly normal in appearance. There is hyperattenuating material in the dependent portion of the gallbladder. At the nondependent portion of the gallbladder there is a low-attenuation focus measuring 1.3 cm in greatest dimension (axial image 38 and sagittal image 44) that is either a focus of gas or fat.. The kidneys are normal in appearance without focal mass, calcification or signs of hydronephrosis. Neural contrast has progressed as far as the midpoint small bowel. The small and large bowel are not distended. The partially gas-filled appendix is identified in the right lower quadrant measuring 4 mm in diameter (image 36). There are rectosigmoid diverticula without focal inflammatory change. There is no gross retroperitoneal or mesenteric lymphadenopathy. The pelvic viscera is normal in appearance. The abdominal aorta and iliac arteries are normal in course and diameter. Degenerative changes include multilevel loss of intervertebral disc height involving the lower thoracic and lumbar spine. The left hip prosthesis appears to be anatomically aligned. IMPRESSION: 1. Cholelithiasis with questionable presence of air in the nondependent gallbladder. This appearance is similar to the April 06, 2015 CT examination. 2. Chronic, degenerative and iatrogenic findings as described in the body of the report.
[2017-07-30] MEDS ORDERED: Albuterol HFA INHALER* 8 gm MDI INH PRN (11:29)
[2017-07-30] MEDS ORDERED: HYDROmorphone INJ* 2 MG/ML CARPUJECT SYRINGE IV SLOW PU PRN (11:45)
[2017-07-30] MEDS: HYDROmorphone INJ* 2 MG/ML CARPUJECT SYRINGE IV SLOW PU PRN ×3 (13:32→22:09)
[2017-07-30] MEDS: fentaNYL PATCH 25 MCG/HR TRANSDERM SCH (13:37)
[2017-07-30] MEDS: Ondansetron ODT TAB* 4 MG SL PRN ×2 (13:42→19:36)
[2017-07-30] MEDS: Pregabalin CAP(*) 50 MG PO SCH ×2 (14:19→22:45)
[2017-07-30] MEDS: oxyCODONE TAB* 5 MG TAB PO PRN ×2 (14:19→22:45)
[2017-07-30] MEDS: fentaNYL Patch Check Q Shift 1 NOTE SCH (19:17)
--- NOTE | 2017-07-30 20:29 | HP ---
CC: Dr. Hernández at [facility]* ADMISSION HISTORY AND PHYSICAL: DATE OF ADMISSION: 07/30/17 ATTENDING SURGEON: Dr. Eb Montilla.* (DICTATED BY MUNA CAMARILLO) CHIEF COMPLAINT: Abdominal pain. HISTORY OF PRESENT ILLNESS: This is a 57-year-old male status post Mohini-en-Y gastric bypass in 2013 at [facility] with net weight loss of 20 pounds, who noted sudden onset of epigastric pain around 11 a.m. yesterday, 07/29/17. The patient states that he had been fine in the morning and attended physical therapy. Onset was around 11 a.m. He describes the pain as steady and sharp, located about snf between the xiphoid and umbilicus as well as in the right upper quadrant. He states that around midnight last night, he felt shaky ( nervous) and after about an hour called the ambulance and was transported to the emergency room. He denies fever or chills. He denies nausea or vomiting. In fact, he states that his oral intake was fairly normal yesterday and he has an appetite this morning. He rates his pain as high as 8 to 9/10. He has not had any previous similar episodes. He denies any change in the color of his urine or stool. There is no family history of gallbladder disease. He was told a year or 2 ago that he had gallstones, but at that point had not apparently been symptomatic. He has had multiple medical problems (see below) and his only abdominal surgery was the gastric bypass, which was done laparoscopically. He states that he has been having normal bowel movements. PAST MEDICAL HISTORY: 1. Chronic pain related to arthritis and disk disease involving his lower back , his hips, and knees. He also has spondylitis for which he was seen by Dr. Rodriguez. 2. He is treated for obstructive sleep apnea with BiPAP. 3. He has BPH. 4. He is on thyroid replacement for hypothyroidism. 5. He was treated for depression and insomnia and asthma, which is actually pretty well controlled. 6. He was treated with metformin for diabetes prior to his bypass, but has not required any treatment since. He has no history of heart disease or hypertension (he is on losartan, which I am presuming is for renal protection when he was treated for diabetes). PAST SURGICAL HISTORY: Previous surgeries include: 1. Laparoscopic Mohini-en-Y gastric bypass in 2013. 2. Left hip replacement. 3. Right knee arthroscopy. 4. Tonsillectomy. No reported surgical or anesthesia complications. CURRENT MEDICATIONS: 1. Finasteride 5 mg once daily. 2. Levothyroxine 75 mcg once daily. 3. Fentanyl patch 25 mcg patch q.72 hours. 4. Trazodone 200 mg q.h.s. 5. Pregabalin or Lyrica 150 mg t.i.d. 6. Aripiprazole/Abilify 10 mg q.h.s. 7. Albuterol MDI 2 puffs q.4 hours p.r.n. (uses infrequently). 8. Omeprazole 20 mg q.a.m. (he was told that this was for prevention of potential aspiration related to his sleep apnea). 9. Furosemide 40 mg daily p.r.n. lower extremity edema (does not take regularly ). 10. Losartan 100 mg daily. 11. Lidocaine patch 5% one patch transdermally daily p.r.n. 12. Nystatin cream topically t.i.d. p.r.n. (for intertrigo). 13. Oxycodone 10 mg q.8 hours. 14. Diphenhydramine 25 mg q.6 hours p.r.n. (uses infrequently). 15. Colace 100 mg daily p.r.n. (generally does not use). 16. Vilazodone 40 mg daily. 17. Tamsulosin 0.4 mg daily. 18. Sulfasalazine 500 mg b.i.d. DRUG ALLERGIES: PIOGLITAZONE (coughing). FAMILY HISTORY: Negative for gallbladder disease, anesthesia problems, bleeding or clotting disorders. SOCIAL HISTORY: The patient currently lives with his 2 sons. He did smoke in his 20s, but quit at that time. He drinks alcohol infrequently (less than 1 drink per week). He denies other recreational drug use. REVIEW OF SYSTEMS: General: No recent constitutional symptoms or acute illnesses other than as per the HPI. Eyes: He did have left eye surgery as a child and he has a chronic ptosis of that side. No other recent visual changes. Ears, nose, throat: No problems reported. No sore throat. Cardiovascular: No chest pain, palpitations, history of heart murmur, or hypertension. Respiratory: No recent exacerbations of his asthma. No shortness of breath or chronic cough. GI: As above per HPI. He states that his bowel movements have been normal. He did undergo colonoscopy and EGD here at [facility] in September 2016, which he states were both normal studies (there is apparently some diverticulosis) and he had 2 polyps removed from the colon ( both tubular adenomas without dysplasia). : No problems reported other than his baseline BPH. Neuropsych: Chronic pain, depression. No additions. Endocrine: Prior history of diabetes, but no active treatment at the present. He is on replacement for hypothyroidism. PHYSICAL EXAMINATION GENERAL: Well-nourished, morbidly obese male, in no acute distress. He appears mildly uncomfortable. VITAL SIGNS: Height 5 feet 5 inches, weight 280 pounds, BMI 46.6. Temperature 97.6, blood pressure 127/78, pulse ranging from 54 to 66, respirations 16, room air saturation 96%. HEENT: Pupils are equal, round, reactive. He does have some ptosis on the left upper lid. EOMs intact. No conjunctival pallor. No scleral icterus. Oropharynx: Teeth in good repair. No intraoral lesions. NECK: No lymphadenopathy, thyromegaly, or masses. LUNGS: Clear to auscultation. No rales or wheezes. HEART: Regular rate and rhythm. Mildly bradycardic. No murmur noted. ABDOMEN: Obese. There is a visible bulge at the umbilicus consistent with his previously known umbilical hernia. This is soft, nontender and feels mostly reducible. He has moderately severe tenderness in the mid epigastrium approximately snf between the xiphoid and the umbilicus as well as in the right upper quadrant with positive Shrestha's sign. The remainder of the abdomen is minimally or nontender and without palpable masses or organomegaly though exam is limited by body habitus. There are no palpable inguinal hernias. GENITALIA: Otherwise not examined. RECTAL: Not done. BACK: He has moderate spinous process tenderness, which he states is consistent with his usual. No significant CVA tenderness. EXTREMITIES: No edema. NEUROLOGICAL: Grossly intact. SKIN: Warm and dry. No suspicious rashes or lesions. He has compression stockings on the lower extremities, which he states are for prevention and that there are no active lesions or open areas. DIAGNOSTIC STUDIES/LAB DATA: White blood cell count 5,500, hemoglobin 11.7, hematocrit 36. Chemistries, electrolytes, LFTs and lipase are normal. Glucose 104. Cardiac enzymes are negative. BNP is elevated at 398. Urinalysis shows specific gravity of 1.046 and 1+ blood. CT scan of the abdomen and pelvis shows cholelithiasis with question of air versus fat in the superior portion of the gallbladder. This is apparently similar to CT exam in 2016. The appendix is described as normal. There are sigmoid diverticula without inflammatory changes. There are degenerative changes of the disks in the lower thoracic and lumbar spines. There is a left hip prosthesis. Ultrasound was also obtained confirming the presence of gallstones. There was no evidence of gallbladder wall thickening, pericholecystic fluid, or ductal dilatation. IMPRESSION: Abdominal pain with cholelithiasis, possible biliary colic. My concern is in terms of the remainder of his abdominal exam regarding potential for internal hernia. PLAN: Case was discussed with Dr. Montilla. He will be admitted to our service and Dr. Montilla will review the CT scan. Tentative plans at this point are for IV hydration and pain control and potential laparoscopy for cholecystectomy and review of the gastric bypass anatomy. That would potentially be for tomorrow, 07/31/17. MUNA CAMARILLO [id number]/[facility] #: [id number] I interviewed and examined patient separately and discussed care with NPP. Agree with above. ANA PAULA
[2017-07-30] MEDS: Lidocaine PATCH 5%* 1 PATCH TRANSDERM PRN (20:40)
[2017-07-30] MEDS: Nystatin TOP POWDER* 15 GM BTL TOPICAL SCH (20:41)
[2017-07-30] MEDS: Lidocaine Patch REMOVE* 1 NOTE MISC PATCH OFF SCH (21:55)
[2017-07-30] MEDS: Scopolamine 1.5 mg* PATCH TRANSDERM PRN (22:39)
[2017-07-30] MEDS: traZODone TAB* 100 MG PO SCH (22:45)
[2017-07-30] MEDS: Scopolamine PATCH Remove* 1 NOTE MISC PATCH OFF SCH (23:58)
[2017-07-31] MEDS: HYDROmorphone INJ* 2 MG/ML CARPUJECT SYRINGE IV SLOW PU PRN ×4 (02:45→23:02)
[2017-07-31] MEDS: NS 0.9% 1000 ML* 1,000 ML IV SCH ×2 (02:47→16:29)
[2017-07-31] MEDS: Levothyroxine TAB* 75 MCG TAB PO SCH (05:51)
[2017-07-31] MEDS: oxyCODONE TAB* 5 MG TAB PO PRN ×2 (06:49→16:09)
[2017-07-31] MEDS: fentaNYL Patch Check Q Shift 1 NOTE SCH ×2 (07:26→18:56)
--- NOTE | 2017-07-31 07:39 | ED ---
Samia Perry Gabriel, trented for Mihai Huerta MD on 07/30/17 at 0748 . Progress - Progress Note Progress Note: This patient was signed out from Dr. Christensen, pending disposition, awaiting gallbladder US. Gallbladder US reveals CHOLELITHIASIS WITHOUT EVIDENCE FOR ACUTE CHOLECYSTITIS. The patients condition is stable and will be admitted for epigastric pain and gallstones. - Results/Orders Results/Orders: This patient was signed out from Dr. Christensen, pending disposition, awaiting gallbladder US. Gallbladder US reveals CHOLELITHIASIS WITHOUT EVIDENCE FOR ACUTE CHOLECYSTITIS. The patients condition is stable and will be admitted for epigastric pain and gallstones. Re-Evaluation - Re-Evaluation First Eval Re-Evaluation Time: 05:40 Comment: Discussed results. Still having pain in the epigastrum which is plasterer tender to palpation. Course/Dx - Course Course Of Treatment: Medications reviewed. Allergies noted. GALLSTONES WITH ENLARGED GALL BLADDER ON CT. ABD TENDERNESS EPIGASTRIUM. DISCUSSED WITH DR MONTILLA, SURGERY. SURGERY WILL CONSULT IN ED. - Diagnoses Provider Diagnoses: Epigastric pain, Gallstones - Provider Notifications Discussed Care Of Patient With: Eb Montilla Time Discussed With Above Provider: 09:54 Instructed by Provider To: Other - I discussed patient care with Dr. Montilla after he came and assessed the patient. He recommended medical vs surgical admission. Discharge - Sign-Out/Discharge Documenting (check all that apply): Discharge/Admit/Transfer - admitted - Discharge Plan Condition: Fair Disposition: ADMITTED TO [facility] Referrals: Alex Hernández MD [Primary Care Provider] - The documentation as recorded by the Samia venegas Gabriel accurately reflects the service I personally performed and the decisions made by Deanna garcia Jerry, MD.
[2017-07-31] MEDS: Pregabalin CAP(*) 50 MG PO SCH ×3 (08:21→21:09)
[2017-07-31] MEDS: Omeprazole CAP* 20 MG PO SCH (08:22)
[2017-07-31] MEDS: Tamsulosin CAP* 0.4 MG PO SCH (08:22)
[2017-07-31] MEDS: Nystatin TOP POWDER* 15 GM BTL TOPICAL SCH ×3 (08:22→22:00)
[2017-07-31] MEDS ORDERED: NS 0.9% 50 ML* 50 ML with ceFOXitin(*) 2 GM IVPB ONE ×2 (10:00)
[2017-07-31] MEDS ORDERED: Succinylcholine* 20 MG/ML 10 ML VIAL ONE ×2 (10:14→10:15)
[2017-07-31] MEDS ORDERED: fentaNYL* 50 MCG/ML 2 ML VIAL (100 MCG VIAL) ONE ×3 (10:15→12:35)
[2017-07-31] MEDS ORDERED: Midazolam* 1 MG/ML 5 ML VIAL (5 MG) ONE (10:15)
[2017-07-31] MEDS ORDERED: Dexamethasone IV* 4 MG/ML 1 ML (4 MG) ONE ×2 (10:15→10:42)
[2017-07-31] MEDS ORDERED: Propofol* 10 MG/ML 20 ML BTL IV PUSH ONE (10:15)
[2017-07-31] MEDS ORDERED: Atracurium* 10 MG/ML 10 ML VIAL ONE (10:33)
[2017-07-31] MEDS ORDERED: Bupivacaine 0.25% SDV* 30 ML ONE (10:36)
[2017-07-31] MEDS ORDERED: Naloxone* 0.4 MG/ML 1 ML VIAL IV PRN (12:24)
[2017-07-31] MEDS ORDERED: Ondansetron INJ* 2 MG/ML VIAL IV PRN (12:24)
[2017-07-31] MEDS ORDERED: DiMENhydriNATE IV* 50 MG/ML VIAL IV PUSH PRN (12:24)
[2017-07-31] MEDS ORDERED: fentaNYL* 50 MCG/ML 2 ML VIAL (100 MCG VIAL) IV PRN (12:24)
[2017-07-31] MEDS ORDERED: fentaNYL* 50 MCG/ML 5 ML VIAL (250 MCG VIAL) ONE (12:35)
[2017-07-31] MEDS ORDERED: Glycopyrrolate IV* 0.2 MG/ML 1 ML VIAL ONE (12:59)
[2017-07-31] MEDS ORDERED: Neostigmine Methylsulfate* 2 MG/2 ML SYRINGE ONE (12:59)
[2017-07-31] MEDS ORDERED: HYDROmorphone INJ* 2 MG/ML CARPUJECT SYRINGE ONE (13:06)
[2017-07-31] MEDS: HYDROmorphone INJ* 1 MG/ML CARPUJECT SYRINGE IV PRN ×5 (13:08→13:30)
--- NOTE | 2017-07-31 13:11 | OP ---
Operative Report - Blank - Operative Report Date of Operation: 07/31/17 Note: Preop Dx: Cholilithiasis with abdominal pain Postop Dx: Acute Cholecystitis Procedure: Laparoscopic Cholecystectomy Surgeon: Olesya Assist: MUNA Ospina; ANGELA Thurstno Anesthesia: GET; Sanito Fluid: 800mL RL EBL: 200mL Specimen: GB Drains: ASHANTI Findings: Dictated
[2017-07-31] MEDS ORDERED: HYDROmorphone INJ* 2 MG/ML CARPUJECT SYRINGE IV SLOW PU PRN (13:26)
[2017-07-31] MEDS ORDERED: Zosyn per Pharmacy* NOTE FOLLOW UP SCH (14:00)
[2017-07-31] MEDS: hydrOXYzine HCL TAB* 25 MG PO PRN (19:59)
[2017-07-31] MEDS ORDERED: Piperacillin/Tazobac ADVAN(*) 3.375 GM in NS 0.9% 100 ML* 100 ML IVPB ONE (20:30)
[2017-07-31] MEDS ORDERED: LORazepam INJ* 2 MG/ML 1 ML VIAL IV PRN (20:57)
--- NOTE | 2017-07-31 21:02 | CONSULT ---
Consult Consult: PCP: Date/Time: 07/31/2017 2100 Reason for Consult: post-op tachycardia HPI: Mr Warner is a 57YO supermorbidly obese white male HX remote unsuccessful gastric bypass who is day zero post-op of a laparoscopic cholecystectomy & exploration whom nursing reports has asymptomatic tachycardia in the 120s without exertion. Upon evaluation, Mr Warner reports ongoing 7/10 non-radiating diffuse dull abdominal pain and feeling hot, but no chills, rigors , sweats, SOB, chest pain, N/V, or subjective palpitations. He does admit to itchy patches on BLE, pannus, & intertringinal areas. His last dose of pain medication was hydromorphone 2mg IV administered ~15minutes prior. He is due for gabapentin & oxycodone. PMedHx DM2, diet controlled asthma, mild HTN LIZZETTE on nightly BiPap hypothyroidism chronic diffuse arthritic pain followed by Sinan Rodriguez MD rheumatology GERD BPH depression insomnia Ambulatory Orders Finasteride TAB* [Proscar TAB*] 5 mg PO DAILY 02/16/15 Levothyroxine TAB* [Synthroid 75 MCG TAB*] 75 mcg PO QAM 02/16/15 fentaNYL PATCH 25 MCG/HR* [Duragesic PATCH 25 Mcg/Hr*] 25 mcg TRANSDERM Q72H ARIPiprazole TAB* [Abilify TAB*] 10 mg PO BEDTIME PRN 04/06/15 Albuterol HFA INHALER* [Ventolin HFA Inhaler*] 2 puff INH Q4H PRN 04/06/15 Pregabalin CAP(*) [Lyrica CAP(*)] 150 mg PO TID 04/06/15 traZODone TAB* [Desyrel TAB*] 200 mg PO BEDTIME 04/06/15 Omeprazole CAP* [Prilosec CAP* 20 MG] 20 mg PO QAM #30 cap. 04/11/15 Furosemide TAB* [Lasix TAB*] 40 mg PO DAILY 12/23/15 Losartan TAB* [Cozaar TAB*] 100 mg PO DAILY tab 12/27/15 Lidocaine PATCH 5%* [Lidoderm 5% Patch*] 1 patch TRANSDERM DAILY PRN 05/08/16 Nystatin CREAM* [Nystatin Cream*] 1 applic TOPICAL TID #60 gm 05/12/16 oxyCODONE TAB* [Roxycodone TAB 5 mg*] 10 mg PO Q8HR PRN #60 tab 05/12/16 diPHENhydraMINE PO* [Benadryl PO 25 MG TAB*] 25 mg PO Q6H PRN #30 tab 07/17/16 Docusate Sodium [Colace] 100 mg PO SEE INSTRUCTIONS PRN 10/15/16 Vilazodone (NF) [Viibryd (NF)] 40 mg PO DAILY 10/15/16 Tamsulosin CAP* [Flomax CAP*] 0.4 mg PO DAILY 10/20/16 hydrOXYzine HCL TAB* [Atarax 25 MG TAB*] 50 mg PO DAILY PRN 10/20/16 Sulfasalazine 500 mg PO BID 07/30/17 Allergies pioglitazone [From [employer]] Adverse Reaction (Verified 06/04/17 13:17) Coughing PSurgHx POD zero laparoscopic cholecystectomy & exploratoin tonsillectomy laparoscopic Mohini-en-Y gastric bypass 2012 L ANDREI R knee arthroscopy SocHx: former light smoker, mild alcohol, denies recreational drugs; lives with his sons; full code status FamHx: Mother: CVA; Father: CAD/NV ROS: as above, otherwise reviewed and all were negative vitals: Vital Signs Temp 36.8 C 07/31/17 18:04 Pulse 107 07/31/17 18:04 Resp 18 07/31/17 21:09 BP 152/81 07/31/17 18:04 Pulse Ox 96 07/31/17 20:13 Intake & Output 07/30/17 07/31/17 07/31/17 23:59 11:59 23:59 Intake Total 248 743 6990 Output Total 088 264 8597 Balance 250 285 500 Weight 127.006 kg Intake: IV Fluids 478 393 4579 LR 1000 NS (0.9%) 975 885 NS 50ML, Cefoxitin 2G 50 Oral 0 Output: ASHANTI #1 40 Urine 099 370 1950 Constitutional: NAD, normally developed, super morbidly obese white male HEENM: atraumatic; sclera/conjunctiva: anicteric/clear; hearing: clinically intact; oropharynx: clear, mucosa moist Neck: soft tissue: non-tender; thyroid: non-tender Pulmonary: clear to auscultation bilaterally, good aeration, no accessory muscle use CV: TR/RR, normal S1S2, no carotid bruit, no jugular venous distention, 1+ B DP/ PT, 1+ BLE edema Abdominal: soft, non-distended, moderately diffusely tender with voluntary guarding but no rebound/rigidity, normoactive bowel sounds, no hepatosplenomegaly or masses, no costovertebral angle tenderness Musculoskeletal: general: grossly intact, non-tender Integumental: B shins w/ chronic venous stasis discoloration Psychiatric orientation: AA&O to PPS affect: mildly anxious, pain mood: cooperative eye contact: good content: reliable responses: somewhat tangential insight: fair to good Impression: 57M w/ day zero post-op laparoscopic cholecystectomy w/ tachycardia felt to be 2nd uncontrolled pain & anxiety DIAGNOSIS & PLAN Primary day zero post-op laparoscopic cholecystectomy : management per surgery tachycardia felt to be 2nd uncontrolled pain & anxiety : given 2mg IV hydromorphone ~15minutes prior to evaluation : telemetry for closer monitoring : 1mg IV lorazepam for enhanced pain control and anxiety relief : call if HR maintains >105 Secondary DM2, diet controlled : check A1c : ACHS glucometry : hypoglycemic to be added pending above results asthma, mild : PRN albuterol HTN : restart losartan at 50mg PO daily LIZZETTE : continue BiPap HS hypothyroidism : continue levothyroxine chronic diffuse arthritic pain followed by Sinan Rodriguez MD rheumatology : continue fentanyl patch, lidocaine patch, oxycodone, & pregabalin GERD : continue omeprazole BPH : continue tamsulosin depression : continue aripiprazole insomnia : continue trazodone Ambulatory Orders Vilazodone (NF) [Viibryd (NF)] 40 mg PO DAILY 10/15/16 Admission Rational: DVTp: Code Status: HCP:
[2017-07-31] MEDS: traZODone TAB* 100 MG PO SCH (21:09)
[2017-07-31] MEDS: Lidocaine Patch REMOVE* 1 NOTE MISC PATCH OFF SCH (23:04)
[2017-08-01] MEDS: ZOSYN 3.375 GM Q8H per EXTENDED INFUSION IVPB SCH ×6 (00:54→16:27)
[2017-08-01] MEDS: NS 0.9% 1000 ML* 1,000 ML IV SCH ×2 (01:01→10:50)
[2017-08-01] MEDS: oxyCODONE TAB* 5 MG TAB PO PRN ×3 (04:02→20:07)
[2017-08-01 05:46] LABS: ABS Basophils 0 10^3/ul (0-0.2); ABS Eosinophils 0 10^3/ul (0-0.6); ABS Lymphocytes 1.3 10^3/ul (1.0-4.8); ABS Monocytes 1.1 10^3/ul (0-0.8); ABS Neutrophils 6.5 10^3/ul (1.5-7.7); ABS Nucleated RBC 0 10^3/ul; Eosinophil % 0.2 % (0-6); Hematocrit 35 % (42-52); Hemoglobin 11.2 g/dl (14.0-18.0); Lymphocyte % 14.2 % (25-47); Mean Corpuscular HGB Conc 32 g/dl (31-36); Mean Corpuscular Hemoglobin 28 pg (27-31); Mean Corpuscular Volume 88 fL (80-94); Mean Platelet Volume 9.2 um3 (7.4-10.4); Nucleated Red Blood Cells % 0; Platelet Count 207 10^3/ul (150-450); Red Blood Count 3.98 10^6/ul (4.0-5.4); Red Cell Distribution Width 16 % (10.5-15); White Blood Count 8.9 10^3/ul (3.5-10.8)
[2017-08-01 05:54] LABS: INR 1.03 (0.77-1.02)
[2017-08-01 06:05] LABS: EGFR Non-African American 87.3 (>60)
[2017-08-01] MEDS: Levothyroxine TAB* 75 MCG TAB PO SCH (06:23)
[2017-08-01] MEDS: HYDROmorphone INJ* 2 MG/ML CARPUJECT SYRINGE IV SLOW PU PRN (06:24)
[2017-08-01] MEDS: Heparin VIAL(*) 5000 UNITS/ML VIAL (FIVE THOUSAND) SUBCUT SCH ×3 (07:04→21:59)
[2017-08-01] MEDS: fentaNYL Patch Check Q Shift 1 NOTE SCH ×3 (07:06→19:17)
--- NOTE | 2017-08-01 07:27 | PN ---
Progress Note - Progress Note Date of Service: 08/01/17 SOAP: Subjective: Pt seen and examined. tachycardic overnight. hospitalist input appreciated. Pt c/o r sided abdo pain. pos appetite. some nausea Objective: Temp Pulse Resp BP Pulse Ox 99.4 F 88 16 129/63 98 08/01/17 03:48 08/01/17 03:48 08/01/17 06:24 08/01/17 03:48 08/01/17 03:48 a and o x3, nad lungs clear abdo: soft/ obese/ tender w/o rebound faiza serous no calf tenderness labs noted Assessment: POD1 dx lap, juan m Plan: pain control OOB incentive spirometer full liquids FAIZA for one more day
--- NOTE | 2017-08-01 08:29 | OP ---
DATE OF OPERATION: 07/31/17 - ROOM #339 DATE OF : 62 SURGEON: Mateo Dacosta MD ASSISTANTS: 1. Eb Montilla MD 2. MUNA Lei ANESTHESIOLOGIST: Reza Hummel MD ANESTHESIA: General with local. PRE-OP DIAGNOSES: 1. Epigastric and right upper quadrant abdominal pain. 2. Gallstones. 3. History of Mohini-en-Y gastric bypass. POST-OP DIAGNOSES: 1. Epigastric and right upper quadrant abdominal pain. 2. Acute calculous cholecystitis. 3. Incidental Meckel's diverticulum in the terminal ileum. OPERATIVE PROCEDURE: Laparoscopic cholecystectomy. INDICATIONS: Mr. Matthew Warner is a 57-year-old gentleman who presented to the emergency room with a rather sudden onset of epigastric and right upper quadrant abdominal discomfort. This was associated with nausea. He had undergone a previous Mohini-en-Y gastric bypass several years ago at another hospital. He had no nausea or vomiting. There were no fevers. His laboratory workup was unremarkable. He underwent an ultrasound of his gallbladder, which showed gallstones without gallbladder wall thickening or pericholecystic fluid. A CAT scan of the abdomen and pelvis also confirmed gallstones and no evidence of bowel obstruction or other acute abnormality. He has had persistent epigastric and right upper quadrant abdominal pain in light of the gallstones as well as the previous Mohini-en-Y gastric bypass with concern for possible internal hernia, he is being taken to the operating room now for a diagnostic laparoscopy with probable laparoscopic cholecystectomy. The procedure was discussed with the patient, the risks but not limited to bleeding, infection, intraabdominal abscess formation, injury to peritoneal and retroperitoneal structures, common bile injury requiring further surgical reconstruction, bile leak, an open procedure, possibility of bowel resection, and other indicated procedures were all explained. The risk of general anesthesia, deep vein thrombosis were also discussed. ESTIMATED BLOOD LOSS: 200 cc. IV FLUIDS: 1.5 L of crystalloid. SPECIMENS: Gallstones. DRAINS: #10 ASHANTI drain in the right upper quadrant. FINDINGS: The patient had thickened, acutely inflamed gallbladder with contained gallstones and sludge. The previous anatomy of the Mohini-en-Y gastric bypass was also evaluated and there appeared to be a normal biliopancreatic limb , gastrojejunal limb, and distal jejunum and ileum, which was unremarkable for obstruction, internal hernia, or ischemia. A Meckel's diverticulum was noted incidentally and appeared to be unremarkable in the terminal ileum. An umbilical hernia with contained fat, which appeared to be omentum but not bowel. This was not reduced or repaired. This was evident on the pre-operative CT scan. DESCRIPTION OF PROCEDURE: Written informed consent was obtained, the abdomen was marked with indelible ink and preoperative antibiotics were administered. The patient was taken to the operating room, placed in the supine position. Sequential compression devices and a warming blanket were applied. General anesthesia was administered. The entire abdomen was prepped and draped in a usual sterile fashion. Initially, a vertical incision was made about 5 fingerbreadths above the umbilicus and the midline fascia was divided. The peritoneal cavity was entered under direct vision. A 12-mm blunt port was inserted and the abdomen was insufflated to 15 mmHg. Under direct vision, two 5-mm ports were placed in the right side of the abdominal wall. The gallbladder and liver were identified. The gallbladder appeared to be fatty without evidence of cirrhosis or other acute abnormality. The gallbladder was identified and it was whitish in color and thick walled and appeared to be edematous, findings consistent with acute calculous cholecystitis. An 11-mm epigastric port was placed. Here was noted a fat-containing umbilical hernia without evidence of bowel, which was incarcerated and viable and this was not repaired at this time. Evaluation was then turned to the cecum and terminal ileum, which were identified. We worked retrograde on the terminal ileum to begin to identify the anatomy of the previous bariatric surgery. In doing so, we noted a moderate- sized Meckel's diverticulum, which was without inflammation or abnormality in the terminal ileum. The jejunojejunostomy was identified and this appeared to be normal, although slightly dilated. The proximal gastrojejunal limb and biliopancreatic limb did not appear to be dilated. Both of these were followed completely up into the area of the gastrojejunal anastomosis as well as to the ligament of Treitz and there was no evidence of internal hernia, ischemia, or obstruction. It was at this point I felt that there were no problems with previous bariatric surgery. An decision was made to proceed with laparoscopic cholecystectomy in light of the gallstones and epigastric and right upper quadrant abdominal pain as well as the appearance of the gallbladder, which was consistent with acute cholecystitis. The gallbladder was then grasped and elevated up over the liver bed. The thickened peritoneum along the medial and lateral aspects of the gallbladder was then taken down. I did enter the gallbladder during the procedure inadvertently and there was bile and small stones and sludge which leaked, but we were able to collect all the small stones as well as irrigated and suctioned the bile. With care through the inflamed tissue in the infundibular area, I was able to identify the cystic duct and artery as they entered the gallbladder. The cystic duct appeared to be of normal caliber. I took a considerable portion of the inferior part of the gallbladder off the liver bed using the critical view technique to assure myself of these 2 structures. The cystic duct and artery were then doubly clipped and divided. We had inadvertently also torn the gallbladder off the liver bed posteriorly on retracting up over the liver bed and there were several small arterial vessels that appeared to be branches that were clipped. There was also a superficial vein, which was bleeding from the liver bed which was also clipped and cauterized. The gallbladder was removed from the liver bed, placed in EndoCatch bag, and brought out through the epigastric incision. On careful evaluation of the liver bed, there was still noted to be some oozing requiring some cautery and we held pressure with a 4x4 gauze for 5 or 6 minutes and this was removed. The hemostasis appeared to be assured but the tissue was quite raw and I did place a piece of Surgicel in the liver bed for postoperative hemostasis. In light of the bile that had been spilled as well as blood after irrigating thoroughly the right upper quadrant with saline, a #10 ASHANTI drain was placed in the Morison's pouch and brought out through the lateral stab wound on the right. This was sutured to the skin with interrupted 3-0 Prolene suture. All ports were removed under direct vision of the camera. The umbilical fascia was closed with interrupted 0 Vicryl suture. The skin at all three incisions was approximated with stapling device. Dry sterile dressings were applied. The patient tolerated the procedure well and was taken to the recovery room in stable condition. [id number]/[facility] #: [id number] ANA PAULA
[2017-08-01] MEDS: Omeprazole CAP* 20 MG PO SCH (08:55)
[2017-08-01] MEDS: Tamsulosin CAP* 0.4 MG PO SCH (08:55)
[2017-08-01] MEDS: Finasteride TAB* 5 MG PO SCH (08:55)
[2017-08-01] MEDS: Losartan TAB* 25 MG PO SCH (08:56)
[2017-08-01] MEDS: Pregabalin CAP(*) 50 MG PO SCH ×3 (08:56→21:53)
[2017-08-01] MEDS: hydrOXYzine HCL TAB* 25 MG PO PRN (08:56)
[2017-08-01] MEDS: Nystatin TOP POWDER* 15 GM BTL TOPICAL SCH ×3 (08:57→21:59)
[2017-08-01] MEDS: VILAZODONE 20 MG PO SCH (08:58)
[2017-08-01] MEDS: Acetaminophen TAB* 325 MG PO PRN (08:59)
[2017-08-01] MEDS ORDERED: Losartan TAB* 25 MG PO SCH (09:00)
--- NOTE | 2017-08-01 10:21 | PN ---
Subjective Date of Service: 08/01/17 Interval History: Tachycardic when he ambulated with Dr. Montilla this morning. Mr. Warner denies symptoms when he ambulated, no chest pain, shortness of breath, palpitations, lightheadedness, dizziness, at rest or with ambulation. He feels well now but does complain about soreness in his abdomen. Reports decent appetite, eating and drinking. He says the walking that he did this morning was more than he does when he is at home--he does not leave his house other than for doctors' appointments. He does not walk outside or even in the grocery store--his son does all the shopping and chores. He only has two steps in his home and that is the extent of his exertion on a regular basis. Objective Active Medications: Acetaminophen (Tylenol Tab*) 650 mg PO Q6H PRN PRN Reason: FEVER/PAIN Last Admin: 08/01/17 08:59 Dose: 650 mg Albuterol (Ventolin Hfa Inhaler*) 2 puff INH Q4H PRN PRN Reason: WHEEZING Aripiprazole (Abilify Tab*) 10 mg PO BEDTIME PRN PRN Reason: SLEEP Docusate Sodium (Colace Cap*) 100 mg PO Q24H PRN PRN Reason: CONSTIPATION Fentanyl (Duragesic Patch 25 Mcg/Hr*) 25 mcg TRANSDERM Q72H [facility] Last Admin: 07/30/17 13:37 Dose: 25 mcg Finasteride (Proscar Tab*) 5 mg PO DAILY [facility] Last Admin: 08/01/17 08:55 Dose: 5 mg Heparin Sodium (Porcine) (Heparin Vial(*)) 5,000 units SUBCUT Q8HR [facility] Last Admin: 08/01/17 07:04 Dose: 5,000 units Hydromorphone HCl (Dilaudid Inj*) 1 mg IV SLOW PU Q2H PRN PRN Reason: moderate pain Hydromorphone HCl (Dilaudid Inj*) 2 mg IV SLOW PU Q2H PRN PRN Reason: mod severe pain Last Admin: 08/01/17 06:24 Dose: 2 mg Hydroxyzine HCl (Atarax Tab*) 25 mg PO Q6H PRN PRN Reason: ITCHING Last Admin: 08/01/17 08:56 Dose: 25 mg Piperacillin Sod/Tazobactam (Sod 3.375 gm/ Sodium Chloride) 100 mls @ 25 mls/ hr IVPB Q8H [facility] Last Admin: 08/01/17 08:53 Dose: 25 mls/hr Sodium Chloride (Ns 0.9% 1000 Ml*) 1,000 mls @ 70 mls/hr IV PER RATE [facility] Levothyroxine Sodium (Synthroid Tab*) 75 mcg PO 0600 [facility] Last Admin: 08/01/17 06:23 Dose: 75 mcg Lidocaine (Lidoderm 5% Patch*) 1 patch TRANSDERM DAILY PRN PRN Reason: PAIN Last Admin: 07/30/17 20:40 Dose: 1 patch Lorazepam (Ativan Inj*) 1 mg IV ONCE PRN PRN Reason: tachycardia Losartan Potassium (Cozaar Tab*) 100 mg PO DAILY [facility] Last Admin: 08/01/17 08:56 Dose: 100 mg Nystatin (Nystatin Top Powder*) 1 applic TOPICAL TID [facility] Last Admin: 08/01/17 08:57 Dose: 1 powder Omeprazole (Prilosec Cap*) 20 mg PO DAILY@0730 [facility] Last Admin: 08/01/17 08:55 Dose: 20 mg Ondansetron HCl (Zofran Odt Tab*) 4 mg SL Q6H PRN PRN Reason: NAUSEA/VOMITING Last Admin: 07/30/17 19:36 Dose: 4 mg Oxycodone HCl (Roxycodone Tab*) 20 mg PO TID PRN PRN Reason: PAIN Pharmacy Consult (Zosyn Per Pharmacy*) 1 note FOLLOW UP .ZOSYN PER PHARMACY [facility] Pharmacy Profile Note (Lidocaine Patch Remove*) 1 note PATCH OFF BEDTIME [facility] Last Admin: 07/31/17 23:04 Dose: Not Given Pharmacy Profile Note (Fentanyl Patch Check Q Shift) 1 note N/A 0700,1900 [facility] Last Admin: 08/01/17 07:06 Dose: 1 note Pharmacy Profile Note (Scopolamine Patch Remove*) 1 note PATCH OFF Q72H [facility] Last Admin: 07/30/17 23:58 Dose: Not Given Pregabalin (Lyrica Cap(*)) 150 mg PO TID [facility] Last Admin: 08/01/17 08:56 Dose: 150 mg Scopolamine (Transderm-Scop 1.5 Mg Patch*) 1 patch TRANSDERM Q72H PRN PRN Reason: NAUSEA/VOMITING Last Admin: 07/30/17 22:39 Dose: 1 patch Tamsulosin HCl (Flomax Cap*) 0.4 mg PO DAILY [facility] Last Admin: 08/01/17 08:55 Dose: 0.4 mg Tizanidine HCl (Zanaflex Tab*) 2 mg PO Q8H PRN PRN Reason: LEG CRAMPS Trazodone HCl (Desyrel Tab*) 200 mg PO BEDTIME [facility] Last Admin: 07/31/17 21:09 Dose: 200 mg Vilazodone HCl (Viibryd (Nf)) 40 mg PO DAILY [facility] PRN Reason: Protocol Last Admin: 08/01/17 08:58 Dose: Not Given Vital Signs - 8 hr 08/01/17 08/01/17 08/01/17 03:48 04:02 05:49 Temperature 99.4 F Pulse Rate 88 Respiratory 16 16 10 Rate Blood Pressure 129/63 (mmHg) O2 Sat by Pulse 98 Oximetry 08/01/17 08/01/17 08/01/17 06:15 06:24 07:18 Temperature 98.6 F Pulse Rate 115 Respiratory 16 16 18 Rate Blood Pressure 120/59 (mmHg) O2 Sat by Pulse 97 Oximetry 08/01/17 08/01/17 08/01/17 08:00 08:21 08:56 Temperature Pulse Rate Respiratory 18 18 Rate Blood Pressure (mmHg) O2 Sat by Pulse 95 95 Oximetry 08/01/17 09:02 Temperature Pulse Rate Respiratory 18 Rate Blood Pressure (mmHg) O2 Sat by Pulse Oximetry Oxygen Devices in Use Now: None, BiPAP Appearance: alert, sitting up in chair in no distress. no diaphoresis. Eyes: No Scleral Icterus Ears/Nose/Mouth/Throat: NL Teeth, Lips, Gums Neck: NL Appearance and Movements; NL JVP Respiratory: Symmetrical Chest Expansion and Respiratory Effort, Clear to Auscultation Cardiovascular: NL Sounds; No Murmurs; No JVD, RRR, - - HR in 90s Abdominal: - - obese. laparoscopy incisions clean. ASHANTI drain with bloody fluid. Lymphatic: No Cervical Adenopathy Extremities: - - 1+ edema b/l--he says this is as usual for him Skin: No Rash or Ulcers Neurological: Alert and Oriented x 3 Result Diagrams: 08/01/17 05:14 08/01/17 05:14 Additional Lab and Data: Lab Results 07/30/17 07/30/17 07/30/17 Range/Units 02:32 02:32 02:32 WBC 5.5 (3.5-10.8) 10^3/ul RBC 4.14 (4.0-5.4) 10^6/ul Hgb 11.7 L (14.0-18.0) g/dl Hct 36 L (42-52) % MCV 88 (80-94) fL MCH 28 (27-31) pg MCHC 32 (31-36) g/dl RDW 16 H (10.5-15) % Plt Count 196 (150-450) 10^3/ul MPV 9.3 (7.4-10.4) um3 Neut % (Auto) 41.6 (38-83) % Lymph % (Auto) 41.0 (25-47) % [place] % (Auto) 10.5 H (0-7) % Eos % (Auto) 6.2 H (0-6) % Baso % (Auto) 0.7 (0-2) % Absolute Neuts (auto) 2.3 (1.5-7.7) 10^3/ul Absolute Lymphs (auto) 2.2 (1.0-4.8) 10^3/ul Absolute Monos (auto) 0.6 (0-0.8) 10^3/ul Absolute Eos (auto) 0.3 (0-0.6) 10^3/ul Absolute Basos (auto) 0 (0-0.2) 10^3/ul Absolute Nucleated RBC 0 10^3/ul Nucleated RBC % 0.1 INR (Anticoag Therapy) 1.01 (0.77-1.02) APTT 30.5 (26.0-36.3) seconds Sodium 140 (139-145) mmol/L Potassium 4.0 (3.5-5.0) mmol/L Chloride 109 (101-111) mmol/L Carbon Dioxide 25 (22-32) mmol/L Anion Gap 6 (2-11) mmol/L BUN 14 (6-24) mg/dL Creatinine 0.89 (0.67-1.17) mg/dL Est GFR ( Amer) 113.7 (>60) Est GFR (Non-Af Amer) 88.4 (>60) BUN/Creatinine Ratio 15.7 (8-20) Glucose 104 H (70-100) mg/dL Lactic Acid (0.5-2.0) mmol/L Calcium 8.3 L (8.6-10.3) mg/dL Total Bilirubin 0.30 (0.2-1.0) mg/dL AST 10 L (13-39) U/L ALT 7 (7-52) U/L Alkaline Phosphatase 89 (34-104) U/L Total Creatine Kinase 24 (10-223) U/L CK-MB (CK-2) 0.3 L (0.6-6.3) ng/mL Troponin I 0.00 (<0.04) ng/mL C-Reactive Protein 1.26 (< 5.00) mg/L B-Natriuretic Peptide ( - 100) pg/mL Total Protein 6.3 L (6.4-8.9) g/dL Albumin 3.5 (3.2-5.2) g/dL Globulin 2.8 (2-4) g/dL Albumin/Globulin Ratio 1.3 (1-3) Lipase 10 L (11.0-82.0) U/L TSH 3.00 (0.34-5.60) mcIU/mL Urine Color Urine Appearance Urine pH (5-9) Ur Specific [place] (1.010-1.030) Urine Protein (Negative) Urine Ketones (Negative) Urine Blood (Negative) Urine Nitrate (Negative) Urine Bilirubin (Negative) Urine Urobilinogen (Negative) Ur Leukocyte Esterase (Negative) Urine WBC (Auto) (Absent) Urine RBC (Auto) (Absent) Ur Squamous Epith Cells (Absent) Urine Bacteria (Absent) Urine Glucose (Negative) 07/30/17 07/30/17 07/30/17 Range/Units 02:32 02:32 06:26 WBC (3.5-10.8) 10^3/ul RBC (4.0-5.4) 10^6/ul Hgb (14.0-18.0) g/dl Hct (42-52) % MCV (80-94) fL MCH (27-31) pg MCHC (31-36) g/dl RDW (10.5-15) % Plt Count (150-450) 10^3/ul MPV (7.4-10.4) um3 Neut % (Auto) (38-83) % Lymph % (Auto) (25-47) % [place] % (Auto) (0-7) % Eos % (Auto) (0-6) % Baso % (Auto) (0-2) % Absolute Neuts (auto) (1.5-7.7) 10^3/ul Absolute Lymphs (auto) (1.0-4.8) 10^3/ul Absolute Monos (auto) (0-0.8) 10^3/ul Absolute Eos (auto) (0-0.6) 10^3/ul Absolute Basos (auto) (0-0.2) 10^3/ul Absolute Nucleated RBC 10^3/ul Nucleated RBC % INR (Anticoag Therapy) (0.77-1.02) APTT (26.0-36.3) seconds Sodium (139-145) mmol/L Potassium (3.5-5.0) mmol/L Chloride (101-111) mmol/L Carbon Dioxide (22-32) mmol/L Anion Gap (2-11) mmol/L BUN (6-24) mg/dL Creatinine (0.67-1.17) mg/dL Est GFR ( Amer) (>60) Est GFR (Non-Af Amer) (>60) BUN/Creatinine Ratio (8-20) Glucose (70-100) mg/dL Lactic Acid 1.0 (0.5-2.0) mmol/L Calcium (8.6-10.3) mg/dL Total Bilirubin (0.2-1.0) mg/dL AST (13-39) U/L ALT (7-52) U/L Alkaline Phosphatase (34-104) U/L Total Creatine Kinase (10-223) U/L CK-MB (CK-2) (0.6-6.3) ng/mL Troponin I (<0.04) ng/mL C-Reactive Protein (< 5.00) mg/L B-Natriuretic Peptide 398 H ( - 100) pg/mL Total Protein (6.4-8.9) g/dL Albumin (3.2-5.2) g/dL Globulin (2-4) g/dL Albumin/Globulin Ratio (1-3) Lipase (11.0-82.0) U/L TSH (0.34-5.60) mcIU/mL Urine Color Yellow Urine Appearance Clear Urine pH 5.0 (5-9) Ur Specific [place] 1.046 H (1.010-1.030) Urine Protein Negative (Negative) Urine Ketones Negative (Negative) Urine Blood 1+ A (Negative) Urine Nitrate Negative (Negative) Urine Bilirubin Negative (Negative) Urine Urobilinogen Negative (Negative) Ur Leukocyte Esterase Negative (Negative) Urine WBC (Auto) Absent (Absent) Urine RBC (Auto) Trace(0-2/hpf) (Absent) Ur Squamous Epith Cells Present A (Absent) Urine Bacteria Absent (Absent) Urine Glucose Negative (Negative) Assess/Plan/Problems-Billing Assessment: 57 yo man with chronic pain syndrome and history of job en y admitted on 07/30 for epigastric pain, then went to the OR on 07/31 for diagnostic laparoscopy, which resulted in a cholecystectomy and ASHANTI drain placement due to bile leakage. - Patient Problems (1) Sinus tachycardia Current Visit: Yes Status: Acute Code(s): R00.0 - TACHYCARDIA, UNSPECIFIED SNOMED Code(s): 63176329 Comment: Currently at rest, he is in a normal rhythm and rate. I reviewed his telemetry. I reviewed his prior admissions, and he was noted to be tachycardic then as well, for which a work up was negative. He appears euvolemic. Some bleeding was noted intra-operatively from the liver bed, however hgb is stable post-op. He is on half the oxycodone that he usually takes at home, and he does not have a lidocaine patch on as he usually does at home. I verified his home doses with the [facility]. I am increasing his regimen here to his home dose, as I think this may be contributing to his tachycardia. He does not drink etoh or take benzos at home. He is also profoundly deconditioned as detailed in my HPI and spends the majority of his day in bed or in the chair and never leaves home except to go to the pain clinic. His TSH is normal. His EKG at admission showed sinus sebas with a RBBB--I would like to repeat that today. An echo done 04/2016 showed ef 65% with no significant valvular abnormality and a normal RV. Will continue to follow this while he is admitted. Continue telemetry today.
[2017-08-01] MEDS: tiZANidine TAB* 2 MG PO PRN (14:50)
[2017-08-01] MEDS ORDERED: Ketorolac INJ* 30 MG/ML 1 ML VIAL ONE (15:53)
[2017-08-01] MEDS: Ketorolac INJ* 30 MG/ML 1 ML VIAL IV PRN ×2 (15:55→22:00)
[2017-08-01] MEDS: Lidocaine Patch REMOVE* 1 NOTE MISC PATCH OFF SCH (21:52)
[2017-08-01] MEDS: traZODone TAB* 100 MG PO SCH (21:52)
[2017-08-02] MEDS: ZOSYN 3.375 GM Q8H per EXTENDED INFUSION IVPB SCH ×8 (00:37→23:59)
[2017-08-02] MEDS: NS 0.9% 1000 ML* 1,000 ML IV SCH ×2 (01:34→16:36)
[2017-08-02] MEDS: HYDROmorphone INJ* 2 MG/ML CARPUJECT SYRINGE IV SLOW PU PRN ×3 (02:30→20:41)
[2017-08-02] MEDS: Ondansetron ODT TAB* 4 MG SL PRN ×4 (04:24→23:59)
[2017-08-02] MEDS: tiZANidine TAB* 2 MG PO PRN (05:19)
[2017-08-02] MEDS: Levothyroxine TAB* 75 MCG TAB PO SCH (05:19)
[2017-08-02] MEDS: Heparin VIAL(*) 5000 UNITS/ML VIAL (FIVE THOUSAND) SUBCUT SCH ×3 (05:20→22:36)
[2017-08-02] MEDS: oxyCODONE TAB* 5 MG TAB PO PRN ×2 (05:22→13:53)
[2017-08-02] MEDS: hydrOXYzine HCL TAB* 25 MG PO PRN ×2 (05:22→14:22)
[2017-08-02] MEDS: fentaNYL Patch Check Q Shift 1 NOTE SCH ×2 (06:39→18:38)
[2017-08-02] MEDS: Omeprazole CAP* 20 MG PO SCH (07:35)
--- NOTE | 2017-08-02 09:14 | PN ---
Progress Note - Progress Note Date of Service: 08/02/17 Note: Surgery Appreciate Dr. Le's input regarding tachycardia which seems to be due to deconditioning. Last night I was called about Mr. Warner having excess drainage around ASHANTI. This morning he c/o nausea. He is using zofran and scope patch. He also says he still has pain. He has had some toradol, but is still using narcotic. Vital Signs 08/01/17 08/01/17 08/01/17 10:58 11:38 12:03 Temperature 98.3 F Pulse Rate 94 Respiratory 18 17 18 Rate Blood Pressure 127/61 (mmHg) O2 Sat by Pulse 97 Oximetry 08/01/17 08/01/17 08/01/17 14:26 14:49 15:34 Temperature 98.0 F Pulse Rate 87 Respiratory 18 18 16 Rate Blood Pressure 128/58 (mmHg) O2 Sat by Pulse 99 Oximetry 08/01/17 08/01/17 08/01/17 16:00 19:44 19:47 Temperature 98.0 F Pulse Rate 77 Respiratory 16 16 Rate Blood Pressure 106/55 (mmHg) O2 Sat by Pulse 99 98 Oximetry 08/01/17 08/01/17 08/01/17 20:07 21:53 23:28 Temperature Pulse Rate Respiratory 16 16 16 Rate Blood Pressure (mmHg) O2 Sat by Pulse Oximetry 08/01/17 08/02/17 08/02/17 23:51 00:00 00:27 Temperature 97.9 F Pulse Rate 85 Respiratory 18 16 Rate Blood Pressure 106/58 (mmHg) O2 Sat by Pulse 95 95 Oximetry 08/02/17 08/02/17 08/02/17 02:30 03:25 03:45 Temperature 98.9 F Pulse Rate 94 Respiratory 18 18 16 Rate Blood Pressure 109/63 (mmHg) O2 Sat by Pulse 98 Oximetry 08/02/17 08/02/17 08/02/17 04:16 05:22 07:32 Temperature 98.7 F Pulse Rate 97 Respiratory 16 14 Rate Blood Pressure 159/85 (mmHg) O2 Sat by Pulse 95 93 Oximetry 08/02/17 08/02/17 07:35 08:06 Temperature Pulse Rate Respiratory 16 Rate Blood Pressure (mmHg) O2 Sat by Pulse 95 95 Oximetry Abd: good BS, distended, exquisitely tender to manual light, non-tender when using stethoscope. ASHANTI drainage is serosanguinous, drainage around drain appears serous. Intake & Output 08/01/17 08/02/17 08/02/17 22:59 06:59 14:59 Intake Total 625 1395 Output Total 290 700 375 Balance 335 695 -375 Intake: IV Fluids 1095 ABX - ZOSYN 109 NS (0.9%) 986 Oral 625 300 Output: ASHANTI #1 15 50 Urine 275 650 375 Other: Other Amount Description Some tissue in ASHANTI drain. Laboratory Results - last 24 hr 08/01/17 08/01/17 08/01/17 12:03 17:36 22:06 POC Glucose (mg/dL) 151 H 148 H 115 H 08/02/17 07:26 POC Glucose (mg/dL) 151 H A/P: No significant change; still having difficulty with food. Will not eliminate IV meds and fluids for now. Will order labs for tomorrow. Continue to monitor.
[2017-08-02] MEDS: Tamsulosin CAP* 0.4 MG PO SCH (09:27)
[2017-08-02] MEDS: Ketorolac INJ* 30 MG/ML 1 ML VIAL IV PRN ×2 (09:27→16:37)
[2017-08-02] MEDS: Finasteride TAB* 5 MG PO SCH (09:27)
[2017-08-02] MEDS: Losartan TAB* 25 MG PO SCH (09:27)
[2017-08-02] MEDS: VILAZODONE 40 MG PO SCH (09:28)
[2017-08-02] MEDS: Pregabalin CAP(*) 50 MG PO SCH ×3 (09:28→20:31)
[2017-08-02] MEDS: VILAZODONE 20 MG PO SCH (09:35)
[2017-08-02] MEDS: Nystatin TOP POWDER* 15 GM BTL TOPICAL SCH ×4 (10:18→20:33)
[2017-08-02] MEDS: fentaNYL PATCH 25 MCG/HR TRANSDERM SCH (12:14)
[2017-08-02] MEDS: Lidocaine PATCH 5%* 1 PATCH TRANSDERM PRN (16:51)
--- NOTE | 2017-08-02 17:31 | PN ---
Subjective Date of Service: 08/02/17 Interval History: Called by RN that Mr. Warner went for a walk today and HR went to the 150s. I reviewed his tele this morning prior to this event, and he had not had other episodes of tachycardia. His hr resolved with rest. He still complains of pain in his abdomen that is only slightly improved on his home doses of narcotics. Some nausea and vomiting. Objective Active Medications: Acetaminophen (Tylenol Tab*) 650 mg PO Q6H PRN PRN Reason: FEVER/PAIN Last Admin: 08/01/17 08:59 Dose: 650 mg Albuterol (Ventolin Hfa Inhaler*) 2 puff INH Q4H PRN PRN Reason: WHEEZING Aripiprazole (Abilify Tab*) 10 mg PO BEDTIME PRN PRN Reason: SLEEP Docusate Sodium (Colace Cap*) 100 mg PO Q24H PRN PRN Reason: CONSTIPATION Fentanyl (Duragesic Patch 25 Mcg/Hr*) 25 mcg TRANSDERM Q72H [facility] Last Admin: 08/02/17 12:14 Dose: 25 mcg Finasteride (Proscar Tab*) 5 mg PO DAILY [facility] Last Admin: 08/02/17 09:27 Dose: 5 mg Heparin Sodium (Porcine) (Heparin Vial(*)) 5,000 units SUBCUT Q8HR [facility] Last Admin: 08/02/17 13:50 Dose: 5,000 units Hydromorphone HCl (Dilaudid Inj*) 1 mg IV SLOW PU Q2H PRN PRN Reason: moderate pain Hydromorphone HCl (Dilaudid Inj*) 2 mg IV SLOW PU Q2H PRN PRN Reason: mod severe pain Last Admin: 08/02/17 12:18 Dose: 2 mg Hydroxyzine HCl (Atarax Tab*) 25 mg PO Q6H PRN PRN Reason: ITCHING Last Admin: 08/02/17 14:22 Dose: 25 mg Piperacillin Sod/Tazobactam (Sod 3.375 gm/ Sodium Chloride) 100 mls @ 25 mls/ hr IVPB Q8H [facility] Last Admin: 08/02/17 16:47 Dose: 25 mls/hr Sodium Chloride (Ns 0.9% 1000 Ml*) 1,000 mls @ 70 mls/hr IV PER RATE [facility] Last Admin: 08/02/17 16:36 Dose: 70 mls/hr Ketorolac Tromethamine (Toradol Inj*) 30 mg IV Q6H PRN PRN Reason: PAIN Last Admin: 08/02/17 16:37 Dose: 30 mg Levothyroxine Sodium (Synthroid Tab*) 75 mcg PO 0600 [facility] Last Admin: 08/02/17 05:19 Dose: 75 mcg Lidocaine (Lidoderm 5% Patch*) 1 patch TRANSDERM DAILY PRN PRN Reason: PAIN Last Admin: 08/02/17 16:51 Dose: 1 patch Losartan Potassium (Cozaar Tab*) 100 mg PO DAILY [facility] Last Admin: 08/02/17 09:27 Dose: 100 mg Nystatin (Nystatin Top Powder*) 1 applic TOPICAL TID [facility] Last Admin: 08/02/17 13:06 Dose: Not Given Omeprazole (Prilosec Cap*) 20 mg PO DAILY@0730 [facility] Last Admin: 08/02/17 07:35 Dose: 20 mg Ondansetron HCl (Zofran Odt Tab*) 4 mg SL Q6H PRN PRN Reason: NAUSEA/VOMITING Last Admin: 08/02/17 09:27 Dose: 4 mg Oxycodone HCl (Roxycodone Tab*) 20 mg PO TID PRN PRN Reason: PAIN Last Admin: 08/02/17 13:53 Dose: 20 mg Pharmacy Consult (Zosyn Per Pharmacy*) 1 note FOLLOW UP .ZOSYN PER PHARMACY [facility] Pharmacy Profile Note (Lidocaine Patch Remove*) 1 note PATCH OFF BEDTIME [facility] Last Admin: 08/01/17 21:52 Dose: Not Given Pharmacy Profile Note (Fentanyl Patch Check Q Shift) 1 note N/A 0700,1900 [facility] Last Admin: 08/02/17 06:39 Dose: 1 note Pharmacy Profile Note (Scopolamine Patch Remove*) 1 note PATCH OFF Q72H [facility] Last Admin: 07/30/17 23:58 Dose: Not Given Pregabalin (Lyrica Cap(*)) 150 mg PO TID [facility] Last Admin: 08/02/17 13:50 Dose: 150 mg Scopolamine (Transderm-Scop 1.5 Mg Patch*) 1 patch TRANSDERM Q72H PRN PRN Reason: NAUSEA/VOMITING Last Admin: 07/30/17 22:39 Dose: 1 patch Tamsulosin HCl (Flomax Cap*) 0.4 mg PO DAILY [facility] Last Admin: 08/02/17 09:27 Dose: 0.4 mg Tizanidine HCl (Zanaflex Tab*) 2 mg PO Q8H PRN PRN Reason: LEG CRAMPS Last Admin: 08/02/17 05:19 Dose: 2 mg Trazodone HCl (Desyrel Tab*) 200 mg PO BEDTIME [facility] Last Admin: 08/01/17 21:52 Dose: 200 mg Vilazodone HCl (Viibryd (Nf)) 40 mg PO DAILY [facility] PRN Reason: Protocol Last Admin: 08/02/17 09:28 Dose: 40 mg Vital Signs - 8 hr 08/02/17 08/02/17 08/02/17 09:28 10:19 11:40 Temperature 98.9 F Pulse Rate 90 Respiratory 16 18 16 Rate Blood Pressure 152/78 (mmHg) O2 Sat by Pulse 93 Oximetry 08/02/17 08/02/17 08/02/17 12:08 12:14 12:18 Temperature Pulse Rate Respiratory 16 18 18 Rate Blood Pressure (mmHg) O2 Sat by Pulse Oximetry 08/02/17 08/02/17 08/02/17 13:38 13:50 13:53 Temperature Pulse Rate Respiratory 18 16 18 Rate Blood Pressure (mmHg) O2 Sat by Pulse Oximetry 08/02/17 08/02/17 15:17 16:00 Temperature 99.0 F Pulse Rate 100 Respiratory 16 Rate Blood Pressure 114/71 (mmHg) O2 Sat by Pulse 95 95 Oximetry Oxygen Devices in Use Now: None Appearance: alert, resting in bed Eyes: No Scleral Icterus Ears/Nose/Mouth/Throat: NL Teeth, Lips, Gums Neck: NL Appearance and Movements; NL JVP Respiratory: Symmetrical Chest Expansion and Respiratory Effort, Clear to Auscultation Cardiovascular: NL Sounds; No Murmurs; No JVD, RRR, - - 1+ le edma b/l Abdominal: - - laparoscopy incisions + ASHANTI drain in RUQ with some serous fluid surrounding the drain. tender to palpation diffusely. no rebound or rigidity. Lymphatic: No Cervical Adenopathy Neurological: Alert and Oriented x 3 Result Diagrams: 08/01/17 05:14 08/01/17 05:14 Additional Lab and Data: Lab Results 07/30/17 07/30/17 07/30/17 Range/Units 02:32 02:32 02:32 WBC 5.5 (3.5-10.8) 10^3/ul RBC 4.14 (4.0-5.4) 10^6/ul Hgb 11.7 L (14.0-18.0) g/dl Hct 36 L (42-52) % MCV 88 (80-94) fL MCH 28 (27-31) pg MCHC 32 (31-36) g/dl RDW 16 H (10.5-15) % Plt Count 196 (150-450) 10^3/ul MPV 9.3 (7.4-10.4) um3 Neut % (Auto) 41.6 (38-83) % Lymph % (Auto) 41.0 (25-47) % [place] % (Auto) 10.5 H (0-7) % Eos % (Auto) 6.2 H (0-6) % Baso % (Auto) 0.7 (0-2) % Absolute Neuts (auto) 2.3 (1.5-7.7) 10^3/ul Absolute Lymphs (auto) 2.2 (1.0-4.8) 10^3/ul Absolute Monos (auto) 0.6 (0-0.8) 10^3/ul Absolute Eos (auto) 0.3 (0-0.6) 10^3/ul Absolute Basos (auto) 0 (0-0.2) 10^3/ul Absolute Nucleated RBC 0 10^3/ul Nucleated RBC % 0.1 INR (Anticoag Therapy) 1.01 (0.77-1.02) APTT 30.5 (26.0-36.3) seconds Sodium 140 (139-145) mmol/L Potassium 4.0 (3.5-5.0) mmol/L Chloride 109 (101-111) mmol/L Carbon Dioxide 25 (22-32) mmol/L Anion Gap 6 (2-11) mmol/L BUN 14 (6-24) mg/dL Creatinine 0.89 (0.67-1.17) mg/dL Est GFR ( Amer) 113.7 (>60) Est GFR (Non-Af Amer) 88.4 (>60) BUN/Creatinine Ratio 15.7 (8-20) Glucose 104 H (70-100) mg/dL Lactic Acid (0.5-2.0) mmol/L Calcium 8.3 L (8.6-10.3) mg/dL Total Bilirubin 0.30 (0.2-1.0) mg/dL AST 10 L (13-39) U/L ALT 7 (7-52) U/L Alkaline Phosphatase 89 (34-104) U/L Total Creatine Kinase 24 (10-223) U/L CK-MB (CK-2) 0.3 L (0.6-6.3) ng/mL Troponin I 0.00 (<0.04) ng/mL C-Reactive Protein 1.26 (< 5.00) mg/L B-Natriuretic Peptide ( - 100) pg/mL Total Protein 6.3 L (6.4-8.9) g/dL Albumin 3.5 (3.2-5.2) g/dL Globulin 2.8 (2-4) g/dL Albumin/Globulin Ratio 1.3 (1-3) Lipase 10 L (11.0-82.0) U/L TSH 3.00 (0.34-5.60) mcIU/mL Urine Color Urine Appearance Urine pH (5-9) Ur Specific [place] (1.010-1.030) Urine Protein (Negative) Urine Ketones (Negative) Urine Blood (Negative) Urine Nitrate (Negative) Urine Bilirubin (Negative) Urine Urobilinogen (Negative) Ur Leukocyte Esterase (Negative) Urine WBC (Auto) (Absent) Urine RBC (Auto) (Absent) Ur Squamous Epith Cells (Absent) Urine Bacteria (Absent) Urine Glucose (Negative) 07/30/17 07/30/17 07/30/17 Range/Units 02:32 02:32 06:26 WBC (3.5-10.8) 10^3/ul RBC (4.0-5.4) 10^6/ul Hgb (14.0-18.0) g/dl Hct (42-52) % MCV (80-94) fL MCH (27-31) pg MCHC (31-36) g/dl RDW (10.5-15) % Plt Count (150-450) 10^3/ul MPV (7.4-10.4) um3 Neut % (Auto) (38-83) % Lymph % (Auto) (25-47) % [place] % (Auto) (0-7) % Eos % (Auto) (0-6) % Baso % (Auto) (0-2) % Absolute Neuts (auto) (1.5-7.7) 10^3/ul Absolute Lymphs (auto) (1.0-4.8) 10^3/ul Absolute Monos (auto) (0-0.8) 10^3/ul Absolute Eos (auto) (0-0.6) 10^3/ul Absolute Basos (auto) (0-0.2) 10^3/ul Absolute Nucleated RBC 10^3/ul Nucleated RBC % INR (Anticoag Therapy) (0.77-1.02) APTT (26.0-36.3) seconds Sodium (139-145) mmol/L Potassium (3.5-5.0) mmol/L Chloride (101-111) mmol/L Carbon Dioxide (22-32) mmol/L Anion Gap (2-11) mmol/L BUN (6-24) mg/dL Creatinine (0.67-1.17) mg/dL Est GFR ( Amer) (>60) Est GFR (Non-Af Amer) (>60) BUN/Creatinine Ratio (8-20) Glucose (70-100) mg/dL Lactic Acid 1.0 (0.5-2.0) mmol/L Calcium (8.6-10.3) mg/dL Total Bilirubin (0.2-1.0) mg/dL AST (13-39) U/L ALT (7-52) U/L Alkaline Phosphatase (34-104) U/L Total Creatine Kinase (10-223) U/L CK-MB (CK-2) (0.6-6.3) ng/mL Troponin I (<0.04) ng/mL C-Reactive Protein (< 5.00) mg/L B-Natriuretic Peptide 398 H ( - 100) pg/mL Total Protein (6.4-8.9) g/dL Albumin (3.2-5.2) g/dL Globulin (2-4) g/dL Albumin/Globulin Ratio (1-3) Lipase (11.0-82.0) U/L TSH (0.34-5.60) mcIU/mL Urine Color Yellow Urine Appearance Clear Urine pH 5.0 (5-9) Ur Specific [place] 1.046 H (1.010-1.030) Urine Protein Negative (Negative) Urine Ketones Negative (Negative) Urine Blood 1+ A (Negative) Urine Nitrate Negative (Negative) Urine Bilirubin Negative (Negative) Urine Urobilinogen Negative (Negative) Ur Leukocyte Esterase Negative (Negative) Urine WBC (Auto) Absent (Absent) Urine RBC (Auto) Trace(0-2/hpf) (Absent) Ur Squamous Epith Cells Present A (Absent) Urine Bacteria Absent (Absent) Urine Glucose Negative (Negative) Assess/Plan/Problems-Billing Assessment: 57 yo man with chronic pain syndrome and history of job en y admitted on 07/30 for epigastric pain, then went to the OR on 07/31 for diagnostic laparoscopy, which resulted in a cholecystectomy and ASHANTI drain placement due to bile leakage. - Patient Problems (1) Sinus tachycardia Current Visit: Yes Status: Acute Code(s): R00.0 - TACHYCARDIA, UNSPECIFIED SNOMED Code(s): 02480664 Comment: Again at rest, he is in a normal rhythm and rate. His tachycardia is with exertion and I believe is likely a reflection of his deconditioning--he barely gets around his small house on a good day for him. I reviewed the telemetry from when his RN walked with him and HR went up to 150. It was a gradual increase and decrease in heart rate, which is consistent with tachycardia from the sinus node, as opposed to an SVT. His HR is slightly improved on his home dose of oxycodone, but still goes up with ambulation. I see no metabolic/endocrine/volume explanation for sinus tachycardia, however his ekg shows a new RBBB, so we should exclude a PE, especially given his immobility. I'm ordering a CTA of his chest.
[2017-08-02] MEDS: traZODone TAB* 100 MG PO SCH (20:31)
[2017-08-02] MEDS: Lidocaine Patch REMOVE* 1 NOTE MISC PATCH OFF SCH (20:32)
[2017-08-02] MEDS: Scopolamine PATCH Remove* 1 NOTE MISC PATCH OFF SCH (22:36)
[2017-08-02] MEDS: Docusate CAP* 100 MG PO PRN (22:36)
[2017-08-02] MEDS: Scopolamine 1.5 mg* PATCH TRANSDERM PRN (22:40)
[2017-08-03] MEDS: HYDROmorphone INJ* 2 MG/ML CARPUJECT SYRINGE IV SLOW PU PRN ×5 (00:05→23:01)
[2017-08-03] MEDS: oxyCODONE TAB* 5 MG TAB PO PRN ×2 (03:26→23:02)
[2017-08-03] MEDS ORDERED: PROCHLORPERAZINE INJ 5 MG/ML 2 ML VIAL IV ONE (05:23)
[2017-08-03] MEDS ORDERED: Bisacodyl SUPP* 10 MG SUPP PR PRN (05:24)
[2017-08-03 05:29] LABS: ABS Basophils 0 10^3/ul (0-0.2); ABS Eosinophils 0.1 10^3/ul (0-0.6); ABS Lymphocytes 0.6 10^3/ul (1.0-4.8); ABS Monocytes 0.7 10^3/ul (0-0.8); ABS Neutrophils 5.3 10^3/ul (1.5-7.7); ABS Nucleated RBC 0 10^3/ul; Eosinophil % 0.8 % (0-6); Hematocrit 35 % (42-52); Hemoglobin 11.5 g/dl (14.0-18.0); Lymphocyte % 9.4 % (25-47); Mean Corpuscular HGB Conc 33 g/dl (31-36); Mean Corpuscular Hemoglobin 29 pg (27-31); Mean Corpuscular Volume 88 fL (80-94); Mean Platelet Volume 8.9 um3 (7.4-10.4); Nucleated Red Blood Cells % 0.1; Platelet Count 216 10^3/ul (150-450); Red Blood Count 3.95 10^6/ul (4.0-5.4); Red Cell Distribution Width 16 % (10.5-15); White Blood Count 6.7 10^3/ul (3.5-10.8)
[2017-08-03] MEDS: Heparin VIAL(*) 5000 UNITS/ML VIAL (FIVE THOUSAND) SUBCUT SCH ×3 (05:45→23:08)
[2017-08-03 05:56] LABS: EGFR Non-African American 101.5 (>60)
[2017-08-03] MEDS: NS 0.9% 1000 ML* 1,000 ML IV SCH ×2 (06:37→20:29)
[2017-08-03] MEDS: Ondansetron ODT TAB* 4 MG SL PRN (06:42)
[2017-08-03] MEDS: fentaNYL Patch Check Q Shift 1 NOTE SCH ×2 (07:02→21:05)
--- NOTE | 2017-08-03 07:32 | PN ---
Subjective Date of Service: 08/03/17 Interval History: No overnight events. Complains of hiccuping and nausea this morning. No chest pain, palpitations, shortness of breath, orthopnea. I asked him about his walk in the hallway yesterday when his HR went up to 150, he said he did not know his HR was that fast, he had no chest pain, dyspnea, just felt fatigued. Family History: Unchanged from Admission Social History: Unchanged from Admission Past Medical History: Unchanged from Admission Objective Active Medications: Acetaminophen (Tylenol Tab*) 650 mg PO Q6H PRN PRN Reason: FEVER/PAIN Last Admin: 08/01/17 08:59 Dose: 650 mg Albuterol (Ventolin Hfa Inhaler*) 2 puff INH Q4H PRN PRN Reason: WHEEZING Aripiprazole (Abilify Tab*) 10 mg PO BEDTIME PRN PRN Reason: SLEEP Bisacodyl (Dulcolax Supp*) 10 mg [place] DAILY PRN PRN Reason: CONSTIPATION Docusate Sodium (Colace Cap*) 100 mg PO Q24H PRN PRN Reason: CONSTIPATION Last Admin: 08/02/17 22:36 Dose: 100 mg Fentanyl (Duragesic Patch 25 Mcg/Hr*) 25 mcg TRANSDERM Q72H [facility] Last Admin: 08/02/17 12:14 Dose: 25 mcg Finasteride (Proscar Tab*) 5 mg PO DAILY [facility] Last Admin: 08/02/17 09:27 Dose: 5 mg Heparin Sodium (Porcine) (Heparin Vial(*)) 5,000 units SUBCUT Q8HR [facility] Last Admin: 08/03/17 05:45 Dose: 5,000 units Hydromorphone HCl (Dilaudid Inj*) 1 mg IV SLOW PU Q2H PRN PRN Reason: moderate pain Hydromorphone HCl (Dilaudid Inj*) 2 mg IV SLOW PU Q2H PRN PRN Reason: mod severe pain Last Admin: 08/03/17 06:42 Dose: 2 mg Hydroxyzine HCl (Atarax Tab*) 25 mg PO Q6H PRN PRN Reason: ITCHING Last Admin: 08/02/17 14:22 Dose: 25 mg Piperacillin Sod/Tazobactam (Sod 3.375 gm/ Sodium Chloride) 100 mls @ 25 mls/ hr IVPB Q8H [facility] Last Admin: 08/02/17 23:59 Dose: 25 mls/hr Sodium Chloride (Ns 0.9% 1000 Ml*) 1,000 mls @ 70 mls/hr IV PER RATE [facility] Last Admin: 08/03/17 06:37 Dose: 70 mls/hr Ketorolac Tromethamine (Toradol Inj*) 30 mg IV Q6H PRN PRN Reason: PAIN Last Admin: 08/02/17 16:37 Dose: 30 mg Levothyroxine Sodium (Synthroid Tab*) 75 mcg PO 0600 [facility] Last Admin: 08/02/17 05:19 Dose: 75 mcg Lidocaine (Lidoderm 5% Patch*) 1 patch TRANSDERM DAILY PRN PRN Reason: PAIN Last Admin: 08/02/17 16:51 Dose: 1 patch Losartan Potassium (Cozaar Tab*) 100 mg PO DAILY [facility] Last Admin: 08/02/17 09:27 Dose: 100 mg Nystatin (Nystatin Top Powder*) 1 applic TOPICAL TID [facility] Last Admin: 08/02/17 20:33 Dose: 1 powder Omeprazole (Prilosec Cap*) 20 mg PO DAILY@0730 [facility] Last Admin: 08/02/17 07:35 Dose: 20 mg Ondansetron HCl (Zofran Odt Tab*) 4 mg SL Q6H PRN PRN Reason: NAUSEA/VOMITING Last Admin: 08/03/17 06:42 Dose: 4 mg Oxycodone HCl (Roxycodone Tab*) 20 mg PO TID PRN PRN Reason: PAIN Last Admin: 08/03/17 03:26 Dose: 20 mg Pharmacy Consult (Zosyn Per Pharmacy*) 1 note FOLLOW UP .ZOSYN PER PHARMACY [facility] Pharmacy Profile Note (Lidocaine Patch Remove*) 1 note PATCH OFF BEDTIME [facility] Last Admin: 08/02/17 20:32 Dose: 1 note Pharmacy Profile Note (Fentanyl Patch Check Q Shift) 1 note N/A 0700,1900 [facility] Last Admin: 08/03/17 07:02 Dose: 1 note Pharmacy Profile Note (Scopolamine Patch Remove*) 1 note PATCH OFF Q72H [facility] Last Admin: 08/02/17 22:36 Dose: 1 patch Pregabalin (Lyrica Cap(*)) 150 mg PO TID [facility] Last Admin: 05/13/18 20:31 Dose: 150 mg Scopolamine (Transderm-Scop 1.5 Mg Patch*) 1 patch TRANSDERM Q72H PRN PRN Reason: NAUSEA/VOMITING Last Admin: 08/02/17 22:40 Dose: 1 patch Senna (Senokot Tab*) 1 tab PO DAILY [facility] Tamsulosin HCl (Flomax Cap*) 0.4 mg PO DAILY [facility] Last Admin: 08/02/17 09:27 Dose: 0.4 mg Tizanidine HCl (Zanaflex Tab*) 2 mg PO Q8H PRN PRN Reason: LEG CRAMPS Last Admin: 08/02/17 05:19 Dose: 2 mg Trazodone HCl (Desyrel Tab*) 200 mg PO BEDTIME [facility] Last Admin: 08/02/17 20:31 Dose: 200 mg Vilazodone HCl (Viibryd (Nf)) 40 mg PO DAILY [facility] PRN Reason: Protocol Last Admin: 08/02/17 09:28 Dose: 40 mg Vital Signs - 8 hr 08/03/17 08/03/17 08/03/17 00:05 00:13 01:15 Temperature 98.6 F Pulse Rate 89 Respiratory 18 18 19 Rate Blood Pressure 127/65 (mmHg) O2 Sat by Pulse 95 Oximetry 08/03/17 08/03/17 08/03/17 02:12 02:36 03:21 Temperature 98.6 F Pulse Rate 96 Respiratory 18 16 18 Rate Blood Pressure 133/68 (mmHg) O2 Sat by Pulse 94 Oximetry 08/03/17 08/03/17 08/03/17 03:26 03:36 06:42 Temperature Pulse Rate Respiratory 16 16 18 Rate Blood Pressure (mmHg) O2 Sat by Pulse Oximetry Oxygen Devices in Use Now: None, BiPAP Appearance: alert, uncomfortable, no distress Eyes: No Scleral Icterus Ears/Nose/Mouth/Throat: NL Teeth, Lips, Gums Neck: No Thyroid Enlargement, Masses, - - no JVP appreciable Respiratory: Symmetrical Chest Expansion and Respiratory Effort, Clear to Auscultation Cardiovascular: - - tachycardic, no murmurs Abdominal: - - 3 laparoscopy incisions clean, ASHANTI draining serous fluid. abdomen obese, umbilical hernia, tender to deep palpation diffusely Lymphatic: No Cervical Adenopathy Extremities: - - 1+ b/l edema Neurological: Alert and Oriented x 3 Result Diagrams: 08/03/17 05:10 08/03/17 05:10 Additional Lab and Data: Lab Results 07/30/17 07/30/17 07/30/17 Range/Units 02:32 02:32 02:32 WBC 5.5 (3.5-10.8) 10^3/ul RBC 4.14 (4.0-5.4) 10^6/ul Hgb 11.7 L (14.0-18.0) g/dl Hct 36 L (42-52) % MCV 88 (80-94) fL MCH 28 (27-31) pg MCHC 32 (31-36) g/dl RDW 16 H (10.5-15) % Plt Count 196 (150-450) 10^3/ul MPV 9.3 (7.4-10.4) um3 Neut % (Auto) 41.6 (38-83) % Lymph % (Auto) 41.0 (25-47) % [place] % (Auto) 10.5 H (0-7) % Eos % (Auto) 6.2 H (0-6) % Baso % (Auto) 0.7 (0-2) % Absolute Neuts (auto) 2.3 (1.5-7.7) 10^3/ul Absolute Lymphs (auto) 2.2 (1.0-4.8) 10^3/ul Absolute Monos (auto) 0.6 (0-0.8) 10^3/ul Absolute Eos (auto) 0.3 (0-0.6) 10^3/ul Absolute Basos (auto) 0 (0-0.2) 10^3/ul Absolute Nucleated RBC 0 10^3/ul Nucleated RBC % 0.1 INR (Anticoag Therapy) 1.01 (0.77-1.02) APTT 30.5 (26.0-36.3) seconds Sodium 140 (139-145) mmol/L Potassium 4.0 (3.5-5.0) mmol/L Chloride 109 (101-111) mmol/L Carbon Dioxide 25 (22-32) mmol/L Anion Gap 6 (2-11) mmol/L BUN 14 (6-24) mg/dL Creatinine 0.89 (0.67-1.17) mg/dL Est GFR ( Amer) 113.7 (>60) Est GFR (Non-Af Amer) 88.4 (>60) BUN/Creatinine Ratio 15.7 (8-20) Glucose 104 H (70-100) mg/dL Lactic Acid (0.5-2.0) mmol/L Calcium 8.3 L (8.6-10.3) mg/dL Total Bilirubin 0.30 (0.2-1.0) mg/dL AST 10 L (13-39) U/L ALT 7 (7-52) U/L Alkaline Phosphatase 89 (34-104) U/L Total Creatine Kinase 24 (10-223) U/L CK-MB (CK-2) 0.3 L (0.6-6.3) ng/mL Troponin I 0.00 (<0.04) ng/mL C-Reactive Protein 1.26 (< 5.00) mg/L B-Natriuretic Peptide ( - 100) pg/mL Total Protein 6.3 L (6.4-8.9) g/dL Albumin 3.5 (3.2-5.2) g/dL Globulin 2.8 (2-4) g/dL Albumin/Globulin Ratio 1.3 (1-3) Lipase 10 L (11.0-82.0) U/L TSH 3.00 (0.34-5.60) mcIU/mL Urine Color Urine Appearance Urine pH (5-9) Ur Specific [place] (1.010-1.030) Urine Protein (Negative) Urine Ketones (Negative) Urine Blood (Negative) Urine Nitrate (Negative) Urine Bilirubin (Negative) Urine Urobilinogen (Negative) Ur Leukocyte Esterase (Negative) Urine WBC (Auto) (Absent) Urine RBC (Auto) (Absent) Ur Squamous Epith Cells (Absent) Urine Bacteria (Absent) Urine Glucose (Negative) 07/30/17 07/30/17 07/30/17 Range/Units 02:32 02:32 06:26 WBC (3.5-10.8) 10^3/ul RBC (4.0-5.4) 10^6/ul Hgb (14.0-18.0) g/dl Hct (42-52) % MCV (80-94) fL MCH (27-31) pg MCHC (31-36) g/dl RDW (10.5-15) % Plt Count (150-450) 10^3/ul MPV (7.4-10.4) um3 Neut % (Auto) (38-83) % Lymph % (Auto) (25-47) % [place] % (Auto) (0-7) % Eos % (Auto) (0-6) % Baso % (Auto) (0-2) % Absolute Neuts (auto) (1.5-7.7) 10^3/ul Absolute Lymphs (auto) (1.0-4.8) 10^3/ul Absolute Monos (auto) (0-0.8) 10^3/ul Absolute Eos (auto) (0-0.6) 10^3/ul Absolute Basos (auto) (0-0.2) 10^3/ul Absolute Nucleated RBC 10^3/ul Nucleated RBC % INR (Anticoag Therapy) (0.77-1.02) APTT (26.0-36.3) seconds Sodium (139-145) mmol/L Potassium (3.5-5.0) mmol/L Chloride (101-111) mmol/L Carbon Dioxide (22-32) mmol/L Anion Gap (2-11) mmol/L BUN (6-24) mg/dL Creatinine (0.67-1.17) mg/dL Est GFR ( Amer) (>60) Est GFR (Non-Af Amer) (>60) BUN/Creatinine Ratio (8-20) Glucose (70-100) mg/dL Lactic Acid 1.0 (0.5-2.0) mmol/L Calcium (8.6-10.3) mg/dL Total Bilirubin (0.2-1.0) mg/dL AST (13-39) U/L ALT (7-52) U/L Alkaline Phosphatase (34-104) U/L Total Creatine Kinase (10-223) U/L CK-MB (CK-2) (0.6-6.3) ng/mL Troponin I (<0.04) ng/mL C-Reactive Protein (< 5.00) mg/L B-Natriuretic Peptide 398 H ( - 100) pg/mL Total Protein (6.4-8.9) g/dL Albumin (3.2-5.2) g/dL Globulin (2-4) g/dL Albumin/Globulin Ratio (1-3) Lipase (11.0-82.0) U/L TSH (0.34-5.60) mcIU/mL Urine Color Yellow Urine Appearance Clear Urine pH 5.0 (5-9) Ur Specific [place] 1.046 H (1.010-1.030) Urine Protein Negative (Negative) Urine Ketones Negative (Negative) Urine Blood 1+ A (Negative) Urine Nitrate Negative (Negative) Urine Bilirubin Negative (Negative) Urine Urobilinogen Negative (Negative) Ur Leukocyte Esterase Negative (Negative) Urine WBC (Auto) Absent (Absent) Urine RBC (Auto) Trace(0-2/hpf) (Absent) Ur Squamous Epith Cells Present A (Absent) Urine Bacteria Absent (Absent) Urine Glucose Negative (Negative) Assess/Plan/Problems-Billing Assessment: 57 yo man with chronic pain syndrome and history of job en y admitted on 07/30 for epigastric pain, then went to the OR on 07/31 for diagnostic laparoscopy, which resulted in a cholecystectomy and ASHANTI drain placement due to bile leakage. - Patient Problems (1) Sinus tachycardia Current Visit: Yes Status: Acute Code(s): R00.0 - TACHYCARDIA, UNSPECIFIED SNOMED Code(s): 11844683 Comment: A CTA ruled out PE, which I was concerned for given his RBBB on ekg and immobility This further supports his tachycardia being a result of deconditioning and very poor functional status at baseline No beta kenna or calcium channel blockers are indiated He is euvolemic, tsh is normal, he is not withdrawing from benzos or etoh He is dependent on narcotics chronically (I did verify his current doses), so I suspect the pain he is experiencing post-op is ongoing despite the analgesia he is receiving here, which may also be contributing to his tachycardia Continue pain and post-operative management per surgery. Will sign off for now , but please call back any time with questions.
[2017-08-03] MEDS ORDERED: Iodixanol* (CONTRAST) 320 MG/ML 100 ML SDV IV ONE (07:54)
[2017-08-03] MEDS: Levothyroxine TAB* 75 MCG TAB PO SCH (08:15)
[2017-08-03] MEDS: Omeprazole CAP* 20 MG PO SCH (08:15)
[2017-08-03] MEDS: Ketorolac INJ* 30 MG/ML 1 ML VIAL IV PRN ×2 (08:15→14:17)
--- NOTE | 2017-08-03 09:19 | RAD ---
Indication: Sinus tachycardia Contrast: Administered 96.1 ml of Contrast -- mg/ml CTA of the chest performed after IV contrast administration. Coronal and sagittal reconstructed images were obtained. The pulmonary arterial tree is well opacified. No evidence of filling defect is present to suggest pulmonary embolus. The thoracic aorta demonstrates no evidence of aneurysmal dilatation or aortic dissection. Fluid-filled esophagus is noted. The heart demonstrates no pericardial effusion. Inferior thyroid lobes are unremarkable there is reflux into the esophagus. No mediastinal or hilar adenopathy is noted. The trachea and major bronchi appear patent. Pleural thickening is noted in the right posterior lung base. No alveolar consolidation is noted. No focal nodules are identified. The visualized abdominal organs demonstrates fluid-filled stomach. Patient appears to be status post cholecystectomy. IMPRESSION: No pulmonary embolus is noted. No thoracic aortic dissection is noted. Dilated stomach with reflux and fluid-filled esophagus is noted.
[2017-08-03] MEDS: Senna TAB PO SCH (09:36)
[2017-08-03] MEDS: Tamsulosin CAP* 0.4 MG PO SCH (09:36)
[2017-08-03] MEDS: Losartan TAB* 25 MG PO SCH (09:36)
[2017-08-03] MEDS: VILAZODONE 40 MG PO SCH (09:36)
[2017-08-03] MEDS: Pregabalin CAP(*) 50 MG PO SCH ×3 (09:36→23:03)
[2017-08-03] MEDS: ZOSYN 3.375 GM Q8H per EXTENDED INFUSION IVPB SCH ×6 (09:37→23:24)
[2017-08-03] MEDS: Finasteride TAB* 5 MG PO SCH (09:37)
[2017-08-03] MEDS: Nystatin TOP POWDER* 15 GM BTL TOPICAL SCH ×3 (09:42→23:09)
--- NOTE | 2017-08-03 12:57 | RAD ---
CLINICAL HISTORY: Abdominal pain after cholecystectomy, status post gastric bypass COMPARISON: July 30, 2017 TECHNIQUE: Multiple contiguous axial CT scans were obtained of the abdomen and pelvis, without intravenous contrast enhancement. Coronal and sagittal multiplanar reformations are submitted for review. FINDINGS: The study is limited by the lack of intravenous contrast. This limits evaluation of the solid organs and vasculature. LUNG BASES: The lung bases are clear. LIVER: The liver is normal in shape, size, contour, and attenuation. BILE DUCTS: There is no intrahepatic or extrahepatic biliary dilatation. GALLBLADDER: The gallbladder is not visualized. Surgical clips are noted in the gallbladder fossa. PANCREAS: The pancreas is normal, without mass or ductal dilatation. SPLEEN: Normal in size and appearance. UPPER GI TRACT: The stomach is distended. SMALL BOWEL AND MESENTERY: There is dilatation of loops of small bowel up to 7.3 cm in diameter, with a transition to decompressed small bowel which appears to be at the level of the ventral hernia. COLON: Oral contrast is noted within the colon, presumably from the previous CT examination. There is diverticulosis of the descending and sigmoid colon. The colon is relatively decompressed. ADRENALS: Normal bilaterally. KIDNEYS: Contrast is noted within the renal collecting systems bilaterally presumably from the previous CT examination. There is no appreciable hydronephrosis. BLADDER: The bladder is incompletely distended but is grossly normal. PELVIC ORGANS: Evaluation of the pelvic organs is limited by streak artifact from a left hip arthroplasty AORTA: The aorta is normal. IVC: Unremarkable LYMPH NODES: There is no lymphadenopathy by size criteria. ABDOMINAL WALL: There is a fat-containing umbilical hernia. There is a supraumbilical ventral hernia which contains small bowel and may be the point of transition. BONES AND SOFT TISSUES: There are mild diffuse degenerative changes. OTHER: None IMPRESSION: 1. SMALL BOWEL OBSTRUCTION. 2. THERE IS A SMALL SUPRAUMBILICAL VENTRAL HERNIA THAT CONTAINS SMALL BOWEL THAT IS NOT CLEARLY SEEN ON THE PREVIOUS EXAMINATION. THIS MAY BE THE POINT OF TRANSITION. 3. DIVERTICULOSIS..
[2017-08-03] MEDS ORDERED: Metoclopramide IV* 5 MG/ML 2 ML VIAL ONE ×2 (13:33→15:44)
[2017-08-03] MEDS ORDERED: fentaNYL* 50 MCG/ML 2 ML VIAL (100 MCG VIAL) ONE ×3 (14:46→17:58)
[2017-08-03] MEDS ORDERED: Midazolam* 1 MG/ML 2 ML VIAL (2 MG) ONE (14:47)
--- NOTE | 2017-08-03 15:13 | PN ---
Progress Note - Progress Note Date of Service: 08/03/17 SOAP: Subjective: Events of weekend reviewed. He says he had retching and vomiting on Thursday night through the weekend. Pain in the upper abdomen. No right upper quadrant pain-no SOB but had elevated HR while ambulating. Passing a small amount of flatus Objective: Temp Pulse Resp BP Pulse Ox 99.1 F 75 20 154/89 97 08/03/17 11:03 08/03/17 11:03 08/03/17 13:38 08/03/17 11:03 08/03/17 11:03 Intake & Output 08/01/17 08/02/17 08/03/17 08/04/17 06:59 06:59 06:59 06:59 Intake Total 3118 3846 1500 0 Output Total 1935 1698 1395 695 Balance 1183 2148 105 -695 Intake: IV Fluids 3011 2151 1015 ABX - ZOSYN 215 LR 1000 NS (0.9%) 971 1936 1015 NS 50ML, Cefoxitin 2G 50 IVPB 107 110 ABX - ZOSYN 107 110 Oral 0 1695 375 0 NG Tube Irrigate Amount 0 Output: ASHANTI #1 135 73 270 70 Urine 1800 1625 975 350 Emesis 150 275 Other: Other Amount Description Some tissue in ASHANTI drain. # Voids 1 PEX: Comfortable and awake and alert in chair Lungs are clear with decreased breath sounds in the bases. Abd is firm and distended. Incisions are clean and dry however there is fullness over the midline open port site from lap choly. No drainage or redness. Upper epigastric port site CDI ASHANTI in place-small amount of serous drainage-does not appear bilious Decreased bowel sounds throughout. EXT without edema Laboratory Results - last 24 hr 08/01/17 08/02/17 08/02/17 05:14 16:51 20:56 WBC RBC Hgb Hct MCV MCH MCHC RDW Plt Count MPV Neut % (Auto) Lymph % (Auto) [place] % (Auto) Eos % (Auto) Baso % (Auto) Absolute Neuts (auto) Absolute Lymphs (auto) Absolute Monos (auto) Absolute Eos (auto) Absolute Basos (auto) Absolute Nucleated RBC Nucleated RBC % Sodium Potassium Chloride Carbon Dioxide Anion Gap BUN Creatinine Est GFR ( Amer) Est GFR (Non-Af Amer) BUN/Creatinine Ratio Glucose POC Glucose (mg/dL) 170 H 143 H Hemoglobin A1c 5.2 Calcium Magnesium Total Bilirubin AST ALT Alkaline Phosphatase Total Protein Albumin Globulin Albumin/Globulin Ratio Prealbumin 08/03/17 08/03/17 05:10 05:10 WBC 6.7 RBC 3.95 L Hgb 11.5 L Hct 35 L MCV 88 MCH 29 MCHC 33 RDW 16 H Plt Count 216 MPV 8.9 Neut % (Auto) 78.6 Lymph % (Auto) 9.4 L [place] % (Auto) 10.8 H Eos % (Auto) 0.8 Baso % (Auto) 0.4 Absolute Neuts (auto) 5.3 Absolute Lymphs (auto) 0.6 L Absolute Monos (auto) 0.7 Absolute Eos (auto) 0.1 Absolute Basos (auto) 0 Absolute Nucleated RBC 0 Nucleated RBC % 0.1 Sodium 140 Potassium 4.3 Chloride 106 Carbon Dioxide 28 Anion Gap 6 BUN 6 Creatinine 0.79 Est GFR ( Amer) 130.5 Est GFR (Non-Af Amer) 101.5 BUN/Creatinine Ratio 7.6 L Glucose 147 H POC Glucose (mg/dL) Hemoglobin A1c Calcium 8.5 L Magnesium 1.8 L Total Bilirubin 0.50 AST 27 ALT 24 Alkaline Phosphatase 81 Total Protein 6.3 L Albumin 3.5 Globulin 2.8 Albumin/Globulin Ratio 1.[address] chest reviewed--no PE or acute thoracic finding, distended fluid filled stomach, new from previous scan done last week. CT abd/pelvis done to further evaluate distended stomach and N/V--reviewed with radiology--there is markedly distended small bowel with collapsed distal SB, there appears to be a loop of small bowel up in midline port site that appears to be probably is obstructing. Also noted is fat containing umbilical hernia, unchanged. Cholecystectomy site appears without abnormality, drain in place. No free fluid or free air. Assessment: Post operative day #3 s/p laparoscopic cholecystectomy Nausea/vomiting--appears to have SBO probably secondary to incarcerated hernia at port site. Morbid obesity Multiple medical problems Plan: I reviewed the findings of the CT scan with Mr. Warner. I think the port site is causing an acute small bowel obstruction and N/V. This is difficult to conclusively determine if this is the site of the obstruction as the study was done without oral or IV contrast. I recommend return to the OR for exploration of the port site for bowel, and if found, reduction and closure of the incisional hernia. If there is no bowel in the incisional hernia, will proceed with laparoscopy and possible laparotomy to identify any other source of obstruction. I discussed the procedure with him-risks of,but not limited to, of bleeding, infection, abscess, bowel resection, injury to peritoneal and retroperitoneal structures, open laparotomy with bowel resection, risks of anesthesia, pulmonary embolism/DVT were all explained. He understands and gives his consent to proceed. PLAN: Exploration of laparoscopic port site, possible diagnostic laparoscopy, possible exploratory laparotomy, possible bowel resection today.
[2017-08-03] MEDS ORDERED: Succinylcholine* 20 MG/ML 10 ML VIAL ONE (15:40)
[2017-08-03] MEDS ORDERED: Propofol* 10 MG/ML 20 ML BTL IV PUSH ONE (15:44)
[2017-08-03] MEDS ORDERED: Rocuronium* 10 MG/ML VIAL ONE (15:44)
[2017-08-03] MEDS ORDERED: Dexamethasone IV* 4 MG/ML 1 ML (4 MG) ONE (15:44)
[2017-08-03] MEDS ORDERED: ceFAZolin 2 GM PREMIX (*) 2 GM/50 ML BAG IVPB ONE (15:50)
[2017-08-03] MEDS ORDERED: ceFAZolin 1 GM in Dextrose (*) 1 GM/50 ML BAG IVPB ONE (15:52)
[2017-08-03] MEDS ORDERED: Bupivacaine 0.5% PF 10 ML VIAL INJ ONE (15:58)
[2017-08-03] MEDS ORDERED: Glycopyrrolate IV* 0.2 MG/ML 1 ML VIAL ONE (16:57)
[2017-08-03] MEDS ORDERED: Neostigmine Methylsulfate* 1 MG/ML 10 ML VIAL (1 mg/ml) ONE (16:57)
[2017-08-03] MEDS ORDERED: Lidocaine 2% PF * 5 ML VIAL ONE (17:02)
--- NOTE | 2017-08-03 18:18 | OP ---
Operative Report - Blank - Operative Report Date of Operation: 08/03/17 Note: Preop Dx: SBO Postop Dx: same, secondary to incarcerated incisional hernia Procedure: open repair incisional hernia w/ biologic mesh Anesthesia: [facility]; [facility] Surgeon: Olesya Asst: MUNA Ospina; ANGELA Thurston Fluids: 900 ml EBL: < 50 ml Drains: none Specimen: none Findings: dictated
[2017-08-03] MEDS ORDERED: fentaNYL* 50 MCG/ML 2 ML VIAL (100 MCG VIAL) IV PRN (18:21)
[2017-08-03] MEDS ORDERED: Naloxone* 0.4 MG/ML 1 ML VIAL IV PRN (18:21)
[2017-08-03] MEDS ORDERED: DiMENhydriNATE IV* 50 MG/ML VIAL IV PUSH PRN (18:21)
[2017-08-03] MEDS ORDERED: HYDROmorphone INJ* 2 MG/ML CARPUJECT SYRINGE ONE (18:26)
[2017-08-03] MEDS: HYDROmorphone INJ* 1 MG/ML CARPUJECT SYRINGE IV PRN ×3 (18:28→19:46)
[2017-08-03] MEDS: Lidocaine Patch REMOVE* 1 NOTE MISC PATCH OFF SCH (21:21)
[2017-08-03] MEDS: tiZANidine TAB* 2 MG PO PRN (23:02)
[2017-08-03] MEDS: hydrOXYzine HCL TAB* 25 MG PO PRN (23:02)
[2017-08-03] MEDS: Docusate CAP* 100 MG PO PRN (23:04)
[2017-08-03] MEDS: traZODone TAB* 100 MG PO SCH (23:04)
[2017-08-04] MEDS: HYDROmorphone INJ* 2 MG/ML CARPUJECT SYRINGE IV SLOW PU PRN ×4 (01:05→11:28)
[2017-08-04] MEDS: ARIPiprazole TAB* 5 MG PO PRN (01:07)
[2017-08-04] MEDS: ZOSYN 3.375 GM Q8H per EXTENDED INFUSION IVPB SCH ×6 (05:30→21:51)
[2017-08-04] MEDS: Levothyroxine TAB* 75 MCG TAB PO SCH (05:32)
[2017-08-04] MEDS: Heparin VIAL(*) 5000 UNITS/ML VIAL (FIVE THOUSAND) SUBCUT SCH ×3 (05:34→21:54)
[2017-08-04 05:57] LABS: ABS Basophils 0 10^3/ul (0-0.2); ABS Eosinophils 0 10^3/ul (0-0.6); ABS Lymphocytes 0.7 10^3/ul (1.0-4.8); ABS Nucleated RBC 0 10^3/ul; Eosinophil % 0.1 % (0-6); Hematocrit 32 % (42-52); Hemoglobin 10.6 g/dl (14.0-18.0); Lymphocyte % 8.7 % (25-47); Mean Corpuscular HGB Conc 33 g/dl (31-36); Mean Corpuscular Hemoglobin 29 pg (27-31); Mean Corpuscular Volume 88 fL (80-94); Mean Platelet Volume 8.7 um3 (7.4-10.4); Nucleated Red Blood Cells % 0; Platelet Count 212 10^3/ul (150-450); Red Blood Count 3.62 10^6/ul (4.0-5.4); Red Cell Distribution Width 16 % (10.5-15); White Blood Count 7.6 10^3/ul (3.5-10.8)
[2017-08-04] MEDS: fentaNYL Patch Check Q Shift 1 NOTE SCH ×2 (06:45→19:13)
--- NOTE | 2017-08-04 08:04 | OP ---
DATE OF OPERATION: 08/03/17 - ROOM #339 DATE OF : 62 SURGEON: Mateo Dacosta MD MACHINE ERECTOR: MUNA Lei ANESTHESIOLOGIST: Dr. Chauhan. ANESTHESIA: General. PRE-OP DIAGNOSIS: Small bowel obstruction. POST-OP DIAGNOSES: 1. Small bowel obstruction. 2. Incarcerated ventral incisional hernia causing small bowel obstruction. OPERATIVE PROCEDURE: Open repair of ventral incisional hernia with XenMatrix mesh, 10 cm x 15 cm. ESTIMATED BLOOD LOSS: Minimal. IV FLUIDS: 2.5 L of crystalloid. URINE OUTPUT: Not recorded. SPECIMENS: None. WOUND CLASSIFICATION: 1. DRAINS: None. FINDINGS: The patient had a small bowel obstruction secondary to an incarcerated ventral incisional hernia. This was the upper midline port port site where the hernia was at the site of the midline port from the laparoscopic cholecystectomy done 3 days ago and the sutures had pulled through and a loop of bowel had become incarcerated creating the bowel obstruction. The fascia was closed with relaxing incisions and placement of an onlay XenMatrix mesh was performed. BRIEF HISTORY: Mr. Matthew Warner is a 57-year-old gentleman who had undergone a laparoscopic cholecystectomy this past Thursday for acute cholecystitis. He had developed some nausea and vomiting over the weekend and when this persisted today, he underwent a CT scan of the abdomen and pelvis. This showed what appeared to be a loop of bowel incarcerated up into the supraumbilical laparoscopic port incision with a high-grade bowel obstruction. There was minimal amount of free fluid, but no free air and the ASHANTI drain from the previous surgery in the right upper quadrant was in good position. After reviewing his history over the weekend, physical exam, which included tenderness over the inferior midline port site without drainage or redness, however, and in conjunction with the CAT scan he is now being taken back to the operating room for exploration of the laparoscopic port site as well as possible diagnostic laparoscopy or diagnostic laparotomy. The risks, benefits, and alternatives were discussed with the patient preoperatively and documented in the chart. PROCEDURE IN DETAIL: Written informed consent was obtained, the abdomen was marked with indelible ink and preoperative antibiotics were administered. The patient was taken to the operating room and placed in the supine position. Sequential decompression devices and warming blanket were applied. General anesthesia was administered. Time-out verification was completed. The entire abdomen was prepped and draped in usual sterile fashion. The previously placed ASHANTI drain was left in position, but the bulb grenade was removed and clamped with the sterile straight clamp. Time-out verification was completed. The eric at the supraumbilical incision were removed and we entered the subcutaneous tissue. Here it was obvious that there was a loop of bowel protruding up through a fascial defect at the port site. The sutures appeared to have either broken or untied and the bowel was incarcerated. We were able to dissect this down to the fascial level and free up the bowel and it appeared that there was proximal bowel thickening and dilation and relatively distal collapsed small bowel, which was not edematous and felt more thin walled. All the bowel was viable and no resection was felt indicated. The bowel was then reduced. The fascial defect was approximately 4 cm in the vertical orientation and about 2.5 to 3 cm in a transverse orientation. Next, we undermined the anterior fascia laterally in both directions to expose the anterior rectus sheath out towards the lateral musculature. I also attempted to try to undermine the posterior rectus sheath; however, there was a significant amount of scarring probably from previous operations and I was not able to develop this plane. It was apparent that the abdominal fascia was of poor quality and it was difficult to grasp and pull to the midline even while he was anesthetized and I felt that the closure would be under too much tension. In addition I felt that this was most likely going to be a wound of high risk for infection and a decision was made to proceed with primary closure with an onlay mesh. Relaxing incisions were performed laterally in a vertical orientation along the lateral aspect of the rectus muscle and this significantly reduced the amount of tension on the midline fascia. When this was complete, the midline fascia was then closed primarily with interrupted #1 Vicryl suture and tied. Due to the poor quality of the fascia as well as his obesity and this being an emergent operation, a 10 cm x 15 cm piece of XenMatrix surgical graft was then placed as an onlay oriented in a transverse orientation and was trimmed slightly and the corners were rounded and this was sutured onto the anterior fascia in 6 or 7 [address] with interrupted #1 Vicryl suture using the onlay technique. Hemostasis was assured. The wound was then closed in two separate layers of 2- 0 Vicryl suture. The skin was approximated in the stapling device. Dry sterile dressings were applied. A bulb was placed back on the previously placed ASHANTI drain. The patient tolerated the procedure well, was taken to the recovery room in stable condition. [id number]/[facility] #: [id number] ANA PAULA
[2017-08-04] MEDS: oxyCODONE TAB* 5 MG TAB PO PRN ×3 (08:51→22:15)
[2017-08-04] MEDS: Pregabalin CAP(*) 50 MG PO SCH ×3 (08:51→21:53)
[2017-08-04] MEDS: Omeprazole CAP* 20 MG PO SCH (08:52)
[2017-08-04] MEDS: VILAZODONE 40 MG PO SCH (08:52)
[2017-08-04] MEDS: Tamsulosin CAP* 0.4 MG PO SCH (08:52)
[2017-08-04] MEDS: Losartan TAB* 25 MG PO SCH (08:52)
[2017-08-04] MEDS: Senna TAB PO SCH (08:52)
[2017-08-04] MEDS: Finasteride TAB* 5 MG PO SCH (08:52)
[2017-08-04] MEDS: NS 0.9% 1000 ML* 1,000 ML IV SCH ×2 (08:54→23:10)
[2017-08-04] MEDS: Ondansetron ODT TAB* 4 MG SL PRN ×2 (09:01→22:19)
[2017-08-04] MEDS: Nystatin TOP POWDER* 15 GM BTL TOPICAL SCH ×3 (09:28→22:05)
[2017-08-04] MEDS: Metoclopramide IV* 5 MG/ML 2 ML VIAL IV PRN (11:32)
--- NOTE | 2017-08-04 11:50 | PN ---
Progress Note - Progress Note Date of Service: 08/04/17 Note: Patient seen earlier by Dr. Dacosta. ASHANTI may be removed. Patient c/o nausea 2/ 2 post-nasal drip. ASHANTI drain (with dark, nonbilious drainage- likely secondary to surgicel) removed w/o incident. DSD placed. Will order Claritin for PND.
--- NOTE | 2017-08-04 13:06 | PN ---
Progress Note - Progress Note Date of Service: 08/04/17 SOAP: Subjective: Patient initially seen at 0830 this morning He is feeling better-had some nausea last night, no vomiting No flatus Pain at the incisional site Objective: Temp Pulse Resp BP Pulse Ox 99.7 F 85 18 155/83 91 08/04/17 11:21 08/04/17 11:21 08/04/17 12:20 08/04/17 11:21 08/04/17 11:21 Intake & Output 08/02/17 08/03/17 08/04/17 08/05/17 06:59 06:59 06:59 06:59 Intake Total 3846 1500 1475 50 Output Total 1698 1395 1695 0 Balance 2148 105 -220 50 Intake: IV Fluids 2151 1015 1278 ABX - ZOSYN 215 LR 900 NS (0.9%) 1936 1015 378 IVPB 110 97 ABX - ZOSYN 110 97 Oral 1695 375 100 50 NG Tube Irrigate Amount 0 Output: ASHANTI #1 73 270 170 Urine 5432 762 2294 0 Emesis 150 275 Other: Other Amount Description Some tissue in ASHANTI drain. ASHANTI drainage brownish in color # Voids 1 PEX: Comfortable, awake and alert Lungs are clear with decreased breath sounds at the bases Abd is soft and slightly distended. Dressing is intact. Bowel sounds are hypoactive and distant ASHANTI in place with brown non-bilious fluid in bulb. Ext without edema Laboratory Results - last 24 hr 08/03/17 08/04/17 08/04/17 14:58 05:38 05:38 WBC 7.6 RBC 3.62 L Hgb 10.6 L Hct 32 L MCV 88 MCH 29 MCHC 33 RDW 16 H Plt Count 212 MPV 8.7 Neut % (Auto) 78.1 Lymph % (Auto) 8.7 L Gem % (Auto) 12.9 H Eos % (Auto) 0.1 Baso % (Auto) 0.2 Absolute Neuts (auto) 6.0 Absolute Lymphs (auto) 0.7 L Absolute Monos (auto) 1.0 H Absolute Eos (auto) 0 Absolute Basos (auto) 0 Absolute Nucleated RBC 0 Nucleated RBC % 0 Sodium 138 L Potassium 4.1 Chloride 107 Carbon Dioxide 28 Anion Gap 3 BUN 9 Creatinine 0.78 Est GFR ( Amer) 132.4 Est GFR (Non-Af Amer) 103.0 BUN/Creatinine Ratio 11.5 Glucose 126 H POC Glucose (mg/dL) 142 H Calcium 8.2 L Assessment: POD# 1 s/p open repair of incarcerated ventral incisional hernia causing SBO- hernia at port site of lap choly done 07/31/17 Ileus Obesity Plan: D/C ASHANTI Start po No antibiotics Sub q heparin Increase activity Pul toilet
[2017-08-04] MEDS: tiZANidine TAB* 2 MG PO PRN (15:33)
[2017-08-04] MEDS: traZODone TAB* 100 MG PO SCH (21:53)
[2017-08-04] MEDS: Lidocaine Patch REMOVE* 1 NOTE MISC PATCH OFF SCH (22:21)
[2017-08-05] MEDS: ZOSYN 3.375 GM Q8H per EXTENDED INFUSION IVPB SCH ×6 (05:22→21:11)
[2017-08-05] MEDS: Levothyroxine TAB* 75 MCG TAB PO SCH (05:24)
[2017-08-05] MEDS: Heparin VIAL(*) 5000 UNITS/ML VIAL (FIVE THOUSAND) SUBCUT SCH ×3 (05:25→21:54)
[2017-08-05] MEDS: fentaNYL Patch Check Q Shift 1 NOTE SCH ×2 (06:45→19:08)
[2017-08-05] MEDS: Tamsulosin CAP* 0.4 MG PO SCH (08:20)
[2017-08-05] MEDS: Omeprazole CAP* 20 MG PO SCH (08:20)
[2017-08-05] MEDS: Losartan TAB* 25 MG PO SCH (08:20)
[2017-08-05] MEDS: Pregabalin CAP(*) 50 MG PO SCH ×3 (08:20→21:02)
[2017-08-05] MEDS: Senna TAB PO SCH (08:20)
[2017-08-05] MEDS: Finasteride TAB* 5 MG PO SCH (08:20)
[2017-08-05] MEDS: Nystatin TOP POWDER* 15 GM BTL TOPICAL SCH ×3 (08:25→23:36)
[2017-08-05] MEDS: VILAZODONE 40 MG PO SCH (08:33)
[2017-08-05] MEDS: Ondansetron ODT TAB* 4 MG SL PRN ×2 (08:35→17:52)
[2017-08-05] MEDS: oxyCODONE TAB* 5 MG TAB PO PRN ×2 (10:48→17:52)
[2017-08-05] MEDS: CMCS LoraTADine TAB(NF) 10 MG TAB PO PRN (10:48)
--- NOTE | 2017-08-05 10:58 | PN ---
Progress Note - Progress Note Date of Service: 08/05/17 SOAP: Subjective: Slept poorly last night-sleepy this morning Still with incisional pain Having some nausea, although improved still required some zofran this morning- improved from Thursday. Passing some flatus, no BM Was out of bed yesterday. Objective: Temp Pulse Resp BP Pulse Ox 98.4 F 80 16 158/88 94 08/05/17 07:20 08/05/17 07:20 08/05/17 10:48 08/05/17 07:20 08/05/17 08:30 Intake & Output 08/03/17 08/04/17 08/05/17 08/06/17 06:59 06:59 06:59 06:59 Intake Total 1500 1475 2214 200 Output Total 1395 1695 1150 300 Balance 105 -220 1064 -100 Intake: IV Fluids 1015 1278 1189 ABX - ZOSYN 209 LR 900 NS (0.9%) 1015 378 980 IVPB 110 97 ABX - ZOSYN 110 97 Oral 605 030 5747 200 NG Tube Irrigate Amount 0 Output: ASHANTI #1 270 170 Urine 975 1250 1150 300 Emesis 150 275 Other: Estimated Void Medium Other Amount Description ASHANTI drainage brownish in color # Voids 1 1 PEX: Comfortable-awake and alert Lungs with decreased breath sounds at the bases Cor is RRR Abd is obese and distended. Bowel sounds are decreased throughout. No high pitched or tinkling. Incision is clean and dry in the upper midline abdomen. Appropriate incisional tenderness. Ext without edema No labs today Assessment: POD# 2 s/p repair of incarcerated incisional hernia that was causing SBO--port site from recent lap choly POD# 5 s/p lap choly for acute cholecystitis Post-op Ileus Morbid obesity Plan: Continue IVF Po as tolerated Increase activity-pulmonary toilet. Subq heparin Await ileus resolution-continue present care Check labs tomorrow AM
[2017-08-05] MEDS: fentaNYL PATCH 25 MCG/HR TRANSDERM SCH (12:24)
[2017-08-05] MEDS: NS 0.9% 1000 ML* 1,000 ML IV SCH (13:59)
[2017-08-05] MEDS: Ketorolac INJ* 30 MG/ML 1 ML VIAL IV PRN (13:59)
[2017-08-05] MEDS: tiZANidine TAB* 2 MG PO PRN (17:53)
[2017-08-05] MEDS: HYDROmorphone INJ* 2 MG/ML CARPUJECT SYRINGE IV SLOW PU PRN ×2 (21:01→23:07)
[2017-08-05] MEDS: traZODone TAB* 100 MG PO SCH (21:03)
[2017-08-05] MEDS: Lidocaine Patch REMOVE* 1 NOTE MISC PATCH OFF SCH (21:05)
[2017-08-05] MEDS: Metoclopramide IV* 5 MG/ML 2 ML VIAL IV PRN (21:09)
[2017-08-05] MEDS: Lidocaine PATCH 5%* 1 PATCH TRANSDERM PRN (21:16)
[2017-08-05] MEDS: Scopolamine PATCH Remove* 1 NOTE MISC PATCH OFF SCH (23:00)
[2017-08-05] MEDS: Scopolamine 1.5 mg* PATCH TRANSDERM PRN (23:18)
[2017-08-05] MEDS ORDERED: HYDROmorphone INJ* 2 MG/ML CARPUJECT SYRINGE IV ONE (23:30)
[2017-08-06] MEDS: Ondansetron ODT TAB* 4 MG SL PRN (00:10)
[2017-08-06] MEDS: NS 0.9% 1000 ML* 1,000 ML IV SCH ×3 (04:12→12:18)
[2017-08-06] MEDS: ZOSYN 3.375 GM Q8H per EXTENDED INFUSION IVPB SCH ×2 (05:40)
[2017-08-06] MEDS: Heparin VIAL(*) 5000 UNITS/ML VIAL (FIVE THOUSAND) SUBCUT SCH ×3 (05:41→22:10)
[2017-08-06] MEDS: Levothyroxine TAB* 75 MCG TAB PO SCH (05:42)
[2017-08-06] MEDS: HYDROmorphone INJ* 2 MG/ML CARPUJECT SYRINGE IV SLOW PU PRN (05:44)
[2017-08-06 06:13] LABS: Hematocrit 29 % (42-52); Hemoglobin 9.4 g/dl (14.0-18.0); Mean Corpuscular HGB Conc 32 g/dl (31-36); Mean Corpuscular Hemoglobin 29 pg (27-31); Mean Corpuscular Volume 89 fL (80-94); Mean Platelet Volume 9.3 um3 (7.4-10.4); Platelet Count 202 10^3/ul (150-450); Red Blood Count 3.28 10^6/ul (4.0-5.4); Red Cell Distribution Width 16 % (10.5-15); White Blood Count 10.9 10^3/ul (3.5-10.8)
[2017-08-06] MEDS ORDERED: NS 0.9% 500 ML* 500 ML IV ONE (06:22)
[2017-08-06 06:24] LABS: EGFR Non-African American 63.9 (>60)
[2017-08-06 06:42] LABS: ABS Basophils 0 10^3/ul (0-0.2); ABS Eosinophils 0.1 10^3/ul (0-0.6); ABS Lymphocytes 0.9 10^3/ul (1.0-4.8); ABS Monocytes 1.7 10^3/ul (0-0.8); ABS Neutrophils 8.3 10^3/ul (1.5-7.7); ABS Nucleated RBC 0 10^3/ul; Eosinophil % 0.6 % (0-6); Lymphocyte % 7.8 % (25-47); Nucleated Red Blood Cells % 0
[2017-08-06] MEDS: fentaNYL Patch Check Q Shift 1 NOTE SCH ×2 (07:08→18:04)
[2017-08-06] MEDS: Nystatin TOP POWDER* 15 GM BTL TOPICAL SCH ×3 (09:06→22:16)
[2017-08-06] MEDS ORDERED: Naloxone* 0.4 MG/ML 1 ML VIAL IV PUSH ONE (11:02)
[2017-08-06] MEDS ORDERED: Naloxone* 0.4 MG/ML 1 ML VIAL ONE (11:06)
[2017-08-06] MEDS ORDERED: NS 0.9% 1000 ML* 500 ML IV ONE (12:10)
[2017-08-06] MEDS: Losartan TAB* 25 MG PO SCH (12:14)
[2017-08-06] MEDS: Pregabalin CAP(*) 50 MG PO SCH ×3 (12:14→22:08)
[2017-08-06] MEDS: VILAZODONE 40 MG PO SCH (12:14)
[2017-08-06] MEDS: Omeprazole CAP* 20 MG PO SCH (12:15)
[2017-08-06] MEDS: Tamsulosin CAP* 0.4 MG PO SCH (12:15)
[2017-08-06] MEDS: Senna TAB PO SCH (12:15)
[2017-08-06] MEDS: Finasteride TAB* 5 MG PO SCH (12:15)
--- NOTE | 2017-08-06 13:05 | PN ---
Subjective Date of Service: 08/06/17 Interval History: Pt RR dropped to ~4-6 per report this AM. At 544 got 2mg IV dilaudid (Also night before). Medicine was reconsulted. Pt on evaluation was easily arousable, getting ABG. says he is tired. getting narcan. Oriented x 4. Later improved and walked halls multiple times. dilaudid and fentanyl patch [employer] jumped, tachycardic. got 2.5L total of NS boluses. Family History: Unchanged from Admission Social History: Unchanged from Admission Past Medical History: Unchanged from Admission Objective Active Medications: Acetaminophen (Tylenol Tab*) 650 mg PO Q6H PRN PRN Reason: FEVER/PAIN Last Admin: 08/01/17 08:59 Dose: 650 mg Albuterol (Ventolin Hfa Inhaler*) 2 puff INH Q4H PRN PRN Reason: WHEEZING Aripiprazole (Abilify Tab*) 10 mg PO BEDTIME PRN PRN Reason: SLEEP Last Admin: 08/04/17 01:07 Dose: 10 mg Bisacodyl (Dulcolax Supp*) 10 mg CO DAILY PRN PRN Reason: CONSTIPATION Docusate Sodium (Colace Cap*) 100 mg PO Q24H PRN PRN Reason: CONSTIPATION Last Admin: 08/03/17 23:04 Dose: 100 mg Finasteride (Proscar Tab*) 5 mg PO DAILY [facility] Last Admin: 08/06/17 12:15 Dose: 5 mg Heparin Sodium (Porcine) (Heparin Vial(*)) 5,000 units SUBCUT Q8HR [facility] Last Admin: 08/06/17 05:41 Dose: 5,000 units Hydroxyzine HCl (Atarax Tab*) 25 mg PO Q6H PRN PRN Reason: ITCHING Last Admin: 08/03/17 23:02 Dose: 25 mg Sodium Chloride (Ns 0.9% 1000 Ml*) 1,000 mls @ 125 mls/hr IV PER RATE [facility] Sodium Chloride (Ns 0.9% 1000 Ml*) 1,000 mls @ 500 mls/hr IV .ENTER RATE [facility] Last Admin: 08/06/17 12:18 Dose: 500 mls/hr Ketorolac Tromethamine (Toradol Inj*) 30 mg IV Q6H PRN PRN Reason: PAIN Last Admin: 08/05/17 13:59 Dose: 30 mg Levothyroxine Sodium (Synthroid Tab*) 75 mcg PO 0600 [facility] Last Admin: 08/06/17 05:42 Dose: 75 mcg Lidocaine (Lidoderm 5% Patch*) 1 patch TRANSDERM DAILY PRN PRN Reason: PAIN Last Admin: 08/05/17 21:16 Dose: 1 patch Loratadine (Claritin Tab(Nf)) 10 mg PO DAILY PRN PRN Reason: postnasal drip Last Admin: 08/05/17 10:48 Dose: 10 mg Losartan Potassium (Cozaar Tab*) 100 mg PO DAILY [facility] Last Admin: 08/06/17 12:14 Dose: 100 mg Metoclopramide HCl (Reglan Iv*) 5 mg IV Q6H PRN PRN Reason: NAUSEA Last Admin: 08/05/17 21:09 Dose: 5 mg Nystatin (Nystatin Top Powder*) 1 applic TOPICAL TID [facility] Last Admin: 08/06/17 12:28 Dose: Not Given Omeprazole (Prilosec Cap*) 20 mg PO DAILY@0730 [facility] Last Admin: 08/06/17 12:15 Dose: 20 mg Ondansetron HCl (Zofran Odt Tab*) 4 mg SL Q6H PRN PRN Reason: NAUSEA/VOMITING Last Admin: 08/06/17 00:10 Dose: 4 mg Oxycodone HCl (Roxycodone Tab*) 20 mg PO TID PRN PRN Reason: PAIN Last Admin: 08/05/17 17:52 Dose: 20 mg Pharmacy Profile Note (Lidocaine Patch Remove*) 1 note PATCH OFF BEDTIME [facility] Last Admin: 08/05/17 21:05 Dose: Not Given Pharmacy Profile Note (Fentanyl Patch Check Q Shift) 1 note N/A 0700,1900 [facility] Last Admin: 08/06/17 07:08 Dose: 1 note Pharmacy Profile Note (Scopolamine Patch Remove*) 1 note PATCH OFF Q72H [facility] Last Admin: 08/05/17 23:00 Dose: 1 patch Pregabalin (Lyrica Cap(*)) 150 mg PO TID [facility] Last Admin: 08/06/17 12:27 Dose: Not Given Scopolamine (Transderm-Scop 1.5 Mg Patch*) 1 patch TRANSDERM Q72H PRN PRN Reason: NAUSEA/VOMITING Last Admin: 08/05/17 23:18 Dose: 1 patch Senna (Senokot Tab*) 1 tab PO DAILY [facility] Last Admin: 08/06/17 12:15 Dose: 1 tab Tamsulosin HCl (Flomax Cap*) 0.4 mg PO DAILY [facility] Last Admin: 08/06/17 12:15 Dose: 0.4 mg Tizanidine HCl (Zanaflex Tab*) 2 mg PO Q8H PRN PRN Reason: LEG CRAMPS Last Admin: 08/05/17 17:53 Dose: 2 mg Trazodone HCl (Desyrel Tab*) 200 mg PO BEDTIME [facility] Last Admin: 08/05/17 21:03 Dose: 200 mg Vilazodone HCl (Viibryd (Nf)) 40 mg PO DAILY [facility] PRN Reason: Protocol Last Admin: 08/06/17 12:14 Dose: 40 mg Vital Signs - 8 hr 08/06/17 08/06/17 08/06/17 05:44 07:09 07:29 Temperature 98.3 F Pulse Rate 37 Respiratory 16 15 18 Rate Blood Pressure 92/59 (mmHg) O2 Sat by Pulse 97 Oximetry 08/06/17 08/06/17 08/06/17 08:00 08:23 12:14 Temperature Pulse Rate 111 Respiratory 18 16 Rate Blood Pressure 114/70 (mmHg) O2 Sat by Pulse 92 Oximetry Oxygen Devices in Use Now: BiPAP Appearance: NAD, taking bipap off. Eyes: No Scleral Icterus, PERRLA Ears/Nose/Mouth/Throat: NL Teeth, Lips, Gums Neck: NL Appearance and Movements; NL JVP Respiratory: Symmetrical Chest Expansion and Respiratory Effort, Clear to Auscultation Cardiovascular: NL Sounds; No Murmurs; No JVD, RRR Abdominal: NL Sounds; No Tenderness; No Distention, - - incision c/d/i; Extremities: No Edema Skin: No Rash or Ulcers Neurological: Alert and Oriented x 3 Nutrition: Taking PO's Result Diagrams: 08/06/17 05:40 08/06/17 05:40 Additional Lab and Data: Laboratory Results - last 24 hr 08/06/17 08/06/17 08/06/17 05:40 05:40 08:26 WBC 10.9 H RBC 3.28 L Hgb 9.4 L Hct 29 L MCV 89 MCH 29 MCHC 32 RDW 16 H Plt Count 202 MPV 9.3 Neut % (Auto) 76.1 Lymph % (Auto) 7.8 L [place] % (Auto) 15.3 H Eos % (Auto) 0.6 Baso % (Auto) 0.2 Absolute Neuts (auto) 8.3 H Absolute Lymphs (auto) 0.9 L Absolute Monos (auto) 1.7 H Absolute Eos (auto) 0.1 Absolute Basos (auto) 0 Absolute Nucleated RBC 0 Nucleated RBC % 0 Patient Temperature ABG pH ABG pH (Temp Correct) ABG pCO2 ABG pCO2 (Temp Corrct ABG pO2 ABG pO2 (Temp Correct ABG HCO3 ABG O2 Saturation ABG Base Excess Respiration Rate O2 Delivery Device Ventilator Type Vent Mode FiO2 Inspiratory Time PEEP Pressure Support Pressure Control EPAP IPAP BiPAP Sodium 140 Potassium 3.8 Chloride 107 Carbon Dioxide 28 Anion Gap 5 BUN 10 Creatinine 1.18 H Est GFR ( Amer) 82.1 Est GFR (Non-Af Amer) 63.9 BUN/Creatinine Ratio 8.5 Glucose 138 H POC Glucose (mg/dL) 154 H Calcium 7.6 L Magnesium 1.8 L Total Bilirubin 0.50 AST 15 ALT 16 Alkaline Phosphatase 58 Total Protein 5.2 L Albumin 2.8 L Globulin 2.4 Albumin/Globulin Ratio 1.2 08/06/17 11:15 WBC RBC Hgb Hct MCV MCH MCHC RDW Plt Count MPV Neut % (Auto) Lymph % (Auto) [place] % (Auto) Eos % (Auto) Baso % (Auto) Absolute Neuts (auto) Absolute Lymphs (auto) Absolute Monos (auto) Absolute Eos (auto) Absolute Basos (auto) Absolute Nucleated RBC Nucleated RBC % Patient Temperature Not Reportable ABG pH 7.33 L ABG pH (Temp Correct) Not Reportable ABG pCO2 51 H ABG pCO2 (Temp Corrct Not Reportable ABG pO2 60 L ABG pO2 (Temp Correct Not Reportable ABG HCO3 25.3 ABG O2 Saturation 95.6 ABG Base Excess 0.6 Respiration Rate Not Reportable O2 Delivery Device bipap 2 lpm Ventilator Type Not Reportable Vent Mode Not Reportable FiO2 Not Reportable Inspiratory Time Not Reportable PEEP Not Reportable Pressure Support Not Reportable Pressure Control Not Reportable EPAP Not Reportable IPAP Not Reportable BiPAP Not Reportable Sodium Potassium Chloride Carbon Dioxide Anion Gap BUN Creatinine Est GFR ( Amer) Est GFR (Non-Af Amer) BUN/Creatinine Ratio Glucose POC Glucose (mg/dL) Calcium Magnesium Total Bilirubin AST ALT Alkaline Phosphatase Total Protein Albumin Globulin Albumin/Globulin Ratio Assess/Plan/Problems-Billing Assessment: 57 yo man with chronic pain syndrome and history of job en y admitted on 07/30 for epigastric pain, then went to the OR on 07/31 for diagnostic laparoscopy, which resulted in a cholecystectomy and ASHANTI drain placement due to bile leakage. Course complicated by TAVIA, AMS 2/2 opioids improved with narcan. - Patient Problems (1) Acute renal failure Current Visit: No Status: Acute Comment: Jump in [employer] to 1.18 from 0.78. s/p IVF. BMP daily, if no improvement then add on Sun[place], UCrt to check FeNa. (2) Sinus tachycardia Current Visit: Yes Status: Acute Code(s): R00.0 - TACHYCARDIA, UNSPECIFIED SNOMED Code(s): 21328660 Comment: CTA was obtained on 08/03 that ruled out PE RBBB on EKG. TSH wnl. (3) Internal hernia Current Visit: Yes Status: Acute Code(s): K45.8 - OTH ABDOMINAL HERNIA WITHOUT OBSTRUCTION OR GANGRENE SNOMED Code(s): 48315375 Comment: incarcerated ventral incision hernia s/p surgery 08/03 (4) SBO (small bowel obstruction) Current Visit: Yes Status: Acute Code(s): K56.609 - UNSP INTESTNL OBST, UNSP TO PARTIAL VERSUS COMPLETE OBST SNOMED Code(s): 668302734 Comment: incarcerated ventral incision hernia s/p surgery 08/03 npo, ADAT per surgery. drains pulled today. (5) Morbid obesity Current Visit: No Status: Chronic Code(s): E66.01 - MORBID (SEVERE) OBESITY DUE TO EXCESS CALORIES SNOMED Code(s): 841788196 Comment: s/p job-en-y bmi 46.6 (6) Chronic pain Current Visit: No Status: Acute Code(s): G89.29 - OTHER CHRONIC PAIN SNOMED Code(s): 57540240 Comment: required narcan fentanyl patch was stopped. IV dilaudid was stoppped. continue oxycodone hx of low back, pain, hip pain. spondylitis. Status and Disposition: surgery primary, medicine consulting
[2017-08-06] MEDS: oxyCODONE TAB* 5 MG TAB PO PRN ×2 (14:24→23:24)
--- NOTE | 2017-08-06 17:26 | PN ---
Progress Note - Progress Note Date of Service: 08/06/17 Note: Surgery Progress (late entry; patient seen this a.m. by Drs. Dacosta and Eladia , then by myself around 10:00 and again at ~ 11:30. S: POD #6 from lap juan m and POD #3 from reduction and repair of incarcerated incisional hernia. He was ordered an IV fluid bolus this a.m. based on decreased UOP and rising creatinine. A Childs was also placed. When I first saw Mr. Warner he was barely arouseable. He had been receiving Dilaudid IV. Respiratory noted a RR of 4, with normal O2 sats. Hospitalist was called to consult (Dr. Salinas) and an ABG was ordered. I also elected to give one dose of Narcan (0.4 mg), then rechecked him later when he was alert and awake and on the toilet having just moved his bowels. O: Vital Signs - 8 hr 08/06/17 08/06/17 08/06/17 12:14 14:19 14:24 Temperature Pulse Rate Respiratory 16 20 18 Rate Blood Pressure (mmHg) O2 Sat by Pulse Oximetry 08/06/17 08/06/17 08/06/17 15:47 16:00 16:25 Temperature 98.2 F Pulse Rate 99 Respiratory 20 18 Rate Blood Pressure 114/54 (mmHg) O2 Sat by Pulse 94 94 Oximetry Intake and Output Last 24 Hours 08/04/17 08/05/17 08/06/17 08/07/17 06:59 06:59 06:59 06:59 Intake Total 1475 2214 1645 0 Output Total 1695 1150 800 650 Balance -220 1064 845 -650 Intake: IV Fluids 1278 1189 1145 ABX - ZOSYN 209 LR 900 NS (0.9%) 108 591 7627 IVPB 97 100 ABX - ZOSYN 97 100 Oral 100 1025 400 0 NG Tube Irrigate Amount 0 Output: ASHANTI #1 170 Urine 1250 1150 800 Childs 650 Emesis 275 Other: Estimated Void Medium Other Amount Description ASHANTI drainage brownish in color # Voids 1 1 Gen: NAD No add'l exam performed by myself. Labs: Laboratory Tests 08/06/17 08/06/17 08/06/17 05:40 05:40 11:15 WBC 10.9 H Hgb 9.4 L ABG pH 7.33 L ABG pCO2 51 H ABG pO2 60 L ABG O2 Saturation 95.6 Creatinine 1.18 H Glucose 138 H A: recent surgery as noted above; over-narcotization, responded well to Narcan P: d/c Dilaudid; he will continue his baseline chronic pain medications only; I spoke w/ his nurse who stated he is doing well and up and ambulating. He has labs ordered for the a.m. Dr. Dacosta was also by to see him again this p.m.
--- NOTE | 2017-08-06 17:28 | PN ---
Progress Note - Progress Note Date of Service: 08/06/17 SOAP: Subjective: I initially saw pt at 0745 this morning-have been following progress throughout the day. He received some narcan this morning with good result and has been much more alert and responsive and has ambulated in the halls several times. He had several large loose BM's in the bathroom and has been passing flatus this afternoon. No nausea and he has not received any anti-emetics. He would like to eat Objective: Temp Pulse Resp BP Pulse Ox 98.2 F 99 18 114/54 94 08/06/17 15:47 08/06/17 15:47 08/06/17 16:25 08/06/17 15:47 08/06/17 16:00 Intake & Output 08/04/17 08/05/17 08/06/17 08/07/17 06:59 06:59 06:59 06:59 Intake Total 1475 2214 1645 0 Output Total 1695 1150 800 650 Balance -220 1064 845 -650 Intake: IV Fluids 1278 1189 1145 ABX - ZOSYN 209 LR 900 NS (0.9%) 545 335 0902 IVPB 97 100 ABX - ZOSYN 97 100 Oral 100 1025 400 0 NG Tube Irrigate Amount 0 Output: ASHANTI #1 170 Urine 1250 1150 800 Childs 650 Emesis 275 Other: Estimated Void Medium Other Amount Description ASHANTI drainage brownish in color # Voids 1 1 PEX: Awake and comfortable in chair-alert and oriented X 3 Lungs with decreased breath sounds at the bases-no rales or rhonchi Cor is RRR and slightly rapid Abd is soft and remains distended. Incision is clean and dry. Appropriate incisional tenderness. Bowel sounds are present and are hyperactive but not high pitched or tinkling. Laboratory Results - last 24 hr 08/06/17 08/06/17 08/06/17 05:40 05:40 08:26 WBC 10.9 H RBC 3.28 L Hgb 9.4 L Hct 29 L MCV 89 MCH 29 MCHC 32 RDW 16 H Plt Count 202 MPV 9.3 Neut % (Auto) 76.1 Lymph % (Auto) 7.8 L [place] % (Auto) 15.3 H Eos % (Auto) 0.6 Baso % (Auto) 0.2 Absolute Neuts (auto) 8.3 H Absolute Lymphs (auto) 0.9 L Absolute Monos (auto) 1.7 H Absolute Eos (auto) 0.1 Absolute Basos (auto) 0 Absolute Nucleated RBC 0 Nucleated RBC % 0 Patient Temperature ABG pH ABG pH (Temp Correct) ABG pCO2 ABG pCO2 (Temp Corrct ABG pO2 ABG pO2 (Temp Correct ABG HCO3 ABG O2 Saturation ABG Base Excess Respiration Rate O2 Delivery Device Ventilator Type Vent Mode FiO2 Inspiratory Time PEEP Pressure Support Pressure Control EPAP IPAP BiPAP Sodium 140 Potassium 3.8 Chloride 107 Carbon Dioxide 28 Anion Gap 5 BUN 10 Creatinine 1.18 H Est GFR ( Amer) 82.1 Est GFR (Non-Af Amer) 63.9 BUN/Creatinine Ratio 8.5 Glucose 138 H POC Glucose (mg/dL) 154 H Calcium 7.6 L Magnesium 1.8 L Total Bilirubin 0.50 AST 15 ALT 16 Alkaline Phosphatase 58 Total Protein 5.2 L Albumin 2.8 L Globulin 2.4 Albumin/Globulin Ratio 1.2 08/06/17 11:15 WBC RBC Hgb Hct MCV MCH MCHC RDW Plt Count MPV Neut % (Auto) Lymph % (Auto) [place] % (Auto) Eos % (Auto) Baso % (Auto) Absolute Neuts (auto) Absolute Lymphs (auto) Absolute Monos (auto) Absolute Eos (auto) Absolute Basos (auto) Absolute Nucleated RBC Nucleated RBC % Patient Temperature Not Reportable ABG pH 7.33 L ABG pH (Temp Correct) Not Reportable ABG pCO2 51 H ABG pCO2 (Temp Corrct Not Reportable ABG pO2 60 L ABG pO2 (Temp Correct Not Reportable ABG HCO3 25.3 ABG O2 Saturation 95.6 ABG Base Excess 0.6 Respiration Rate Not Reportable O2 Delivery Device bipap 2 lpm Ventilator Type Not Reportable Vent Mode Not Reportable FiO2 Not Reportable Inspiratory Time Not Reportable PEEP Not Reportable Pressure Support Not Reportable Pressure Control Not Reportable EPAP Not Reportable IPAP Not Reportable BiPAP Not Reportable Sodium Potassium Chloride Carbon Dioxide Anion Gap BUN Creatinine Est GFR ( Amer) Est GFR (Non-Af Amer) BUN/Creatinine Ratio Glucose POC Glucose (mg/dL) Calcium Magnesium Total Bilirubin AST ALT Alkaline Phosphatase Total Protein Albumin Globulin Albumin/Globulin Ratio Assessment: POD# 6 s/p lap choly POD#3 s/p emergent repair of incarcerated ventral incisional hernia at port site causing SBO Ileus Pre-renal hypovolemia Morbid obesity Chronic pain Overall he is much improved from this morning. He has had several bowel movements and nausea has abated. Ileus appears to be resolving. He did require narcan. Urine output is improving with IVF and I suspect this was third space loss secondary to ileus. Cr up slightly this morning. Plan: Childs inserted to monitor urine output IVF-has received several boluses today and is responding well Increase activity Pulmonary toilet Sub q heparin If GI function continues to return,will start more po tomorrow Recheck labs in AM Appreciate hospitalist care.
[2017-08-06] MEDS: Acetaminophen TAB* 325 MG PO PRN (22:08)
[2017-08-06] MEDS: Lidocaine Patch REMOVE* 1 NOTE MISC PATCH OFF SCH (22:12)
[2017-08-06] MEDS: Lidocaine PATCH 5%* 1 PATCH TRANSDERM PRN (22:14)
[2017-08-06] MEDS: traZODone TAB* 100 MG PO SCH (23:27)
[2017-08-07] MEDS: Heparin VIAL(*) 5000 UNITS/ML VIAL (FIVE THOUSAND) SUBCUT SCH ×3 (05:26→21:00)
[2017-08-07] MEDS: Levothyroxine TAB* 75 MCG TAB PO SCH (05:28)
[2017-08-07 06:05] LABS: ABS Basophils 0 10^3/ul (0-0.2); ABS Eosinophils 0.2 10^3/ul (0-0.6); ABS Lymphocytes 1.2 10^3/ul (1.0-4.8); ABS Monocytes 1.2 10^3/ul (0-0.8); ABS Neutrophils 5.8 10^3/ul (1.5-7.7); ABS Nucleated RBC 0 10^3/ul; Eosinophil % 2.1 % (0-6); Hematocrit 23 % (42-52); Hemoglobin 7.6 g/dl (14.0-18.0); Lymphocyte % 14.6 % (25-47); Mean Corpuscular HGB Conc 33 g/dl (31-36); Mean Corpuscular Hemoglobin 29 pg (27-31); Mean Corpuscular Volume 89 fL (80-94); Mean Platelet Volume 8.9 um3 (7.4-10.4); Nucleated Red Blood Cells % 0; Platelet Count 171 10^3/ul (150-450); Red Blood Count 2.63 10^6/ul (4.0-5.4); Red Cell Distribution Width 16 % (10.5-15); White Blood Count 8.5 10^3/ul (3.5-10.8)
[2017-08-07 06:23] LABS: EGFR Non-African American 98.6 (>60)
[2017-08-07] MEDS: oxyCODONE TAB* 5 MG TAB PO PRN ×2 (06:36→14:15)
[2017-08-07] MEDS ORDERED: Magnesium Sulfate 2 GM IV* 2 GM/50 ML BAG IVPB ONE (07:14)
[2017-08-07] MEDS ORDERED: KCL 20 MEQ/100 ML IVPREMIX* 20 MEQ/100 ML BAG IV SCH (09:00)
[2017-08-07] MEDS: NS 0.9% 1000 ML* 1,000 ML IV SCH ×2 (09:03)
[2017-08-07] MEDS: Losartan TAB* 25 MG PO SCH (09:09)
[2017-08-07] MEDS: Senna TAB PO SCH (09:09)
[2017-08-07] MEDS: ARIPiprazole TAB* 5 MG PO PRN (09:10)
[2017-08-07] MEDS: Omeprazole CAP* 20 MG PO SCH (09:10)
[2017-08-07] MEDS: VILAZODONE 40 MG PO SCH (09:10)
[2017-08-07] MEDS: CMCS LoraTADine TAB(NF) 10 MG TAB PO PRN (09:11)
[2017-08-07] MEDS: Tamsulosin CAP* 0.4 MG PO SCH (09:11)
[2017-08-07] MEDS: Finasteride TAB* 5 MG PO SCH (09:11)
[2017-08-07] MEDS: Pregabalin CAP(*) 50 MG PO SCH ×3 (09:12→21:00)
--- NOTE | 2017-08-07 09:23 | PN ---
Progress Note - Progress Note Date of Service: 08/07/17 SOAP: Subjective: Feels much better this morning-slept well Having multiple BM's-initially loose now more firm. He is passing flatus No nausea and he wants to eat Pain is adequately controlled Objective: Temp Pulse Resp BP Pulse Ox 97.8 F 90 17 140/67 96 08/07/17 07:35 08/07/17 07:35 08/07/17 09:12 08/07/17 07:35 08/07/17 07:35 Intake & Output 08/05/17 08/06/17 08/07/17 08/08/17 06:59 06:59 06:59 06:59 Intake Total 2214 3831 347 9733 Output Total 4241 820 7099 Balance 1064 845 -950 1127 Intake: IV Fluids 1189 9849 552 2946 ABX - ZOSYN 209 NS (0.9%) 980 3874 156 1777 IVPB 100 ABX - ZOSYN 100 Oral 1025 400 0 100 Output: Urine 1150 800 Clark 1600 Other: Estimated Void Medium # Bowel Movements 2 Estimated Stool Amount Small # Voids 1 PEX: Awake and alert in bed Lungs are clear-decreased breath sounds at the bases--no rales Abd is soft and distended. Incision is clean and dry, no redness. Bowel sounds are present, not high-pitched or tinkling. Appropriate incisional tenderness. Laboratory Results - last 24 hr 08/06/17 08/06/17 08/06/17 05:40 11:15 19:08 WBC RBC Hgb Hct MCV MCH MCHC RDW Plt Count MPV Neut % (Auto) Lymph % (Auto) [place] % (Auto) Eos % (Auto) Baso % (Auto) Absolute Neuts (auto) Absolute Lymphs (auto) Absolute Monos (auto) Absolute Eos (auto) Absolute Basos (auto) Absolute Nucleated RBC Nucleated RBC % Patient Temperature Not Reportable ABG pH 7.33 L ABG pH (Temp Correct) Not Reportable ABG pCO2 51 H ABG pCO2 (Temp Corrct Not Reportable ABG pO2 60 L ABG pO2 (Temp Correct Not Reportable ABG HCO3 25.3 ABG O2 Saturation 95.6 ABG Base Excess 0.6 Respiration Rate Not Reportable O2 Delivery Device bipap 2 lpm Ventilator Type Not Reportable Vent Mode Not Reportable FiO2 Not Reportable Inspiratory Time Not Reportable PEEP Not Reportable Pressure Support Not Reportable Pressure Control Not Reportable EPAP Not Reportable IPAP Not Reportable BiPAP Not Reportable Sodium 140 Potassium 3.8 Chloride 107 Carbon Dioxide 28 Anion Gap 5 BUN 10 Creatinine 1.18 H Est GFR ( Amer) 82.1 Est GFR (Non-Af Amer) 63.9 BUN/Creatinine Ratio 8.5 Glucose 138 H Calcium 7.6 L Phosphorus Magnesium 1.8 L Total Bilirubin 0.50 AST 15 ALT 16 Alkaline Phosphatase 58 Troponin I 0.01 Total Protein 5.2 L Albumin 2.8 L Globulin 2.4 Albumin/Globulin Ratio 1.2 0518/18 051818 05:40 05:40 WBC 8.5 RBC 2.63 L Hgb 7.6 L Hct 23 L MCV 89 MCH 29 MCHC 33 RDW 16 H Plt Count 171 MPV 8.9 Neut % (Auto) 68.7 Lymph % (Auto) 14.6 L [place] % (Auto) 14.1 H Eos % (Auto) 2.1 Baso % (Auto) 0.5 Absolute Neuts (auto) 5.8 Absolute Lymphs (auto) 1.2 Absolute Monos (auto) 1.2 H Absolute Eos (auto) 0.2 Absolute Basos (auto) 0 Absolute Nucleated RBC 0 Nucleated RBC % 0 Patient Temperature ABG pH ABG pH (Temp Correct) ABG pCO2 ABG pCO2 (Temp Corrct ABG pO2 ABG pO2 (Temp Correct ABG HCO3 ABG O2 Saturation ABG Base Excess Respiration Rate O2 Delivery Device Ventilator Type Vent Mode FiO2 Inspiratory Time PEEP Pressure Support Pressure Control EPAP IPAP BiPAP Sodium 143 Potassium 3.5 Chloride 109 Carbon Dioxide 28 Anion Gap 6 BUN 9 Creatinine 0.81 Est GFR ( Amer) 126.8 Est GFR (Non-Af Amer) 98.6 BUN/Creatinine Ratio 11.1 Glucose 116 H Calcium 7.3 L Phosphorus 2.7 Magnesium 1.7 L Total Bilirubin AST ALT Alkaline Phosphatase Troponin I Total Protein Albumin Globulin Albumin/Globulin Ratio Assessment: POD# 7 s/p lap choly POD#4 s/p emergent repair of incarcerated ventral incisional hernia at port site causing SBO Ileus-resolving Pre-renal hypovolemia-improved with fluid Morbid obesity Chronic pain Low magnesium H/H down today-no evidence of hemorrhage--most likely due to fluid mobilization and aggressive hydration yesterday. Plan: Full liquids Remove clark D/C IVF Replete mag, K+ Increase activity Repeat H/H and BMP in AM Appreciate hospitalist care
[2017-08-07] MEDS ORDERED: Potassium Chloride LIQUID* 20 MEQ PACKET PO ONE (11:00)
[2017-08-07] MEDS: Nystatin TOP POWDER* 15 GM BTL TOPICAL SCH ×3 (12:22→21:08)
[2017-08-07] MEDS: tiZANidine TAB* 2 MG PO PRN ×2 (14:16→21:10)
[2017-08-07] MEDS: Lidocaine Patch REMOVE* 1 NOTE MISC PATCH OFF SCH ×2 (14:34→21:06)
[2017-08-07] MEDS: Acetaminophen TAB* 325 MG PO PRN (18:31)
--- NOTE | 2017-08-07 18:36 | PN ---
Subjective Date of Service: 08/07/17 Interval History: attests to large BM yesterday initially pink then reddish. two more overnight/ today that were yellow. Hgb to 7.6 from 9.4 [employer] attesting to RUQ and LUQ abd pain. pain last night was more epigastric rather than chest pain. troponin negative no EKG changes. eager to eat. Family History: Unchanged from Admission Social History: Unchanged from Admission Past Medical History: Unchanged from Admission Objective Active Medications: Acetaminophen (Tylenol Tab*) 650 mg PO Q6H PRN PRN Reason: FEVER/PAIN Last Admin: 08/07/17 18:31 Dose: 650 mg Albuterol (Ventolin Hfa Inhaler*) 2 puff INH Q4H PRN PRN Reason: WHEEZING Aripiprazole (Abilify Tab*) 10 mg PO BEDTIME PRN PRN Reason: SLEEP Last Admin: 08/07/17 09:10 Dose: 10 mg Bisacodyl (Dulcolax Supp*) 10 mg ID DAILY PRN PRN Reason: CONSTIPATION Docusate Sodium (Colace Cap*) 100 mg PO Q24H PRN PRN Reason: CONSTIPATION Last Admin: 08/03/17 23:04 Dose: 100 mg Finasteride (Proscar Tab*) 5 mg PO DAILY [facility] Last Admin: 08/07/17 09:11 Dose: 5 mg Heparin Sodium (Porcine) (Heparin Vial(*)) 5,000 units SUBCUT Q8HR [facility] Last Admin: 08/07/17 14:01 Dose: 5,000 units Hydroxyzine HCl (Atarax Tab*) 25 mg PO Q6H PRN PRN Reason: ITCHING Last Admin: 08/03/17 23:02 Dose: 25 mg Levothyroxine Sodium (Synthroid Tab*) 75 mcg PO 0600 [facility] Last Admin: 08/07/17 05:28 Dose: 75 mcg Lidocaine (Lidoderm 5% Patch*) 1 patch TRANSDERM DAILY PRN PRN Reason: PAIN Last Admin: 08/06/17 22:14 Dose: 1 patch Loratadine (Claritin Tab(Nf)) 10 mg PO DAILY PRN PRN Reason: postnasal drip Last Admin: 08/07/17 09:11 Dose: 10 mg Losartan Potassium (Cozaar Tab*) 100 mg PO DAILY [facility] Last Admin: 08/07/17 09:09 Dose: 100 mg Metoclopramide HCl (Reglan Iv*) 5 mg IV Q6H PRN PRN Reason: NAUSEA Last Admin: 08/05/17 21:09 Dose: 5 mg Nystatin (Nystatin Top Powder*) 1 applic TOPICAL TID [facility] Last Admin: 08/07/17 14:11 Dose: 1 powder Omeprazole (Prilosec Cap*) 20 mg PO DAILY@0730 [facility] Last Admin: 08/07/17 09:10 Dose: 20 mg Ondansetron HCl (Zofran Odt Tab*) 4 mg SL Q6H PRN PRN Reason: NAUSEA/VOMITING Last Admin: 08/06/17 00:10 Dose: 4 mg Oxycodone HCl (Roxycodone Tab*) 20 mg PO TID PRN PRN Reason: PAIN Last Admin: 08/07/17 14:15 Dose: 20 mg Pharmacy Profile Note (Lidocaine Patch Remove*) 1 note PATCH OFF BEDTIME [facility] Last Admin: 08/07/17 14:34 Dose: 1 note Pharmacy Profile Note (Scopolamine Patch Remove*) 1 note PATCH OFF Q72H [facility] Last Admin: 08/05/17 23:00 Dose: 1 patch Pregabalin (Lyrica Cap(*)) 150 mg PO TID [facility] Last Admin: 08/07/17 14:01 Dose: 150 mg Scopolamine (Transderm-Scop 1.5 Mg Patch*) 1 patch TRANSDERM Q72H PRN PRN Reason: NAUSEA/VOMITING Last Admin: 08/05/17 23:18 Dose: 1 patch Senna (Senokot Tab*) 1 tab PO DAILY [facility] Last Admin: 08/07/17 09:09 Dose: Not Given Tamsulosin HCl (Flomax Cap*) 0.4 mg PO DAILY [facility] Last Admin: 08/07/17 09:11 Dose: 0.4 mg Tizanidine HCl (Zanaflex Tab*) 2 mg PO Q8H PRN PRN Reason: LEG CRAMPS Last Admin: 08/07/17 14:16 Dose: 2 mg Trazodone HCl (Desyrel Tab*) 200 mg PO BEDTIME [facility] Last Admin: 08/06/17 23:27 Dose: 200 mg Vilazodone HCl (Viibryd (Nf)) 40 mg PO DAILY [facility] PRN Reason: Protocol Last Admin: 08/07/17 09:10 Dose: 40 mg Vital Signs - 8 hr 08/07/17 08/07/17 08/07/17 11:25 14:01 14:04 Temperature 98.3 F Pulse Rate 93 Respiratory 18 18 18 Rate Blood Pressure 170/67 (mmHg) O2 Sat by Pulse 97 Oximetry 08/07/17 08/07/17 08/07/17 14:15 15:15 18:19 Temperature 98.4 F Pulse Rate 93 Respiratory 16 16 18 Rate Blood Pressure 120/54 (mmHg) O2 Sat by Pulse 94 Oximetry Oxygen Devices in Use Now: None, CPAP Appearance: NAD. Eyes: No Scleral Icterus Ears/Nose/Mouth/Throat: NL Teeth, Lips, Gums, Mucous Membranes Moist Neck: NL Appearance and Movements; NL JVP Respiratory: Symmetrical Chest Expansion and Respiratory Effort, Clear to Auscultation Cardiovascular: NL Sounds; No Murmurs; No JVD, RRR Abdominal: - - tender LUQ/RUQ. obese. Extremities: No Edema Skin: No Rash or Ulcers Neurological: Alert and Oriented x 3, NL Muscle Strength and Tone Nutrition: Taking PO's Result Diagrams: 08/07/17 05:40 08/07/17 05:40 Additional Lab and Data: Laboratory Results - last 24 hr 08/07/17 08/07/17 05:40 05:40 WBC 8.5 RBC 2.63 L Hgb 7.6 L Hct 23 L MCV 89 MCH 29 MCHC 33 RDW 16 H Plt Count 171 MPV 8.9 Neut % (Auto) 68.7 Lymph % (Auto) 14.6 L [place] % (Auto) 14.1 H Eos % (Auto) 2.1 Baso % (Auto) 0.5 Absolute Neuts (auto) 5.8 Absolute Lymphs (auto) 1.2 Absolute Monos (auto) 1.2 H Absolute Eos (auto) 0.2 Absolute Basos (auto) 0 Absolute Nucleated RBC 0 Nucleated RBC % 0 Sodium 143 Potassium 3.5 Chloride 109 Carbon Dioxide 28 Anion Gap 6 BUN 9 Creatinine 0.81 Est GFR ( Amer) 126.8 Est GFR (Non-Af Amer) 98.6 BUN/Creatinine Ratio 11.1 Glucose 116 H Calcium 7.3 L Phosphorus 2.7 Magnesium 1.7 L Assess/Plan/Problems-Billing Assessment: 57 yo man with chronic pain syndrome and history of job en y admitted on 07/30 for epigastric pain, then went to the OR on 07/31 for diagnostic laparoscopy, which resulted in a cholecystectomy and ASHANTI drain placement due to bile leakage. Course complicated by internal hernia, pSBO, TAVIA, AMS 2/2 opioids improved with narcan. advanced diet. - Patient Problems (1) Acute renal failure Current Visit: No Status: Acute Comment: [employer] back down to 0.8 after IVF. BMP daily. (2) Sinus tachycardia Current Visit: Yes Status: Acute Code(s): R00.0 - TACHYCARDIA, UNSPECIFIED SNOMED Code(s): 35202691 Comment: CTA was obtained on 08/03 that ruled out PE RBBB on EKG. TSH wnl. (3) Internal hernia Current Visit: Yes Status: Acute Code(s): K45.8 - OTH ABDOMINAL HERNIA WITHOUT OBSTRUCTION OR GANGRENE SNOMED Code(s): 62374290 Comment: incarcerated ventral incision hernia s/p surgery 08/03 (4) SBO (small bowel obstruction) Current Visit: Yes Status: Acute Code(s): K56.609 - UNSP INTESTNL OBST, UNSP TO PARTIAL VERSUS COMPLETE OBST SNOMED Code(s): 919284651 Comment: incarcerated ventral incision hernia s/p surgery 08/03 tolerated full liquids today. ADAT per surgery. (5) Morbid obesity Current Visit: No Status: Chronic Code(s): E66.01 - MORBID (SEVERE) OBESITY DUE TO EXCESS CALORIES SNOMED Code(s): 634415123 Comment: s/p job-en-y bmi 46.6 (6) Chronic pain Current Visit: No Status: Acute Code(s): G89.29 - OTHER CHRONIC PAIN SNOMED Code(s): 09073792 Comment: required narcan 08/06 fentanyl patch was stopped 08/06 IV dilaudid was stoppped 08/06 continue oxycodone hx of low back, pain, hip pain. spondylitis. Status and Disposition: surgery primary, medicine consulting. PT ordered.
[2017-08-07] MEDS: traZODone TAB* 100 MG PO SCH (22:34)
[2017-08-08] MEDS: oxyCODONE TAB* 5 MG TAB PO PRN ×3 (02:08→21:01)
[2017-08-08] MEDS: Heparin VIAL(*) 5000 UNITS/ML VIAL (FIVE THOUSAND) SUBCUT SCH ×3 (05:38→21:02)
[2017-08-08] MEDS: Levothyroxine TAB* 75 MCG TAB PO SCH (05:38)
[2017-08-08 05:53] LABS: ABS Basophils 0 10^3/ul (0-0.2); ABS Eosinophils 0.4 10^3/ul (0-0.6); ABS Lymphocytes 1.5 10^3/ul (1.0-4.8); ABS Monocytes 0.9 10^3/ul (0-0.8); ABS Neutrophils 4.5 10^3/ul (1.5-7.7); ABS Nucleated RBC 0 10^3/ul; Eosinophil % 5.3 % (0-6); Hematocrit 22 % (42-52); Hemoglobin 7.3 g/dl (14.0-18.0); Lymphocyte % 20.6 % (25-47); Mean Corpuscular HGB Conc 33 g/dl (31-36); Mean Corpuscular Hemoglobin 29 pg (27-31); Mean Corpuscular Volume 88 fL (80-94); Mean Platelet Volume 9.2 um3 (7.4-10.4); Nucleated Red Blood Cells % 0.1; Platelet Count 185 10^3/ul (150-450); Red Blood Count 2.53 10^6/ul (4.0-5.4); Red Cell Distribution Width 16 % (10.5-15); White Blood Count 7.3 10^3/ul (3.5-10.8)
[2017-08-08 06:11] LABS: EGFR Non-African American 136.7 (>60)
--- NOTE | 2017-08-08 08:14 | PN ---
Progress Note - Progress Note Date of Service: 08/08/17 SOAP: Subjective: pt seen and examined. Feeling better today. Less pain. no nausea appetite returned Objective: af vss uo good +bm lungs clear abdo:" soft/ obese/ incisional tenderness, mild redness at midline incision no calf tenderness Assessment: POD 8 lap juan m, POD 5 incisional hernia repair Plan: advance diet d/c planning f/u hosp report- pt can probably come off tele pain control
[2017-08-08] MEDS: Losartan TAB* 25 MG PO SCH (09:05)
[2017-08-08] MEDS: Tamsulosin CAP* 0.4 MG PO SCH (09:06)
[2017-08-08] MEDS: VILAZODONE 40 MG PO SCH (09:06)
[2017-08-08] MEDS: Omeprazole CAP* 20 MG PO SCH (09:06)
[2017-08-08] MEDS: Pregabalin CAP(*) 50 MG PO SCH ×3 (09:06→21:02)
[2017-08-08] MEDS: Nystatin TOP POWDER* 15 GM BTL TOPICAL SCH ×3 (09:07→21:03)
[2017-08-08] MEDS: Finasteride TAB* 5 MG PO SCH (09:07)
[2017-08-08] MEDS: Senna TAB PO SCH (09:07)
[2017-08-08] MEDS: tiZANidine TAB* 2 MG PO PRN ×2 (12:19→21:01)
--- NOTE | 2017-08-08 13:44 | PN ---
Subjective Date of Service: 08/08/17 Interval History: States feeling well today, reports flatus , no BM today, Denies mild incisional tenderness, n/v/d. Denies chest pain or shortness of breath. appetite returned Family History: Unchanged from Admission Social History: Unchanged from Admission Past Medical History: Unchanged from Admission Objective Active Medications: Acetaminophen (Tylenol Tab*) 650 mg PO Q6H PRN PRN Reason: FEVER/PAIN Last Admin: 08/07/17 18:31 Dose: 650 mg Albuterol (Ventolin Hfa Inhaler*) 2 puff INH Q4H PRN PRN Reason: WHEEZING Aripiprazole (Abilify Tab*) 10 mg PO BEDTIME PRN PRN Reason: SLEEP Last Admin: 08/07/17 09:10 Dose: 10 mg Bisacodyl (Dulcolax Supp*) 10 mg [place] DAILY PRN PRN Reason: CONSTIPATION Docusate Sodium (Colace Cap*) 100 mg PO Q24H PRN PRN Reason: CONSTIPATION Last Admin: 08/03/17 23:04 Dose: 100 mg Finasteride (Proscar Tab*) 5 mg PO DAILY [facility] Last Admin: 08/08/17 09:07 Dose: 5 mg Heparin Sodium (Porcine) (Heparin Vial(*)) 5,000 units SUBCUT Q8HR [facility] Last Admin: 08/08/17 05:38 Dose: 5,000 units Hydroxyzine HCl (Atarax Tab*) 25 mg PO Q6H PRN PRN Reason: ITCHING Last Admin: 08/03/17 23:02 Dose: 25 mg Levothyroxine Sodium (Synthroid Tab*) 75 mcg PO 0600 [facility] Last Admin: 08/08/17 05:38 Dose: 75 mcg Lidocaine (Lidoderm 5% Patch*) 1 patch TRANSDERM DAILY PRN PRN Reason: PAIN Last Admin: 08/06/17 22:14 Dose: 1 patch Loratadine (Claritin Tab(Nf)) 10 mg PO DAILY PRN PRN Reason: postnasal drip Last Admin: 08/07/17 09:11 Dose: 10 mg Losartan Potassium (Cozaar Tab*) 100 mg PO DAILY [facility] Last Admin: 08/08/17 09:05 Dose: 100 mg Metoclopramide HCl (Reglan Iv*) 5 mg IV Q6H PRN PRN Reason: NAUSEA Last Admin: 08/05/17 21:09 Dose: 5 mg Nystatin (Nystatin Top Powder*) 1 applic TOPICAL TID [facility] Last Admin: 08/08/17 09:07 Dose: 1 powder Omeprazole (Prilosec Cap*) 20 mg PO DAILY@0730 [facility] Last Admin: 08/08/17 09:06 Dose: 20 mg Ondansetron HCl (Zofran Odt Tab*) 4 mg SL Q6H PRN PRN Reason: NAUSEA/VOMITING Last Admin: 08/06/17 00:10 Dose: 4 mg Oxycodone HCl (Roxycodone Tab*) 20 mg PO TID PRN PRN Reason: PAIN Last Admin: 08/08/17 12:12 Dose: 20 mg Pharmacy Profile Note (Lidocaine Patch Remove*) 1 note PATCH OFF BEDTIME [facility] Last Admin: 08/07/17 21:06 Dose: Not Given Pharmacy Profile Note (Scopolamine Patch Remove*) 1 note PATCH OFF Q72H [facility] Last Admin: 08/05/17 23:00 Dose: 1 patch Pregabalin (Lyrica Cap(*)) 150 mg PO TID [facility] Last Admin: 08/08/17 09:06 Dose: 150 mg Scopolamine (Transderm-Scop 1.5 Mg Patch*) 1 patch TRANSDERM Q72H PRN PRN Reason: NAUSEA/VOMITING Last Admin: 08/05/17 23:18 Dose: 1 patch Senna (Senokot Tab*) 1 tab PO DAILY [facility] Last Admin: 08/08/17 09:07 Dose: 1 tab Tamsulosin HCl (Flomax Cap*) 0.4 mg PO DAILY [facility] Last Admin: 08/08/17 09:06 Dose: 0.4 mg Tizanidine HCl (Zanaflex Tab*) 2 mg PO Q8H PRN PRN Reason: LEG CRAMPS Last Admin: 08/08/17 12:19 Dose: 2 mg Trazodone HCl (Desyrel Tab*) 200 mg PO BEDTIME [facility] Last Admin: 08/07/17 22:34 Dose: 200 mg Vilazodone HCl (Viibryd (Nf)) 40 mg PO DAILY [facility] PRN Reason: Protocol Last Admin: 08/08/17 09:06 Dose: 40 mg Vital Signs - 8 hr 08/08/17 08/08/17 08/08/17 05:40 07:44 09:06 Temperature 99.0 F Pulse Rate 70 Respiratory 18 18 18 Rate Blood Pressure 151/75 (mmHg) O2 Sat by Pulse 100 Oximetry 08/08/17 08/08/17 08/08/17 09:15 11:52 12:12 Temperature 98.7 F Pulse Rate 83 Respiratory 18 18 18 Rate Blood Pressure 156/75 (mmHg) O2 Sat by Pulse 99 99 Oximetry Oxygen Devices in Use Now: None, CPAP Eyes: No Scleral Icterus Ears/Nose/Mouth/Throat: Clear Oropharnyx, Mucous Membranes Moist Neck: NL Appearance and Movements; NL JVP, Trachea Midline Respiratory: Symmetrical Chest Expansion and Respiratory Effort, Clear to Auscultation Cardiovascular: NL Sounds; No Murmurs; No JVD, RRR, No Edema Abdominal: - - NL sounds, No distention, mild incisional tenderness to the abd, BS + x 4 Extremities: No Edema, No Clubbing, Cyanosis Skin: No Rash or Ulcers Neurological: Alert and Oriented x 3, NL Muscle Strength and Tone Nutrition: Taking PO's Result Diagrams: 08/08/17 05:18 08/08/17 05:18 Additional Lab and Data: Laboratory Results - last 24 hr 08/07/17 08/07/17 05:40 05:40 WBC 8.5 RBC 2.63 L Hgb 7.6 L Hct 23 L MCV 89 MCH 29 MCHC 33 RDW 16 H Plt Count 171 MPV 8.9 Neut % (Auto) 68.7 Lymph % (Auto) 14.6 L [place] % (Auto) 14.1 H Eos % (Auto) 2.1 Baso % (Auto) 0.5 Absolute Neuts (auto) 5.8 Absolute Lymphs (auto) 1.2 Absolute Monos (auto) 1.2 H Absolute Eos (auto) 0.2 Absolute Basos (auto) 0 Absolute Nucleated RBC 0 Nucleated RBC % 0 Sodium 143 Potassium 3.5 Chloride 109 Carbon Dioxide 28 Anion Gap 6 BUN 9 Creatinine 0.81 Est GFR ( Amer) 126.8 Est GFR (Non-Af Amer) 98.6 BUN/Creatinine Ratio 11.1 Glucose 116 H Calcium 7.3 L Phosphorus 2.7 Magnesium 1.7 L Assess/Plan/Problems-Billing Assessment: 57 yo man with chronic pain syndrome and history of job en y admitted on 07/30 for epigastric pain, then went to the OR on 07/31 for diagnostic laparoscopy, which resulted in a cholecystectomy and ASHANTI drain placement due to bile leakage. Course complicated by internal hernia, pSBO, TAVIA, AMS 2/2 opioids improved with narcan. advanced diet. - Patient Problems (1) Internal hernia Current Visit: Yes Status: Acute Code(s): K45.8 - OTH ABDOMINAL HERNIA WITHOUT OBSTRUCTION OR GANGRENE SNOMED Code(s): 06200730 Comment: incarcerated ventral incision hernia s/p surgery 08/03 - passing flatus , denies abd pain. (2) SBO (small bowel obstruction) Current Visit: Yes Status: Acute Code(s): K56.609 - UNSP INTESTNL OBST, UNSP TO PARTIAL VERSUS COMPLETE OBST SNOMED Code(s): 464055136 Comment: incarcerated ventral incision hernia s/p surgery 08/03 tolerated continues to tolerate full liquids- will follow surgery for diet advancement recommendations (3) Acute renal failure Current Visit: No Status: Acute Comment: resolving creatintine 0.61 today (4) HTN (hypertension) Current Visit: No Status: Chronic Code(s): I10 - ESSENTIAL (PRIMARY) HYPERTENSION SNOMED Code(s): 83994940 Comment: BPs 123-150's, continue Losartan (5) DVT prophylaxis Current Visit: No Status: Acute Code(s): GWS1791 - SNOMED Code(s): 414278105 Comment: HSQ (6) Full code status Current Visit: No Status: Acute Code(s): Z78.9 - OTHER SPECIFIED HEALTH STATUS SNOMED Code(s): 276711549 Status and Disposition: surgery primary, medicine consulting. PT ordered.
[2017-08-08] MEDS: hydrOXYzine HCL TAB* 25 MG PO PRN (17:44)
[2017-08-08 18:17] LABS: Hematocrit 24 % (42-52); Hemoglobin 7.8 g/dl (14.0-18.0); Mean Corpuscular HGB Conc 33 g/dl (31-36); Mean Corpuscular Hemoglobin 29 pg (27-31); Mean Corpuscular Volume 88 fL (80-94); Platelet Count 207 10^3/ul (150-450); Red Blood Count 2.72 10^6/ul (4.0-5.4); Red Cell Distribution Width 16 % (10.5-15); White Blood Count 7.7 10^3/ul (3.5-10.8)
[2017-08-08 18:24] LABS: INR 1.03 (0.77-1.02)
[2017-08-08 18:50] LABS: ABS Basophils 0.1 10^3/ul (0-0.2); ABS Eosinophils 0.3 10^3/ul (0-0.6); ABS Lymphocytes 1.6 10^3/ul (1.0-4.8); ABS Neutrophils 4.8 10^3/ul (1.5-7.7); ABS Nucleated RBC 0 10^3/ul; Lymphocyte % 20.1 % (25-47); Nucleated Red Blood Cells % 0.1
[2017-08-08] MEDS: traZODone TAB* 100 MG PO SCH (21:01)
[2017-08-08] MEDS: Lidocaine Patch REMOVE* 1 NOTE MISC PATCH OFF SCH (21:02)
[2017-08-08] MEDS: Scopolamine PATCH Remove* 1 NOTE MISC PATCH OFF SCH (23:30)
[2017-08-09] MEDS: Levothyroxine TAB* 75 MCG TAB PO SCH (05:04)
[2017-08-09] MEDS: oxyCODONE TAB* 5 MG TAB PO PRN ×3 (05:04→19:37)
[2017-08-09] MEDS: Heparin VIAL(*) 5000 UNITS/ML VIAL (FIVE THOUSAND) SUBCUT SCH ×3 (05:04→21:04)
[2017-08-09 06:17] LABS: ABS Basophils 0 10^3/ul (0-0.2); ABS Eosinophils 0.3 10^3/ul (0-0.6); ABS Lymphocytes 1.7 10^3/ul (1.0-4.8); ABS Monocytes 1.2 10^3/ul (0-0.8); ABS Neutrophils 5.1 10^3/ul (1.5-7.7); ABS Nucleated RBC 0 10^3/ul; Hematocrit 24 % (42-52); Hemoglobin 7.7 g/dl (14.0-18.0); Lymphocyte % 20.2 % (25-47); Mean Corpuscular HGB Conc 32 g/dl (31-36); Mean Corpuscular Hemoglobin 29 pg (27-31); Mean Corpuscular Volume 89 fL (80-94); Mean Platelet Volume 9.4 um3 (7.4-10.4); Nucleated Red Blood Cells % 0; Platelet Count 201 10^3/ul (150-450); Red Blood Count 2.68 10^6/ul (4.0-5.4); Red Cell Distribution Width 16 % (10.5-15); White Blood Count 8.3 10^3/ul (3.5-10.8)
[2017-08-09 06:33] LABS: EGFR Non-African American 124.9 (>60)
[2017-08-09] MEDS: Pregabalin CAP(*) 50 MG PO SCH ×3 (09:05→21:05)
[2017-08-09] MEDS: VILAZODONE 40 MG PO SCH (09:05)
[2017-08-09] MEDS: Losartan TAB* 25 MG PO SCH (09:05)
[2017-08-09] MEDS: Omeprazole CAP* 20 MG PO SCH (09:05)
[2017-08-09] MEDS: Tamsulosin CAP* 0.4 MG PO SCH (09:06)
[2017-08-09] MEDS: Finasteride TAB* 5 MG PO SCH (09:06)
[2017-08-09] MEDS: Senna TAB PO SCH (09:06)
[2017-08-09] MEDS: Nystatin TOP POWDER* 15 GM BTL TOPICAL SCH ×3 (09:40→21:12)
--- NOTE | 2017-08-09 11:16 | PN ---
Progress Note - Progress Note Date of Service: 08/09/17 SOAP: Subjective: pt seen and examined. Feeling better today. Still with abdo pain. Objective: af vss uo good abdo:" soft/ obese/ incisional tenderness, mild redness at midline incision no calf tenderness Assessment: POD 9 lap juan m, POD 6 incisional hernia repair Plan: d/c planning pain control
[2017-08-09 14:30] LABS: Hematocrit 25 % (42-52); Hemoglobin 8.2 g/dl (14.0-18.0)
[2017-08-09] MEDS: tiZANidine TAB* 2 MG PO PRN ×2 (15:56→23:25)
[2017-08-09] MEDS: Acetaminophen TAB* 325 MG PO PRN (15:56)
--- NOTE | 2017-08-09 17:07 | PN ---
Subjective Date of Service: 08/09/17 Interval History: c/o mild diffuse abd pain, denies chest pain or shortness of breath. Denies n/ v/d. does report that he had some back pain that lasted approximately 5 minutes yesterday. Family History: Unchanged from Admission Social History: Unchanged from Admission Past Medical History: Unchanged from Admission Objective Active Medications: Acetaminophen (Tylenol Tab*) 650 mg PO Q6H PRN PRN Reason: FEVER/PAIN Last Admin: 08/09/17 15:56 Dose: 650 mg Albuterol (Ventolin Hfa Inhaler*) 2 puff INH Q4H PRN PRN Reason: WHEEZING Aripiprazole (Abilify Tab*) 10 mg PO BEDTIME PRN PRN Reason: SLEEP Last Admin: 08/07/17 09:10 Dose: 10 mg Bisacodyl (Dulcolax Supp*) 10 mg [place] DAILY PRN PRN Reason: CONSTIPATION Docusate Sodium (Colace Cap*) 100 mg PO Q24H PRN PRN Reason: CONSTIPATION Last Admin: 08/03/17 23:04 Dose: 100 mg Finasteride (Proscar Tab*) 5 mg PO DAILY [facility] Last Admin: 08/09/17 09:06 Dose: 5 mg Heparin Sodium (Porcine) (Heparin Vial(*)) 5,000 units SUBCUT Q8HR [facility] Last Admin: 08/09/17 13:29 Dose: 5,000 units Hydroxyzine HCl (Atarax Tab*) 25 mg PO Q6H PRN PRN Reason: ITCHING Last Admin: 08/08/17 17:44 Dose: 25 mg Levothyroxine Sodium (Synthroid Tab*) 75 mcg PO 0600 [facility] Last Admin: 08/09/17 05:04 Dose: 75 mcg Lidocaine (Lidoderm 5% Patch*) 1 patch TRANSDERM DAILY PRN PRN Reason: PAIN Last Admin: 08/06/17 22:14 Dose: 1 patch Loratadine (Claritin Tab(Nf)) 10 mg PO DAILY PRN PRN Reason: postnasal drip Last Admin: 08/07/17 09:11 Dose: 10 mg Losartan Potassium (Cozaar Tab*) 100 mg PO DAILY [facility] Last Admin: 08/09/17 09:05 Dose: 100 mg Metoclopramide HCl (Reglan Iv*) 5 mg IV Q6H PRN PRN Reason: NAUSEA Last Admin: 08/05/17 21:09 Dose: 5 mg Nystatin (Nystatin Top Powder*) 1 applic TOPICAL TID [facility] Last Admin: 08/09/17 13:36 Dose: Not Given Omeprazole (Prilosec Cap*) 20 mg PO DAILY@0730 [facility] Last Admin: 08/09/17 09:05 Dose: 20 mg Ondansetron HCl (Zofran Odt Tab*) 4 mg SL Q6H PRN PRN Reason: NAUSEA/VOMITING Last Admin: 08/06/17 00:10 Dose: 4 mg Oxycodone HCl (Roxycodone Tab*) 20 mg PO TID PRN PRN Reason: PAIN Last Admin: 08/09/17 13:35 Dose: 20 mg Pharmacy Profile Note (Lidocaine Patch Remove*) 1 note PATCH OFF BEDTIME [facility] Last Admin: 08/08/17 21:02 Dose: Not Given Pharmacy Profile Note (Scopolamine Patch Remove*) 1 note PATCH OFF Q72H [facility] Last Admin: 08/08/17 23:30 Dose: 1 patch Pregabalin (Lyrica Cap(*)) 150 mg PO TID [facility] Last Admin: 08/09/17 13:28 Dose: 150 mg Scopolamine (Transderm-Scop 1.5 Mg Patch*) 1 patch TRANSDERM Q72H PRN PRN Reason: NAUSEA/VOMITING Last Admin: 08/05/17 23:18 Dose: 1 patch Senna (Senokot Tab*) 1 tab PO DAILY [facility] Last Admin: 08/09/17 09:06 Dose: 1 tab Tamsulosin HCl (Flomax Cap*) 0.4 mg PO DAILY [facility] Last Admin: 08/09/17 09:06 Dose: 0.4 mg Tizanidine HCl (Zanaflex Tab*) 2 mg PO Q8H PRN PRN Reason: LEG CRAMPS Last Admin: 08/09/17 15:56 Dose: 2 mg Trazodone HCl (Desyrel Tab*) 200 mg PO BEDTIME [facility] Last Admin: 08/08/17 21:01 Dose: 200 mg Vilazodone HCl (Viibryd (Nf)) 40 mg PO DAILY [facility] PRN Reason: Protocol Last Admin: 08/09/17 09:05 Dose: 40 mg Vital Signs - 8 hr 08/09/17 08/09/1708/09/18 09:05 11:24 13:28 Temperature 97.1 F Pulse Rate 78 Respiratory 16 16 18 Rate Blood Pressure 155/75 (mmHg) O2 Sat by Pulse 97 Oximetry 08/09/17 08/09/17 13:35 15:27 Temperature 99.8 F Pulse Rate 88 Respiratory 18 18 Rate Blood Pressure 154/70 (mmHg) O2 Sat by Pulse 97 Oximetry Oxygen Devices in Use Now: None, CPAP Appearance: obese, appears comfortable sitting in the chair, Eyes: No Scleral Icterus Ears/Nose/Mouth/Throat: Clear Oropharnyx, Mucous Membranes Moist Neck: NL Appearance and Movements; NL JVP, Trachea Midline Respiratory: Symmetrical Chest Expansion and Respiratory Effort, Clear to Auscultation Cardiovascular: NL Sounds; No Murmurs; No JVD, RRR, No Edema Abdominal: - - NL sounds, mild diffuse tenderness, no distention, soft. obese Extremities: No Edema Skin: No Rash or Ulcers Neurological: Alert and Oriented x 3, NL Muscle Strength and Tone Nutrition: Taking PO's Result Diagrams: 08/09/17 14:20 08/09/17 05:42 Additional Lab and Data: Laboratory Results - last 24 hr 08/07/17 08/07/17 05:40 05:40 WBC 8.5 RBC 2.63 L Hgb 7.6 L Hct 23 L MCV 89 MCH 29 MCHC 33 RDW 16 H Plt Count 171 MPV 8.9 Neut % (Auto) 68.7 Lymph % (Auto) 14.6 L [place] % (Auto) 14.1 H Eos % (Auto) 2.1 Baso % (Auto) 0.5 Absolute Neuts (auto) 5.8 Absolute Lymphs (auto) 1.2 Absolute Monos (auto) 1.2 H Absolute Eos (auto) 0.2 Absolute Basos (auto) 0 Absolute Nucleated RBC 0 Nucleated RBC % 0 Sodium 143 Potassium 3.5 Chloride 109 Carbon Dioxide 28 Anion Gap 6 BUN 9 Creatinine 0.81 Est GFR ( Amer) 126.8 Est GFR (Non-Af Amer) 98.6 BUN/Creatinine Ratio 11.1 Glucose 116 H Calcium 7.3 L Phosphorus 2.7 Magnesium 1.7 L Assess/Plan/Problems-Billing Assessment: 57 yo man with chronic pain syndrome and history of job en y admitted on 07/30 for epigastric pain, then went to the OR on 07/31 for diagnostic laparoscopy, which resulted in a cholecystectomy and ASHANTI drain placement due to bile leakage. Course complicated by internal hernia, pSBO, TAVIA, AMS 2/2 opioids improved with narcan. advanced diet. - Patient Problems (1) Internal hernia Current Visit: Yes Status: Acute Code(s): K45.8 - OTH ABDOMINAL HERNIA WITHOUT OBSTRUCTION OR GANGRENE SNOMED Code(s): 86557766 Comment: incarcerated ventral incision hernia s/p surgery 08/03 - report large BM today- not black ot tarry. no bright red blood - reports diffuse abd tenderness, eric intact to surgical wound sites, no redness noted. - small amount of drainage noted from old ASHANTI drain site- serosang. (2) SBO (small bowel obstruction) Current Visit: Yes Status: Acute Code(s): K56.609 - UNSP INTESTNL OBST, UNSP TO PARTIAL VERSUS COMPLETE OBST SNOMED Code(s): 887603087 Comment: incarcerated ventral incision hernia s/p surgery 08/03 tolerated continues to tolerate full liquids- will follow surgery for diet advancement recommendations - tolerating po diet well (3) Acute renal failure Current Visit: No Status: Acute Comment: resolving creatintine 0.61 today (4) HTN (hypertension) Current Visit: No Status: Chronic Code(s): I10 - ESSENTIAL (PRIMARY) HYPERTENSION SNOMED Code(s): 61489319 Comment: BPs stable, continue Losartan (5) DVT prophylaxis Current Visit: No Status: Acute Code(s): UVG0341 - SNOMED Code(s): 733787364 Comment: HSQ (6) Full code status Current Visit: No Status: Acute Code(s): Z78.9 - OTHER SPECIFIED HEALTH STATUS SNOMED Code(s): 218898536 Status and Disposition: surgery primary, medicine consulting. PT ordered. discharge per surgery
[2017-08-09] MEDS: traZODone TAB* 100 MG PO SCH (21:06)
[2017-08-09] MEDS: hydrOXYzine HCL TAB* 25 MG PO PRN (21:06)
[2017-08-09] MEDS: Lidocaine PATCH 5%* 1 PATCH TRANSDERM PRN (21:07)
[2017-08-09] MEDS: CMCS LoraTADine TAB(NF) 10 MG TAB PO PRN (21:07)
[2017-08-09] MEDS: Lidocaine Patch REMOVE* 1 NOTE MISC PATCH OFF SCH (21:13)
[2017-08-10] MEDS: oxyCODONE TAB* 5 MG TAB PO PRN ×2 (03:24→11:00)
[2017-08-10 05:53] LABS: ABS Basophils 0 10^3/ul (0-0.2); ABS Eosinophils 0.4 10^3/ul (0-0.6); ABS Lymphocytes 1.5 10^3/ul (1.0-4.8); ABS Neutrophils 5.5 10^3/ul (1.5-7.7); ABS Nucleated RBC 0 10^3/ul; Eosinophil % 4.5 % (0-6); Hematocrit 24 % (42-52); Hemoglobin 8.1 g/dl (14.0-18.0); Lymphocyte % 18.3 % (25-47); Mean Corpuscular HGB Conc 33 g/dl (31-36); Mean Corpuscular Hemoglobin 29 pg (27-31); Mean Corpuscular Volume 88 fL (80-94); Nucleated Red Blood Cells % 0; Platelet Count 220 10^3/ul (150-450); Red Blood Count 2.78 10^6/ul (4.0-5.4); Red Cell Distribution Width 16 % (10.5-15); White Blood Count 8.4 10^3/ul (3.5-10.8)
[2017-08-10] MEDS: Heparin VIAL(*) 5000 UNITS/ML VIAL (FIVE THOUSAND) SUBCUT SCH ×2 (06:12→12:54)
[2017-08-10] MEDS: Levothyroxine TAB* 75 MCG TAB PO SCH (06:12)
[2017-08-10] MEDS: Senna TAB PO SCH (08:23)
[2017-08-10] MEDS: Tamsulosin CAP* 0.4 MG PO SCH (08:23)
[2017-08-10] MEDS: Losartan TAB* 25 MG PO SCH (08:23)
[2017-08-10] MEDS: Pregabalin CAP(*) 50 MG PO SCH ×2 (08:23→12:54)
[2017-08-10] MEDS: Omeprazole CAP* 20 MG PO SCH (08:23)
[2017-08-10] MEDS: Finasteride TAB* 5 MG PO SCH (08:23)
[2017-08-10] MEDS: hydrOXYzine HCL TAB* 25 MG PO PRN (08:26)
[2017-08-10] MEDS: tiZANidine TAB* 2 MG PO PRN (08:26)
[2017-08-10] MEDS: VILAZODONE 40 MG PO SCH (08:26)
--- NOTE | 2017-08-10 10:18 | PN ---
Progress Note - Progress Note Date of Service: 08/10/17 SOAP: Subjective:POD #10 s/p lap juan m;POD#6 s/p incisional hernia repair lisa po,no n/v;wants to go home [] Objective:afeb,VSS;abd:obese,+bs;incisions clean and dry,no infection,eric intact;ext:nontender [] Assessment:doing well [] Plan:Discharge home today,discussed with DR Dacosta;OV on 08/14/17; instructions reviewed and RX for 2 day supply of oxycodone until he sees DR Seals []
[2017-08-10] MEDS: Nystatin TOP POWDER* 15 GM BTL TOPICAL SCH (11:04)
--- NOTE | 2017-08-10 11:56 | PN ---
Subjective Date of Service: 08/10/17 Interval History: c/o mild abd gas, abrasion to bilat lower legs, Denies chest pain or shortness of breath . c/o mild abd pain, denies n/v/d eric intact to incisions no redness or swelling , no drainage. Family History: Unchanged from Admission Social History: Unchanged from Admission Past Medical History: Unchanged from Admission Objective Active Medications: Acetaminophen (Tylenol Tab*) 650 mg PO Q6H PRN PRN Reason: FEVER/PAIN Last Admin: 08/09/17 15:56 Dose: 650 mg Albuterol (Ventolin Hfa Inhaler*) 2 puff INH Q4H PRN PRN Reason: WHEEZING Aripiprazole (Abilify Tab*) 10 mg PO BEDTIME PRN PRN Reason: SLEEP Last Admin: 08/07/17 09:10 Dose: 10 mg Bisacodyl (Dulcolax Supp*) 10 mg [place] DAILY PRN PRN Reason: CONSTIPATION Docusate Sodium (Colace Cap*) 100 mg PO Q24H PRN PRN Reason: CONSTIPATION Last Admin: 08/03/17 23:04 Dose: 100 mg Finasteride (Proscar Tab*) 5 mg PO DAILY [facility] Last Admin: 08/10/17 08:23 Dose: 5 mg Heparin Sodium (Porcine) (Heparin Vial(*)) 5,000 units SUBCUT Q8HR [facility] Last Admin: 08/10/17 06:12 Dose: 5,000 units Hydroxyzine HCl (Atarax Tab*) 25 mg PO Q6H PRN PRN Reason: ITCHING Last Admin: 08/10/17 08:26 Dose: 25 mg Levothyroxine Sodium (Synthroid Tab*) 75 mcg PO 0600 [facility] Last Admin: 08/10/17 06:12 Dose: 75 mcg Lidocaine (Lidoderm 5% Patch*) 1 patch TRANSDERM DAILY PRN PRN Reason: PAIN Last Admin: 08/09/17 21:07 Dose: 1 patch Loratadine (Claritin Tab(Nf)) 10 mg PO DAILY PRN PRN Reason: postnasal drip Last Admin: 08/09/17 21:07 Dose: 10 mg Losartan Potassium (Cozaar Tab*) 100 mg PO DAILY [facility] Last Admin: 08/10/17 08:23 Dose: 100 mg Metoclopramide HCl (Reglan Iv*) 5 mg IV Q6H PRN PRN Reason: NAUSEA Last Admin: 08/05/17 21:09 Dose: 5 mg Nystatin (Nystatin Top Powder*) 1 applic TOPICAL TID [facility] Last Admin: 08/10/17 11:04 Dose: Not Given Omeprazole (Prilosec Cap*) 20 mg PO DAILY@0730 [facility] Last Admin: 08/10/17 08:23 Dose: 20 mg Ondansetron HCl (Zofran Odt Tab*) 4 mg SL Q6H PRN PRN Reason: NAUSEA/VOMITING Last Admin: 08/06/17 00:10 Dose: 4 mg Oxycodone HCl (Roxycodone Tab*) 20 mg PO TID PRN PRN Reason: PAIN Last Admin: 08/10/17 11:00 Dose: 20 mg Pharmacy Profile Note (Lidocaine Patch Remove*) 1 note PATCH OFF BEDTIME [facility] Last Admin: 08/09/17 21:13 Dose: Not Given Pharmacy Profile Note (Scopolamine Patch Remove*) 1 note PATCH OFF Q72H [facility] Last Admin: 08/08/17 23:30 Dose: 1 patch Pregabalin (Lyrica Cap(*)) 150 mg PO TID [facility] Last Admin: 08/10/17 08:23 Dose: 150 mg Scopolamine (Transderm-Scop 1.5 Mg Patch*) 1 patch TRANSDERM Q72H PRN PRN Reason: NAUSEA/VOMITING Last Admin: 08/05/17 23:18 Dose: 1 patch Senna (Senokot Tab*) 1 tab PO DAILY [facility] Last Admin: 08/10/17 08:23 Dose: 1 tab Tamsulosin HCl (Flomax Cap*) 0.4 mg PO DAILY [facility] Last Admin: 08/10/17 08:23 Dose: 0.4 mg Tizanidine HCl (Zanaflex Tab*) 2 mg PO Q8H PRN PRN Reason: LEG CRAMPS Last Admin: 08/10/17 08:26 Dose: 2 mg Trazodone HCl (Desyrel Tab*) 200 mg PO BEDTIME [facility] Last Admin: 08/09/17 21:06 Dose: 200 mg Vilazodone HCl (Viibryd (Nf)) 40 mg PO DAILY [facility] PRN Reason: Protocol Last Admin: 08/10/17 08:26 Dose: 40 mg Vital Signs - 8 hr 08/10/17 08/10/17 08/10/17 05:34 07:39 08:23 Temperature 98.2 F Pulse Rate 80 Respiratory 16 18 16 Rate Blood Pressure 133/64 (mmHg) O2 Sat by Pulse 98 Oximetry 08/10/17 08/10/17 08:30 11:00 Temperature Pulse Rate Respiratory 18 18 Rate Blood Pressure (mmHg) O2 Sat by Pulse Oximetry Oxygen Devices in Use Now: None, CPAP Appearance: pale middle ages male, alert sitting in the chair Eyes: No Scleral Icterus Ears/Nose/Mouth/Throat: Clear Oropharnyx, Mucous Membranes Moist Neck: NL Appearance and Movements; NL JVP, Trachea Midline Respiratory: Symmetrical Chest Expansion and Respiratory Effort, Clear to Auscultation Cardiovascular: NL Sounds; No Murmurs; No JVD, No Edema Abdominal: NL Sounds; No Tenderness; No Distention Skin: No Nodules or Sclerosis, - - bilat lower legs with brown discoloration, right lower leg with scabbed abrasions , mild redness, warm to the touch Neurological: Alert and Oriented x 3 Nutrition: Taking PO's Result Diagrams: 08/10/17 05:24 08/09/17 05:42 Additional Lab and Data: Laboratory Results - last 24 hr 08/07/17 08/07/17 05:40 05:40 WBC 8.5 RBC 2.63 L Hgb 7.6 L Hct 23 L MCV 89 MCH 29 MCHC 33 RDW 16 H Plt Count 171 MPV 8.9 Neut % (Auto) 68.7 Lymph % (Auto) 14.6 L [place] % (Auto) 14.1 H Eos % (Auto) 2.1 Baso % (Auto) 0.5 Absolute Neuts (auto) 5.8 Absolute Lymphs (auto) 1.2 Absolute Monos (auto) 1.2 H Absolute Eos (auto) 0.2 Absolute Basos (auto) 0 Absolute Nucleated RBC 0 Nucleated RBC % 0 Sodium 143 Potassium 3.5 Chloride 109 Carbon Dioxide 28 Anion Gap 6 BUN 9 Creatinine 0.81 Est GFR ( Amer) 126.8 Est GFR (Non-Af Amer) 98.6 BUN/Creatinine Ratio 11.1 Glucose 116 H Calcium 7.3 L Phosphorus 2.7 Magnesium 1.7 L Assess/Plan/Problems-Billing Assessment: 57 yo man with chronic pain syndrome and history of job en y admitted on 07/30 for epigastric pain, then went to the OR on 07/31 for diagnostic laparoscopy, which resulted in a cholecystectomy and ASHANTI drain placement due to bile leakage. Course complicated by internal hernia, pSBO, TAVIA, AMS 2/2 opioids improved with narcan. advanced diet. - Patient Problems (1) Internal hernia Current Visit: Yes Status: Acute Code(s): K45.8 - OTH ABDOMINAL HERNIA WITHOUT OBSTRUCTION OR GANGRENE SNOMED Code(s): 75052970 Comment: incarcerated ventral incision hernia s/p surgery 08/03 - report large BM yesterday- not black ot tarry. no bright red blood - reports diffuse abd tenderness, eric intact to surgical wound sites, no redness noted. No drainage noted from ASHANTI drain site incisions all well approximated (2) SBO (small bowel obstruction) Current Visit: Yes Status: Acute Code(s): K56.609 - UNSP INTESTNL OBST, UNSP TO PARTIAL VERSUS COMPLETE OBST SNOMED Code(s): 461356307 Comment: incarcerated ventral incision hernia s/p surgery 08/03 tolerated continues to tolerate full liquids- will follow surgery for diet advancement recommendations - tolerating po diet well (3) Acute renal failure Current Visit: No Status: Acute Comment: resolved (4) HTN (hypertension) Current Visit: No Status: Chronic Code(s): I10 - ESSENTIAL (PRIMARY) HYPERTENSION SNOMED Code(s): 29904823 Comment: BPs stable, continue Losartan (5) Cellulitis Current Visit: No Status: Acute Code(s): L03.90 - CELLULITIS, UNSPECIFIED SNOMED Code(s): 526511186 Comment: Mild erythema and abrasions noted to right lower leg, warm to touch -suspect early cellulitis - recommend Keflex 500mg QID for 5 days- called into [facility] spoke to Luiza Juarez [employer] from surgery - script was called in. (6) Anemia Current Visit: No Status: Acute Code(s): D64.9 - ANEMIA, UNSPECIFIED SNOMED Code(s): 787412563 Comment: H/H stable Likely due to a combination of iron deficiency, chronic disease, surgery and hemodilution - recommend repeat H/H in 1 week with PCP- discussed with Luiza Juarez [employer] order when seen in the office on thursday. (7) DVT prophylaxis Current Visit: No Status: Acute Code(s): DGM8627 - SNOMED Code(s): 124246540 Comment: HSQ (8) Full code status Current Visit: No Status: Acute Code(s): Z78.9 - OTHER SPECIFIED HEALTH STATUS SNOMED Code(s): 998377045 Status and Disposition: surgery primary, medicine consulting. PT ordered. discharge per surgery
[2017-08-10] MEDS: Acetaminophen TAB* 325 MG PO PRN (13:13)
[2017-08-10 13:31] VITALS: BP 142/80
--- NOTE | 2017-08-15 07:02 | DS ---
CC: [facility]; Dr. Hernández, [facility] DISCHARGE SUMMARY: DATE OF ADMISSION: 07/31/17 DATE OF DISCHARGE: 08/10/17 PRINCIPAL DIAGNOSES: 1. Abdominal pain with cholecystitis. 2. Small bowel obstruction secondary to incarcerated ventral incisional hernia. PROCEDURE PERFORMED: 1. Diagnostic laparoscopy with laparoscopic cholecystectomy. 2. Open repair of incarcerated ventral incisional hernia causing small bowel obstruction. SECONDARY DIAGNOSES: Include: 1. Morbid obesity. 2. Malnutrition. 3. Sleep apnea. 4. Hypothyroidism. 5. Depression. 6. Chronic back pain. DRUG ALLERGIES: To PIOGLITAZONE. MEDICINES ON DISCHARGE: 1. Oxycodone. 2. Finasteride 5 mg daily. 3. Levothyroxine 75 mcg daily. 4. Fentanyl patch 25 mcg per hour every 72 hours. 5. Trazodone 200 mg q.h.s. 6. Pregabalin 150 mg t.i.d. 7. Abilify 10 mg q.h.s. p.r.n. 8. Albuterol inhaler as needed. 9. Omeprazole 20 mg daily. 10. Lasix 40 mg daily. 11. Losartan 100 mg daily. 12. Lidocaine patch transdermal every day as needed. 13. Benadryl p.r.n. CONDITION ON DISCHARGE: Good. DISPOSITION: To home. BRIEF HISTORY: Mr. Matthew Warner is a morbidly obese 57-year-old gentleman, who has undergone a Rou x-en-Y gastric bypass for morbid obesity several years ago at another hospital. He presented to the emergency room with 24 hours of generalized but severe abdominal discomfort. CAT scan of the abdomen and pelvis did not show any evidence of internal hernia, bowel obstruction, or a cute abnormality other than the fact that there were gallstones with the possible thickening of the g allbladder wall. HOSPITAL COURSE: The patient was admitted to the surgical service and observed carefully. Over the first 24 hours, his pain persisted with concern of his past history of gastric bypass, as well as pos sible cholecystitis, decision was made to proceed with a diagnostic laparoscopy to evaluate for inter nal hernia and/or bowel obstruction and consideration of his cholecystectomy. On hospital day #2, he was taken to the operating room where he underwent a diagnostic laparoscopy th at revealed no evidence of internal hernia, bowel ischemia, or bowel obstruction, but the gallbladder wall appeared to be thickened and inflamed and he underwent laparoscopic cholecystectomy and ASHANTI drai n placement. Postoperatively, he developed some nausea and vomiting in the recovery room. In the next several day s, persistent vomiting and retching without improvement and subsequent CAT scan was performed on post operative day #3, which showed what appeared to be a small bowel obstruction which was new, most like ly secondary to a loop of small bowel that had herniated up into the lower midline port site from the previous laparoscopic cholecystectomy. He was taken back urgently to the operating room and the hernia was identified containing bowel, whic h was viable. This was reduced and the fascia was closed and an onlay biologic mesh was placed. Postoperatively, he did well. He had an ileus that lasted several days but his bowel began working o n postoperative day #3. His diet was advanced as tolerated. His ASHANTI drain was removed. His antibioti cs were continued for 48 hours and were discontinued. On the day of discharge, he was ambulating in the hallway, his bowels were working well, he was roxi ating a regular diet. He was afebrile, he had a normal white blood cell count. He has chronic anemi a, which was followed. There was no evidence of hemorrhage throughout his hospital stay and appropri ate followup appointment was made with Dr. Dacosta in the office in 5 days and subsequent medical f ollowup would also be arranged. [id number]/[facility] #: [id number]
== END 2017-08-10 13:25 | disposition home or self-care (01) | DRG 263 ==
LOC: ED 01:47 → SSU 11:24 → OBSVTOIN 07-31 16:22
PROVIDERS: ADMIT Surgery; ATTEND Student in an Organized Health Care Education/Training Program
PROC: 5A09357 Assistance with Respiratory Ventilation, Less than 24 Consecutive Hours, Continuous Positive Airway Pressure (ICD-10-PCS; 2017-07-31)
PROC: 0FT44ZZ Resection of Gallbladder, Percutaneous Endoscopic Approach (ICD-10-PCS; principal; 2017-07-31 10:00)
PROC: 0WUF0JZ Supplement Abdominal Wall with Synthetic Substitute, Open Approach (ICD-10-PCS; 2017-08-03)
PROC: 0T9B70Z Drainage of Bladder with Drainage Device, Via Natural or Artificial Opening (ICD-10-PCS; 2017-08-06)
PROC: 0TPB70Z Removal of Drainage Device from Bladder, Via Natural or Artificial Opening (ICD-10-PCS; 2017-08-07)
DX: K80.00 Calculus of gallbladder with acute cholecystitis without obstruction (principal); K43.0 Incisional hernia with obstruction, without gangrene; K56.7 Ileus, unspecified; N17.9 Acute kidney failure, unspecified; K91.89 Other postprocedural complications and disorders of digestive system; L03.90 Cellulitis, unspecified; Z68.42 Body mass index [BMI] 45.0-49.9, adult; E03.9 Hypothyroidism, unspecified; E78.00 Pure hypercholesterolemia, unspecified; I10 Essential (primary) hypertension; I87.8 Other specified disorders of veins; E11.51 Type 2 diabetes mellitus with diabetic peripheral angiopathy without gangrene; J44.9 Chronic obstructive pulmonary disease, unspecified; K21.9 Gastro-esophageal reflux disease without esophagitis; N40.0 Benign prostatic hyperplasia without lower urinary tract symptoms; N20.0 Calculus of kidney; M81.0 Age-related osteoporosis without current pathological fracture; F32.9 Major depressive disorder, single episode, unspecified; F41.9 Anxiety disorder, unspecified; Z96.642 Presence of left artificial hip joint; F11.90 Opioid use, unspecified, uncomplicated; G47.33 Obstructive sleep apnea (adult) (pediatric); M46.90 Unspecified inflammatory spondylopathy, site unspecified; M17.0 Bilateral primary osteoarthritis of knee; Y83.2 Surgical operation with anastomosis, bypass or graft as the cause of abnormal reaction of the patient, or of later complication, without mention of misadventure at the time of the procedure; G47.00 Insomnia, unspecified; E11.649 Type 2 diabetes mellitus with hypoglycemia without coma; E66.01 Morbid (severe) obesity due to excess calories; K42.9 Umbilical hernia without obstruction or gangrene; M16.11 Unilateral primary osteoarthritis, right hip; M47.9 Spondylosis, unspecified; K57.90 Diverticulosis of intestine, part unspecified, without perforation or abscess without bleeding; H02.402 Unspecified ptosis of left eyelid; M79.7 Fibromyalgia; R00.0 Tachycardia, unspecified; R09.82 Postnasal drip; R41.82 Altered mental status, unspecified; T40.2X5A Adverse effect of other opioids, initial encounter; Y92.239 Unspecified place in hospital as the place of occurrence of the external cause; G89.4 Chronic pain syndrome; I45.10 Unspecified right bundle-branch block; E86.1 Hypovolemia; E83.42 Hypomagnesemia; D64.9 Anemia, unspecified; Z88.8 Allergy status to other drugs, medicaments and biological substances; Z98.84 Bariatric surgery status; Z80.43 Family history of malignant neoplasm of testis; Z81.1 Family history of alcohol abuse and dependence; Z82.49 Family history of ischemic heart disease and other diseases of the circulatory system; Z83.3 Family history of diabetes mellitus; Z82.3 Family history of stroke; Z72.89 Other problems related to lifestyle; Z83.2 Family history of diseases of the blood and blood-forming organs and certain disorders involving the immune mechanism; Z99.81 Dependence on supplemental oxygen; Q43.0 Meckel's diverticulum (displaced) (hypertrophic); Z87.891 Personal history of nicotine dependence; Z86.010 Personal history of colon polyps
CPT/HCPCS: 36415; 36600; 71045; 71275; 74176; 74177; 76705; 80048; 80053; 81003; 81015; 82550; 82553; 82607; 82728; 82746; 82803; 83036; 83540; 83550; 83605; 83690; 83735; 83880; 84100; 84134; 84443; 84484; 85014; 85018; 85025; 85610; 85730; 86140; 86850; 86900; 86901; 88304; 93005; 94660; 99284; A9270-GY; C1781; G0378; J0330; J0690; J0694; J0780; J1100; J1170; J1644; J1885; J2250; J2270; J2310; J2543; J2704; J2710; J2765; J3010; J3475; Q9967

== ENCOUNTER 2017-11-20 09:30 | Emergency (ER) | payer OTHER ==
[2017-11-20 10:00] VITALS: BP 161/89
[2017-11-20 10:22] LABS: ABS Basophils 0.1 10^3/ul (0-0.2); ABS Eosinophils 0.2 10^3/ul (0-0.6); ABS Monocytes 0.9 10^3/ul (0-0.8); ABS Neutrophils 4.4 10^3/ul (1.5-7.7); ABS Nucleated RBC 0 10^3/ul; Eosinophil % 3.2 % (0-6); Hematocrit 36 % (42-52); Hemoglobin 11.6 g/dl (14.0-18.0); Lymphocyte % 15.3 % (25-47); Mean Corpuscular HGB Conc 33 g/dl (31-36); Mean Corpuscular Hemoglobin 27 pg (27-31); Mean Corpuscular Volume 83 fL (80-94); Mean Platelet Volume 8.4 um3 (7.4-10.4); Nucleated Red Blood Cells % 0; Platelet Count 256 10^3/ul (150-450); Red Blood Count 4.28 10^6/ul (4.00-5.40); Red Cell Distribution Width 19 % (10.5-15); White Blood Count 6.5 10^3/ul (3.5-10.8)
[2017-11-20 10:39] LABS: EGFR Non-African American 76.4 (>60); INR 1.06 (0.77-1.02)
--- NOTE | 2017-11-20 11:34 | ED ---
HPI Cardiac - HPI Summary HPI Summary: Patient is a 57 y/o M BIBA w/ c/o rapid heart beat since 2300/2400 last night and into this morning. He reports trouble sleeping since onset. He denies chest pain but reports slight SOB. Patient also notes some bilateral tingling in his fingertips. EMS reports rate as high as 120, but upon arrival patient is noted to be in a normal rate between 60-100 BPM. Patient is A&Ox3. He notes Hx of chronic abdominal pain. Patient has fentanyl patch at right upper chest. On triage, pain is denied and nothing is noted to aggravate/alleviate Sx. Home medications and allergies reviewed. - History of Current Complaint Chief Complaint: EDDysrhythmPalp Stated Complaint: RAPID HR Time Seen by Provider: 11/20/17 09:51 Hx Obtained From: Patient Onset/Duration: Started Days Ago - onset 2300/2400 last night, Still Present Current Severity: None - pain denied Pain Intensity: 0 Pain Scale Used: 0-10 Numeric - 0/10 Chest Pain Location: Diffuse - CHEST PAIN DENIED Aggravating Factor(s): Nothing Alleviating Factor(s): Nothing Associated Signs and Symptoms: Positive: Tingling - fingers in both extremities , Shortness of Breath, Other: - rapid heart rate. Negative: Chest Pain - Additional Pertinent History Primary Care Physician: [id number] - Allergy/Home Medications Allergies/Adverse Reactions: Allergies Allergy/AdvReac Type Severity Reaction Status Date / Time pioglitazone [From Actos] AdvReac Coughing Verified 11/20/17 09:37 PMH/Surg Hx/FS Hx/Imm Hx Endocrine/Hematology History: Reports: Hx Diabetes, Hx Thyroid Disease - hypothyroid Cardiovascular History: Reports: Hx Hypercholesterolemia - Crestor, Hx Hypertension, Hx Peripheral Vascular Disease - chronic venous stasis, Hx Syncope , Other Cardiovascular Problems/Disorders - HYPERCHOLESTEROLEMIA/IDDM II/OBESITY Respiratory History: Reports: Hx Chronic Bronchitis, Hx Sleep Apnea Denies: Hx Chronic Obstructive Pulmonary Disease (COPD) GI History: Reports: Hx Gastroesophageal Reflux Disease, Hx Hiatal Hernia, Other GI Disorders - gastric bypass surgery november-2012 History: Reports: Hx Benign Prostatic Hyperplasia, Hx Kidney Stones, Other Problems/Disorders - "slow peeing" seen by urologist-prescribed meds,BPH Denies: Hx Dialysis Musculoskeletal History: Reports: Hx Arthritis, Hx Fibromyalgia, Hx Orthopedic Injury - right thumb, dislocation of left knee, Hx Osteoporosis, Other Musculoskeletal History - left hip surgery Denies: Hx Back Problems Sensory History: Reports: Hx Contacts or Glasses - for reading Denies: Hx Deafness, Hx Hearing Aid Opthamlomology History: Reports: Hx Contacts or Glasses - for reading Neurological History: Reports: Other Neuro Impairments/Disorders - SYNCOPE / ARTHITIS Denies: Hx Dementia, Hx Developmental Delay, Hx Headaches, Hx Seizures Psychiatric History: Reports: Hx Anxiety, Hx Depression, Hx Inpatient Treatment - 2007 Denies: Hx Bipolar Disorder - patient states depression, but not bipoar - Surgical History Surgery Procedure, Year, and Place: Mytosis left eye surgical correction; Tonsillectomy; Right Knee Arthroscopic Surgery; Left Hip Replacement at [facility] 12/12/13; Gastro Bypass 12/14/12 [facility]; Cholecystectomy Hx Anesthesia Reactions: No - Immunization History Date of Tetanus Vaccine: utd Date of Influenza Vaccine: utd Infectious Disease History: No Infectious Disease History: Denies: Hx Clostridium Difficile, Hx Hepatitis, Hx Human Immunodeficiency Virus (HIV), Hx of Known/Suspected MRSA, Hx Shingles, Hx Tuberculosis, Hx Known/ Suspected VRE, Hx Known/Suspected VRSA, History Other Infectious Disease, Traveled Outside the [place] in Last 30 Days - Family History Known Family History: Positive: Cardiac Disease - Father - CAD, Diabetes - Son - - DM, Other - Mother - CVA. Father - EtOH abuse and CAD. Son -- testicular CA and DM - Social History Alcohol Use: Rare Hx Substance Use: Yes Substance Use Type: Reports: Prescribed Substance Use Comment - Amount & Last Used: fentanyl patch, oxycodone Hx Tobacco Use: No Smoking Status (MU): Former Smoker Review of Systems Positive: Other - rapid heart rate . Negative: Chest Pain Positive: Shortness Of Breath Neurological: Other - bilateral tingling in fingertips All Other Systems Reviewed And Are Negative: Yes Physical Exam - Summary Physical Exam Summary: Appearance: The patient is morbidly obese in no acute distress and in no acute pain. Skin: The skin is warm and dry and skin color reflects adequate perfusion. HEENT: The head is normocephalic and atraumatic. The pupils are equal and reactive. The conjunctivae are clear and without drainage. Nares are patent and without drainage. Mouth reveals moist mucous membranes and the throat is without erythema and exudate. The external ears are intact. The ear canals are patent and without drainage. The tympanic membranes are intact. Neck: The neck is supple with full range of motion and non-tender. There are no carotid bruits. There is no neck vein distension. Respiratory: Chest is non-tender. Lungs are clear to auscultation and breath sounds are symmetrical and equal. Cardiovascular: Heart is regular rate and rhythm. There is no murmur or rub auscultated. There is no peripheral edema and pulses are symmetrical and equal. Abdomen: Diffuse abdominal tenderness, but patient reports this is chronic. The abdomen is soft. There are normal bowel sounds heard in all four quadrants and there is no organomegaly palpated. Musculoskeletal: There is no back tenderness noted. Extremities are non-tender with full range of motion. There is good capillary refill. There is no peripheral edema or calf tenderness elicited. Neurological: Patient is alert and oriented to person, place and time. The patient has symmetrical motor strength in all four extremities. Cranial nerves are grossly intact. Deep tendon reflexes are symmetrical and equal in all four extremities. Psychiatric: The patient has an appropriate affect and does not exhibit any anxiety or depression. Triage Information Reviewed: Yes Vital Signs On Initial Exam: Initial Vitals Temp Pulse Resp BP Pulse Ox 98.3 F 98 22 162/92 97 11/20/17 09:33 11/20/17 09:33 11/20/17 09:33 11/20/17 09:33 11/20/17 09:33 Vital Signs Reviewed: Yes Diagnostics - Vital Signs Vital Signs Temp Pulse Resp BP Pulse Ox 11/20/17 11:00 79 10 96 11/20/17 10:03 96 11/20/17 10:00 89 14 96 11/20/17 09:53 93 21 161/89 97 11/20/17 09:37 97 23 97 11/20/17 09:33 98.3 F 98 22 162/92 97 - Laboratory Lab Results: Lab Results 11/20/17 11/20/17 11/20/17 Range/Units 10:11 10:11 10:11 WBC 6.5 (3.5-10.8) 10^3/ul RBC 4.28 (4.00-5.40) 10^6/ul Hgb 11.6 L (14.0-18.0) g/dl Hct 36 L (42-52) % MCV 83 (80-94) fL MCH 27 (27-31) pg MCHC 33 (31-36) g/dl RDW 19 H (10.5-15) % Plt Count 256 (150-450) 10^3/ul MPV 8.4 (7.4-10.4) um3 Neut % (Auto) 67.5 (38-83) % Lymph % (Auto) 15.3 L (25-47) % [place] % (Auto) 13.1 H (0-7) % Eos % (Auto) 3.2 (0-6) % Baso % (Auto) 0.9 (0-2) % Absolute Neuts (auto) 4.4 (1.5-7.7) 10^3/ul Absolute Lymphs (auto) 1.0 (1.0-4.8) 10^3/ul Absolute Monos (auto) 0.9 H (0-0.8) 10^3/ul Absolute Eos (auto) 0.2 (0-0.6) 10^3/ul Absolute Basos (auto) 0.1 (0-0.2) 10^3/ul Absolute Nucleated RBC 0 10^3/ul Nucleated RBC % 0 Sodium 142 (135-145) mmol/L Potassium 3.3 L (3.5-5.0) mmol/L Chloride 111 (101-111) mmol/L Carbon Dioxide 24 (22-32) mmol/L Anion Gap 7 (2-11) mmol/L BUN 8 (6-24) mg/dL Creatinine 1.01 (0.67-1.17) mg/dL Est GFR ( Amer) 92.5 (>60) Est GFR (Non-Af Amer) 76.4 (>60) BUN/Creatinine Ratio 7.9 L (8-20) Glucose 183 H (70-100) mg/dL Lactic Acid 2.7 H* (0.5-2.0) mmol/L Calcium 8.3 L (8.6-10.3) mg/dL Magnesium 1.8 L (1.9-2.7) mg/dL Total Bilirubin 0.30 (0.2-1.0) mg/dL AST 9 L (13-39) U/L ALT 7 (7-52) U/L Alkaline Phosphatase 102 (34-104) U/L Troponin I 0.00 (<0.04) ng/mL B-Natriuretic Peptide ( - 100) pg/mL Total Protein 6.2 L (6.4-8.9) g/dL Albumin 3.5 (3.2-5.2) g/dL Globulin 2.7 (2-4) g/dL Albumin/Globulin Ratio 1.3 (1-3) TSH Pending 11/20/17 Range/Units 10:11 WBC (3.5-10.8) 10^3/ul RBC (4.00-5.40) 10^6/ul Hgb (14.0-18.0) g/dl Hct (42-52) % MCV (80-94) fL MCH (27-31) pg MCHC (31-36) g/dl RDW (10.5-15) % Plt Count (150-450) 10^3/ul MPV (7.4-10.4) um3 Neut % (Auto) (38-83) % Lymph % (Auto) (25-47) % [place] % (Auto) (0-7) % Eos % (Auto) (0-6) % Baso % (Auto) (0-2) % Absolute Neuts (auto) (1.5-7.7) 10^3/ul Absolute Lymphs (auto) (1.0-4.8) 10^3/ul Absolute Monos (auto) (0-0.8) 10^3/ul Absolute Eos (auto) (0-0.6) 10^3/ul Absolute Basos (auto) (0-0.2) 10^3/ul Absolute Nucleated RBC 10^3/ul Nucleated RBC % Sodium (135-145) mmol/L Potassium (3.5-5.0) mmol/L Chloride (101-111) mmol/L Carbon Dioxide (22-32) mmol/L Anion Gap (2-11) mmol/L BUN (6-24) mg/dL Creatinine (0.67-1.17) mg/dL Est GFR ( Amer) (>60) Est GFR (Non-Af Amer) (>60) BUN/Creatinine Ratio (8-20) Glucose (70-100) mg/dL Lactic Acid (0.5-2.0) mmol/L Calcium (8.6-10.3) mg/dL Magnesium (1.9-2.7) mg/dL Total Bilirubin (0.2-1.0) mg/dL AST (13-39) U/L ALT (7-52) U/L Alkaline Phosphatase (34-104) U/L Troponin I (<0.04) ng/mL B-Natriuretic Peptide 268 H ( - 100) pg/mL Total Protein (6.4-8.9) g/dL Albumin (3.2-5.2) g/dL Globulin (2-4) g/dL Albumin/Globulin Ratio (1-3) TSH Result Diagrams: 11/20/17 10:11 11/20/17 10:11 Lab Statement: Any lab studies that have been ordered have been reviewed, and results considered in the medical decision making process. - CT Chest/Thorax CTA CT Interpretation: Positive (See Comments) CT Interpretation Completed By: Radiologist - mildly limited examination due to motion artifact; no central pulmonary emboli; this report was reviewed by ED physician. - EKG 1014 Cardiac Rate: NL - rate of 87 BPM EKG Rhythm: Sinus Rhythm EKG Interpretation: RBBB Re-Evaluation - Re-Evaluation First Eval Re-Evaluation Time: 13:40 Comment: Discussed results of labs and tests with patient. He will be discharged to home with instructions. Patient was agreeable with this plan. Disposition - Course Course Of Treatment: Mr. Warner presented to the emergency department complaining of having his heart race all night long. This morning he's had tingling in his bilateral fingers. He was kept on a monitor here and noted to present in a sinus rhythm in the 90s which gradually slowed during his visit here to the 70s. His workup was negative aside from mildly elevated d-dimer which led to a CTA which was negative for PE. 2 troponins were negative as was his EKG. He was feeling improved and was discharged to follow up with his PCP, I don't think anything dangerous is happening at this time. - Diagnoses Provider Diagnoses: Heart palpitations Discharge - Sign-Out/Discharge Documenting (check all that apply): Patient Departure - discharge - Discharge Plan Condition: Stable Disposition: HOME Patient Education Materials: Heart Palpitations (ED) Referrals: Alex Hernández MD [Primary Care Provider] - 3 Days Additional Instructions: Follow up with primary care physician in 2-3 days. Return to ED for any changing or worsening Sx. - Billing Disposition and Condition Condition: STABLE Disposition: Home - Attestation Statements Document Initiated by Jessi: Yes Documenting Scribe: Rodrigue Betancur Provider For Whom Jessi is Documenting (Include Credential): Casey Jones MD Scribe Attestation: Rodrigue Perry, scribed for Casey Jones MD on 11/20/17 at 1835. Scribe Documentation Reviewed: Yes Provider Attestation: The documentation as recorded by the Rodrigue venegas accurately reflects the service I personally performed and the decisions made by me, Casey Jones MD
[2017-11-20] MEDS ORDERED: Iodixanol* (CONTRAST) 320 MG/ML 100 ML SDV IV ONE (12:52)
--- NOTE | 2017-11-20 13:30 | RAD ---
INDICATION: Chest pain. Short of breath. Evaluate for pulmonary embolus. COMPARISON: CTA chest August 03, 2017 TECHNIQUE: Axial source images were obtained from the thoracic inlet to the hemidiaphragms following administration of [address] angiographic technique was utilized. Coronal and sagittal reconstructed images were acquired. The examination is mildly limited due to motion artifact CHEST FINDINGS: Neck/thyroid: The visualized neck to include the thyroid appear normal. Chest wall: There are no acute abnormalities of the bony thorax or chest wall. There is no supraclavicular, infraclavicular, or axillary lymphadenopathy. Lungs : There are no pulmonary parenchymal masses or infiltrates. The pulmonary interstitium appears normal. There are no endobronchial lesions. Cardiomediastinal structures: There is no CT evidence of acute pulmonary central embolic disease. There are mild limitations due to motion artifact and beyond fourth order, the vessels are not optimally imaged. No abnormalities are seen, however. The heart is normal in size. There is no pericardial effusion. There is no evidence of aortic aneurysm or dissection. There is no mediastinal or hilar adenopathy. The esophagus appears normal. Pleura : There are no pleural-based masses or effusions. Other: Limited views the upper abdomen show bariatric surgery. IMPRESSION: MILDLY LIMITED EXAMINATION DUE TO MOTION ARTIFACT. NO CENTRAL PULMONARY EMBOLI
== END 2017-11-20 15:01 | disposition home or self-care (01) ==
LOC: ED 09:30
DX: R00.2 Palpitations (principal); R06.02 Shortness of breath
CPT/HCPCS: 36415; 71275; 80053; 83605; 83735; 83880; 84443; 84484; 85025; 85379; 85610; 93005; 99283; Q9967